=== PATIENT | male | born 1935 | race Caucasian/White ===

== ENCOUNTER → 2016-09-16 | Outpatient (REF) | payer MEDICARE, OTHER ==
[~2016-09-16] MED LIST: ALTA10CA OR; ASPI325T PO; ASPI81TA83 OR; AVOD0.5C OR; AVOD0.5C PO; ISOS30BRAN OR; ISOSORBIDE MON PO; LOPR50TA OR; LOPR50TA PO; Pradaxa PO; Ramipril PO; SIMV40TA2 PO; TRAM50TA2 OR; ZOCO40TA OR
[2016-09-19 13:04] LABS: TOTAL PROTEIN 6.1 GM/DL (6.4-8.2)
== END ==
LOC: M LAB REF 12:28
PROVIDERS: ATTEND Nurse Practitioner Family
DX: R06.02 Shortness of breath (principal)

== ENCOUNTER → 2017-09-05 | Outpatient (REF) | payer MEDICARE, OTHER | LOC: M LAB REF 15:25 | DX: L08.9 Local infection of the skin and subcutaneous tissue, unspecified (principal) | CPT/HCPCS: 87186 ==

== ENCOUNTER → 2018-01-29 | Outpatient (CLI) | payer MEDICARE, OTHER | LOC: M ADAMS 11:31 | DX: J84.9 Interstitial pulmonary disease, unspecified (principal) | CPT/HCPCS: 71046 ==

== ENCOUNTER → 2018-05-02 | Outpatient (REF) | payer MEDICARE, OTHER ==
[2018-05-02 13:52] LABS: PROSTATIC SPECIFIC AG MONITOR 0.29 NG/ML (< 4.0)
== END ==
LOC: M LABDRWAD 12:37
DX: N40.1 Benign prostatic hyperplasia with lower urinary tract symptoms (principal)
CPT/HCPCS: 84153

== ENCOUNTER → 2018-05-29 | Outpatient (CLI) | payer MEDICARE, OTHER | LOC: M PLARAD 11:49 | DX: R91.1 Solitary pulmonary nodule (principal) | CPT/HCPCS: 78815 ==

== ENCOUNTER 2018-07-23 16:46 | Emergency (ER) | payer MEDICARE, OTHER ==
[~2018-07-23] VITALS: Ht 177.8 cm; Wt 72.7 kg
[2018-07-23] MEDS ORDERED: FURO20TA2 PO (17:01)
[2018-07-23] MEDS ORDERED: DIGO0.12 PO (17:01)
[2018-07-23] MEDS ORDERED: SPIR-10 PO (17:01)
[2018-07-23] MEDS ORDERED: METO1TAB32 PO (17:01)
[2018-07-23 17:15] LABS: BASO # 0.1 10^3/uL (0.0-0.2); BASO % 0.7 % (0.0-1.0); EOS # 0.2 10^3/uL (0.0-0.50); EOS % 2.4 % (0.0-3.0); HEMOGLOBIN 14.4 g/dl (13.5-17.5); LYMPH # 1.1 10^3/uL (1.5-4.5); LYMPH % 15.8 % (24.0-44.0); MEAN CORPUSCULAR HEMOGLOBIN 31.2 pg (27.0-33.0); MEAN CORPUSCULAR HGB CONC 32.7 g/dl (32.0-36.5); MEAN CORPUSCULAR VOLUME 95.2 fl (80.0-96.0); MONO # 0.8 10^3/uL (0.0-0.8); MONO % 11.8 % (0.0-5.0); NEUTROPHILS # 4.7 10^3/uL (1.8-7.7); NEUTROPHILS % 68.7 % (36.0-66.0); PLATELET COUNT, AUTOMATED 161 10^3/uL (150-450); RED BLOOD COUNT 4.62 10^6/uL (4.30-6.10); WHITE BLOOD COUNT 6.8 10^3/uL (4.0-10.0)
[2018-07-23 17:22] LABS: INR 1.87; PROTHROMBIN TIME 21.9 SECONDS (12.1-14.4)
[2018-07-23 17:24] LABS: PARTIAL THROMBOPLASTIN TIME 58.9 SECONDS (25.4-37.6)
[2018-07-23] MEDS ORDERED: AMIODARONE HCL 150 MG in APPROPRIATE DILUENT 1 EA IV STA (17:34)
--- NOTE | 2018-07-23 17:56 | REP ---
Chest one-view HISTORY: Arrhythmia Comparison: 01/29/2018 A minimal increase in interstitial markings is present in the lower lobes consistent with chronic interstitial fibrosis. The heart is normal in size. The pulmonary vasculature is normal in appearance. A cardiac pacemaker is present. Impression: Bibasilar chronic interstitial fibrosis. Electronically Signed by Darwin Westfall MD 07/23/2018 05:47 P
[2018-07-23 18:07] LABS: CREATININE FOR GFR 1.4 MG/DL (0.70-1.30); GLOMERULAR FILTRATION RATE 51.3 (>35); MB/CK RELATIVE INDEX 4.23 (< OR =4); THYROID STIMULATING HORMONE 2.31 uIU/ML (0.358-3.740); TROPONIN I 0.14 NG/ML (< 0.10)
[2018-07-23 18:32] LABS: DIGOXIN LEVEL 0.7 NG/ML (0.5-2.0)
[2018-07-23] MEDS ORDERED: DABIGATRAN ETEXILATE 75 MG CAP (PRADAXA) PO ONE (19:15)
[2018-07-23 21:21] LABS: MB/CK RELATIVE INDEX 4.31 (< OR =4); TROPONIN I 0.18 NG/ML (< 0.10)
[2018-07-23 21:31] VITALS: BP 142/60
--- NOTE | 2018-07-24 19:49 | ECGEPIP ---
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
--- NOTE | 2018-07-24 19:51 | ECGEPIP ---
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
== END 2018-07-23 21:52 | disposition home or self-care (01) ==
LOC: M ED 16:46
DX: I48.91 Unspecified atrial fibrillation (principal); I49.9 Cardiac arrhythmia, unspecified; I10 Essential (primary) hypertension; E78.5 Hyperlipidemia, unspecified; Z95.0 Presence of cardiac pacemaker

== ENCOUNTER 2018-08-23 05:51 | Day surgery (SDC) | payer MEDICARE, OTHER ==
[~2018-08-23] VITALS: Ht 177.8 cm; Wt 71.7 kg
[~2018-08-23 05:51] MED LIST changes: +ASPI1TAB PO; +DIGO0.12 PO; +DUTA1CAP PO; +FURO20TA2 PO; +ISOS30TA4; +METO1TAB32 PO; +NITR0.4D6 TD; +PRAD150C PO; +SPIR-10 PO
[2018-08-23] MEDS ORDERED: LR 1,000 ML IV SCH (07:00)
[2018-08-23] MEDS ORDERED: BUPIVACAINE HCL 0.25% 30 ML VIAL As Ordered ONE (07:14)
[2018-08-23] MEDS ORDERED: LIDOCAINE 1% MDV 20ML VIAL As Ordered ONE (07:14)
[2018-08-23] MEDS ORDERED: PROPOFOL 200 MG/20 ML VIAL As Ordered ONE (07:48)
[2018-08-23] MEDS ORDERED: fentaNYL 100 MCG/2 ML INJECTION (J3010) As Ordered ONE (07:48)
[2018-08-23] MEDS ORDERED: ePHEDrine SULFATE 25 MG/5 ML(5MG/ML) SYRINGE As Ordered ONE (07:48)
[2018-08-23] MEDS ORDERED: diphenhydrAMINE INJ 50MG/ML VIAL (J1200) As Ordered ONE (07:48)
[2018-08-23] MEDS ORDERED: LIDOCAINE 2% INJ 100 MG/5 ML SDV (FOR ANES.) As Ordered ONE (07:48)
[2018-08-23] MEDS ORDERED: SEVOFLURANE INHAL SOLN 250 ML BTL As Ordered ONE (08:06)
[2018-08-23] MEDS ORDERED: PHENYLephrine HCL 500 MCG/5 ML (100MCG/ML) SYRINGE (J2370) As Ordered ONE (08:08)
[2018-08-23 10:14] VITALS: BP 105/63
--- NOTE | 2018-08-27 11:05 | RO ---
DATE OF PROCEDURE: 08/23/2018 PREOPERATIVE DIAGNOSIS: Right supraclavicular area lymphadenopathy with abnormal PET scan. POSTOPERATIVE DIAGNOSIS: Right supraclavicular area lymphadenopathy with abnormal PET scan. PROCEDURE PERFORMED: Open excisional biopsy of right supraclavicular lymph nodes. SURGEON: Dr. 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 The lung nodule did not light up on PET scan, but he was noted to have some significant uptake in an area of high right axillary nodes and soft tissue around the acromioclavicular joint area and into the supraclavicular area. A definite palpable node was felt along the superior aspect of the clavicle distally. He is now for biopsy of this node. OPERATIVE PROCEDURE: The patient was brought to the operating room and placed supine on the operating table. He received sedation from anesthesia. The patient's right neck, shoulder and upper chest were prepped and draped in a sterile fashion. Palpation revealed an approximately 2-2.5 cm flat enlarged lymph node adherent along the superior posterior border of the clavicle distally. Local anesthesia was achieved in the skin using 1% Xylocaine. An approximately 3-3.5 cm skin incision was made. This was deepened through a thin layer of subcutaneous tissues and then a muscle layer was opened and the tissues around the lymph node were opened. The subcutaneous tissues were peeled away from the node. A plane was then developed between the node and the superior aspect of the clavicle opening this avascular plane. Dissection proceeded primarily using the cautery to separate the node and this was removed. This was approximately 2.5 cm in length x 1.5 cm in width x approximately 6-7 mm maximally in thickness. This was placed in a small amount of saline and sent fresh to the pathology department for evaluation. The wound was inspected and hemostasis was ensured with the electrocautery. Once hemostasis was ensured, the muscle layer was approximated with interrupted simple sutures of #3-0 chromic. The skin edges were approximated with a running subcuticular #4-0 Vicryl and Steri-Strips. A light dressing was applied. The patient tolerated the procedure well without apparent complication. He was awakened and moved to advanced recovery in stable condition.
== END 2018-08-23 10:14 | disposition home or self-care (01) ==
LOC: M SDC 05:51
PROVIDERS: ATTEND Surgery
DX: C85.94 Non-Hodgkin lymphoma, unspecified, lymph nodes of axilla and upper limb (principal); R91.1 Solitary pulmonary nodule; I11.9 Hypertensive heart disease without heart failure; I25.2 Old myocardial infarction; I50.32 Chronic diastolic (congestive) heart failure; I48.0 Paroxysmal atrial fibrillation; Z95.0 Presence of cardiac pacemaker; Z79.01 Long term (current) use of anticoagulants; Z88.0 Allergy status to penicillin; Z79.82 Long term (current) use of aspirin; Z79.899 Other long term (current) drug therapy; N40.0 Benign prostatic hyperplasia without lower urinary tract symptoms; E78.00 Pure hypercholesterolemia, unspecified; F32.9 Major depressive disorder, single episode, unspecified
CPT/HCPCS: 38500; 88305; 88331; J1200; J2370; J3010

== ENCOUNTER 2018-10-12 07:21 | Emergency (ER) | payer MEDICARE, OTHER ==
[~2018-10-12] VITALS: Ht 177.8 cm; Wt 72.7 kg
[~2018-10-12 07:21] MED LIST changes: -ASPI1TAB PO; +ASPI81TA26 PO; -PRAD150C PO; +PRAD150C6 PO
[2018-10-12 08:45] LABS: BASO % 0.7 % (0.0-1.0); EOS # 0.3 10^3/uL (0.0-0.50); HEMATOCRIT 39.1 % (42.0-52.0); HEMOGLOBIN 12.8 g/dl (13.5-17.5); LYMPH # 0.8 10^3/uL (1.5-4.5); LYMPH % 14.2 % (24.0-44.0); MEAN CORPUSCULAR HEMOGLOBIN 30.8 pg (27.0-33.0); MEAN CORPUSCULAR HGB CONC 32.7 g/dl (32.0-36.5); MEAN CORPUSCULAR VOLUME 94.2 fl (80.0-96.0); MONO # 0.8 10^3/uL (0.0-0.8); MONO % 13.4 % (0.0-5.0); NEUTROPHILS # 3.7 10^3/uL (1.8-7.7); NEUTROPHILS % 66.3 % (36.0-66.0); PLATELET COUNT, AUTOMATED 163 10^3/uL (150-450); RED BLOOD COUNT 4.15 10^6/uL (4.30-6.10); WHITE BLOOD COUNT 5.6 10^3/uL (4.0-10.0)
[2018-10-12 09:00] LABS: BLOOD UREA NITROGEN 16 MG/DL (7-18); CALCIUM LEVEL 8.6 MG/DL (8.8-10.2); CARBON DIOXIDE LEVEL 25 MEQ/L (21-32); CHLORIDE LEVEL 110 MEQ/L (98-107); CREATININE FOR GFR 1.12 MG/DL (0.70-1.30); GLOMERULAR FILTRATION RATE > 60.0 (>35); GLUCOSE, FASTING 90 MG/DL (70-100); POTASSIUM SERUM 3.8 MEQ/L (3.5-5.1); SODIUM LEVEL 141 MEQ/L (136-145)
[2018-10-12 09:35] LABS: CPK CREATINE PHOSPHOKINASE 65 U/L (39-308); MB/CK RELATIVE INDEX 3.85 (< OR =4); NT-PRO BNP 2110 PG/ML (<450); TROPONIN I 0.07 NG/ML (< 0.10)
--- NOTE | 2018-10-12 09:51 | REP ---
At x-ray: Two views. History: Progressive cough. Dyspnea on exertion. Comparison chest x-ray: July 23, 2018. Findings: A bipolar pacemaker remains in the heart via the left side. EKG electrodes are seen. The lungs are symmetrically aerated. Interstitial markings are prominent in the bases bilaterally. There is very slight blunting of the right lateral and both pleural angles posteriorly. Size is borderline. Cardiothoracic ratio is 48.8 percent. No bony abnormality is seen. Impression: Borderline heart size with pacemaker. Increased bibasilar interstitial markings unchanged. Slight blunting of the pleural angles. Electronically Signed by Jerome Grullon MD 10/12/2018 09:43 A
[2018-10-12 11:36] VITALS: BP 148/81
--- NOTE | 2018-10-12 20:30 | ECGEPIP ---
Stationary ECG Study 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
== END 2018-10-12 12:17 | disposition home or self-care (01) ==
LOC: M ED 07:21
DX: I50.9 Heart failure, unspecified (principal); I48.91 Unspecified atrial fibrillation; I25.10 Atherosclerotic heart disease of native coronary artery without angina pectoris; I25.2 Old myocardial infarction; E78.5 Hyperlipidemia, unspecified; Z79.899 Other long term (current) drug therapy; Z86.73 Personal history of transient ischemic attack (TIA), and cerebral infarction without residual deficits; Z85.9 Personal history of malignant neoplasm, unspecified; Z98.890 Other specified postprocedural states; Z91.041 Radiographic dye allergy status; Z88.0 Allergy status to penicillin; Z91.02 Food additives allergy status

== ENCOUNTER → 2018-12-17 | Outpatient (CLI) | payer MEDICARE, OTHER ==
[~2018-12-17] MED LIST changes: +ATIV1TAB10 PO; +DILT60TA PO; +READI-CAT 2 As Ordered ONE; +ROSU10TA5 PO; +ZYRTTAB8 PO
--- NOTE | 2018-12-17 18:20 | REP ---
CT CHEST WITHOUT IV CONTRAST: CT chest was performed without IV contrast. Sagittal and coronal reconstruction images are performed. Comparison is major depressive episode with prior study of 02/24/2018. There is right axillary adenopathy which has increased since prior study. Beneath the pectoralis minor a dominant enlarged lymph node laterally measures 2.7 x 1.4 cm. Slightly more medially and superiorly there are two adjacent lymph nodes measuring 1.7 and 1.5 cm. These have increased in size since the prior study. Adjacent axillary vein appears dilated. There are a few left axillary lymph nodes which are subcentimeter in size. Several subcentimeter mediastinal lymph nodes are present. These appear fairly similar to prior CT exam. Heart is not significantly enlarged. There is no pleural or pericardial effusion. Multiple tiny calcified granulomas are scattered throughout the right upper lobe. Moderate fibrotic changes and bronchiectasis is seen in the right lower lobe. In addition there is a stable 6 mm nodule in the right lower lobe. Left lower lobe also demonstrates moderate fibrotic change and bronchiectasis. There are degenerative changes of the spine. IMPRESSION: New right axillary adenopathy. Multiple subcentimeter mediastinal and left axillary lymph nodes are stable. Stable chronic findings in the lungs. Electronically Signed by Minesh Biswas MD 12/18/2018 12:43 P
--- NOTE | 2018-12-17 18:31 | REP ---
CT ABDOMEN AND PELVIS WITHOUT IV CONTRAST: CT abdomen and pelvis was performed without IV contrast. Oral contrast was administered. Saggital and coronal reconstruction images are performed. The liver, spleen, adrenals, pancreas and kidneys are grossly unremarkable. There is no hydronephrosis. There is atherosclerotic calcification of the abdominal aorta without aneurysm. A large mass is seen in the left pelvis along the side wall measuring approximately 6.1 x 3.2 cm. Superior to this along the left external iliac and common iliac vessels there are multiple mildly enlarged lymph nodes. Some are subcentimeter is size and others measures between 1 and 2 cm in diameter. In the left inguinal region are several subcentimeter lymph nodes present. There is no free air or free fluid. No bowel wall thickening is seen. There is sigmoid diverticulosis. Urinary bladder is not well distended and not well evaluated IMPRESSION: Large soft-tissue mass along the left pelvic sidewall 6.1 x 3.2 cm. There is a adjacent left common iliac and external iliac adenopathy. Electronically Signed by Minesh Biswas MD 12/18/2018 12:43 P
== END ==
LOC: M RAD 14:13
PROVIDERS: ATTEND Internal Medicine Medical Oncology
DX: C82.90 Follicular lymphoma, unspecified, unspecified site (principal)

== ENCOUNTER → 2019-02-19 | Outpatient (CLI) | payer MEDICARE, OTHER ==
[~2019-02-19] MED LIST changes: +LEVO500T3 PO; -READI-CAT 2 As Ordered ONE; -ROSU10TA5 PO; +ROSU10TA6 PO
--- NOTE | 2019-02-20 08:46 | REP ---
PET/CT: History: Staging follicular lymphoma. 2-month interval surveillance to assess whether treatment should be started. Comparisons: Comparison PET/CT study May 29, 2018. TECHNIQUE: 71 minutes following the intravenous injection of a 9.26 mCi dose of F-18 FDG, three-dimensional PET scintigraphy is acquired from the skull base to the proximal thighs. Triplanar noncontrast CT scanning is acquired through the same anatomic range for attenuation correction, and image registration with scan parameters optimized to minimize radiation exposure to the patient. PET scintigraphy and CT datasets were fused and displayed on a workstation with multiplanar and projection display capability. PET/CT Findings: Right supraclavicular lymphadenopathy remains hypermetabolic and essentially unchanged. Maximum standard uptake value 30.99. Right axillary hypermetabolic adenopathy is seen and this appears a little more prominent. SUV 14.59. No alveolar infiltrate in the right lower lobe with mildly hypermetabolic uptake consistent with pneumonia. Maximum standard uptake value 3.73. There has been an interval increase in the size and extent of the distal periaortic lymphadenopathy and left pelvic sidewall lymphadenopathy. There is new hypermetabolic polo uptake in the right common iliac lymph node chain. The left pelvic sidewall iliac adenopathy has become more bulky and remains quite hypermetabolic. Maximum standard uptake value 21.1. Impression: 1. There is evidence of progressive hypermetabolic adenopathy in the right and left pelvis and in the distal periaortic lymph node chains. There is some increase in right axillary adenopathy. 2. A new infiltrate is seen in the right lower lobe consistent with pneumonia. Electronically Signed by Jerome Grullon MD 02/20/2019 09:15 A
== END ==
LOC: M PLARAD 08:00
PROVIDERS: ATTEND Internal Medicine Medical Oncology
DX: C82.91 Follicular lymphoma, unspecified, lymph nodes of head, face, and neck (principal)
CPT/HCPCS: 78815; A9552

== ENCOUNTER → 2019-02-27 | Outpatient (CLI) | payer MEDICARE, OTHER ==
--- NOTE | 2019-02-27 21:47 | ECHO ---
DATE OF PROCEDURE: 02/27/2019 REFERRING PHYSICIAN: Dr. Darlene Iqbal PATIENT LOCATION: REASON FOR ECHOCARDIOGRAM: Non-Hodgkin lymphoma, chemotherapy drug monitoring. 2D MEASUREMENTS: IVS: 1.3 cm LV: 4.5 cm LVPW: 1.4 cm LA: 4.5 cm Aorta: 4.0 cm RV: 2.6 cm IVC: 1.1 cm DOPPLER MEASUREMENTS: Peak velocity across the aortic valve: 1.4 m/s Peak velocity across the LVOT: 1.8 m/s Mitral E: 0.82 Maximum tricuspid valve velocity: 3.1 m/s 2D COMMENTS: 1. Normal left ventricular size with mildly increased left ventricular wall thickness. Left ventricular systolic function is normal, estimated at 60%. 2. Mildly enlarged left atrium. Mildly dilated right atrium. Normal right ventricle. 3. The atrial septum appeared to be normal without evidence of defect or shunt. 4. Mildly enlarged aortic root at 4.0 cm. 5. Trace pericardial effusion noted, no evidence of cardiac tamponade. 6. Mildly calcified aortic valve with normal leaflet excursion. Mildly calcified mitral annulus with normal anterior mitral valve leaflet motion. Normal tricuspid valve and pulmonic valve. The proximal pulmonary artery branches also appeared to be normal. 7. The inferior vena cava was normal in size, central venous pressure is most likely normal. DOPPLER: It detects mild aortic regurgitation, mild mitral regurgitation, moderate tricuspid regurgitation, and mild pulmonic regurgitation. The calculated pulmonary artery systolic pressure varies between 40 to 50 mmHg. Assessment of the left ventricular diastolic function was limited in view of the underlying atrial fibrillation. IMPRESSION: 1. Normal global left ventricular systolic function with mild concentric left ventricular hypertrophy. Assessment of the left ventricular systolic function was limited in view of the underlying atrial fibrillation. 2. Aortic valve sclerosis with mild aortic regurgitation but no aortic stenosis. 3. A mildly dilated aortic root was noted at 4.0 cm. 4. Mildly enlarged left atrium with mitral annulus calcification and mild mitral regurgitation. 5. Moderate tricuspid regurgitation with moderate pulmonary hypertension. 6. Mild pulmonic regurgitation. 7. Trace pericardial effusion was noted, no evidence of cardiac tamponade. 8. Pacemaker wire artifacts noted in the right heart chambers. 9. The global longitudinal strain was reported to be 11.4%, below normal.
== END ==
LOC: M CARPUL 09:09
PROVIDERS: ATTEND Internal Medicine Medical Oncology
DX: C82.90 Follicular lymphoma, unspecified, unspecified site (principal); I25.2 Old myocardial infarction; I10 Essential (primary) hypertension; E78.49 Other hyperlipidemia

== ENCOUNTER → 2019-03-12 | Outpatient (REF) | payer MEDICARE, OTHER ==
[~2019-03-12] MED LIST changes: +NITR0.4S14 SL; +ONDA8TAB7 PO; +PRED10TA2 PO; +PROC10TA4 PO
== END ==
LOC: M LAB REF 17:00
PROVIDERS: ATTEND Internal Medicine
DX: I48.0 Paroxysmal atrial fibrillation (principal)

== ENCOUNTER → 2019-04-29 | Outpatient (CLI) | payer MEDICARE, OTHER ==
[~2019-04-29] MED LIST changes: +DILT30TA PO; +READI-CAT 2 As Ordered ONE
--- NOTE | 2019-04-29 13:39 | REP ---
REASON FOR EXAM: History of lymphoma. All priors were reviewed, the latest of which is dated 12/17/2018. The lack of intravenous contrast administration decreases the sensitivity of the examination. The mediastinum and pulmonary shannan are stable. Multiple nonenlarged lymph nodes are noted, status quo. There is a small right pleural effusion which has developed since the latest prior exam of 12/17/2018. Bone window technique throughout the exam shows the imaged osseous structures to have a stable appearance. The imaged upper abdomen has not changed significantly compared to the prior exam. Right axillary adenopathy seen on the latest prior examination has improved. Only a few lymph nodes are now pathologically enlarged. Evaluation of the lung summers shows scattered ground-glass opacities representing a change from the prior exam without evidence of a new abnormal nodule or spiculated lesion. There is cylindrical bronchiectasis, status quo. There is basilar fibrotic change, status quo. Note is again made of a dual-chamber bipolar pacemaker, status quo. IMPRESSION: 1. Improved adenopathy, as described above. 2. Lung field findings as described above suggestive of subsegmental atelectatic change. This should be correlated clinically and if necessary obtain a followup exam. 3. There is cylindrical bronchiectasis, status quo. 4. There is a new but small right pleural effusion. This should be followed up as per clinical relevance. 5. Other findings as described above. Electronically Signed by Ravi Garcia DO 04/29/2019 04:42 P
--- NOTE | 2019-04-29 14:34 | REP ---
REASON FOR EXAM: History of lymphoma. COMPARISON: Multiple, the latest 12/17/2018. The lack of intravenous contrast decreases the sensitivity of the exam. For the description of the lung bases, see the CT of the chest report made the same day. Limited evaluation of the solid intra-abdominal organs and gallbladder show no gross abnormalities or significant changes from the prior exam. Limited evaluation of the pancreas, adrenal glands and kidneys show no gross abnormalities or significant changes from the prior exam. Limited evaluation of the abdominal aorta and para-aortic regions show no gross abnormalities or significant changes from the prior exam. Scattered para-aortic lymph nodes show are noted, status quo. Limited evaluation of the bowel loops and their mesenteries show no gross abnormalities or significant changes from the prior exam. There is no free fluid or free air in the abdomen. There is no evidence of an intra-abdominal mass or adenopathy. CT PELVIS: There is sigmoid colon diverticulosis. The marked left hemipelvic sidewall adenopathy seen on the prior exam has improved slightly. There is no free fluid or free air. Bone window technique throughout the exam shows chronic changes involving the spine and hips. IMPRESSION: The left hemipelvic sidewall adenopathy seen on the prior examination of 12/17/2018 appears to have improved somewhat. There is no acute intra-abdominal or intrapelvic disease. Findings as described above. Electronically Signed by Ravi Garcia DO 04/29/2019 04:43 P
== END ==
LOC: M RAD 09:29
PROVIDERS: ATTEND Internal Medicine Medical Oncology
DX: C85.90 Non-Hodgkin lymphoma, unspecified, unspecified site (principal); J90 Pleural effusion, not elsewhere classified; J47.9 Bronchiectasis, uncomplicated

== ENCOUNTER 2019-04-30 12:40 | Inpatient (IN) | payer MEDICARE, OTHER ==
[~2019-04-30] VITALS: Ht 172.7 cm; Wt 64.4 kg
[~2019-04-30 12:40] MED LIST changes: -DILT30TA PO; -READI-CAT 2 As Ordered ONE
[2019-04-30 13:40] LABS: BASO # 0.1 10^3/uL (0.0-0.2); BASO % 0.6 % (0.0-1.0); EOS # 0.2 10^3/uL (0.0-0.5); EOS % 1.9 % (0.0-3.0); HEMATOCRIT 27.9 % (42.0-52.0); HEMOGLOBIN 9.1 g/dl (13.5-17.5); LYMPH # 0.5 10^3/uL (1.5-5.0); LYMPH % 6.2 % (24.0-44.0); MEAN CORPUSCULAR HEMOGLOBIN 30.5 pg (27.0-33.0); MEAN CORPUSCULAR HGB CONC 32.6 g/dl (32.0-36.5); MEAN CORPUSCULAR VOLUME 93.6 fl (80.0-96.0); MONO # 1.3 10^3/uL (0.0-0.8); MONO % 16.2 % (0.0-5.0); NEUTROPHILS # 5.6 10^3/uL (1.5-8.5); NEUTROPHILS % 71.3 % (36.0-66.0); PLATELET COUNT, AUTOMATED 221 10^3/uL (150-450); RED BLOOD COUNT 2.98 10^6/uL (4.30-6.10); WHITE BLOOD COUNT 7.9 10^3/uL (4.0-10.0)
[2019-04-30] MEDS ORDERED: ALBUTEROL SULFATE 2.5 MG/0.5 ML INH NEB SOLN INH ONE (14:30)
[2019-04-30] MEDS ORDERED: IPRATROPIUM 0.5MG/ALBUTEROL 2.5MG INH SOL UD 3ML (DUONEB)(J7620) NEB ONE (14:30)
--- NOTE | 2019-04-30 14:41 | ECGEPIP ---
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
[2019-04-30 14:42] LABS: ALBUMIN 2.9 GM/DL (3.2-5.2); ALT/SGPT 28 U/L (12-78); BILIRUBIN,DIRECT 0.3 MG/DL (0.0-0.2); BILIRUBIN,TOTAL 0.9 MG/DL (0.2-1.0); BLOOD UREA NITROGEN 21 MG/DL (7-18); CALCIUM LEVEL 8.6 MG/DL (8.8-10.2); CARBON DIOXIDE LEVEL 23 MEQ/L (21-32); CHLORIDE LEVEL 108 MEQ/L (98-107); CK-MB VALUE MASS 1.9 NG/ML (<3.6); CPK CREATINE PHOSPHOKINASE 64 U/L (39-308); CREATININE FOR GFR 1.04 MG/DL (0.70-1.30); DIGOXIN LEVEL 1.6 NG/ML (0.5-2.0); GLOMERULAR FILTRATION RATE > 60.0 (>35); GLUCOSE, FASTING 122 MG/DL (70-100); MB/CK RELATIVE INDEX 2.97 (< OR =4); NT-PRO BNP 4590 PG/ML (<450); POTASSIUM SERUM 3.9 MEQ/L (3.5-5.1); SODIUM LEVEL 139 MEQ/L (136-145); TOTAL PROTEIN 5.5 GM/DL (6.4-8.2)
[2019-04-30 15:20] LABS: ABG BASE EXCESS -2.5 (-2.0-2.0); ABG HCO3 19.5 MEQ/L (22.0-26.0); ABG O2 SATURATION 97.8 % (95.0-99.0); ABG PARTIAL PRESSURE CO2 24.8 mmHg (35.0-45.0); ABG PARTIAL PRESSURE O2 105.5 mmHg (75.0-100.0); ABG STANDARD HCO3 22.4 MEQ/L (22.0-26.0); ABG TOTAL CO2 20.2 MEQ/L (23.0-31.0); ABG pH (ARTERIAL) 7.513 UNITS (7.350-7.450)
--- NOTE | 2019-04-30 15:42 | REP ---
CHEST, SINGLE VIEW: Single view of the chest is performed and compared to prior study of 10/12/2018. The heart is upper limits of normal in size. Increased interstitial markings in the lung bases are again noted, unchanged. No new consolidating infiltrate is seen. There is calcification and tortuosity of the thoracic aorta. Left dual lead pacemaker is again noted. IMPRESSION: Stable chronic changes. Electronically Signed by Minesh Biswas MD 05/01/2019 12:28 P
[2019-04-30] MEDS ORDERED: DILT30TA PO (16:23)
[2019-04-30] MEDS ORDERED: PRED10TA2 PO (16:23)
[2019-04-30] MEDS ORDERED: FURO20TA2 PO (16:24)
[2019-04-30] MEDS ORDERED: ACETAMINOPHEN TAB 650MG DOSE (2X325MG) PO PRN (16:30)
[2019-04-30] MEDS ORDERED: ONDANSETRON 4 MG TAB (S0181) PO PRN (17:00)
[2019-04-30] MEDS ORDERED: PROCHLORPERAZINE 5 MG TAB (S0183) PO PRN (17:00)
[2019-04-30] MEDS ORDERED: NITROGLYCERIN 0.4 MG SUBL TABLET SL PRN (17:00)
[2019-04-30] MEDS ORDERED: predniSONE 10 MG TAB PO SCH (17:00)
[2019-04-30] MEDS ORDERED: BENZONATATE 100 MG CAP PO PRN (17:45)
--- NOTE | 2019-04-30 17:59 | HPEPDOC ---
[facility] Medical History & Physical Date of Admission Apr 30, 2019 Date of Service: Apr 30, 2019 Attending Physician: CIRO PELLETIER MD History and Physical CHIEF COMPLAINT: Shortness of Breath HISTORY OF PRESENT ILLNESS: Misael Stubbs is an 83 YO M with history of DLBCL non-Hodgkin's lymphoma with follicular/DLBCL, CHF (with pacemaker, last EF60%), Atrial fibrillation (on Pradaxa) who presented to the emergency room with complaint of shortness of breath. The patient has had this shortness of breath for 6 weeks. He states that he spends most of his days sitting as he has low energy levels and it is difficult for him to complete daily tasks. He also complains of cough with production of scant hemoptysis that can sometimes cause him to feel extremely weak, and the feeling of always being cold. Otherwise, he denies any fevers, chills, sick contacts, recent illnesses. He is not complaining of any dark tarry stools or blood in his stool. In addition, he follows with Dr. Osorio for his atrial fibrillation and congestive heart failure (pacemaker placement in 2015), for which she intermittently gets subjectively fluid overloaded with lower extremity edema and weight gain. He increases his Lasix as needed. In the emergency room. He is found to be anemic with a hemoglobin of 9.1, positive rhinovirus, and have a BNP of 4590. PAST MEDICAL HISTORY: 1. 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 Right axillary, left inguinal, pelvic bulky progression in December 2018. Now on mini R-CHOP 2. Subcentimeter right lung nodules followed by Dr. Lawson of pulmonology 3. CAD status post NSTEMI in 2010; 2015 cardiac cath 80% occlusion at D1, otherwiseno coronary occlusion. 4. CVA 2011. 5. Left atrial thrombus 2011 on echo. 6. Hypertension. 7. Atrial fibrillation. 8. BPH. 9. CHF (diastolic). Last echo 02/2019. EF60% 10. Hypercholesterolemia. 11. Microhematuria. 12. Gout. PAST SURGICAL HISTORY: Cardiac catheterization 2010 and 2016 vasectomy tonsillectomy loop recorder 2016 permanent pacemaker 2016 cataract surgery skin cancer removal SOCIAL HISTORY: Lives at home with . Never smoker. Occasional alcohol use FAMILY HISTORY: Reviewed and is currently non-contributory to this current hospitalization ALLERGIES: Please see below. REVIEW OF SYSTEMS: CONSTITUTIONAL: Reports difficulty exerting himself due to his shortness of breath HEENT: denies vision changes, no sinus problems, denies any trouble swallowing CARDIOVASCULAR: no palpitations RESPIRATORY: Reports shortness of breath at rest and with activity GENITOURINARY: No dysuria MUSCULOSKELETAL: Denies any joint/muscle pain GASTROINTESTINAL: Denies abdominal pain, no nausea/vomiting/diarrhea SKIN: No new rashes or lesions NEUROLOGICAL: No loss of sensation PSYCHIATRIC: Reports normal mood, no delusions or hallucinations ENDOCRINE: No hot/cold intolerance HEMATOLOGIC/LYMPHATIC: No easy bruising, no lumps/bumps ALLERGIC/IMMUNOLOGIC: No sinus symptoms HOME MEDICATIONS: Please see below. PHYSICAL EXAMINATION: VITAL SIGNS: Please see below. GENERAL APPEARANCE: Laying in bed, appears stated age, no acute distress, calm, cooperative HEENT: Dry mucous membranes, EOMI, PERRLA, conjunctival pallor is noted, neck is supple with no thyromegaly or lymphadenopathy RESPIRATORY: Lungs are clear to auscultation bilaterally with no adventitious breath sounds appreciated CARDIOVASCULAR: JVD is normal at 10 cm from sternal angle, RRR,no murmurs/rubs/gallops ABDOMEN: Soft, nontender to palpation in all four quadrants, no masses/o rganomegaly EXTREMITIES: no clubbing, cyanosis or edema noted NEUROLOGICAL: No obvious focal deficits PSYCHIATRIC: normal mood/affect Skin: No rashes or ulcers, Capillary refill is normal LN: No significant cervical or inguinal lymphadenopathy LABORATORY DATA: See below. IMAGING: CXR: The heart is upper limits of normal in size. Increased interstitial markings in the lung bases are again noted, unchanged. No new consolidating infiltrate is seen. There is calcification and tortuosity of the thoracic aorta. Left dual lead pacemaker is again noted. MICROBIOLOGY: Please see below. ASSESSMENT: Misael Stubbs is a 83 YO M with history of DLBCL, CHF and AF who presents with 6 weeks of shortness of breath in the setting of ongoing chemotherapy (R-CHOP) found to be anemic with hemoglobin of 9.1. PLAN: 1. Shortness of breath: Patient reports his shortness of breath has been present for about 6 weeks in the setting of his ongoing chemotherapy treatment. He is unable to exert himself very much due to his shortness of breath. He recently began coughing with enough force to produce scant hemoptysis. He is not producing any sputum. Shortness of breath, most likely attributed to anemia seco ndary to chemotherapy, versus less likely CHF exacerbation, versus less likely pneumonia. -Chest x-ray negative for any acute process -Patient is Afebrile with normal WBC, less likely PNA -Hgb 9.1 down from baseline 13-14. Type and cross ordered if needed. -Tessalon Pearls for Cough -DuoNebs as needed 2. Anemia: patient denies black/tarry stools, BRBPR, melena. He does report scant hemoptysis. Most likely 2/2 his R-CHOP chemotherapy regimen but will do full workup to r/o GIB vs BM suppression -Will transfuse for Hgb < 7 -Hemolysis labs ordered: LDH, haptoglobin, reticulocyte count, peripheral smear -Iron levels ordered 3. Chronic diastolic CHF: Patient does not appear acutely fluid overloaded on exam but does have elevated BNP at 4590. He does report some weight fluctuation at this point compared to pre-treatment weight, mostly that he has gained weight. He self-titrates his Lasix at home. -Will start patient on 40mg PO Lasix BID for now -Strict I/O and Daily weights. 4. Atrial Fibrillation: Patient's HR in 80s. EKG without changes from prior. -Continue Pradaxa for anticoagulation -Continue Diltiazem 30mg TID for rate control -Continue Digoxin 0.125 mg PO daily. Digoxin level WNL 5. DLBC non-Hodgkin's lymphoma: -Follows with Dr. Darlene Iqbal. Next cycle of chemo scheduled for 05/02. He was recently seen by her on 04/[address] chest and CT abd/pelvis for restaging. -Known lung nodule followed by Dr. Lawson -currently undergoing R-CHOP therapy (Cyclophosphamide, Doxorubicin, Vincristine, Prednisone) + Rituximab. Anemia is a known side effect of R-CHOP and current recommendations state transfusion for Hgb <7 appropriate with goal to keep hgb between 8 and 9. -Continue Compazine for nausea 6. History of CAD: -Continue Rosuvastatin -Nitroglycerin PRN for anginal pain 7. BPH: -Continue Dutasteride DISPO: Pending anemia workup Vital Signs Vital Signs Date Time Temp Pulse Resp B/P (MAP) Pulse Ox O2 Delivery O2 Flow Rate FiO2 04/30/19 14:48 20 04/30/19 14:15 99.7 84 104/51 (68) 97 Nasal Cannula 3.0 Laboratory Data Labs 24H Laboratory Tests 2 04/30/19 13:16: Immature Granulocyte % (Auto) 3.8H, Neutrophils (%) (Auto) 71.3H, Lymphocytes (%) (Auto) 6.2L, Monocytes (%) (Auto) 16.2H, Eosinophils (%) (Auto) 1.9, Basophils (%) (Auto) 0.6, Neutrophils # (Auto) 5.6, Lymphocytes # (Auto) 0.5L, Monocytes # (Auto) 1.3H, Eosinophils # (Auto) 0.2, Basophils # (Auto) 0.1, Nucleated Red Blood Cells % (auto) 0.6H, Anion Gap 8, Glomerular Filtration Rate > 60.0, Lactic Acid Level 2.0, Calcium Level 8.6L, Total Bilirubin 0.9, Direct Bilirubin 0.3H, Aspartate Amino Transf (AST/SGOT) 20, Alanine Aminotransferase (ALT/SGPT) 28, Alkaline Phosphatase 66, Total Creatine Kinase 64, Creatine Kinase MB 1.9, Creatine Kinase MB Relative Index 2.97, Troponin I 0.10, FA-Ttx-T-Type Natriuretic Peptide 4590H, Total Protein 5.5L, Albumin 2.9L, Albumin/Globulin Ratio 1.12, Thyroid Stimulating Hormone (TSH) 1.170, Thyroxine (T4) 7.0, Digoxin Level 1.6 04/30/19 15:10: Blood Gas Bicarbonate Standard 22.4, Arterial Blood pH 7.513H, Arterial Blood Partial Pressure CO2 24.8L, Arterial Blood Partial Pressure O2 105.5H, Arterial Blood Total CO2 20.2L, Arterial Blood HCO3 19.5L, Arterial Blood Base Excess - 2.5L, Arterial Blood Oxygen Saturation 97.8 CBC/BMP Laboratory Tests 04/30/19 13:16 Microbiology Microbiology 04/30/19 Respiratory Virus Panel (PCR) ([facility]) - Final, Complete Human Rhinovirus/Enterovirus 04/30/19 Blood Culture, Received Pending 04/30/19 Blood Culture, Received Pending Home Medications Scheduled Dabigatran Etexilate Mesylate (Pradaxa) 150 Mg Cap, 150 MG PO BID Digoxin (Digoxin) 125 Mcg Tab, 125 MCG PO DAILY Diltiazem HCl (Diltiazem HCl) 30 Mg Tablet, 30 MG PO TID Dutasteride (Dutasteride) 0.5 Mg Cap, 0.5 MG PO DAILY Furosemide (Furosemide) 20 Mg Tab, 20 MG PO DAILY Prednisone (Prednisone) 10 Mg Tablet, 70 MG PO ASDIRECTED TAKES ON DAY 1-5 OF 21 DAY CHEMO CYCLE. LAST DOSE WAS DAY 5 ON 04/15/19 Rosuvastatin Calcium (Rosuvastatin Calcium) 10 Mg Tablet, 10 MG PO QHS Scheduled PRN Furosemide (Furosemide) 20 Mg Tablet, 20 MG PO ASDIRECTED PRN for EDEMA TAKES IN ADDITION TO 20MG DAILY DOSE IF PT HAS EXTRA FLUID Nitroglycerin (Nitroglycerin) 0.4 Mg Tab.subl, 0.4 MG SL Q5MP PRN for CHEST PAIN 1st sign of attack; may repeat every 5 mins; if pain persists after 3 in 15 min, medical attention is recommended Ondansetron HCl (Ondansetron HCl) 8 Mg Tablet, 8 MG PO Q6H PRN for NAUSEA OR VOMITING Prochlorperazine Maleate (Prochlorperazine Maleate) 10 Mg Tablet, 10 MG PO Q8HP PRN for NAUSEA OR VOMITING Allergies Coded Allergies: Contrast Media (Verified Allergy, Severe, 10/12/18) had reaction even after he had premedication Penicillins (Verified Allergy, Intermediate, RASH, 10/12/18) A-FIB/CHADSVASC A-FIB History Current/History of A-Fib/PAF?: Yes Current PO Anticoag Therapy: Yes Age/Risk Factor Scoring CHADSVASC: CHADSVASC Response (Comments) Value Age Risk Factor Age >/= 75 years old 2 Gender Risk Factor Male 0 Hx of CHF Yes 1 Hx of HTN Yes 1 Hx of Stroke/TIA/or VTE Yes 2 Hx of Diabetes No 0 Hx of Vascular Disease Yes 1 Total 7 Treatment Treatment ordered: Dabigatran GME ATTESTATION GME ATTESTATION My faculty preceptor for this patient encounter was physically present during the encounter and was fully available. All aspects of the patient interview, examination, medical decision making process, and medical care plan development were reviewed and approved by the faculty preceptor. The faculty preceptor is aware and concurs with the plan as stated in the body of this note and will attest to such by his/her cosignature. ATTENDING NOTE I, Ciro Pelletier, have independently examined this patient and performed my own physical exam, as well as reviewed the documentation and edited where necessary. I have discussed in detail with the resident / student the findings and plan of treatment as documented by the resident / student and edited their note. I agree with their findings and treatment plan and have edited their documentation. I will continue to follow the patient during this hospital stay. AUSTYN PAINTER MD Apr 30, 2019 17:59 CIRO PELLETIER MD May 01, 2019 14:25
[2019-04-30 18:00] LABS: PERCENT SATURATION 9.8 % (19.7-50.0)
[2019-04-30 20:00] VITALS: BP 126/62
[2019-04-30 20:36] LABS: PHOSPHORUS LEVEL 2.9 MG/DL (2.5-4.9)
[2019-04-30] MEDS ORDERED: SLF 3 ML SYR IV PRN (20:45)
[2019-04-30] MEDS: ROSUVASTATIN 10 MG TAB (CRESTOR) PO SCH (20:50)
[2019-04-30] MEDS: DABIGATRAN ETEXILATE 75 MG CAP (PRADAXA) PO SCH (20:50)
[2019-04-30] MEDS: DOCUSATE SODIUM 100 MG CAP PO SCH (20:50)
[2019-04-30] MEDS: SLF 3 ML SYR IV SCH (22:00)
[2019-05-01] VITALS (13 sets, daily range): BP systolic 103–135; BP diastolic 51–95
[2019-05-01] MEDS: SLF 3 ML SYR IV SCH ×3 (05:33→21:12)
[2019-05-01 05:48] LABS: HEMOGLOBIN 8.5 g/dl (13.5-17.5); MEAN CORPUSCULAR HEMOGLOBIN 30.6 pg (27.0-33.0); MEAN CORPUSCULAR HGB CONC 32.7 g/dl (32.0-36.5); MEAN CORPUSCULAR VOLUME 93.5 fl (80.0-96.0); PLATELET COUNT, AUTOMATED 183 10^3/uL (150-450); RED BLOOD COUNT 2.78 10^6/uL (4.30-6.10); WHITE BLOOD COUNT 7.2 10^3/uL (4.0-10.0)
[2019-05-01 06:15] LABS: BLOOD UREA NITROGEN 16 MG/DL (7-18); CALCIUM LEVEL 8.4 MG/DL (8.8-10.2); CARBON DIOXIDE LEVEL 23 MEQ/L (21-32); CHLORIDE LEVEL 109 MEQ/L (98-107); CREATININE FOR GFR 0.98 MG/DL (0.70-1.30); GLOMERULAR FILTRATION RATE > 60.0 (>35); GLUCOSE, FASTING 92 MG/DL (70-100); MAGNESIUM LEVEL 2.2 MG/DL (1.8-2.4); POTASSIUM SERUM 4.1 MEQ/L (3.5-5.1); SODIUM LEVEL 139 MEQ/L (136-145)
[2019-05-01] MEDS: FUROSEMIDE 40 MG/4 ML VIAL (J1940) IV SCH ×2 (08:56→17:00)
[2019-05-01] MEDS: DUTASTERIDE 0.5 MG CAP (AVODART) PO SCH (08:56)
[2019-05-01] MEDS: DOCUSATE SODIUM 100 MG CAP PO SCH ×2 (08:56→21:00)
[2019-05-01] MEDS: DIGOXIN 0.125 MG TAB PO SCH (08:56)
[2019-05-01] MEDS: DABIGATRAN ETEXILATE 75 MG CAP (PRADAXA) PO SCH ×2 (08:56→21:11)
[2019-05-01] MEDS ORDERED: FUROSEMIDE 40 MG TAB PO SCH (09:00)
[2019-05-01] MEDS ORDERED: SENNA 8.6 MG TAB (SENOKOT) PO PRN (11:00)
[2019-05-01] MEDS ORDERED: GOLYTELY SOLN 4000 ML BTL PO ONE (15:00)
--- NOTE | 2019-05-01 16:33 | IPNPDOC ---
Date Seen The patient was seen on 05/01/19. Progress Note SUBJECTIVE: Misael Stubbs is an 83-year-old white male with a history of DLBCL, CHF, and AF who presented with shortness of breath in the setting of ongoing chemotherapy and was found to be anemic; he is seen and examined at the bedside. Patient reports improvement in his shortness of breath compared to yesterday. He explains that he's been able to walk up and down the hallway multiple times with no difficulty breathing. However, he does report being a bit more tired than he was yesterday. He is now on 3 L of oxygen via nasal cannula. Patient reports no chest pain, weakness, changes in vision, dizziness, numbness or tingling. He does report that over the past few months he has had occasional dark hard stools but no christine blood or melena. OBJECTIVE PHYSICAL EXAMINATION: VITAL SIGNS: Please see below. GENERAL APPEARANCE: Seated comfortably in chair, appears stated age, no acute distress, calm, cooperative HEENT: MMM, EOMI, PERRLA, he has bilateral arcus senilis, conjunctival pallor is noted, neck is supple with no thyromegaly or lymphadenopathy RESPIRATORY: Lungs are clear to auscultation bilaterally with no adventitious breath sounds appreciated CARDIOVASCULAR: JVD is normal at 10 cm from sternal angle, RRR,no murmurs/rubs/gallops ABDOMEN: Soft, nontender to palpation in all four quadrants, no masses/organomegaly EXTREMITIES: no clubbing, cyanosis or edema noted NEUROLOGICAL: No obvious focal deficits PSYCHIATRIC: normal mood/affect Skin: No rashes or ulcers, Capillary refill is normal LN: No significant cervical or inguinal lymphadenopathy LABORATORY DATA, MICROBIOLOGY: Please see below. 04/30/2019 CXR: The heart is upper limits of normal in size. Increased int erstitial markings in the lung bases are again noted, unchanged. No new consolidating infiltrate is seen. There is calcification and tortuosity of the thoracic aorta. Left dual lead pacemaker is again noted. DVT prophylaxis ordered?: Patient currently being treated with Dabigatran 150 mg by mouth twice a day ASSESSMENT AND PLAN: This is an 83-year-old white male with a history of DL, PCL, CHF, and aVF who presented with shortness of breath in the setting of ongoing chemotherapy and was found to be progressively anemic with a Hgb of 8.5. PROBLEMS: 1. Acute hypoxic respiratory failure / Shortness of breath: Patient reports improvement in shortness of breath after being placed on 3 L of oxygen via nasal cannula. Patient's cough is still present. However, it is nonproductive. -Patient's hemoglobin has continued to drop from 9.1-8.5 today. Blood consent form was explained and signed. Plan to transfuse 2U pRBCs -Tessalon Pearls for Cough -DuoNebs as needed 2. Symptomatic anemia: patient denies black/tarry stools, BRBPR, melena. He does report scant hemoptysis. Most likely 2/2 his R-CHOP chemotherapy regimen but will do full workup to r/o GIB vs BM suppression -Patient will be given 2 units of PRBCs -Peripheral smear revealed elliptocytosis and schistocytes. BONIFACIO will be ordered in order to evaluate for immune hemolytic anemia -Plan for Colonoscopy/EGD tomorrow morning with Dr. Perea. Bowel prep and NPO tonight. -Iron studies returned showing decreased iron at 29 and decreased transferrin percent saturation of 9.8. Consider starting patient on iron supplements 3. Chronic diastolic CHF: -Continue patient's 40 mg by mouth Lasix twice a day -Strict I/O and Daily weights. -Continue fluid restriction and 2g sodium diet. 4. Atrial Fibrillation: Patient's HR in 80s. EKG without changes from prior. -Continue Pradaxa for anticoagulation -Continue Diltiazem 30mg TID for rate control -Continue Digoxin 0.125 mg PO daily. Digoxin level WNL 5. DLBC non-Hodgkin's lymphoma: -Follows with Dr. Darlene Iqbal. Next cycle of chemo scheduled for 05/02, but will be canceled. He was recently seen by her on 04/[address] chest and CT abd/pelvis for restaging. -Known lung nodule followed by Dr. Lawson -currently undergoing R-CHOP therapy (Cyclophosphamide, Doxorubicin, Vincristin e, Prednisone) + Rituximab. Anemia is a known side effect of R-CHOP and current recommendations state transfusion for Hgb <7 appropriate with goal to keep hgb between 8 and 9. -Continue Compazine for nausea 6. History of CAD: -Continue Rosuvastatin -Nitroglycerin PRN for anginal pain 7. BPH: -Continue Dutasteride DISPOSITION: Colonoscopy/EGD tomorrow. pending further workup. VS, I&O, 24H, Fishbone Vital Signs/I&O Vital Signs Date Time Temp Pulse Resp B/P (MAP) Pulse Ox O2 Delivery O2 Flow Rate FiO2 05/01/19 15:40 97.9 81 20 114/69 94 Nasal Cannula 3.0 I&O- Last 24 Hours up to 6 AM 05/01/19 06:00 Intake Total 300 ml Output Total 625 ml Balance -325 ml Laboratory Data 24H LABS Laboratory Tests 2 04/30/19 17:16: Reticulocyte # (auto) 104.6H, Differential Slide Review Report, Peripheral Blood Smear Path Consult PERIPHERAL SMEAR, Percent Reticulocyte Count 3.6H, Reticulocyte Hemoglobin Equivalent 29.9, Iron Level 29L, Total Iron Binding Capacity 295, Transferrin % Saturation 9.8L, Ferritin 247, Lactate Dehydrogenase 312H 05/01/19 05:29: Nucleated Red Blood Cells % (auto) 0.4H, Anion Gap 7L, Glomerular Filtration Rate > 60.0, Calcium Level 8.4L, Magnesium Level 2.2 CBC/BMP Laboratory Tests 05/01/19 05:29 Microbiology Microbiology 05/01/19 Stool Occult Blood ([facility]) - Final, Complete 04/30/19 Respiratory Virus Panel (PCR) ([facility]) - Final, Complete Human Rhinovirus/Enterovirus 04/30/19 Blood Culture - Preliminary, Resulted No growth after 24 hours . All specim... 04/30/19 Blood Culture - Preliminary, Resulted No growth after 24 hours . All specim... GME ATTESTATION GME ATTESTATION My faculty preceptor for this patient encounter was physically present during the encounter and was fully available. All aspects of the patient interview, examination, medical decision making process, and medical care plan development were reviewed and approved by the faculty preceptor. The faculty preceptor is aware and concurs with the plan as stated in the body of this note and will a ttest to such by his/her cosignature. ATTENDING NOTE I, Ciro Pelletier, have independently examined this patient and performed my own physical exam, as well as reviewed the documentation and edited where necessary. I have discussed in detail with the resident / student the findings and plan of treatment as documented by the resident / student and edited their note. I agree with their findings and treatment plan and have edited their documentation. I will continue to follow the patient during this hospital stay. DEVORA SHEPARD-Tabitha May 01, 2019 16:33 AUSTYN PAINTER MD May 01, 2019 17:30 CIRO PELLETIER MD May 01, 2019 17:53
--- NOTE | 2019-05-01 17:43 | CR ---
DATE OF CONSULTATION: 05/01/2019 CONSULTATION REPORT FOR: Ciro Pelletier MD DIAGNOSES: Acute shortness of breath, anemia in an 83-year-old man with diffuse large B- cell lymphoma/follicular lymphoma on mini R-CHOP status post second cycle, also with a history of diastolic dysfunction/congestive heart failure (CHF), admitted with hemoglobin 8.5, symptomatic, day 19 cycle two treatment. HISTORY OF PRESENT ILLNESS: Mr. Stubbs is an 83-year-old man with clinical stage III mixed follicular/diffuse large B-cell non-Hodgkin's lymphoma, grade I-II diagnosed in August 2018. He was observed until March 2019 when he had symptomatic disease progression including B symptoms from lung, supraclavicular and axillary adenopathy. He presented for cycle two treatment on 04/11/2019 in no distress, feeling well. Hemoglobin and hematocrit at the start of this cycle 13.6 and 41 respectively, normal platelets and white count. However, on 04/30/2019, he called complaining of severe shortness of breath and overwhelming fatigue. He also has small volume hemoptysis, but in retrospect this is a chronic symptom and he is anticoagulated. On presentation to the emergency room, hemoglobin was 9.1 and on recheck 8.5. Notably, though lactate dehydrogenase (LDH) was normal at the start of cycle two (and not previously elevated), it jumped to 312 yesterday and schistocytes were seen on peripheral smear. Platelet count intact. Renal function intact. Mental status intact. The patient and the family have noticed no change in mental status. He has had no headaches and at baseline has some mild memory deficits but is quite sharp. The direct antiglobulin test (BONIFACIO), haptoglobin are pending. Mr. Stubbs received two units red blood cell (RBC) transfusion today. He reports feeling much better and having better energy and would like to go home. I cautioned against this, citing the possibility of ongoing hemolysis and the possibility of further hematocrit drops. Blood loss is another possible cause of his acute anemia, though the presence of schistocytes and the elevated LDH argue somewhat for hemolysis. Vincristine, one of the drugs he receives as part of R-CHOP, is rarely associated with hemolytic uremic syndrome; microangiopathic hemolytic anemia can be associated as a paraneoplastic phenomenon with lymphoma but notably the patient's platelets are intact. He received rituximab Hycela, a subcutaneous formulation of rituximab on the second cycle of treatment. This is not per se associated with hemolysis. IMPRESSION: Acute hematocrit drop in 83-year-old man in cycle two of mini R- CHOP as treatment for stage III progressive mixed follicular and diffuse large B-cell lymphoma. Evidence of disease response on CAT scans here. Evidence of hemolysis on peripheral smear with schistocytes present. No thrombocytopenia. Intact renal function. Intact mental sensorium. The differential diagnosis includes a paraneoplastic hemolytic anemia, drug-induced hemolytic anemia, autoimmune hemolytic anemia and less likely acute blood loss from occult bleeding in the setting of chronic anticoagulation and likely transitory thrombocytopenia during the 10-day mary ann period immediately following chemotherapy administration. PLAN: 1. Complete hemolysis workup including direct antiglobulin test (BONIFACIO), haptoglobin. 2. Follow platelets closely as well as renal function. 3. If BONIFACIO positive would consider high-dose steroids. The patient receives 1 mg/kg prednisone dose days one through five each cycle. A rapid Medrol taper could be considered if evidence of autoimmune hemolysis. 4. Consider endoscopy for additional acute blood loss. We will follow. MTDD
[2019-05-01] MEDS: ROSUVASTATIN 10 MG TAB (CRESTOR) PO SCH (21:11)
[2019-05-02 04:00] VITALS: BP 123/60
[2019-05-02] MEDS: SLF 3 ML SYR IV SCH ×3 (05:06→21:53)
[2019-05-02 05:40] LABS: HEMATOCRIT 31.4 % (42.0-52.0); MEAN CORPUSCULAR HEMOGLOBIN 30.8 pg (27.0-33.0); MEAN CORPUSCULAR HGB CONC 33.8 g/dl (32.0-36.5); MEAN CORPUSCULAR VOLUME 91.3 fl (80.0-96.0); PLATELET COUNT, AUTOMATED 188 10^3/uL (150-450); RED BLOOD COUNT 3.44 10^6/uL (4.30-6.10); WHITE BLOOD COUNT 8.1 10^3/uL (4.0-10.0)
[2019-05-02 05:42] LABS: HEMOGLOBIN 10.6 g/dl (13.5-17.5)
[2019-05-02 06:02] LABS: BLOOD UREA NITROGEN 14 MG/DL (7-18); CARBON DIOXIDE LEVEL 24 MEQ/L (21-32); CHLORIDE LEVEL 105 MEQ/L (98-107); CREATININE FOR GFR 0.93 MG/DL (0.70-1.30); GLOMERULAR FILTRATION RATE > 60.0 (>35); GLUCOSE, FASTING 97 MG/DL (70-100); POTASSIUM SERUM 3.7 MEQ/L (3.5-5.1); SODIUM LEVEL 138 MEQ/L (136-145)
[2019-05-02 08:00] VITALS: BP 132/72
[2019-05-02 08:11] LABS: HAPTOGLOBIN 235 mg/dL (34-200); TRANSFERRIN 173 mg/dL (200-370)
[2019-05-02] MEDS: DIGOXIN 0.125 MG TAB PO SCH (08:30)
[2019-05-02] MEDS: DUTASTERIDE 0.5 MG CAP (AVODART) PO SCH (08:30)
[2019-05-02] MEDS: FUROSEMIDE 40 MG/4 ML VIAL (J1940) IV SCH ×2 (08:45→19:04)
[2019-05-02] MEDS: DABIGATRAN ETEXILATE 75 MG CAP (PRADAXA) PO SCH ×2 (08:45→21:52)
[2019-05-02] MEDS: DOCUSATE SODIUM 100 MG CAP PO SCH ×2 (08:54→21:53)
[2019-05-02 12:00] VITALS: BP 131/60
--- NOTE | 2019-05-02 13:56 | IPNPDOC ---
Date Seen The patient was seen on 05/02/19. Progress Note SUBJECTIVE: Pt still reports symptoms of SOB on 3L of O2 via Nasal cannula, he is out of breath walking from his chair to the bathroom. Denies any chest pain, weakness, changes in vision, dizziness, numbness or tingling. OBJECTIVE PHYSICAL EXAMINATION: VITAL SIGNS: Please see below. GENERAL APPEARANCE: Seated comfortably in chair, appears stated age, no acute distress, calm, cooperative HEENT: EOMI, PERRLA, he has bilateral arcus senilis, conjunctival pallor is noted, neck is supple with no thyromegaly or lymphadenopathy RESPIRATORY: Lungs are clear to auscultation bilaterally CARDIOVASCULAR: RRR,no murmurs/rubs/gallops ABDOMEN: Soft, nontender to palpation in all four quadrants, no m asses/organomegaly EXTREMITIES: no clubbing, cyanosis or edema noted NEUROLOGICAL: No obvious focal deficits PSYCHIATRIC: normal mood/affect Skin: No rashes or ulcers, Capillary refill is normal LN: No significant cervical or inguinal lymphadenopathy LABORATORY DATA, MICROBIOLOGY: Please see below. Imagin04/30/2019 CXR: The heart is upper limits of normal in size. Increased interstitial markings in the lung bases are again noted, unchanged. No new consolidating infiltrate is seen. There is calcification and tortuosity of the thoracic aorta. Left dual lead pacemaker is again noted. DVT prophylaxis ordered?: Dabigatran 150mg po bid ASSESSMENT AND PLAN: This is an 83-year-old white male with a history of DL, PCL, CHF, and aVF who presented with shortness of breath in the setting of o ngoing chemotherapy and was found to be anemic. PROBLEMS: 1. Acute hypoxic respiratory failure / Shortness of breath - possibly 2/2 fluid overload?, less likely 2/2 anemia - Patient has been desaturating down to 84% while on room air with small amounts of exertion; upon ambulation patient reports shortness of breath, increased HR of 130s, tachypnea at >26 and recovers with application of supplemental oxygen - Patient has failed at removing supplemental oxygen -Minor improvement after transfusion of 2U PRBCs -PT working to wean pt off of 3L of O2 via nasal cannula -Tessalon Pearls for Cough -DuoNebs as needed - Will repeat CXR 2. Symptomatic anemia: -Hgb at 10.6 from 8.5 after transfusion -EGD and Colonoscopy scheduled this afternoon to evaluate GI loss -BONIFACIO negative, consult Heme/Onc for further evaluation of possible hemolytic anemia 3. Chronic diastolic CHF: -Continue Furosemide 40mg IV BID -Strict I/O and Daily weights. -Continue fluid restriction and 2g sodium diet. 4. Atrial Fibrillation: Patient's HR in 80s. EKG without changes from prior. -Continue Pradaxa for anticoagulation -Continue Diltiazem 30mg TID for rate control -Continue Digoxin 0.125 mg PO daily. Digoxin level WNL 5. DLBC non-Hodgkin's lymphoma: -Follows with Dr. Darlene Iqbal. Next cycle of chemo scheduled for 05/02, but will be canceled. He was recently seen by her on 04/[address] chest and CT abd/pelvis for restaging. -Known lung nodule followed by Dr. Lawson -currently undergoing R-CHOP therapy (Cyclophosphamide, Doxorubicin, Vincristine, Prednisone) + Rituximab. Anemia is a known side effect of R-CHOP and current recommendations state transfusion for Hgb <7 appropriate with goal to keep hgb between 8 and 9. -Continue Compazine for nausea 6. History of CAD: -Continue Rosuvastatin -Nitroglycerin PRN for anginal pain 7. BPH: -Continue Dutasteride DISPOSITION: Awaiting results from EGD and Colonoscopy scheduled for this afternoon. [facility]/I&O Vital Signs Date Time Temp Pulse Resp B/P (MAP) Pulse Ox O2 Delivery O2 Flow Rate FiO2 05/02/19 12:01 2.0 05/02/19 12:00 97.9 79 17 131/60 (83) 94 Nasal Cannula I&O- Last 24 Hours up to 6 AM 05/02/19 06:00 Intake Total 2290 ml Output Total 1700 ml Balance 590 ml Laboratory Data 24H LABS Laboratory Tests 2 05/02/19 05:10: Nucleated Red Blood Cells % (auto) 0.4H, Anion Gap 9, Glomerular Filtration Rate > 60.0, Calcium Level 8.0L CBC/BMP Laboratory Tests 05/02/19 05:10 Microbiology Microbiology 05/01/19 Stool Occult Blood ([facility]) - Final, Complete 04/30/19 Respiratory Virus Panel (PCR) ([facility]) - Final, Complete Human Rhinovirus/Enterovirus 04/30/19 Blood Culture - Preliminary, Resulted No Growth after 48 hours. All Specime... 04/30/19 Blood Culture - Preliminary, Resulted No Growth after 48 hours. All Specime... GME ATTESTATION GME ATTESTATION My faculty preceptor for this patient encounter was physically present during the encounter and was fully available. All aspects of the patient interview, examination, medical decision making process, and medical care plan development were reviewed and approved by the faculty preceptor. The faculty preceptor is aware and concurs with the plan as stated in the body of this note and will attest to such by his/her cosignature. ATTENDING NOTE I, Ciro Pelletier, have independently examined this patient and performed my own physical exam, as well as reviewed the documentation and edited where necessary. I have discussed in detail with the resident / student the findings and plan of treatment as documented by the resident / student and edited their note. I agree with their findings and treatment plan and have edited their documentation. I will continue to follow the patient during this hospital stay. DEVORA SHEPARD OMS-3 May 02, 2019 13:56 CIRO PELLETIER MD May 02, 2019 15:17 AUSTYN PAINTER MD May 02, 2019 15:37
--- NOTE | 2019-05-02 16:47 | IPNPDOC ---
Text Note Date of Service The patient was seen on 05/02/19. NOTE No acute events overnight. Tolerated the bowel prep without any problems. Plan for EGD and colonoscopy today. Consent is signed, and all questions are answered. Raul Perea DO VS,Destiny, I+O VS, Destiny, I+O Laboratory Tests 05/02/19 05:10 Vital Signs Date Time Temp Pulse Resp B/P (MAP) Pulse Ox O2 Delivery O2 Flow Rate FiO2 05/02/19 12:01 2.0 05/02/19 12:00 97.9 79 17 131/60 (83) 94 Nasal Cannula I&O- Last 24 Hours up to 6 AM 05/02/19 06:00 Intake Total 2290 ml Output Total 1700 ml Balance 590 ml ELODIA PEREA DO May 02, 2019 16:47
[2019-05-02] MEDS ORDERED: PROPOFOL 500 MG/50 ML VIAL As Ordered ONE (16:54)
[2019-05-02] MEDS ORDERED: LIDOCAINE 2% INJ 100 MG/5 ML SDV (FOR ANES.) As Ordered ONE (16:55)
--- NOTE | 2019-05-02 16:55 | REP ---
HISTORY: Dyspnea. COMPARISON: The latest prior 04/30/2019, a portable exam. AP and lateral views were obtained. The technique utilized in obtaining the radiograph has magnified the cardiac silhouette and accentuated the interstitial markings. There is no change from the prior exam other than technique. There is cardiomegaly accentuated by technique. There is interstitial fibrosis accentuated by technique. The dual chamber bipolar pacemaker device is unchanged. The osseous structures are unchanged. IMPRESSION: No significant change. Stable chronic changes without plain radiographic evidence of acute cardiopulmonary disease. Electronically Signed by Ravi Garcia DO 05/02/2019 04:59 P
[2019-05-02] MEDS ORDERED: fentaNYL 100 MCG/2 ML INJECTION (J3010) As Ordered ONE (17:19)
[2019-05-02] MEDS ORDERED: PHENYLephrine HCL 500 MCG/5 ML (100MCG/ML) SYRINGE (J2370) As Ordered ONE (17:27)
[2019-05-02] MEDS ORDERED: fentaNYL 100 MCG/2 ML INJECTION (J3010) IV PRN (18:30)
[2019-05-02] MEDS ORDERED: LR 1,000 ML IV SCH (18:30)
[2019-05-02] MEDS ORDERED: ONDANSETRON 4MG/2ML VIAL (J2405) IV PRN (18:30)
[2019-05-02 20:00] VITALS: BP 104/52
[2019-05-02] MEDS: ROSUVASTATIN 10 MG TAB (CRESTOR) PO SCH (21:52)
--- NOTE | 2019-05-02 21:59 | RO ---
DATE OF PROCEDURE: 05/02/2019 PREOPERATIVE DIAGNOSIS: Anemia. POSTOPERATIVE DIAGNOSIS: Mild gastritis, diverticulosis, internal hemorrhoids and rectal polyps. PROCEDURE: Esophagogastroduodenoscopy (EGD) and colonoscopy. SURGEON: Dr. Minesh Perea GUN REPAIR CLERK: None. ANESTHESIA: IV sedation. COMPLICATIONS: None. INDICATIONS FOR PROCEDURE: The patient is an 83-year-old male who presents with some anemia. He is being treated for chemo and is on anticoagulation. Because of the anemia, I have been asked to take him for scopes to rule out any gastrointestinal (GI) sources for his bleeding. DESCRIPTION OF PROCEDURE: The patient was brought back to operating room 4. After sufficient sedation, he was placed in the left lateral decubitus position. Next, a time-out was done to confirm proper patient, proper procedure. Following that, an upper endoscope was passed down into the stomach and into the second portion of duodenum. The scope was then slowly withdrawn. There was some minimal gastritis noted. No signs of any ulcerations or bleeding. No lesions in the stomach or the esophagus. Scope was then removed. Next, the colonoscope was inserted all way to the level the cecum. The scope was then slowly withdrawn noticing mild diverticulosis through the sigmoid colon. Once entering back into the rectum, there were two small polyps, probably 3-4 mm in size, round, appeared to be hypoplastic. However, since he was still on his anticoagulation, I did not feel that it was necessary to excise those at this time. He also had large internal hemorrhoids, nothing that appeared to be bleeding anywhere. The scope was then removed the rest of the way. The patient was awakened from anesthesia and sent to recovery room in stable condition.
[2019-05-03] VITALS: BP 110/64
[2019-05-03 04:00] VITALS: BP 104/52
[2019-05-03] MEDS: SLF 3 ML SYR IV SCH ×3 (05:54→21:49)
[2019-05-03 05:55] LABS: HEMATOCRIT 33.8 % (42.0-52.0); HEMOGLOBIN 11.2 g/dl (13.5-17.5); MEAN CORPUSCULAR HEMOGLOBIN 30.8 pg (27.0-33.0); MEAN CORPUSCULAR HGB CONC 33.1 g/dl (32.0-36.5); MEAN CORPUSCULAR VOLUME 92.9 fl (80.0-96.0); PLATELET COUNT, AUTOMATED 199 10^3/uL (150-450); RED BLOOD COUNT 3.64 10^6/uL (4.30-6.10); WHITE BLOOD COUNT 7.9 10^3/uL (4.0-10.0)
[2019-05-03 06:19] LABS: BLOOD UREA NITROGEN 20 MG/DL (7-18); CALCIUM LEVEL 8.5 MG/DL (8.8-10.2); CARBON DIOXIDE LEVEL 27 MEQ/L (21-32); CHLORIDE LEVEL 106 MEQ/L (98-107); CREATININE FOR GFR 1.02 MG/DL (0.70-1.30); GLOMERULAR FILTRATION RATE > 60.0 (>35); GLUCOSE, FASTING 91 MG/DL (70-100); MAGNESIUM LEVEL 2.1 MG/DL (1.8-2.4); POTASSIUM SERUM 3.5 MEQ/L (3.5-5.1); SODIUM LEVEL 140 MEQ/L (136-145)
[2019-05-03 08:00] VITALS: BP 118/76
[2019-05-03] MEDS: DOCUSATE SODIUM 100 MG CAP PO SCH ×2 (08:14→21:47)
[2019-05-03] MEDS: DABIGATRAN ETEXILATE 75 MG CAP (PRADAXA) PO SCH ×2 (08:14→21:48)
[2019-05-03] MEDS: DIGOXIN 0.125 MG TAB PO SCH (08:14)
[2019-05-03] MEDS: FUROSEMIDE 40 MG TAB PO SCH ×2 (08:14→17:30)
[2019-05-03] MEDS: DUTASTERIDE 0.5 MG CAP (AVODART) PO SCH (08:15)
--- NOTE | 2019-05-03 09:43 | IPNPDOC ---
Text Note Date of Service The patient was seen on 05/03/19. NOTE No acute events overnight. Tolerating diet. Denies problems with nausea, emesis, or pain. I explained to him that he had mild gastritis, diverticulosis, hemorrhoids, and two small rectal polyps on his scopes last evening. He is now telling me that he coughs up blood clots almost daily, and is wondering where that it coming from. I explained to him that it is likely from his lungs. VSSAF NAD abd - soft, nt, distended labs - below A) 83y/o male s/p colonoscopy and EGD for anemia results above P) reg diet ambulate I discussed the coughing up blood with his PCP and recommended pulmonary consult if they feel it is necessary. will follow as needed Raul Perea DO Destiny JAY, I+O VSDestiny, I+O Laboratory Tests 05/03/19 05:31 Vital Signs Date Time Temp Pulse Resp B/P (MAP) Pulse Ox O2 Delivery O2 Flow Rate FiO2 05/03/19 08:14 89 05/03/19 08:00 98.0 18 118/76 (90) 93 Nasal Cannula 2.0 I&O- Last 24 Hours up to 6 AM 05/03/19 06:00 Intake Total 1150 ml Output Total 2675 ml Balance -1525 ml ELODIA PEREA DO May 03, 2019 09:43
--- NOTE | 2019-05-03 10:22 | CR ---
DATE OF CONSULTATION: 05/01/2019 CHIEF COMPLAINT: Anemia. HISTORY OF PRESENT ILLNESS: The patient is an 83-year-old male with history of lymphoma who recently started to undergo treatment. He came in to the hospital a couple of days ago with shortness of breath for the past few weeks. On admission, his hemoglobin was 9.1 and dropped down to 8.5. The medicine service was concerned that his anemia may be a cause of his hypoxia so they have given him a couple units of blood and asked that I evaluate him for endoscopy. He denies any blood in his stool or black stools. No problems with heartburn or acid reflux. No complaints of bleeding anywhere that he is aware of. Last colonoscopy was about 14 years ago. Never had an upper endoscopy. At this time, he is willing to undergo whatever procedures we feel are necessary. PAST MEDICAL HISTORY: Lymphoma, coronary artery disease with history of N-STEMI, CVA in 2011, hypertension atrial fibrillation, benign prostatic hypertrophy (BPH), congestive heart failure (CHF), hypercholesterolemia, microhematuria, gout. PAST SURGICAL HISTORY: Cardiac cath in 2010 and 2015, vasectomy, tonsillectomy, loop recorder placement, pacemaker, cataracts, and skin cancer removal. SOCIAL HISTORY: Denies drug, alcohol or tobacco abuse. FAMILY HISTORY: Noncontributory. ALLERGIES: - CONTRAST MEDIA - PENICILLIN REVIEW OF SYSTEMS; Pertinent positive and negatives as stated in history of present illness (HPI). PHYSICAL EXAMINATION: General: Alert and oriented times three, in no acute distress. Vitals: Temperature is 98.4 pulse 88, respirations 18, blood pressure 105/76, pulse ox 98% on 3 liters nasal cannula. HEENT: Pupils equally round and react to light and accommodation. Heart: S1, S2. Irregularly irregular rate and rhythm. Lungs: Clear to auscultation bilaterally. Abdomen: Soft, nontender, nondistended. He has no clubbing, cyanosis or edema. LABORATORY DATA: White count 7.2, hemoglobin 8.5, platelets 183. IMAGING STUDIES: Chest x-ray was negative for any signs of masses or lesions. It just showed stable chronic changes. ASSESSMENT/PLAN: The patient is an 83-year-old male with history of anemia and hypoxia that may be secondary to a gastrointestinal (GI) source. He has no obvious signs of bleeding and the last colonoscopy was over 10 years ago. Recommendation is to proceed with upper and lower endoscopy. I explained both procedures to him. At this point, he is considering just doing the upper endoscopy and then if that is normal he will consider the lower. I advised him that he may want to consider doing both at the same time, that way he does not have to through anesthesia twice. He is going to wait and talk about it with this afternoon prior to making a final decision. As of now, I will have him scheduled for both procedures tomorrow afternoon and if I have to I will cancel the colonoscopy portion of that.
--- NOTE | 2019-05-03 10:56 | IPNPDOC ---
Date Seen The patient was seen on 05/03/19. Progress Note SUBJECTIVE: Patient is sitting comfortably in his chair at bedside, currently on 3 L of O2. He still reports shortness of breath on exertion as well as occasional cough bringing up small clots. He denies any chest pain, nausea, vomiting, dizziness or weakness. He denies any problems following his EGD and colonoscopy. OBJECTIVE PHYSICAL EXAMINATION: VITAL SIGNS: Please see below. GENERAL APPEARANCE: Seated comfortably in chair, appears stated age, no acute distress, calm, cooperative HEENT: EOMI, PERRLA, he has bilateral arcus senilis, conjunctival pallor is noted, neck is supple with no thyromegaly or lymphadenopathy RESPIRATORY: Lungs are clear to auscultation bilaterally CARDIOVASCULAR: RRR,no murmurs/rubs/gallops ABDOMEN: Soft, nontender to palpation in all four quadrants, no mass es/organomegaly EXTREMITIES: no clubbing, cyanosis or edema noted NEUROLOGICAL: No obvious focal deficits PSYCHIATRIC: normal mood/affect Skin: No rashes or ulcers, Capillary refill is normal LN: No significant cervical or inguinal lymphadenopathy LABORATORY DATA, MICROBIOLOGY: Please see below. Imagin04/30/2019 CXR: The heart is upper limits of normal in size. Increased interstitial markings in the lung bases are again noted, unchanged. No new consolidating infiltrate is seen. There is calcification and tortuosity of the thoracic aorta. Left dual lead pacemaker is again noted. Procedures: 05/02/2019. EGD and colonoscopy: Mild diverticulosis noted throughout sigmoid colon. 2 small rectal polyps, large internal hemorrhoids. No active bleeding DVT prophylaxis ordered?: Dabigatran 150mg po bid ASSESSMENT AND PLAN: This is an 83-year-old white male with a history of DL, PCL, CHF, and aVF who presented with shortness of breath in the setting of ongoing chemotherapy and was found to be anemic. PROBLEMS: 1. Acute hypoxic respiratory failure / Shortness of breath - possibly 2/2 fluid overload?, less likely 2/2 anemia - Patient has been desaturating down to 84% while on room air with small amounts of exertion; upon ambulation patient reports shortness of breath, increased HR o f 130s, tachypnea at >26 and recovers with application of supplemental oxygen - Patient has failed at removing supplemental oxygen -PT working to wean pt off of 3L of O2 via nasal cannula - CXR Negative for acute process. -V/Q scan ordered to rule out PE -Echo ordered to evaluate cardiac output post chemotherapy with doxorubicin -Tessalon Pearls for Cough -DuoNebs as needed 2. Symptomatic anemia: -Hgb at has risen to 11.2 from 10.6 -EGD and Colonoscopy negative for acute blood loss -Repeat Peripheral smear ordered to confirm initial schistocytosis. 3. Chronic diastolic CHF: -IV Furosemide switched to 40mg po bid -Strict I/O and Daily weights. -Continue fluid restriction and 2g sodium diet. 4. Atrial Fibrillation: Patient's HR in 80s. EKG without changes from prior. -Continue Pradaxa for anticoagulation -Continue Diltiazem 30mg TID for rate control -Continue Digoxin 0.125 mg PO daily. Digoxin level WNL 5. DLBC non-Hodgkin's lymphoma: -Follows with Dr. Darlene Iqbal. Next cycle of chemo scheduled for 05/02, but will be canceled. He was recently seen by her on 04/[address] chest and CT abd/pelvis for restaging. -Known lung nodule followed by Dr. Lawson -currently undergoing R-CHOP therapy (Cyclophosphamide, Doxorubicin, Vincristine, Prednisone) + Rituximab. Anemia is a known side effect of R-CHOP and current recommendations state transfusion for Hgb <7 appropriate with goal to keep hgb between 8 and 9. -Continue Compazine for nausea 6. History of CAD: -Continue Rosuvastatin -Nitroglycerin PRN for anginal pain 7. BPH: -Continue Dutasteride DISPOSITION: - Awaiting results of V/Q, Peripheral Smear, and Echo - If oxygenation maintain with ambulation and VQ scan is negative; anticipate discharge tomorrow AM VS, I&O, 24H, Fishbone Vital Signs/I&O Vital Signs Date Time Temp Pulse Resp B/P (MAP) Pulse Ox O2 Delivery O2 Flow Rate FiO2 05/03/19 08:14 89 05/03/19 08:00 98.0 18 118/76 (90) 93 Nasal Cannula 2.0 I&O- Last 24 Hours up to 6 AM 05/03/19 06:00 Intake Total 1150 ml Output Total 2675 ml Balance -1525 ml Laboratory Data 24H LABS Laboratory Tests 2 05/03/19 05:31: Nucleated Red Blood Cells % (auto) 0.0, Anion Gap 7L, Glomerular Filtration Rate > 60.0, Calcium Level 8.5L, Magnesium Level 2.1 CBC/BMP Laboratory Tests 05/03/19 05:31 Microbiology Microbiology 05/01/19 Stool Occult Blood ([facility]) - Final, Complete 04/30/19 Respiratory Virus Panel (PCR) ([facility]) - Final, Complete Human Rhinovirus/Enterovirus 04/30/19 Blood Culture - Preliminary, Resulted No Growth after 48 hours. All Specime... 04/30/19 Blood Culture - Preliminary, Resulted No Growth after 48 hours. All Specime... GME ATTESTATION GME ATTESTATION My faculty preceptor for this patient encounter was physically present during the encounter and was fully available. All aspects of the patient interview, examination, medical decision making process, and medical care plan development were reviewed and approved by the faculty preceptor. The faculty preceptor is aware and concurs with the plan as stated in the body of this note and will attest to such by his/her cosignature. ATTENDING NOTE I, Ciro Pelletier, have independently examined this patient and performed my own physical exam, as well as reviewed the documentation and edited where necessary. I have discussed in detail with the resident / student the findings and plan of treatment as documented by the resident / student and edited their note. I agree with their findings and treatment plan and have edited their documentation. I will continue to follow the patient during this hospital stay. DEVORA SHEPARD-3 May 03, 2019 10:56 AUSTYN PAINTER MD May 03, 2019 18:17 CIRO PELLETIER MD May 03, 2019 18:53
[2019-05-03 12:00] VITALS: BP 118/72
--- NOTE | 2019-05-03 15:51 | REP ---
HISTORY: Dyspnea and cough. Possible pulmonary embolus. COMPARISON: None. After the intravenous administration of 5.5 mCi of technetium 99m MAA, a perfusion lung study was performed. After the inhalation of 1 mCi of technetium 99m DTPA aerosol, a ventilation lung study was performed. There are on priors for comparison. There is a single small area of matching decreased counts seen on both perfusion and ventilation portions of the exam in the left upper lobe. IMPRESSION: Low probability for pulmonary embolus. Electronically Signed by Ravi Garcia DO 05/03/2019 04:23 P
[2019-05-03 16:00] VITALS: BP 115/86
[2019-05-03 20:00] VITALS: BP 107/60
--- NOTE | 2019-05-03 20:48 | ECHO ---
DATE OF PROCEDURE: 05/03/2019 Date of : 1935 Age: 83 REASON FOR THE STUDY: Heart failure, unspecified 2D MEASUREMENTS: IVS: 1.6 cm LV: 4.2 cm LVPW: 1.6 cm LA: 3.6 cm Aorta: 4.0 cm IVC: 1.8 cm DOPPLER MEASUREMENTS: Peak velocity across the aortic valve: 1.5 meters per second Peak velocity across the LVOT: 0.90 meters per second Peak gradient across the aortic valve: 9.0 mmHg Mitral E: 0.82 Maximum tricuspid valve velocity: 2.5 meters per second 2D COMMENTS: 1. Moderately increased left ventricular wall thickness with normal left ventricular size and a normal global left ventricular systolic function. The estimated left ventricular systolic ejection fraction is 55-60%. 2. Subjectively, both the left atrium and the right atrium appeared to be mildly enlarged. The right ventricle also appeared to be mildly enlarged in limited views. 3. The atrial septum appeared to be normal without evidence of defect or shunt. 4. Mildly dilated aortic root at 4.0 cm. 5. Trace pericardial effusion noted, no evidence of cardiac tamponade. 6. Mildly calcified aortic valve with normal leaflet excursion. Mildly calcified mitral annulus with normal anterior mitral leaflet motion. Normal tricuspid valve and pulmonic valve. The proximal pulmonary artery branches were not well visualized. 7. The inferior vena cava was normal in size, central venous pressure may be normal. DOPPLER: It detects mild aortic regurgitation, mild mitral regurgitation, mild tricuspid regurgitation, and trace pulmonic regurgitation. The calculated pulmonary artery systolic pressure varies between 30-40 mmHg. Assessment of the left ventricular diastolic function was limited in view of the underlying arrhythmias. IMPRESSION: 1. Normal global left ventricular systolic function with probably moderate concentric left ventricular hypertrophy. Assessment of the left ventricular diastolic function was limited in view of the underlying arrhythmias. 2. Aortic valve sclerosis with mild aortic regurgitation but no significant aortic stenosis. 3. Mild mitral regurgitation. The left atrium subjectively is mildly enlarged. 4. Mild tricuspid regurgitation with mild pulmonary hypertension and a dilated right atrium. 5. Trace pericardial effusion noted. 6. This was compared with a prior echocardiogram on 02/27/2019, left ventricular systolic function at that time appeared to be lower and there was more tricuspid regurgitation and higher pulmonary artery systolic pressure. [facility]
[2019-05-03] MEDS: ROSUVASTATIN 10 MG TAB (CRESTOR) PO SCH (21:47)
[2019-05-03 23:16] LABS: HEMATOCRIT 34.2 % (42.0-52.0); HEMOGLOBIN 11.6 g/dl (13.5-17.5)
[2019-05-03 23:35] LABS: BLOOD UREA NITROGEN 22 MG/DL (7-18); CALCIUM LEVEL 8.3 MG/DL (8.8-10.2); CARBON DIOXIDE LEVEL 23 MEQ/L (21-32); CHLORIDE LEVEL 106 MEQ/L (98-107); GLOMERULAR FILTRATION RATE > 60.0 (>35); GLUCOSE, FASTING 108 MG/DL (70-100); MAGNESIUM LEVEL 1.9 MG/DL (1.8-2.4); POTASSIUM SERUM 3.2 MEQ/L (3.5-5.1); SODIUM LEVEL 139 MEQ/L (136-145)
[2019-05-04] VITALS: BP 109/59
[2019-05-04] MEDS ORDERED: POTASSIUM CHL PWD 20 MEQ PACKET PO ONE (03:15)
[2019-05-04 04:00] VITALS: BP 110/66
[2019-05-04 05:43] VITALS: BP 110/60
[2019-05-04] MEDS: SLF 3 ML SYR IV SCH (05:44)
[2019-05-04 06:10] LABS: HEMATOCRIT 34.8 % (42.0-52.0); HEMOGLOBIN 11.5 g/dl (13.5-17.5); MEAN CORPUSCULAR HEMOGLOBIN 30.7 pg (27.0-33.0); MEAN CORPUSCULAR VOLUME 92.8 fl (80.0-96.0); PLATELET COUNT, AUTOMATED 210 10^3/uL (150-450); RED BLOOD COUNT 3.75 10^6/uL (4.30-6.10); WHITE BLOOD COUNT 8.2 10^3/uL (4.0-10.0)
[2019-05-04 06:42] LABS: BLOOD UREA NITROGEN 20 MG/DL (7-18); CALCIUM LEVEL 8.7 MG/DL (8.8-10.2); CARBON DIOXIDE LEVEL 28 MEQ/L (21-32); CHLORIDE LEVEL 109 MEQ/L (98-107); CREATININE FOR GFR 1.06 MG/DL (0.70-1.30); GLOMERULAR FILTRATION RATE > 60.0 (>35); GLUCOSE, FASTING 99 MG/DL (70-100); POTASSIUM SERUM 4.2 MEQ/L (3.5-5.1); SODIUM LEVEL 140 MEQ/L (136-145)
[2019-05-04 08:00] VITALS: BP 102/60
[2019-05-04] MEDS: DUTASTERIDE 0.5 MG CAP (AVODART) PO SCH (08:39)
[2019-05-04] MEDS: DIGOXIN 0.125 MG TAB PO SCH (08:39)
[2019-05-04] MEDS: FUROSEMIDE 40 MG TAB PO SCH (08:39)
[2019-05-04] MEDS: DABIGATRAN ETEXILATE 75 MG CAP (PRADAXA) PO SCH (08:39)
[2019-05-04] MEDS: DOCUSATE SODIUM 100 MG CAP PO SCH (08:39)
--- NOTE | 2019-05-04 13:51 | DS.PDOC ---
Discharge Summary General Date of Admission Apr 30, 2019 at 15:50 Date of Discharge May 04, 2019 Attending Physician: CIRO PELLETIER MD Specialist/Consultants Involve: ELODIA GARZA DO Specialist/Consultants Involve DALE ALVARADO (HEMATOLOGY/ONCOLOGY) Discharge Summary PROCEDURES PERFORMED DURING STAY: [None]. ADMITTING DIAGNOSES: 1. shortness of breath 2. symptomatic anemia 3. Atrial fibrillation 4. DLBCL and follicular lymphoma DISCHARGE DIAGNOSES: 1. Anemia 2. Atrial fibrillation 3. DLBCL and follicular lymphoma COMPLICATIONS/CHIEF COMPLAINT: Anemia. HISTORY OF PRESENT ILLNESS: Misael Stubbs is an 83 YO M with history of DLBCL non-Hodgkin's lymphoma with follicular/DLBCL, CHF (with pacemaker, last EF60%), Atrial fibrillation (on Pradaxa) who presented to the emergency room with complaint of shortness of breath. The patient has had this shortness of breath for 6 weeks. He states that he spends most of his days sitting as he has low energy levels and it is difficult for him to complete daily tasks. He also complains of cough with production of scant hemoptysis that can sometimes cause him to feel extremely weak, and the feeling of always being cold. Otherwise, he denies any fevers, chills, sick contacts, recent illnesses. He is not complaining of any dark tarry stools or blood in his stool. In addition, he follows with Dr. Osorio for his atrial fibrillation and congestive heart failure (pacemaker placement in 2016), for which she intermittently gets subjectively fluid overloaded with lower extremity edema and weight gain. He increases his Lasix as needed. In the emergency room. He is found to be anemic with a hemoglobin of 9.1, positive rhinovirus, and have a BNP of 4590. HOSPITAL COURSE: Patient was admitted with symptomatic anemia (Hgb 9.1 with b/l 13-14) in setting of ongoing R-CHOP chemotherapy. He denied any fevers/chills. He was transfused 2U pRBCs, which brought his Hgb up to 11.0 with only minimal improvement in his SOB. On HD#3 he underwent EGD/Colonoscopy for suspected blood loss anemia. Both were negative for ongoing bleed. Patient's anemia was worked up for hemolysis according to hematology recommendations: LDH, haptoglobin, BONIFACIO, peripheral smear. Non-convincing for hemolysis. Patient was worked up for PE given history of cancer with V/Q scan which was negative. An echocardiogram was done to r/o worsening CHF and found his CHF was better than previous. On HD#4 patient was cleared by physical therapy and no longer had supplemental oxygen requirement. He was discharged home and is to follow up with Hematology/Oncology. DISCHARGE MEDICATIONS: Please see below. ALLERGIES: Please see below. PHYSICAL EXAMINATION ON DISCHARGE: VITAL SIGNS: Please see below. GENERAL APPEARANCE: Seated comfortably in chair, appears stated age, no acute distress, calm, cooperative HEENT: EOMI, PERRLA, he has bilateral arcus senilis, conjunctival pallor is noted, neck is supple with no thyromegaly or lymphadenopathy RESPIRATORY: Lungs are clear to auscultation bilaterally CARDIOVASCULAR: RRR,no murmurs/rubs/gallops ABDOMEN: Soft, nontender to palpation in all four quadrants, no masses/ organomegaly EXTREMITIES: no clubbing, cyanosis or edema noted NEUROLOGICAL: No obvious focal deficits PSYCHIATRIC: normal mood/affect Skin: No rashes or ulcers, Capillary refill is normal LN: No significant cervical or inguinal lymphadenopathy LABORATORY DATA: Please see below. IMAGING: CXR: The heart is upper limits of normal in size. Increased interstitial markings in the lung bases are again noted, unchanged. No new consolidating infiltrate is seen. There is calcification and tortuosity of the thoracic aorta. Left dual lead pacemaker is again noted. V/Q SCAN: There is a single small area of matching decreased counts seen on both perfusion and ventilation portions of the exam in the left upper lobe. IMPRESSION: Low probability for pulmonary embolus. PROGNOSIS: fair ACTIVITY: [As tolerated]. DIET: 2g sodium limited diet DISCHARGE PLAN: Home DISPOSITION: 01 Home, Self-Care. DISCHARGE INSTRUCTIONS: 1. Please follow up with Hematology/Oncology within 7 Days 2. Remain compliant with treatment plan and medications 3. Return to the ER if you experience any problems ITEMS TO FOLLOWUP ON ON OUTPATIENT: 1. none DISCHARGE CONDITION: [Stable]. TIME SPENT ON DISCHARGE: 32 minutes. Vital Signs/I&Os Vital Signs Date Time Temp Pulse Resp B/P (MAP) Pulse Ox O2 Delivery O2 Flow Rate FiO2 05/04/19 08:39 82 05/04/19 08:00 98.0 17 102/60 (74) 95 Room Air 05/03/19 08:02 2.0 I&O- Last 24 Hours up to 6 AM 05/04/19 06:00 Intake Total 2070 ml Output Total 1500 ml Balance 570 ml Laboratory Data Labs 24H Laboratory Tests 2 05/03/19 23:04: Anion Gap 10, Glomerular Filtration Rate > 60.0, Calcium Level 8.3L, Magnesium Level 1.9 05/04/19 05:47: Anion Gap 3L, Glomerular Filtration Rate > 60.0, Calcium Level 8.7L, Nucleated Red Blood Cells % (auto) 0.0 CBC/BMP Laboratory Tests 05/03/19 23:04 05/04/19 05:47 Microbiology Microbiology 05/01/19 Stool Occult Blood ([facility]) - Final, Complete 04/30/19 Respiratory Virus Panel (PCR) ([facility]) - Final, Complete Human Rhinovirus/Enterovirus 04/30/19 Blood Culture - Preliminary, Resulted No Growth after 72 hours. All specime... 04/30/19 Blood Culture - Preliminary, Resulted No Growth after 72 hours. All specime... Discharge Medications Scheduled Dabigatran Etexilate Mesylate (Pradaxa) 150 Mg Cap, 150 MG PO BID, (Reported) Digoxin (Digoxin) 125 Mcg Tab, 125 MCG PO DAILY, (Reported) Diltiazem HCl (Diltiazem HCl) 30 Mg Tablet, 30 MG PO TID, (Reported) Dutasteride (Dutasteride) 0.5 Mg Cap, 0.5 MG PO DAILY, (Reported) Furosemide (Furosemide) 20 Mg Tab, 20 MG PO DAILY, (Reported) Prednisone (Prednisone) 10 Mg Tablet, 70 MG PO ASDIRECTED, (Reported) TAKES ON DAY 1-5 OF 21 DAY CHEMO CYCLE. LAST DOSE WAS DAY 5 ON 04/15/19 Rosuvastatin Calcium (Rosuvastatin Calcium) 10 Mg Tablet, 10 MG PO QHS, (R eported) Scheduled PRN Furosemide (Furosemide) 20 Mg Tablet, 20 MG PO ASDIRECTED PRN for EDEMA, (Reported) TAKES IN ADDITION TO 20MG DAILY DOSE IF PT HAS EXTRA FLUID Nitroglycerin (Nitroglycerin) 0.4 Mg Tab.subl, 0.4 MG SL Q5MP PRN for CHEST PAIN, (Reported) 1st sign of attack; may repeat every 5 mins; if pain persists after 3 in 15 min, medical attention is recommended Ondansetron HCl (Ondansetron HCl) 8 Mg Tablet, 8 MG PO Q6H PRN for NAUSEA OR VOMITING Prochlorperazine Maleate (Prochlorperazine Maleate) 10 Mg Tablet, 10 MG PO Q8HP PRN for NAUSEA OR VOMITING Allergies Coded Allergies: Contrast Media (Verified Allergy, Severe, 10/12/18) had reaction even after he had premedication Penicillins (Verified Allergy, Intermediate, RASH, 10/12/18) GME ATTESTATION GME ATTESTATION My faculty preceptor for this patient encounter was physically present during the encounter and was fully available. All aspects of the patient interview, examination, medical decision making process, and medical care plan development were reviewed and approved by the faculty preceptor. The faculty preceptor is aware and concurs with the plan as stated in the body of this note and will attest to such by his/her cosignature. ATTENDING NOTE I, Ciro Pelletier, have independently examined this patient and performed my own physical exam, as well as reviewed the documentation and edited where necessary. I have discussed in detail with the resident / student the findings and plan of treatment as documented by the resident / student and edited their note. I agree with their findings and treatment plan and have edited their documentation. I will continue to follow the patient during this hospital stay. Time spent on discharge 35 minutes AUSTYN PAINTER MD May 04, 2019 13:51 CIRO PELLETIER MD May 04, 2019 16:08
--- NOTE | 2019-05-06 14:54 | ECGEPIP ---
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
== END 2019-05-04 11:05 | disposition home or self-care (01) | DRG 812 ==
LOC: M ED 12:40 → M ED INP 15:50 → M PCU 19:52
PROVIDERS: ADMIT Internal Medicine; ATTEND Internal Medicine
PROC: 30233N1 Transfusion of Nonautologous Red Blood Cells into Peripheral Vein, Percutaneous Approach (ICD-10-PCS; 2019-04-30)
PROC: 0DJ08ZZ Inspection of Upper Intestinal Tract, Via Natural or Artificial Opening Endoscopic (ICD-10-PCS; 2019-05-02)
PROC: 0DJD8ZZ Inspection of Lower Intestinal Tract, Via Natural or Artificial Opening Endoscopic (ICD-10-PCS; principal; 2019-05-02 15:15)
DX: D64.81 Anemia due to antineoplastic chemotherapy (principal); C83.30 Diffuse large B-cell lymphoma, unspecified site; C82.3 Follicular lymphoma grade IIIa; I50.32 Chronic diastolic (congestive) heart failure; Z95.0 Presence of cardiac pacemaker; I25.10 Atherosclerotic heart disease of native coronary artery without angina pectoris; I25.2 Old myocardial infarction; R91.1 Solitary pulmonary nodule; I11.0 Hypertensive heart disease with heart failure; I48.91 Unspecified atrial fibrillation; K57.30 Diverticulosis of large intestine without perforation or abscess without bleeding; K62.1 Rectal polyp; N40.0 Benign prostatic hyperplasia without lower urinary tract symptoms; E78.00 Pure hypercholesterolemia, unspecified; K29.70 Gastritis, unspecified, without bleeding; M10.9 Gout, unspecified; Z85.828 Personal history of other malignant neoplasm of skin; Z98.49 Cataract extraction status, unspecified eye; Z79.899 Other long term (current) drug therapy; Z79.01 Long term (current) use of anticoagulants; Z79.52 Long term (current) use of systemic steroids; Z88.0 Allergy status to penicillin; Z91.041 Radiographic dye allergy status

== ENCOUNTER → 2019-05-06 | Outpatient (REF) | payer MEDICARE, OTHER ==
[~2019-05-06] MED LIST changes: +DILT30TA PO; +IMMUCAP2 PO; +IRON1TAB2 PO
[2019-05-06 14:21] LABS: HEMATOCRIT 37.1 % (42.0-52.0); HEMOGLOBIN 12.1 g/dl (13.5-17.5); MEAN CORPUSCULAR HEMOGLOBIN 30.9 pg (27.0-33.0); MEAN CORPUSCULAR HGB CONC 32.6 g/dl (32.0-36.5); MEAN CORPUSCULAR VOLUME 94.6 fl (80.0-96.0); PLATELET COUNT, AUTOMATED 251 10^3/uL (150-450); RED BLOOD COUNT 3.92 10^6/uL (4.30-6.10); WHITE BLOOD COUNT 7.8 10^3/uL (4.0-10.0)
== END ==
LOC: M LAB REF 14:01
PROVIDERS: ATTEND Internal Medicine Medical Oncology
DX: D64.89 Other specified anemias (principal)

== ENCOUNTER → 2019-08-13 | Outpatient (CLI) | payer MEDICARE, OTHER ==
[~2019-08-13] MED LIST changes: +ARNU1INH3 PO; -DIGO0.12 PO; +DIGO0.123 PO; +ONDA8TAB10 PO; -ONDA8TAB7 PO; +SIMV40TA20 PO; +VERAP80TA PO
--- NOTE | 2019-08-14 07:56 | REP ---
Whole body PET CT scan for follicular lymphoma follow-up: Comparison is 02/19/2019. Whole-body scanning is performed from skull base to the upper thighs. Neck and supraclavicular areas: There are no hypermetabolic foci. The previous bulky right supraclavicular foci are no longer present. Chest: The previous multiple bulky right axillary foci have significantly decreased. Only a single focus remains in the right axilla with a standard uptake value of 13.6. The focus identified in the right lower lobe previously is no longer present. There is dependent atelectasis in the lung bases bilaterally. The standard uptake value of is non hypermetabolic measuring 2.0. There are no other foci in the chest. Abdomen, pelvis and upper thighs: The previous distal aorta and right iliac bulky adenopathy is no longer present. The previous bulky left pelvic sidewall adenopathy has significantly decreased in size. The standard uptake value today is 17.8. Impression: The previous right supraclavicular bulky foci are no longer present. The right axilla bulky adenopathy has significantly decreased with only a single remaining hypermetabolic focus. There are no hypermetabolic foci in the lung summers. There is dependent atelectasis in the lower lobes bilaterally without hypermetabolic uptake. The The previous a bulky adenopathy at the distal aorta extending into the right iliac area are no longer present. The previous bulky adenopathy along the left pelvic sidewall has significantly decreased in size. The study is performed with 8.16 mCi of F 18 FDG. Electronically Signed by Minesh Calderon MD 08/14/2019 07:47 A
== END ==
LOC: M PLARAD 11:26
PROVIDERS: ATTEND Internal Medicine Medical Oncology
DX: C82.91 Follicular lymphoma, unspecified, lymph nodes of head, face, and neck (principal)
CPT/HCPCS: 78815; A9552

== ENCOUNTER → 2019-09-20 | Outpatient (REF) | payer MEDICARE, OTHER ==
[~2019-09-20] MED LIST changes: -DUTA1CAP PO; +DUTA1CAP2 PO
== END ==
LOC: M LAB REF 17:23
PROVIDERS: ATTEND Dermatology
DX: L82.1 Other seborrheic keratosis (principal)
CPT/HCPCS: 11102; 88305; G0463

== ENCOUNTER → 2019-11-07 | Outpatient (CLI) | payer MEDICARE, OTHER ==
[~2019-11-07] MED LIST changes: +READI-CAT 2 As Ordered ONE
--- NOTE | 2019-11-07 10:35 | REP ---
REASON: History of non-Hodgkin lymphoma. All priors were reviewed, the latest is 04/29/2019. The lack of intravenous contrast significantly decreases the sensitivity of the exam. For a description of the lung bases, see the chest CT report made today as well. Limited evaluation of the solid intra-abdominal organs and gallbladder show no gross abnormalities or significant changes from the prior exam. Limited evaluation of the pancreas, adrenal glands and kidneys show them to be stable from the prior exam. Limited evaluation of the abdominal aorta and paraaortic regions show no significant change from the prior exam. Calcific atherosclerotic change is noted status quo. Limited evaluation of the bowel loops and their mesenteries show no significant changes from the prior exam. There is sigmoid colon diverticulosis. There is no free fluid or free air in the abdomen or pelvis. There is left hemipelvic sidewall adenopathy which has increased from the prior exam. Today, this measures approximately 6.4 x 2.8 x 6.3 cm previously 6.2 x 2.1 x 5.2 cm. The right hemipelvic sidewall is unchanged. There is no free fluid or free air in the abdomen or pelvis. Bone window technique throughout the exam shows no significant change from the prior exam. Chronic degenerative changes are again seen involving the hips, spine, sacroiliac joints. IMPRESSION: There is increase left hemipelvic sidewall adenopathy as described above. Electronically Signed by Ravi Garcia DO 11/07/2019 11:00 A
--- NOTE | 2019-11-07 10:44 | REP ---
CT CHEST WITHOUT IV CONTRAST: CT chest performed without IV contrast. Sagittal and coronal reconstruction images are performed. Comparison made with multiple CT exams, most recently 04/29/2019. The lungs show diffuse moderate interstitial fibrosis. There is diffuse bronchiectasis. There is emphysematous change. There is a stable 5 mm nodule in the right lower lobe posterolaterally. This has remained stable since prior study dating back to 2017 and is benign. No new parenchymal nodule is seen. There is a lymph node in the right anterior chest wall deep to the pectoralis minor muscle measuring 2.0 x 1.2 cm. This is stable. On the prior study, there are other smaller lymph nodes just superior to this. This have decreased in size and are barely perceptible. There is no left axillary adenopathy. Subcentimeter mediastinal lymph nodes are present. The heart is not significantly enlarged. There is no pleural or pericardial effusion. There are mild atherosclerotic calcifications of the thoracic aorta without aneurysm. There are degenerative changes of the spine. A few tiny calcified granulomas are seen in the right lung. IMPRESSION: Stable chronic lung findings. Stable mildly enlarged right subpectoral lymph node. No other significantly enlarged lymph nodes are seen in the axillary regions or mediastinum. Electronically Signed by Minesh Biswas MD 11/07/2019 10:44 A
== END ==
LOC: M RAD 07:27
PROVIDERS: ATTEND Internal Medicine Medical Oncology
DX: C82.90 Follicular lymphoma, unspecified, unspecified site (principal)

== ENCOUNTER → 2020-01-20 | Outpatient (CLI) | payer MEDICARE, OTHER ==
[~2020-01-20] MED LIST changes: +AUGM0.0534 TOP; +GABA-843 PO; +PRED50TA PO; +VERAPAMIL; +avadart
--- NOTE | 2020-01-20 16:15 | REP ---
REASON: Follicular lymphoma. COMPARISON: Multiple, the latest 11/07/2019. The lack of intravenous contrast decreases the sensitivity of the exam. The liver, gallbladder, spleen, pancreas, adrenal glands, and kidneys are unchanged. Para-aortic adenopathy has developed since the last exam. The left hemipelvic sidewall adenopathy has increased today measuring approximately 6.6 x 6.6 x 3.7 cm, previously 6.4 x 2.8 x 6.3 cm. The abdominal aorta is unchanged. The bowel loops and their mesenteries are unchanged. There is no free fluid or free air. Bone window technique throughout the examination shows no significant changes in the appearance of the visualized osseous structures. IMPRESSION: New periaortic adenopathy and worsened left hemipelvic fibro adenopathy as described above. Electronically Signed by Ravi Garcia DO 01/20/2020 05:14 P
--- NOTE | 2020-01-20 16:23 | REP ---
REASON: History of follicular lymphoma. COMPARISON: Multiple, the latest 11/07/2019. Once again, the lack of intravenous contrast decreases the sensitivity of the exam. The mediastinum and pulmonary shannan appear stable. No gross mass or adenopathy has developed. The right-sided subpectoral lymph node appears to have increased slightly in size today having a maximal dimension of 2.5 cm and a short axis dimension of 1.2 cm. Previously, the maximal dimension was 1.9 cm and the short axis dimension was 9 mm. There are no pleural or pericardial effusions. There is no significant change in the appearance of the imaged osseous structures. Evaluation of the lung summers shows stable appearing chronic changes with bronchiectasis and basilar fibrotic change status quo. There is a stable nodule in the posterolateral right lower lobe status quo. No new abnormal nodules, masses, or opacities have developed. IMPRESSION: 1. Stable appearing chronic lung field changes as described above. 2. There appears to be an increase in size in the right subpectoral lymph node as described above. Followup is suggested with clinical correlation. 3. Other findings and limitations as described above. Electronically Signed by Ravi Garcia DO 01/20/2020 05:15 P
== END ==
LOC: M RAD 09:27
PROVIDERS: ATTEND Internal Medicine Medical Oncology
DX: C82.90 Follicular lymphoma, unspecified, unspecified site (principal)

== ENCOUNTER 2020-02-21 10:40 | Outpatient (CLI) | payer MEDICARE, OTHER ==
[~2020-02-21 10:40] MED LIST changes: +ACETAMINOPHEN TAB 650MG DOSE (2X325MG) As Ordered ONE; +ACETAMINOPHEN TAB 650MG DOSE (2X325MG) ONE; -READI-CAT 2 As Ordered ONE; +RITUXIMAB ONE; -VERAPAMIL; -avadart; +dexameTHASONE 20MG/5ML VIAL (J1100 PER 1MG) As Ordered ONE; +dexameTHASONE 20MG/5ML VIAL (J1100 PER 1MG) ONE; +diphenhydrAMINE 50MG/ML VIAL (J1200) As Ordered ONE; +diphenhydrAMINE 50MG/ML VIAL (J1200) ONE; +riTUXimab 500MG 50ML VIAL (RITUXAN) (J9312 PER 10MG) ONE
[2020-04-20] MEDS ORDERED: VERAP80TA PO (08:35)
== END 2020-02-21 15:00 | disposition home or self-care (01) ==
LOC: M INFU 10:40
PROVIDERS: ATTEND Internal Medicine Medical Oncology
DX: C82.90 Follicular lymphoma, unspecified, unspecified site (principal)
CPT/HCPCS: 96375; 96413; 96415; J1100; J1200; J9312

== ENCOUNTER 2020-02-28 08:27 | Outpatient (CLI) | payer MEDICARE, OTHER ==
[~2020-02-28] VITALS: Ht 175.3 cm; Wt 69.8 kg
[2020-02-28] VITALS (8 sets, daily range): BP systolic 100–118; BP diastolic 56–71
[~2020-02-28 08:27] MED LIST changes: -ACETAMINOPHEN TAB 650MG DOSE (2X325MG) As Ordered ONE; -ACETAMINOPHEN TAB 650MG DOSE (2X325MG) ONE; -RITUXIMAB ONE; -dexameTHASONE 20MG/5ML VIAL (J1100 PER 1MG) As Ordered ONE; -dexameTHASONE 20MG/5ML VIAL (J1100 PER 1MG) ONE; -diphenhydrAMINE 50MG/ML VIAL (J1200) As Ordered ONE; -diphenhydrAMINE 50MG/ML VIAL (J1200) ONE; -riTUXimab 500MG 50ML VIAL (RITUXAN) (J9312 PER 10MG) ONE
[2020-02-28] MEDS ORDERED: riTUXimab (SUBSEQUENT INFUSIONS) IV ONE ×3 (09:00)
[2020-02-28] MEDS ORDERED: ACETAMINOPHEN TAB 650MG DOSE (2X325MG) As Ordered ONE (09:10)
[2020-02-28] MEDS ORDERED: diphenhydrAMINE 50MG/ML VIAL (J1200) As Ordered ONE (09:10)
[2020-02-28] MEDS ORDERED: ACETAMINOPHEN TAB 650MG DOSE (2X325MG) PO ONE (09:15)
[2020-02-28] MEDS ORDERED: diphenhydrAMINE 50MG/ML VIAL (J1200) IV ONE (09:15)
[2020-02-28] MEDS ORDERED: dexameTHASONE 20MG/5ML VIAL (J1100 PER 1MG) IV ONE (09:15)
[2020-02-28] MEDS ORDERED: dexameTHASONE 20MG/5ML VIAL (J1100 PER 1MG) As Ordered ONE (09:24)
[2020-04-20] MEDS ORDERED: VERAP80TA PO (08:35)
== END 2020-02-28 13:15 | disposition home or self-care (01) ==
LOC: M INFU 08:27
PROVIDERS: ATTEND Internal Medicine Medical Oncology
DX: C82.90 Follicular lymphoma, unspecified, unspecified site (principal)
CPT/HCPCS: 96375; 96413; 96415; J1100; J1200; J9312

== ENCOUNTER 2020-03-06 08:09 | Outpatient (CLI) | payer MEDICARE, OTHER ==
[~2020-03-06] VITALS: Ht 175.3 cm; Wt 70.0 kg
[2020-03-06] VITALS (7 sets, daily range): BP systolic 95–129; BP diastolic 54–66
[2020-03-06] MEDS ORDERED: NS IV ONE (08:30)
[2020-03-06] MEDS ORDERED: diphenhydrAMINE 50MG/ML VIAL (J1200) IV ONE (08:30)
[2020-03-06] MEDS ORDERED: dexameTHASONE 20MG/5ML VIAL (J1100 PER 1MG) IV ONE (08:30)
[2020-03-06] MEDS ORDERED: RITUXIMAB IV ONE (08:30)
[2020-03-06] MEDS ORDERED: ACETAMINOPHEN TAB 650MG DOSE (2X325MG) PO ONE (08:30)
[2020-03-06] MEDS ORDERED: dexameTHASONE 20MG/5ML VIAL (J1100 PER 1MG) As Ordered ONE (09:31)
[2020-03-06] MEDS ORDERED: ACETAMINOPHEN TAB 650MG DOSE (2X325MG) As Ordered ONE (09:31)
[2020-03-06] MEDS ORDERED: diphenhydrAMINE 50MG/ML VIAL (J1200) As Ordered ONE (09:31)
[2020-04-20] MEDS ORDERED: VERAP80TA PO (08:35)
== END 2020-03-06 13:30 | disposition home or self-care (01) ==
LOC: M INFU 08:09
PROVIDERS: ATTEND Internal Medicine Medical Oncology
DX: C82.90 Follicular lymphoma, unspecified, unspecified site (principal)
CPT/HCPCS: 96375; 96413; 96415; J1100; J1200; J9312

== ENCOUNTER 2020-03-13 08:53 | Outpatient (CLI) | payer MEDICARE, OTHER ==
[~2020-03-13] VITALS: Ht 175.3 cm; Wt 70.0 kg
[2020-03-13] VITALS (7 sets, daily range): BP systolic 96–108; BP diastolic 51–62
[~2020-03-13 08:53] MED LIST changes: +dexameTHASONE 20MG/5ML VIAL (J1100 PER 1MG) IV ONE
[2020-03-13] MEDS ORDERED: diphenhydrAMINE 50MG/ML VIAL (J1200) IV ONE (09:00)
[2020-03-13] MEDS ORDERED: ACETAMINOPHEN TAB 650MG DOSE (2X325MG) PO ONE (09:00)
[2020-03-13] MEDS ORDERED: riTUXimab (SUBSEQUENT INFUSIONS) IV ONE ×3 (09:00)
[2020-03-13] MEDS ORDERED: ACETAMINOPHEN TAB 650MG DOSE (2X325MG) As Ordered ONE (09:22)
[2020-03-13] MEDS ORDERED: dexameTHASONE 20MG/5ML VIAL (J1100 PER 1MG) As Ordered ONE (09:23)
[2020-03-13] MEDS ORDERED: diphenhydrAMINE 50MG/ML VIAL (J1200) As Ordered ONE (09:24)
[2020-04-20] MEDS ORDERED: VERAP80TA PO (08:35)
== END 2020-03-13 14:20 | disposition home or self-care (01) ==
LOC: M INFU 08:53
PROVIDERS: ATTEND Internal Medicine Medical Oncology
DX: C82.90 Follicular lymphoma, unspecified, unspecified site (principal)
CPT/HCPCS: 96375; 96413; 96415; J1100; J1200; J9312

== ENCOUNTER → 2020-03-31 | Outpatient (CLI) | payer MEDICARE, OTHER ==
[~2020-03-31] MED LIST changes: +GASTROGRAFIN SOLUTION 30ML (Q9963) As Ordered ONE; +ISOVUE-370 76% 100ML VIAL As Ordered ONE; +READI-CAT 2 As Ordered ONE; +VERAPAMIL; +avadart; -dexameTHASONE 20MG/5ML VIAL (J1100 PER 1MG) IV ONE
--- NOTE | 2020-04-07 17:10 | REP ---
CT CHEST WITHOUT IV CONTRAST HISTORY: Lymphoma follow up. Comparison CT 01/20/2020 as well as other prior exams. FINDINGS: CT chest performed without IV contrast. Sagittal and coronal reconstruction images were performed. Once again, there are stable interstitial fibrotic changes in both lungs. There is bilateral lower lobe bronchiectasis again noted. There is a stable subcentimeter nodule in the right lower lobe inferolaterally on image 79, stable. Tiny calcified granuloma is seen in each upper lobe. No new lung opacities are seen. The right subpectoral lymph node measures approximately 2.0 x 1.3 cm, on the most recent prior study measurements were approximately 2.5 x 1.3 cm. Length has, therefore, mildly diminished. Scattered subcentimeter mediastinal lymph nodes are stable. No definite new adenopathy is seen in the chest. Mild atherosclerotic calcification is seen at the thoracic aorta without aneurysm. Heart is not enlarged. There is no pleural or pericardial effusion. There are degenerative changes of the spine. IMPRESSION: Stable appearance of the lungs. Right subpectoral lymph node is mildly enlarged by CT criteria, but since the most recent prior study of 01/20/2020, the length has decreased by about 5 mm while the short axis dimension is unchanged at 13 mm. No new adenopathy is visualized. MTDD
--- NOTE | 2020-04-07 17:11 | REP ---
CT OF THE ABDOMEN AND PELVIS WITH ORAL CONTRAST COMPARISON: 01/20/20 TECHNIQUE: Axial CT abdomen and pelvis performed with oral contrast only. No IV contrast was administered. Sagittal and coronary reconstruction images are performed. FINDINGS: The liver, spleen, adrenals, pancreas and kidneys are unremarkable and unchanged in appearance. Atherosclerotic calcifications are seen of the abdominal aorta without aneurysm. Previously noted mildly enlarged periaortic lymph nodes have decreased in size and are subcentimeter in short axis dimension. Previously noted bulky left pelvic adenopathy has also decreased since the prior study. Left iliac and pelvic side wall adenopathy has diminished with the largest area of confluent adenopathy along the left pelvic side wall having a short axis dimension currently of 2.5 cm, previously 4.0 cm. Otherwise, no significant adenopathy is seen in the abdomen and pelvis. No free air or free fluid is seen. There is no bowel wall thickening. The urinary bladder is mildly distended and grossly unremarkable. There are degenerative changes of the spine. IMPRESSION: No significant periaortic adenopathy currently. There is persistent left iliac and pelvic side wall adenopathy, but this has decreased in size when compared to the prior study of 01/20/20. MTDD
== END ==
LOC: M RAD 08:00
PROVIDERS: ATTEND Internal Medicine Medical Oncology
DX: C82.90 Follicular lymphoma, unspecified, unspecified site (principal)
CPT/HCPCS: 71250; 74176; Q9963

== ENCOUNTER 2020-04-07 13:10 | Emergency (ER) | payer MEDICARE, OTHER ==
[~2020-04-07] VITALS: Ht 172.7 cm; Wt 71.3 kg
[~2020-04-07 13:10] MED LIST changes: -GASTROGRAFIN SOLUTION 30ML (Q9963) As Ordered ONE; -ISOVUE-370 76% 100ML VIAL As Ordered ONE; -READI-CAT 2 As Ordered ONE; -VERAPAMIL; -avadart
[2020-04-07] MEDS ORDERED: avadart (13:20)
[2020-04-07] MEDS ORDERED: PRAD150C6 PO (13:21)
[2020-04-07] MEDS ORDERED: VERAPAMIL (13:23)
--- NOTE | 2020-04-07 13:39 | REPVR ---
PROCEDURE INFORMATION: Exam: XR Chest, 1 View Exam date and time: 04/07/2020 1:19 PM Age: 84 years old Clinical indication: Chest pain TECHNIQUE: Imaging protocol: XR of the chest Views: 1 view. COMPARISON: CT Chest without contrast 03/31/2020 9:58 AM FINDINGS: Tubes, catheters and devices: A pacemaker device is present, and its leads are in appropriate position. Lungs: Mild atelectasis is seen in the left lung base.No acute infiltrate or consolidation is seen. Pleural space: No pleural effusion. No pneumothorax. Heart/Mediastinum: The heart demonstrates mild diffuse enlargement. Vasculature: There is dilatation and calcification of the aortic knob. Bones/joints: No acute fracture seen. IMPRESSION: Mild atelectasis is seen in the left lung base.No acute infiltrate or consolidation is seen. Electronically signed by: Delbert Buckley On 04/07/2020 13:38:51 PM
[2020-04-07 13:54] LABS: BASO # 0.1 10^3/uL (0.0-0.2); BASO % 1.1 % (0.0-1.0); EOS # 0.6 10^3/uL (0.0-0.5); EOS % 9.6 % (0.0-3.0); HEMATOCRIT 39.1 % (42.0-52.0); HEMOGLOBIN 12.8 g/dl (13.5-17.5); LYMPH # 0.7 10^3/uL (1.5-5.0); LYMPH % 10.2 % (24.0-44.0); MEAN CORPUSCULAR HEMOGLOBIN 32.4 pg (27.0-33.0); MEAN CORPUSCULAR HGB CONC 32.7 g/dl (32.0-36.5); MONO # 0.9 10^3/uL (0.0-0.8); MONO % 13.4 % (0.0-5.0); NEUTROPHILS # 4.2 10^3/uL (1.5-8.5); NEUTROPHILS % 65.4 % (36.0-66.0); PLATELET COUNT, AUTOMATED 216 10^3/uL (150-450); RED BLOOD COUNT 3.95 10^6/uL (4.30-6.10); WHITE BLOOD COUNT 6.5 10^3/uL (4.0-10.0)
[2020-04-07 14:58] LABS: BLOOD UREA NITROGEN 25 MG/DL (7-18); CALCIUM LEVEL 9.1 MG/DL (8.8-10.2); CARBON DIOXIDE LEVEL 27 MEQ/L (21-32); CHLORIDE LEVEL 107 MEQ/L (98-107); CK-MB VALUE MASS 2.9 NG/ML (<3.6); CPK CREATINE PHOSPHOKINASE 72 U/L (39-308); CREATININE FOR GFR 1.11 MG/DL (0.70-1.30); FREE T4 0.93 NG/DL (0.76-1.46); GLOMERULAR FILTRATION RATE > 60.0 (>35); GLUCOSE, FASTING 116 MG/DL (70-100); MB/CK RELATIVE INDEX 4.03 (< OR =4); POTASSIUM SERUM 3.7 MEQ/L (3.5-5.1); SODIUM LEVEL 139 MEQ/L (136-145); TROPONIN I 0.07 NG/ML (< 0.10)
--- NOTE | 2020-04-07 15:28 | ECGEPIP ---
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
--- NOTE | 2020-04-07 15:31 | ECGEPIP ---
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
[2020-04-07 16:47] VITALS: BP 100/56
[2020-04-20] MEDS ORDERED: VERAP80TA PO (08:35)
== END 2020-04-07 17:40 | disposition home or self-care (01) ==
LOC: M ED 13:10
DX: I48.91 Unspecified atrial fibrillation (principal); I48.92 Unspecified atrial flutter; I44.7 Left bundle-branch block, unspecified; Z79.01 Long term (current) use of anticoagulants; Z79.899 Other long term (current) drug therapy; Z91.041 Radiographic dye allergy status; Z88.0 Allergy status to penicillin; Z95.0 Presence of cardiac pacemaker

== ENCOUNTER 2020-05-28 10:08 | Observation (INO) | payer MEDICARE, OTHER ==
[~2020-05-28] VITALS: Ht 172.7 cm; Wt 72.5 kg
[~2020-05-28 10:08] MED LIST changes: +VERAPAMIL; +avadart
[2020-05-28] MEDS ORDERED: DUTA1CAP2 PO (10:28)
[2020-05-28] MEDS ORDERED: ROSU10TA6 PO (10:28)
[2020-05-28] MEDS ORDERED: CETI10CA2 PO (10:28)
[2020-05-28 11:36] LABS: BASO # 0.1 10^3/uL (0.0-0.2); BASO % 0.6 % (0.0-1.0); EOS # 0.3 10^3/uL (0.0-0.5); EOS % 4.1 % (0.0-3.0); HEMATOCRIT 37.2 % (42.0-52.0); HEMOGLOBIN 12.1 g/dl (13.5-17.5); LYMPH # 0.4 10^3/uL (1.5-5.0); LYMPH % 5.4 % (24.0-44.0); MEAN CORPUSCULAR HEMOGLOBIN 32.4 pg (27.0-33.0); MEAN CORPUSCULAR HGB CONC 32.5 g/dl (32.0-36.5); MEAN CORPUSCULAR VOLUME 99.5 fl (80.0-96.0); MONO # 0.9 10^3/uL (0.0-0.8); MONO % 11.1 % (0.0-5.0); NEUTROPHILS # 6.1 10^3/uL (1.5-8.5); NEUTROPHILS % 78.3 % (36.0-66.0); PLATELET COUNT, AUTOMATED 178 10^3/uL (150-450); RED BLOOD COUNT 3.74 10^6/uL (4.30-6.10); WHITE BLOOD COUNT 7.8 10^3/uL (4.0-10.0)
[2020-05-28 11:45] LABS: INR 4.68; PROTHROMBIN TIME 45.2 SECONDS (12.5-14.3)
[2020-05-28 12:01] LABS: CALCIUM LEVEL 8.8 MG/DL (8.8-10.2); CREATININE FOR GFR 1.22 MG/DL (0.70-1.30); POTASSIUM SERUM 4.4 MEQ/L (3.5-5.1)
[2020-05-28] MEDS ORDERED: CETI-24 PO (12:59)
[2020-05-28] MEDS ORDERED: FERR1TAB8 PO (12:59)
[2020-05-28] MEDS ORDERED: ASCO500T PO (12:59)
[2020-05-28] MEDS ORDERED: FLUO1SOL TOP (12:59)
[2020-05-28] MEDS ORDERED: VERAP80TA PO (12:59)
[2020-05-28] MEDS ORDERED: TRIA1OI TOP (12:59)
[2020-05-28] MEDS ORDERED: FURO20TA2 PO ×2 (12:59)
--- NOTE | 2020-05-28 14:56 | HPEPDOC ---
[facility] Medical History & Physical Date of Admission May 28, 2020 Date of Service: May 28, 2020 Primary Care Physician: Jr More Collins Attending Physician: CIRO PELLETIER MD History and Physical CHIEF COMPLAINT: Nonpainful bloody stools. HISTORY OF PRESENT ILLNESS: Patient is an 84yo male with a hx of diffuse large B-cell lymphoma, A-fib (non-valvular, on Pradaxa), history of internal hemorrhoids on colonoscopy who presented to the ED today with a 1 day hx of nonpainful bloody stools. He went to pass stools this morning before breakfast, and felt continuous passing of stool for over a half hour. When he wiped he noticed blood on the toilet paper, and looked in the bowl to find it filled with bloody water and feces. He described the stool as normal in consistency. He folded toilet paper and plugged his rectum with it, but felt it quickly soaked with blood. He used three such plugs, and brought the most recent with him to the ED. He felt no pain with wiping or plugging his rectum with the toilet paper, and denies nausea, vomiting, diarrhea or constipation. His only recent changes in daily routine was pork steak and sauerkraut dinner the previous night. Otherwise the patient has been watching his salt intake and diet. He reports adherence to getting colonoscopies through his 50s and 60s, before ceasing them when he reached 68yo. Colonoscopies were positive for polyps. PAST MEDICAL HISTORY: 1. A-fib on Pradaxa 2. Lymphoma s/p incomplete chemotherapy regimen. 3. Internal hemorrhoids 4. [place] in 2010 5. Stroke in 2011, no lasting deficits 6. Colonic polyps on last colonoscopy 04/2019 PAST SURGICAL HISTORY: 1. Pacemaker 5ya. 2. Cancer removal of ear. 3. Vasectomy in his 20s. SOCIAL HISTORY: Marital status: . Children: 2 Tobacco use: Denies ETOH: Denies frequent drinking. Has a glass of wine "once in a while" Illicit drug use: Denies IV drug use: Denies FAMILY HISTORY: Father: of unspecified cancer at 59 Mother: of stomach problems and pneumonia in 70s Children: In good health Hereditary Diseases: No hx of colon cancer or GI diseases in the family ALLERGIES: Please see below. REVIEW OF SYSTEMS: CONSTITUTIONAL: Denies recent weight changes, fatigue, or appetite changes. HEENT: Positive for chronic hearing loss, sinus congestion. CARDIOVASCULAR: Denies chest pain, palpitations, racing heart, swelling in the extremities. RESPIRATORY: Positive for a chronic dry cough which has recently been productive of white phlegm with occasional spots of yellow. GASTROINTESTINAL: Positive for blood stools as per HPI. Denies nausea, vomiting, diarrhea, constipation. GENITOURINARY: Denies pyuria or weak stream. SKIN: Positive for pruritic rash on abdomen post chemotherapy. Positive for easy bruising NEUROLOGICAL: positive for chronic worsening of vision and hearing b/l. Denies dizziness, lightheadedness, or tremble. PSYCHIATRIC: Positive for depression after chemotherapy which has resolved. HEMATOLOGIC/LYMPHATIC: Positive for bruising, easy bleeding. HOME MEDICATIONS: Please see below. PHYSICAL EXAMINATION: VITAL SIGNS: pulse 62, respiratory rate 18, blood pressure 117/57, pulse oximetry 97% on room air. GENERAL APPEARANCE: Patient is cheerful sitting comfortably in bed in no acute distress. He is well groomed and appears younger than stated age. He is of normal body habitus. HEENT: Mucus membranes are moist and pink. Normocephalic, atraumatic CARDIOVASCULAR: RRR, S1 and S2 sounds are heard. No murmurs, gallops or rubs are noted. Radial pulses are equal. Popliteal, pretibial and dorsalis pedis pulses are equal but diminished. LUNGS: Clear to auscultation in all lung summers b/l. No wheezing, rales or rhonc hi are noted. Chest rises symmetrically with inhalation. ABDOMEN: Bowel sounds are heard in all four quadrants. Abdomen is soft, nondistended and nontender. No organomegaly is noted on palpation. EXTREMITIES: There are diffuse bruising, petechiae and scabbing over the upper and lower extremities. The index finger on the L hand and middle finger of the R hand are crooked and have nodules on the DIC. Moves all extremities well. NEUROLOGICAL: No obvious focal deficits. PSYCHIATRIC: AAOx3. normal mood/affect LABORATORY DATA: See below. MICROBIOLOGY: Please see below. ASSESSMENT: Mr. Stubbs is a 84yo male with a hx of lymphoma, a fib on pradaxa, and internal hemorrhoids, presents with bright red blood per rectum found to have hgb within normal limits (12.1) concerning for ruptured internal hemorrhoids vs diverticulosis vs bleeding polyp. PLAN: 1. Nonpainful BRBPR: ddx internal hemorrhoids, vs malignancy vs diverticulosis. -No indications of infectious source. WBC is 7.8. Patient is afebrile -Hgb is 12.1, around his baseline. Will transfuse if Hgb drops below 8 as patient has history of CAD -Trend H/H Q6H -GI (Mic) recommends conservative therapy for now. 2. Lymphoma s/p Incomplete Chemotherapy -Follow up with Oncology outpatient 3. A-fib, non-valvular: rate-controlled -Hold Pradaxa due to GIB -Continue Verapamil 80mg x4 4. HTN -Continue home Furosemide 20mg 5. HLD -Continue home Rosuvastatin 10mg 6. Enlarged Prostate -Continue home Dutasteride 0.5mg 7. DVT Prophylaxis: -TEDs/SCDs DISPO: Observation, H/H Q6H Vital Signs Vital Signs Date Time Temp Pulse Resp B/P (MAP) Pulse Ox O2 Delivery O2 Flow Rate FiO2 05/28/20 11:45 117/57 (77) 05/28/20 11:38 62 18 97 Room Air 05/28/20 10:35 96.8 Laboratory Data Labs 24H Laboratory Tests 2 05/28/20 11:16: Immature Granulocyte % (Auto) 0.5, Neutrophils (%) (Auto) 78.3H, Lymphocytes (%) (Auto) 5.4L, Monocytes (%) (Auto) 11.1H, Eosinophils (%) (Auto) 4.1H, Basophils (%) (Auto) 0.6, Neutrophils # (Auto) 6.1, Lymphocytes # (Auto) 0.4L, Monocytes # (Auto) 0.9H, Eosinophils # (Auto) 0.3, Basophils # (Auto) 0.1, Nucleated Red Blood Cells % (auto) 0.0, Prothrombin Time 45.2H, Prothromb Time International Ratio 4.68, Activated Partial Thromboplast Time 83.0H, Anion Gap 5L, Glomerular Filtration Rate 60.0, Calcium Level 8.8 05/28/20 13:22: CBC/BMP Laboratory Tests 05/28/20 11:16 Home Medications Scheduled Ascorbic Acid (Ascorbic Acid) 500 Mg Tablet, 500 MG PO DAILY Cetirizine HCl (Cetirizine HCl) 10 Mg Tablet, 10 MG PO DAILY Dabigatran Etexilate Mesylate (Pradaxa) 150 Mg Capsule, 150 MG PO BID Dutasteride (Dutasteride) 0.5 Mg Capsule, 0.5 MG PO DAILY Ferrous Sulfate (Ferrous Sulfate) 325 Mg Tablet, 325 MG PO DAILY Fluocinonide (Fluocinonide) 0.05% 60ML Solution, 1 APLCT TOP DAILY APPLY TO SCALP Furosemide (Furosemide) 20 Mg Tablet, 20 MG PO DAILY Rosuvastatin Calcium (Rosuvastatin Calcium) 10 Mg Tablet, 10 MG PO DAILY Triamcinolone Acet (Triamcinolone Acetonide 0.1% Oint) 15 Gm Oint...g., 1 APLCT TOP BID APPLY TO RASH AREAS ON BODY Verapamil HCl (Verapamil HCl) 80 Mg Tablet, 160 MG PO QAM Verapamil HCl (Verapamil HCl) 80 Mg Tablet, 80 MG PO BID NOON/BEDTIME Scheduled PRN Furosemide (Furosemide) 20 Mg Tablet, 20 MG PO ASDIRECTED PRN for FLUID RETENTION TAKES IN ADDITION OF DAILY 20MG IF 2-3 LB WEIGHT GAIN Allergies Coded Allergies: Contrast Media (Verified Allergy, Severe, SOB, 05/28/20) had reaction even after he had premedication Penicillins (Verified Allergy, Intermediate, RASH, 10/12/18) A-FIB/CHADSVASC A-FIB History Current/History of A-Fib/PAF?: Yes Current PO Anticoag Therapy: Yes GME ATTESTATION GME ATTESTATION My faculty preceptor for this patient encounter was physically present during the encounter and was fully available. All aspects of the patient interview, examination, medical decision making process, and medical care plan development were reviewed and approved by the faculty preceptor. The faculty preceptor is aware and concurs with the plan as stated in the body of this note and will attest to such by his/her cosignature. ATTENDING NOTE I, Ciro Pelletier, have independently examined this patient and performed my own physical exam, as well as reviewed the documentation and edited where necessary. I have discussed in detail with the resident / student the findings and plan of treatment as documented by the resident / student and edited their note. I agree with their findings and treatment plan and have edited their documentation. I will continue to follow the patient during this hospital stay. CHERELLE ESPINAL May 28, 2020 14:56 AUSTYN PAINTER MD May 28, 2020 16:49 CIRO PELLETIER MD May 28, 2020 17:38
[2020-05-28] MEDS: VERAPAMIL 80 MG TAB PO SCH ×2 (15:00→18:35)
[2020-05-28 16:43] VITALS: BP 144/79
[2020-05-28 18:10] LABS: HEMATOCRIT 37.9 % (42.0-52.0); HEMOGLOBIN 12.3 g/dl (13.5-17.5)
--- NOTE | 2020-05-28 18:26 | CR.PDOC ---
General Date of Consultation: May 28, 2020 Referring Provider: GERRY GONZALES MD Attending Physician: MARÍA GORE MD Consultation Primary physician/ hospitalist: -Dr. Gonzales Reason for consult: -Rectal bleeding HPI: 84yo male with a hx of diffuse large B-cell lymphoma, A-fib (non-valvular, on Pradaxa), history of internal hemorrhoids on colonoscopy who presented to the ED today with a 1 day hx of nonpainful bloody stools. He went to pass stools this morning before breakfast, and felt continuous passing of stool for over a half hour. When he wiped he noticed blood on the toilet paper, and looked in the bowl to find it filled with bloody water and feces. He described the stool as normal in consistency. He folded toilet paper and plugged his rectum with it, but felt it quickly soaked with blood. He used three such plugs, and brought the most recent with him to the ED. He felt no pain with wiping or plugging his rectum with the toilet paper, and denies nausea, vomiting, diarrhea or constipation. His only recent changes in daily routine was pork steak and sauerkraut dinner the previous night. Otherwise the patient has been watching his salt intake and diet. He reports adherence to getting colonoscopies through his 50s and 60s, before ceasing them when he reached 68yo. Colonoscopies were positive for polyps. Pertinent negative GI symptoms: Patient denies fever, sick contacts, recent travel, nausea, vomiting, diarrhea, abdominal pain, loss of appetite, early satiety or unintentional weight loss. No history of hematemesis, melena or hematochezia. Patient reports regular bowel movements. Review of Systems: GI: as stated above CVS: No chest pain, No palpitations, No leg swelling. RS: No Shortness of breath, No Wheezing, no cough BUSINESS CENTER REPRESENTATIVE: No dizziness, No motor weakness, No sensory problems Hematology: No bruising, No gum bleeding, Musculoskeletal: No joint pain, ambulating well. Skin: No rash : No hematuria, No burning sensation of the urine ENT: No ear discharge/ pain, No dysphagia. Eyes: No photophobia. Jaundice Home medications: reviewed. Antithrombotic agents: - [ ] Medical h/o: As above. Surgical h/o: None on abdomen. Social h/o: Alcohol: - [ ] , smoking: [ ] , IVDA/ drugs: [ ] . Family h/o of GI cancers - None Prior Endoscopies: Last EGD and Colonoscopy in [facility] in April [address] Perea for anemia - noted to have diveritculosis, benign rectal polyps and gastritis. Prior GI evaluations: - [ ] Exam: Vitals: reviewed General: Alert and oriented x 3, not in distress HEENT: NO pallor, no icterus. Normal oropharynx, NO cervical lymph nodes. Chest: symmetric with bilateral clear air entry, CVS: S1, S2 heard, normal, no murmurs . Abdomen: non-distended, no surgical scars, soft, non-tender, no palpable masses, normal bowel sounds heard. Rectal exam: Patient refused / Deferred at this time in view of scheduled col onoscopy. Extremities: no pedal edema, pulses palpable. BUSINESS CENTER REPRESENTATIVE: no focal motor or sensory deficits. Moves all extremities Skin: no rash. Labs: reviewed. Impression: - Rectal bleeding - self limiing bleeding, with prior Colonoscopy in [address] [facility] by surgery team - noted to have diverticulosis and benign rectla polyps and hemorrhoids. -- Likely hemorrhoidal bleeding. Recommendations: - Patient educated about the test results, possible differential diagnoses and All questions answered. - Monitor H/H for now. - Clear liquid diet for now. - If no further bleeding can resume pradaxa and can follow up with PCP/ Oncolog y. - If recurrent rectal bleeding then to consider inpatient Colonoscopy. Plan of care discussed with patient and primary team. Patient verbalized understanding and agreed with the plan. Vital Signs/I&O Vital Signs Date Time Temp Pulse Resp B/P (MAP) Pulse Ox O2 Delivery O2 Flow Rate FiO2 05/28/20 16:43 96.7 82 16 144/79 (100) 96 Room Air Laboratory Data Labs 24H Laboratory Tests 2 05/28/20 11:16: Immature Granulocyte % (Auto) 0.5, Neutrophils (%) (Auto) 78.3H, Lymphocytes (%) (Auto) 5.4L, Monocytes (%) (Auto) 11.1H, Eosinophils (%) (Auto) 4.1H, Basophils (%) (Auto) 0.6, Neutrophils # (Auto) 6.1, Lymphocytes # (Auto) 0.4L, Monocytes # (Auto) 0.9H, Eosinophils # (Auto) 0.3, Basophils # (Auto) 0.1, Nucleated Red Blood Cells % (auto) 0.0, Prothrombin Time 45.2H, Prothromb Time International Ratio 4.68, Activated Partial Thromboplast Time 83.0H, Anion Gap 5L, Glomerular Filtration Rate 60.0, Calcium Level 8.8 05/28/20 13:22: Coronavirus (COVID-19)(PCR) NEGATIVE CBC/BMP Laboratory Tests 05/28/20 11:16 05/28/20 17:53 Allergies Coded Allergies: Contrast Media (Verified Allergy, Severe, SOB, 05/28/20) had reaction even after he had premedication Penicillins (Verified Allergy, Intermediate, RASH, 10/12/18) Home Medications Scheduled Ascorbic Acid (Ascorbic Acid) 500 Mg Tablet, 500 MG PO DAILY, (Reported) Cetirizine HCl (Cetirizine HCl) 10 Mg Tablet, 10 MG PO DAILY, (Reported) Dabigatran Etexilate Mesylate (Pradaxa) 150 Mg Capsule, 150 MG PO BID, (Reported) Dutasteride (Dutasteride) 0.5 Mg Capsule, 0.5 MG PO DAILY, (Reported) Ferrous Sulfate (Ferrous Sulfate) 325 Mg Tablet, 325 MG PO DAILY, (Reported) Fluocinonide (Fluocinonide) 0.05% 60ML Solution, 1 APLCT TOP DAILY, (Reported) APPLY TO SCALP Furosemide (Furosemide) 20 Mg Tablet, 20 MG PO DAILY, (Reported) Rosuvastatin Calcium (Rosuvastatin Calcium) 10 Mg Tablet, 10 MG PO DAILY, (Reported) Triamcinolone Acet (Triamcinolone Acetonide 0.1% Oint) 15 Gm Oint...g., 1 APLCT TOP BID, (Reported) APPLY TO RASH AREAS ON BODY Verapamil HCl (Verapamil HCl) 80 Mg Tablet, 160 MG PO QAM, (Reported) Verapamil HCl (Verapamil HCl) 80 Mg Tablet, 80 MG PO BID, (Reported) NOON/BEDTIME Scheduled PRN Furosemide (Furosemide) 20 Mg Tablet, 20 MG PO ASDIRECTED PRN for FLUID RETENTION, (Reported) TAKES IN ADDITION OF DAILY 20MG IF 2-3 LB WEIGHT GAIN MARÍA GORE MD May 28, 2020 18:26
[2020-05-28 22:00] VITALS: BP 108/65
[2020-05-28] MEDS: TRIAMCINOLONE ACET 0.1% OINTMENT 15 GM TOP SCH (23:00)
[2020-05-29 00:21] LABS: HEMATOCRIT 35.8 % (42.0-52.0); HEMOGLOBIN 11.8 g/dl (13.5-17.5)
[2020-05-29 06:00] VITALS: BP 123/76
[2020-05-29 06:34] LABS: BASO # 0.1 10^3/uL (0.0-0.2); BASO % 0.9 % (0.0-1.0); EOS # 0.5 10^3/uL (0.0-0.5); EOS % 8.8 % (0.0-3.0); HEMATOCRIT 37.8 % (42.0-52.0); HEMOGLOBIN 12.3 g/dl (13.5-17.5); LYMPH # 0.6 10^3/uL (1.5-5.0); LYMPH % 9.6 % (24.0-44.0); MEAN CORPUSCULAR HEMOGLOBIN 32.2 pg (27.0-33.0); MEAN CORPUSCULAR HGB CONC 32.5 g/dl (32.0-36.5); MONO # 0.8 10^3/uL (0.0-0.8); MONO % 13.3 % (0.0-5.0); NEUTROPHILS # 3.9 10^3/uL (1.5-8.5); NEUTROPHILS % 66.7 % (36.0-66.0); PLATELET COUNT, AUTOMATED 181 10^3/uL (150-450); RED BLOOD COUNT 3.82 10^6/uL (4.30-6.10); WHITE BLOOD COUNT 5.8 10^3/uL (4.0-10.0)
[2020-05-29 06:54] LABS: BLOOD UREA NITROGEN 17 MG/DL (7-18); CALCIUM LEVEL 8.9 MG/DL (8.8-10.2); CARBON DIOXIDE LEVEL 26 MEQ/L (21-32); CHLORIDE LEVEL 113 MEQ/L (98-107); CREATININE FOR GFR 0.95 MG/DL (0.70-1.30); GLOMERULAR FILTRATION RATE > 60.0 (>35); GLUCOSE, FASTING 78 MG/DL (70-100); MAGNESIUM LEVEL 2.3 MG/DL (1.8-2.4); POTASSIUM SERUM 4.6 MEQ/L (3.5-5.1); SODIUM LEVEL 144 MEQ/L (136-145)
[2020-05-29] MEDS ORDERED: VERAPAMIL 80 MG TAB PO SCH (08:00)
[2020-05-29 08:04] VITALS: BP 125/76
[2020-05-29] MEDS: TRIAMCINOLONE ACET 0.1% OINTMENT 15 GM TOP SCH (08:04)
[2020-05-29] MEDS ORDERED: CETIRIZINE (ZyrTEC) 10 MG TAB PO SCH (09:00)
[2020-05-29] MEDS ORDERED: ASCORBIC ACID 500 MG TAB PO SCH (09:00)
[2020-05-29] MEDS ORDERED: DUTASTERIDE 0.5 MG CAP (AVODART) PO SCH (09:00)
[2020-05-29] MEDS ORDERED: FERROUS SULFATE 325MG TAB PO SCH (09:00)
[2020-05-29] MEDS ORDERED: ROSUVASTATIN 10 MG TAB (CRESTOR) PO SCH (09:00)
--- NOTE | 2020-05-29 09:07 | DS.PDOC ---
Discharge Summary General Date of Admission May 28, 2020 at 10:09 Date of Discharge May 29, 2020 Primary Care Physician: Jr More Collins Attending Physician: CIRO PELLETIER MD Specialist/Consultants Involve: MARÍA GORE MD Discharge Summary PROCEDURES PERFORMED DURING STAY: None. ADMITTING DIAGNOSES: 1. BRBPR ddx internal hemorrhoids vs diverticulosis vs malignancy. 2. Lymphoma s/p chemotherapy, currently undergoing immunotherapy 3. A-fib, nonvalvular, rate controlled 4. HTN 5. HLD 6. BPH DISCHARGE DIAGNOSES: 1. BRBPR likely due to internal hemorrhoids, self-limited 2. Lymphoma s/p chemotherapy, currently undergoing immunotherapy 3. A-fib, nonvalvular, rate controlled 4. HTN 5. HLD 6. BPH COMPLICATIONS/CHIEF COMPLAINT: Rectal Bleeding. HISTORY OF PRESENT ILLNESS: Patient is an 84yo male with a hx of diffuse large B-cell lymphoma, A-fib (non-valvular, on Pradaxa), and history of internal hemorrhoids on colonoscopy who presented to the ED yesterday with a 1 day hx of nonpainful bloody stools. He went to pass stools before breakfast, and felt continuous passing of stool for over a half hour. When he wiped he noticed blood on the toilet paper, and looked in the bowl to find it filled with bloody water and feces. He described the stool as normal in consistency. He folded toilet paper and plugged his rectum with it, but felt it quickly soaked with blood. He used three such plugs, and brought the most recent with him to the ED. He felt no pain with wiping or plugging his rectum with the toilet paper, and denies nausea, vomiting, diarrhea or constipation. His only recent changes in daily routine was pork steak and sauerkraut dinner the previous night. He presented to the ED. The hospitalist team was called, and the patient was admitted. HOSPITAL COURSE: The patient's blood was drawn, and showed no signs of infection. His Hgb was stable and consistent with previous measurements, and his BP was stable. His Pradaxa was held due to GI bleed, but the rest of his home medications were continued. The patient was admitted for observation. Overnight his Hgb remained stable and the bleeding stopped. He seen by GI, Dr. Gore, who recommended follow up with PCP and restarting Pradaxa as long as there was no recurrent bleeding. DISCHARGE MEDICATIONS: Please see below. ALLERGIES: Please see below. PHYSICAL EXAMINATION ON DISCHARGE: VITAL SIGNS: Please see below. GENERAL: Patient is seen at bedside, and has not yet eaten breakfast. He is awake and cheerful, and looks younger than his stated age. HEENT: Mucus membranes are moist and pink. Normocephalic and atraumatic. No pallor, no icterus CARDIOVASCULAR EXAMINATION: RRR, S1 and S2 sounds are heard. No murmurs, rubs or gallops are noted. Radial pulses are equal. Popliteal, pretibial and dorsalis pedis pulses are equal but diminished. RESPIRATORY EXAMINATION: Lungs are clear to auscultation in all lung summers b/l. There are no wheezing, rales or rhonchi noted. Chest rises symmetrically in inhalation. ABDOMINAL EXAMINATION: Bowel sounds are heard in all four quadrant. Abdomen is soft, nontender and nondistended. There is no discoloration. No organomegaly is noted. EXTREMITIES: There is no edema in the legs. There are diffuse bruising, petechiae and scabbing over the upper and lower extremities. The index finger on the L hand and middle finger of the R hand are crooked and have nodules on the DIP. Moves all extremities well. SKIN: There are diffuse bruises, petechiae and spider hemangiomas on the extremities. NEUROLOGICAL EXAMINATION: No obvious focal deficits noted. PSYCHIATRIC EXAMINATION: AAOx3. Normal mood/affect. LABORATORY DATA: Please see below. IMAGING: None PROGNOSIS: Fair ACTIVITY: As tolerated. DIET: 2gm salt restriction DISCHARGE PLAN: Discharge to home DISCHARGE INSTRUCTIONS: 1. Pradaxa held while inpatient due to GI bleed. Restarting Pradaxa at discharge. 2. Followup with PCP in 7-10d for discharge followup. Pradaxa held while inpatient due to GI bleed. 3. Return to the ER if you experience any problems ITEMS TO FOLLOWUP ON ON OUTPATIENT: 1. None. DISCHARGE CONDITION: Stable. TIME SPENT ON DISCHARGE: 25 minutes. Vital Signs/I&Os Vital Signs Date Time Temp Pulse Resp B/P (MAP) Pulse Ox O2 Delivery O2 Flow Rate FiO2 05/29/20 08:04 82 125/76 05/29/20 06:00 97.1 17 97 Room Air I&O- Last 24 Hours up to 6 AM 05/29/20 06:00 Intake Total 850 ml Output Total 750 ml Balance 100 ml Laboratory Data Labs 24H Laboratory Tests 2 05/28/20 11:16: Immature Granulocyte % (Auto) 0.5, Neutrophils (%) (Auto) 78.3H, Lymphocytes (%) (Auto) 5.4L, Monocytes (%) (Auto) 11.1H, Eosinophils (%) (Auto) 4.1H, Basophils (%) (Auto) 0.6, Neutrophils # (Auto) 6.1, Lymphocytes # (Auto) 0.4L, Monocytes # (Auto) 0.9H, Eosinophils # (Auto) 0.3, Basophils # (Auto) 0.1, Nucleated Red Blood Cells % (auto) 0.0, Prothrombin Time 45.2H, Prothromb Time International Ratio 4.68, Activated Partial Thromboplast Time 83.0H, Anion Gap 5L, Glomerular Filtration Rate 60.0, Calcium Level 8.8 05/28/20 13:22: Coronavirus (COVID-19)(PCR) NEGATIVE 05/29/20 05:44: Immature Granulocyte % (Auto) 0.7, Neutrophils (%) (Auto) 66.7H, Lymphocytes (%) (Auto) 9.6L, Monocytes (%) (Auto) 13.3H, Eosinophils (%) (Auto) 8.8H, Basophils (%) (Auto) 0.9, Neutrophils # (Auto) 3.9, Lymphocytes # (Auto) 0.6L, Monocytes # (Auto) 0.8, Eosinophils # (Auto) 0.5, Basophils # (Auto) 0.1, Nucleated Red Blood Cells % (auto) 0.0, Anion Gap 5L, Glomerular Filtration Rate > 60.0, Calcium Level 8.9, Magnesium Level 2.3 CBC/BMP Laboratory Tests 05/28/20 11:16 05/28/20 17:53 05/29/20 00:08 05/29/20 05:44 Discharge Medications Scheduled Ascorbic Acid (Ascorbic Acid) 500 Mg Tablet, 500 MG PO DAILY, (Reported) Cetirizine HCl (Cetirizine HCl) 10 Mg Tablet, 10 MG PO DAILY, (Reported) Dabigatran Etexilate Mesylate (Pradaxa) 150 Mg Capsule, 150 MG PO BID, (Reported) Dutasteride (Dutasteride) 0.5 Mg Capsule, 0.5 MG PO DAILY, (Reported) Ferrous Sulfate (Ferrous Sulfate) 325 Mg Tablet, 325 MG PO DAILY, (Reported) Fluocinonide (Fluocinonide) 0.05% 60ML Solution, 1 APLCT TOP DAILY, (Reported) APPLY TO SCALP Furosemide (Furosemide) 20 Mg Tablet, 20 MG PO DAILY, (Reported) Rosuvastatin Calcium (Rosuvastatin Calcium) 10 Mg Tablet, 10 MG PO DAILY, (Reported) Triamcinolone Acet (Triamcinolone Acetonide 0.1% Oint) 15 Gm Oint...g., 1 APLCT TOP BID, (Reported) APPLY TO RASH AREAS ON BODY Verapamil HCl (Verapamil HCl) 80 Mg Tablet, 160 MG PO QAM, (Reported) Verapamil HCl (Verapamil HCl) 80 Mg Tablet, 80 MG PO BID, (Reported) NOON/BEDTIME Scheduled PRN Furosemide (Furosemide) 20 Mg Tablet, 20 MG PO ASDIRECTED PRN for FLUID RETENTION, (Reported) TAKES IN ADDITION OF DAILY 20MG IF 2-3 LB WEIGHT GAIN Allergies Coded Allergies: Contrast Media (Verified Allergy, Severe, SOB, 05/28/20) had reaction even after he had premedication Penicillins (Verified Allergy, Intermediate, RASH, 10/12/18) GME ATTESTATION GME ATTESTATION My faculty preceptor for this patient encounter was physically present during t he encounter and was fully available. All aspects of the patient interview, examination, medical decision making process, and medical care plan development were reviewed and approved by the faculty preceptor. The faculty preceptor is aware and concurs with the plan as stated in the body of this note and will attest to such by his/her cosignature. ATTENDING NOTE I, Ciro Pelletier, have independently examined this patient and performed my own physical exam, as well as reviewed the documentation and edited where necessary. I have discussed in detail with the resident / student the findings and plan of treatment as documented by the resident / student and edited their note. I agree with their findings and treatment plan and have edited their documentation. I will continue to follow the patient during this hospital stay. Time spent on discharge 25 minutes CHERELLE ESPINAL May 29, 2020 09:07 MARCUS KRAUS D.O. May 29, 2020 11:42 CIRO PELLETIER MD May 29, 2020 18:56
== END 2020-05-29 11:10 | disposition home or self-care (01) ==
LOC: EDBD 10:08 → M ED 10:08 → M ED INP 10:09 → ENRESERV 15:17 → M MSPAV 16:37
PROVIDERS: ADMIT Internal Medicine; ATTEND Internal Medicine
DX: K62.5 Hemorrhage of anus and rectum (principal); C83.30 Diffuse large B-cell lymphoma, unspecified site; K64.9 Unspecified hemorrhoids; Z79.899 Other long term (current) drug therapy; I48.91 Unspecified atrial fibrillation; I10 Essential (primary) hypertension; E78.49 Other hyperlipidemia; N40.0 Benign prostatic hyperplasia without lower urinary tract symptoms; Z79.01 Long term (current) use of anticoagulants; Z91.041 Radiographic dye allergy status; Z88.2 Allergy status to sulfonamides; I25.2 Old myocardial infarction; Z86.73 Personal history of transient ischemic attack (TIA), and cerebral infarction without residual deficits; Z95.0 Presence of cardiac pacemaker
CPT/HCPCS: 36415; 80048; 83735; 85014; 85018; 85025; 85610; 85730; 86850; 86900; 86901; 99285; G0378; U0002

== ENCOUNTER 2020-07-13 13:47 | Inpatient (IN) | payer MEDICARE, OTHER ==
[~2020-07-13] VITALS: Ht 170.2 cm; Wt 69.1 kg
[~2020-07-13 13:47] MED LIST changes: +ASCO500T PO; +CETI-24 PO; +CETI10CA2 PO; +FERR1TAB8 PO; +FLUO1SOL TOP; +REVL20CA PO; +TRIA1OI TOP
--- NOTE | 2020-07-13 14:27 | REP ---
INDICATION: DYSPNEA/COUGH. COMPARISON: Comparison chest x-ray April 07, 2020. TECHNIQUE: Portable upright AP chest radiograph. Two views. FINDINGS: Monitoring electrodes are seen. A dual lead pacemaker remains in the right heart view of the left side. Borderline heart size is again seen. Pulmonary vasculature is not increased. Pleural angles are sharp. No infiltrate is seen.. IMPRESSION: Borderline heart size. Otherwise no active disease.. <Electronically signed by Edward Grullon > 07/13/20 [id number]
[2020-07-13 14:30] LABS: BASO # 0.1 10^3/uL (0.0-0.2); BASO % 0.8 % (0.0-1.0); EOS # 0.5 10^3/uL (0.0-0.5); EOS % 6.3 % (0.0-3.0); HEMATOCRIT 37.3 % (42.0-52.0); HEMOGLOBIN 11.5 g/dl (13.5-17.5); LYMPH # 0.5 10^3/uL (1.5-5.0); LYMPH % 5.8 % (24.0-44.0); MEAN CORPUSCULAR HEMOGLOBIN 29.8 pg (27.0-33.0); MEAN CORPUSCULAR HGB CONC 30.8 g/dl (32.0-36.5); MEAN CORPUSCULAR VOLUME 96.6 fl (80.0-96.0); MONO # 1.4 10^3/uL (0.0-0.8); NEUTROPHILS # 5.3 10^3/uL (1.5-8.5); NEUTROPHILS % 67.9 % (36.0-66.0); PLATELET COUNT, AUTOMATED 241 10^3/uL (150-450); RED BLOOD COUNT 3.86 10^6/uL (4.30-6.10); WHITE BLOOD COUNT 7.8 10^3/uL (4.0-10.0)
[2020-07-13 15:50] LABS: ALBUMIN 3.1 GM/DL (3.2-5.2); ALT/SGPT 19 U/L (12-78); BILIRUBIN,DIRECT 0.2 MG/DL (0.0-0.2); BILIRUBIN,TOTAL 0.7 MG/DL (0.2-1.0); BLOOD UREA NITROGEN 26 MG/DL (7-18); CALCIUM LEVEL 8.9 MG/DL (8.8-10.2); CARBON DIOXIDE LEVEL 23 MEQ/L (21-32); CHLORIDE LEVEL 107 MEQ/L (98-107); CK-MB VALUE MASS 2.4 NG/ML (<3.6); CPK CREATINE PHOSPHOKINASE 63 U/L (39-308); CREATININE FOR GFR 1.03 MG/DL (0.70-1.30); GLOMERULAR FILTRATION RATE > 60.0 (>35); GLUCOSE, FASTING 95 MG/DL (70-100); MB/CK RELATIVE INDEX 3.81 (< OR =4); NT-PRO BNP 6136 PG/ML (<450); POTASSIUM SERUM 4.3 MEQ/L (3.5-5.1); SODIUM LEVEL 138 MEQ/L (136-145); TOTAL PROTEIN 5.8 GM/DL (6.4-8.2); TROPONIN I 0.03 NG/ML (< 0.10)
[2020-07-13] MEDS ORDERED: FUROSEMIDE 40MG/4ML VIAL (J1940) IV ONE (16:00)
--- NOTE | 2020-07-13 17:53 | HPEPDOC ---
[facility] Medical History & Physical Date of Admission Jul 13, 2020 Date of Service: Jul 13, 2020 History and Physical Chief complaint: Who presented to the ER with some physicians of breath for 2-3 years History of present illness: Patient is a 68-year-old male who presented to the ER with complaints of shortness of breath. She has reported a productive cough that occurs i ntermittently.. He notes that the cough is worse in the morning with some blood and clots. Upon arrival, patient was saturating well on room air, however upon coughing, he had desaturated and required oxygen while in the ER. Patient denies any chest pain, palpitations, nausea, vomiting, abdominal pain, constipation, diarrhea, or urinary discomfort. He has not experienced any recent fevers or chills. Past Medical History: 1. 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 Right axillary, left inguinal, pelvic bulky progression in December 2018. Now on mini R-CHOP 2. Subcentimeter right lung nodules followed by Dr. Lawson of pulmonology 3. CAD status post NSTEMI in 2010; 2016 cardiac cath 80% occlusion at D1, otherwise no coronary occlusion. 4. CVA 2011. 5. Left atrial thrombus 2011 on echo. 6. Hypertension. 7. Atrial fibrillation on Pradaxa 8. BPH. 9. CHF (diastolic). Last echo 02/2019. EF60% 10. DLP 11. Microhematuria. 12. Gout. 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 Review of Systems: 10 point review of systems complete, all negative otherwise stated in HPI Physical exam: - Vitals: BP [123/58], HR [68], RR [20], Sat [94%RA], Temp [97.4F] - General: Lying in bed, Speaking in full sentences, AAOx3 - HEENT: NC, AT, PERRLA - CVS: +S1S2 - Lungs: Fair air entry bilaterally, No appreciable wheezing / rales / rhonchi - Abdomen: Soft, Non-distended, Non-tender - Extremities: No lower extremity edema, No calf tenderness - Neuro: No focal motor or sensory deficit - Skin: No visible rashes Labs: See below Imaging: See below EKG: See below Assessment and Plan: Shortness of breath / Reported hemoptysis - Patient presented to the emergency room with complaints of shortness of breath - He is indicated that he has had a productive cough that occurs intermittently, worse in the morning; has noted some blood clots - Physical does not reveal any signs of fluid overload - Hg appears to be relatively at baseline - CXR 07/13: Borderline heart size. Otherwise no active disease. - Will check ECHO / CT chest (w/o contrast given his allergy) / Trend H&H / Telemetry monitoring - Will keep patient on telemetry for observation DLBCL non-Hodgkin's lymphoma - Clinical stage IIIA mixed follicular - Grade 1-2 with 40/60% follicular/DLBCL component diagnosed August 2018. - Right axillary, left inguinal, pelvic bulky progression in December 2018. Now on mini R-CHOP Subcentimeter R lung nodules - Followed by Dr. Lawson of pulmonology CAD status post NSTEMI in 2010 - 2015 cardiac cath 80% occlusion at D1, otherwise no coronary occlusion - CVA 2011 - c/w Left atrial thrombus (2011) - c/w Pradaxa HTN - BP well controlled - c/w Furosemide / Diltiazem Atrial fibrillation - c/w Diltiazem - c/w Pradaxa BPH - c/w Dutasteride Chronic Diastolic CHF - No evidence of fluid overload - Last echo 02/2019. EF60% DLP - c/w Rosuvastatin Microhematuria Gout DVT prophylaxis - Will c/w full anticoagulation with Pradaxa Vital Signs Vital Signs Date Time Temp Pulse Resp B/P (MAP) Pulse Ox O2 Delivery O2 Flow Rate FiO2 07/13/20 14:04 97.4 68 20 123/58 (79) 94 Room Air Laboratory Data Labs 24H Laboratory Tests 2 07/13/20 14:24: Immature Granulocyte % (Auto) 1.2, Neutrophils (%) (Auto) 67.9H, Lymphocytes (%) (Auto) 5.8L, Monocytes (%) (Auto) 18.0H, Eosinophils (%) (Auto) 6.3H, Basophils (%) (Auto) 0.8, Neutrophils # (Auto) 5.3, Lymphocytes # (Auto) 0.5L, Monocytes # (Auto) 1.4H, Eosinophils # (Auto) 0.5, Basophils # (Auto) 0.1, Nucleated Red Blood Cells % (auto) 0.0, Anion Gap 8, Glomerular Filtration Rate > 60.0, Ca lcium Level 8.9, Total Bilirubin 0.7, Direct Bilirubin 0.2, Aspartate Amino Transf (AST/SGOT) 23, Alanine Aminotransferase (ALT/SGPT) 19, Alkaline Phosphatase 75, Total Creatine Kinase 63, Creatine Kinase MB 2.4, Creatine Kinase MB Relative Index 3.81, Troponin I 0.03, XQ-Reo-H-Type Natriuretic Pept bri 6136H, Total Protein 5.8L, Albumin 3.1L, Albumin/Globulin Ratio 1.1 07/13/20 16:01: 07/13/20 16:23: Coronavirus (COVID-19)(PCR) NEGATIVE 07/13/20 16:52: POC pH (Misc Panel) 7.434, POC Base Excess (Misc Panel) -6.0L, POC Saturated Percent O2 (Misc) 90L, POC pO2 (Misc Panel) 55.0L, POC pCO2 (Misc Panel) 27.5L, POC HCO3 (Misc Panel) 18.5L, POC Total CO2 (Misc Panel) 19.0L CBC/BMP Laboratory Tests 07/13/20 14:24 Home Medications Scheduled Ascorbic Acid (Ascorbic Acid) 500 Mg Tablet, 500 MG PO DAILY Cetirizine HCl (Cetirizine HCl) 10 Mg Tablet, 10 MG PO DAILY Dabigatran Etexilate Mesylate (Pradaxa) 150 Mg Capsule, 150 MG PO BID Dutasteride (Dutasteride) 0.5 Mg Capsule, 0.5 MG PO DAILY Ferrous Sulfate (Ferrous Sulfate) 325 Mg Tablet, 325 MG PO DAILY Fluocinonide (Fluocinonide) 0.05% 60ML Solution, 1 APLCT TOP DAILY APPLY TO SCALP Furosemide (Furosemide) 20 Mg Tablet, 20 MG PO DAILY Lenalidomide (Revlimid) 20 Mg Capsule, 1 CAP PO DAILY Take 1 capsule daily for 21 days, then take 7 days off Rosuvastatin Calcium (Rosuvastatin Calcium) 10 Mg Tablet, 10 MG PO DAILY Triamcinolone Acet (Triamcinolone Acetonide 0.1% Oint) 15 Gm Oint...g., 1 APLCT TOP BID APPLY TO RASH AREAS ON BODY Verapamil HCl (Verapamil HCl) 80 Mg Tablet, 160 MG PO QAM Verapamil HCl (Verapamil HCl) 80 Mg Tablet, 80 MG PO BID NOON/BEDTIME Scheduled PRN Furosemide (Furosemide) 20 Mg Tablet, 20 MG PO ASDIRECTED PRN for FLUID RETENTION TAKES IN ADDITION OF DAILY 20MG IF 2-3 LB WEIGHT GAIN Allergies Coded Allergies: Contrast Media (Verified Allergy, Severe, SOB, 05/28/20) had reaction even after he had premedication Penicillins (Verified Allergy, Intermediate, RASH, 10/12/18) GERRY GONZALES MD Jul 13, 2020 17:53
[2020-07-13] MEDS ORDERED: ACETAMINOPHEN TAB 650MG DOSE (2X325MG) PO PRN (18:00)
--- NOTE | 2020-07-13 19:03 | REPVR ---
PROCEDURE INFORMATION: Exam: CT Chest Without Contrast; Diagnostic Exam date and time: 07/13/2020 4:08 PM Age: 85 years old Clinical indication: Shortness of breath; Additional info: SOB TECHNIQUE: Imaging protocol: Diagnostic computed tomography of the chest without contrast. 3D rendering (Not supervised by radiologist): MIP and/or 3D reconstructed images were created by the technologist. Radiation optimization: All CT scans at this facility use at least one of these dose optimization techniques: automated exposure control; mA and/or kV adjustment per patient size (includes targeted exams where dose is matched to clinical indication); or iterative reconstruction. COMPARISON: CT Chest without contrast 03/31/2020 9:58 AM FINDINGS: Tubes, catheters and devices: Dual chamber cardiac pacer demonstrated. Pacer wires are intact. Lungs: There are vague bilateral ground-glass, semi-solid and reticular pulmonary parenchymal opacities which were not demonstrated on the prior examination of 03/31/2020. Findings consistent with multifocal bilateral pneumonitis, likely viral. Pleural space: Unremarkable. No pneumothorax. No pleural effusion. Heart: There is mild atherosclerotic calcification of the coronary arteries. Aorta: There is mild atherosclerosis in the thoracic aorta. There is fusiform dilatation of the ascending thoracic aorta which measures 3.7 cm. maximally. There is no saccular component. Lymph nodes: Unremarkable. No enlarged lymph nodes. Bones/joints: The spine demonstrates mild degenerative changes. Shallow levoscoliosis. Soft tissues: Unremarkable. IMPRESSION: 1. There are vague bilateral ground-glass, semi-solid and reticular pulmonary parenchymal opacities which were not demonstrated on the prior examination of 03/31/2020. Findings consistent with multifocal bilateral pneumonitis, likely viral. 2. There is fusiform dilatation of the ascending thoracic aorta which measures 3.7 cm. maximally. There is no saccular component. Electronically signed by: Jose Luis Salinas On 07/13/2020 19:03:56 PM
[2020-07-13] MEDS ORDERED: ARNU1INH PO ×2 (19:29→19:34)
[2020-07-13 19:33] VITALS: O2SAT 88
[2020-07-13] MEDS ORDERED: PROAAER10 INH (19:34)
[2020-07-13 20:12] LABS: HEMATOCRIT 36.1 % (42.0-52.0); HEMOGLOBIN 11.1 g/dl (13.5-17.5)
[2020-07-13] MEDS ORDERED: ALBUTEROL 90 MCG/ACT 8GM HFA INHALER INH PRN (20:45)
[2020-07-13] MEDS ORDERED: VERAPAMIL 80 MG TAB PO SCH (21:00)
[2020-07-13] MEDS ORDERED: ROSUVASTATIN 10 MG TAB (CRESTOR) PO SCH (21:00)
[2020-07-13] MEDS: DABIGATRAN ETEXILATE 75 MG CAP (PRADAXA) PO SCH (21:00)
[2020-07-13] MEDS: TRIAMCINOLONE ACET 0.1% OINTMENT 15 GM TOP SCH (21:00)
[2020-07-13 21:46] LABS: VENOUS BASE EXCESS -1.6 (-2.0-2.0); VENOUS HCO3 21.5 MEQ/L (23.0-27.0); VENOUS O2 SATURATION 90.2 % (60.0-80.0); VENOUS PARTIAL PRESSURE CO2 31.7 mmHg (38.0-50.0); VENOUS PARTIAL PRESSURE O2 59.1 mmHg (30.0-50.0); VENOUS STANDARD HCO3 22.9 MEQ/L; VENOUS TOTAL CO2 22.5 MEQ/L (24.0-28.0)
[2020-07-13 22:50] LABS: C REACTIVE PROTEIN QUANTITATIV 3.34 MG/DL (0.00-0.30); CK-MB VALUE MASS 1.9 NG/ML (<3.6); MB/CK RELATIVE INDEX 3.73 (< OR =4); TROPONIN I 0.04 NG/ML (< 0.10)
[2020-07-14 02:02] LABS: HEMATOCRIT 35.9 % (42.0-52.0); HEMOGLOBIN 11.3 g/dl (13.5-17.5)
[2020-07-14 02:51] LABS: MB/CK RELATIVE INDEX 4.88 (< OR =4); TROPONIN I 0.04 NG/ML (< 0.10)
--- NOTE | 2020-07-14 06:20 | ECGEPIP ---
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
[2020-07-14 08:06] LABS: BASO % 0.5 % (0.0-1.0); EOS # 0.6 10^3/uL (0.0-0.5); EOS % 10.7 % (0.0-3.0); HEMOGLOBIN 11.2 g/dl (13.5-17.5); LYMPH # 0.5 10^3/uL (1.5-5.0); LYMPH % 8.2 % (24.0-44.0); MEAN CORPUSCULAR HEMOGLOBIN 29.9 pg (27.0-33.0); MEAN CORPUSCULAR HGB CONC 31.1 g/dl (32.0-36.5); MEAN CORPUSCULAR VOLUME 96.3 fl (80.0-96.0); MONO % 17.5 % (0.0-5.0); NEUTROPHILS # 3.4 10^3/uL (1.5-8.5); PLATELET COUNT, AUTOMATED 206 10^3/uL (150-450); RED BLOOD COUNT 3.74 10^6/uL (4.30-6.10); WHITE BLOOD COUNT 5.5 10^3/uL (4.0-10.0)
[2020-07-14 08:43] LABS: BLOOD UREA NITROGEN 24 MG/DL (7-18); CALCIUM LEVEL 9.1 MG/DL (8.8-10.2); CARBON DIOXIDE LEVEL 27 MEQ/L (21-32); CHLORIDE LEVEL 107 MEQ/L (98-107); CREATININE FOR GFR 1.01 MG/DL (0.70-1.30); GLOMERULAR FILTRATION RATE > 60.0 (>35); GLUCOSE, FASTING 85 MG/DL (70-100); MAGNESIUM LEVEL 2.5 MG/DL (1.8-2.4); SODIUM LEVEL 139 MEQ/L (136-145)
[2020-07-14 09:00] VITALS: BP 101/68
[2020-07-14] MEDS ORDERED: ASCORBIC ACID 500 MG TAB PO SCH (09:00)
[2020-07-14] MEDS ORDERED: FERROUS SULFATE 325MG TAB PO SCH (09:00)
[2020-07-14] MEDS ORDERED: FUROSEMIDE 20 MG TAB PO SCH (09:00)
[2020-07-14] MEDS ORDERED: BENZONATATE 100 MG CAP PO SCH (09:00)
[2020-07-14] MEDS ORDERED: CETIRIZINE (ZyrTEC) 10 MG TAB PO SCH (09:00)
[2020-07-14] MEDS ORDERED: VERAPAMIL 80 MG TAB PO SCH (09:00)
[2020-07-14] MEDS ORDERED: DUTASTERIDE 0.5 MG CAP (AVODART) PO SCH (09:00)
[2020-07-14 09:31] VITALS: BP 101/68
[2020-07-14] MEDS: DABIGATRAN ETEXILATE 75 MG CAP (PRADAXA) PO SCH (09:56)
[2020-07-14] MEDS: TRIAMCINOLONE ACET 0.1% OINTMENT 15 GM TOP SCH (09:56)
[2020-07-14] MEDS ORDERED: BENZ-18 PO (13:07)
--- NOTE | 2020-07-14 13:10 | IPNPDOC ---
Text Note Date of Service The patient was seen on 07/14/20. NOTE Subjective: -Was on nasal canula overnight, appears to have been for comfort, no noted hypoxemia -Otherwise no acute events overnight Objective: VITAL SIGNS: Please see below. General: Lying in bed, Speaking in full sentences, AAOx3 HEENT: NC, AT, EOMI, MMM CVS: RRR at this time, +S1S2, no noted murmurs Lungs: Fair air entry bilaterally, No appreciable wheezing / rales / rhonchi Abdomen: Soft, Non-distended, Non-tender Extremities: No lower extremity edema, No calf tenderness Neuro: No focal motor or sensory deficit Skin: No visible rashes LABORATORY DATA: Reviewed. Please see below. WBC 5.5 Hgb 11.2 (stable) Hct 36 (stable) Cr IMAGING: CT chest without contrast: Tubes, catheters and devices: Dual chamber cardiac pacer demonstrated. Pacer wires are intact. Lungs: There are vague bilateral ground-glass, semi-solid and reticular pulmonary parenchymal opacities which were not demonstrated on the prior examination of 03/31/2020. Findings consistent with multifocal bilateral pneumonitis, likely viral. Pleural space: Unremarkable. No pneumothorax. No pleural effusion. Heart: There is mild atherosclerotic calcification of the coronary arteries. Aorta: There is mild atherosclerosis in the thoracic aorta. There is fusiform dilatation of the ascending thoracic aorta which measures 3.7 cm. maximally. There is no saccular component. Lymph nodes: Unremarkable. No enlarged lymph nodes. Bones/joints: The spine demonstrates mild degenerative changes. Shallow levoscoliosis. Soft tissues: Unremarkable. IMPRESSION: 1. There are vague bilateral ground-glass, semi-solid and reticular pulmonary parenchymal opacities which were not demonstrated on the prior examination of 03/31/2020. Findings consistent with multifocal bilateral pneumonitis, likely viral. 2. There is fusiform dilatation of the ascending thoracic aorta which measures 3.7 cm. maximally. There is no saccular component. CXR: Monitoring electrodes are seen. A dual lead pacemaker remains in the right heart view of the left side. Borderline heart size is again seen. Pulmonary vasculature is not increased. Pleural angles are sharp. No infiltrate is seen.. IMPRESSION: Borderline heart size. Otherwise no active disease. 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 Plan: Shortness of breath with reported mild hemoptysis - Clinically euvolemic, afebrile, on room air, without leukocytotis and stable H/H - Resp panel showed +Rhinovirus - CXR 07/13: Borderline heart size. Otherwise no active disease. - dry CT chest (w/o contrast given his allergy) showed likely viral pneumonitis - Trend H&H daily - Telemetry monitoring -Mild hemoptysis likely 2/2 persistent coughing will start tessalon perls -continue home mdis DLBCL non-Hodgkin's lymphoma - Clinical stage IIIA mixed follicular - Grade 1-2 with 40/60% follicular/DLBCL component diagnosed August 2018. - Right axillary, left inguinal, pelvic bulky progression in December 2018. Now on mini R-CHOP Subcentimeter R lung nodules - Followed by Dr. Lawson of pulmonology CAD status post NSTEMI in 2010 - 2015 cardiac cath 80% occlusion at D1, otherwise no coronary occlusion - CVA 2011 - c/w pradaxa and Left atrial thrombus (2011) - c/w Pradaxa HTN - BP well controlled - c/w Furosemide / Diltiazem Atrial fibrillation - c/w Diltiazem - c/w Pradaxa BPH - c/w Dutasteride Chronic Diastolic CHF - Clinically euvolemic despite elevated proBNP - Last echo 02/2019. EF60% DLP - c/w Rosuvastatin DVT prophylaxis - Will c/w full anticoagulation with Pradaxa VS,Fishbone, I+O VS, Fishbone, I+O Laboratory Tests 07/13/20 14:24 07/13/20 19:54 07/14/20 01:55 07/14/20 07:55 Vital Signs Date Time Temp Pulse Resp B/P (MAP) Pulse Ox O2 Delivery O2 Flow Rate FiO2 07/14/20 06:24 82 96 07/14/20 06:03 16 107/64 (78) 07/14/20 02:30 99.0 Nasal Cannula 2.0 MAGALI YEPEZ MD Jul 14, 2020 08:26
--- NOTE | 2020-07-14 13:11 | DS.PDOC ---
Discharge Summary General Date of Admission Jul 13, 2020 at 17:47 Date of Discharge 07/14/2020 Attending Physician: MAGALI YEPEZ MD Discharge Summary PROCEDURES PERFORMED DURING STAY: None ADMITTING DIAGNOSES: 1. Hemoptysis 2. Shortness of breath DISCHARGE DIAGNOSES: 1. Rhinovirus upper respiratory infection 2. Mild hemoptysis in the setting of URI cough while on dabigatran without clinically significant bleeding or anemia 3. History of atrial thrombus on dabigatran 4. 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 Right axillary, left inguinal, pelvic bulky progression in December 2018. Recently on mini R-CHOP 5. Subcentimeter right lung nodules followed by Dr. Lawson of pulmonology 6. CAD status post NSTEMI in 2010; 2016 cardiac cath 80% occlusion at D1. 7. History of CVA in 2011. 8. Hypertension. 9. Chronic atrial fibrillation on dabigatran 10. BPH. 11. Chronic diastolic CHF, Last echo 02/2019. EF60% 12. HLD 13. Gout 14. Viral pneumonitis COMPLICATIONS/CHIEF COMPLAINT: Hemoptysis/Shortness Of Breath. HISTORY OF PRESENT ILLNESS: 68-year-old M who presented to the ER with complaints of shortness of breath, in the setting of an associated productive cough that occurs intermittently that was recently worse on the morning of presentation with some blood and small clots. HOSPITAL COURSE: Upon arrival, he was saturating well on room air, however upon coughing, he had desaturated and required oxygen while in the ER. He otherwise denied any chest pain, palpitations, nausea, vomiting, abdominal pain, constipation, diarrhea, or urinary discomfort, recent fevers or chills. He had a CXR and subsequently dry CT chest that showed vague bilateral ground-glass, semi-solid and reticular pulmonary parenchymal opacities which were not demonstrated on the prior examination of 03/31/2020, consistent with multifocal bilateral pneumonitis, likely viral as well as a fusiform dilatation of the ascending thoracic aorta which measures 3.7 cm. maximally without a saccular component. Of note, he remained stable on room air without exertional hypoxemia and is now being discharged home with conservative management with mdis and benzonatate. DISCHARGE MEDICATIONS: Please see below. ALLERGIES: Please see below. PHYSICAL EXAMINATION ON DISCHARGE: VITAL SIGNS: Please see below. General: Lying in bed, Speaking in full sentences, AAOx3 HEENT: NC, AT, EOMI, MMM CVS: RRR at this time, +S1S2, no noted murmurs Lungs: Fair air entry bilaterally, No appreciable wheezing / rales / rhonchi Abdomen: Soft, Non-distended, Non-tender Extremities: No lower extremity edema, No calf tenderness Neuro: No focal motor or sensory deficit Skin: No visible rashes LABORATORY DATA: Please see below. IMAGING: CT chest without contrast: Tubes, catheters and devices: Dual chamber cardiac pacer demonstrated. Pacer wires are intact. Lungs: There are vague bilateral ground-glass, semi-solid and reticular pulmonary parenchymal opacities which were not demonstrated on the prior examination of 03/31/2020. Findings consistent with multifocal bilateral pneumonitis, likely viral. Pleural space: Unremarkable. No pneumothorax. No pleural effusion. Heart: There is mild atherosclerotic calcification of the coronary arteries. Aorta: There is mild atherosclerosis in the thoracic aorta. There is fusiform dilatation of the ascending thoracic aorta which measures 3.7 cm. maximally. There is no saccular component. Lymph nodes: Unremarkable. No enlarged lymph nodes. Bones/joints: The spine demonstrates mild degenerative changes. Shallow levoscoliosis. Soft tissues: Unremarkable. IMPRESSION: 1. There are vague bilateral ground-glass, semi-solid and reticular pulmonary parenchymal opacities which were not demonstrated on the prior examination of 03/31/2020. Findings consistent with multifocal bilateral pneumonitis, likely viral. 2. There is fusiform dilatation of the ascending thoracic aorta which measures 3.7 cm. maximally. There is no saccular component. CXR: Monitoring electrodes are seen. A dual lead pacemaker remains in the right heart view of the left side. Borderline heart size is again seen. Pulmonary vasculature is not increased. Pleural angles are sharp. No infiltrate is seen.. IMPRESSION: Borderline heart size. Otherwise no active disease. PROGNOSIS: Good ACTIVITY: As tolerated DIET: 2g sodium/24h DISCHARGE PLAN: Home with close PCP and pulm follow up, as well as oncology and cardiology follow up per outpatient scheduling DISPOSITION: Home DISCHARGE INSTRUCTIONS: 1. Home with close PCP and pulm follow up, as well as oncology and cardiology follow up per outpatient scheduling ITEMS TO FOLLOWUP ON ON OUTPATIENT: 1. Dyspnea and resolution of URI and viral penumonitis 2. Resolution of mild hemoptysis DISCHARGE CONDITION: Stable. TIME SPENT ON DISCHARGE: 46 minutes. Vital Signs/I&Os Vital Signs Date Time Temp Pulse Resp B/P (MAP) Pulse Ox O2 Delivery O2 Flow Rate FiO2 07/14/20 06:24 82 96 07/14/20 06:03 16 107/64 (78) 07/14/20 02:30 99.0 Nasal Cannula 2.0 Laboratory Data Labs 24H Laboratory Tests 2 07/13/20 14:24: Immature Granulocyte % (Auto) 1.2, Neutrophils (%) (Auto) 67.9H, Lymphocytes (%) (Auto) 5.8L, Monocytes (%) (Auto) 18.0H, Eosinophils (%) (Auto) 6.3H, Basophils (%) (Auto) 0.8, Neutrophils # (Auto) 5.3, Lymphocytes # (Auto) 0.5L, Monocytes # (Auto) 1.4H, Eosinophils # (Auto) 0.5, Basophils # (Auto) 0.1, Nucleated Red Blood Cells % (auto) 0.0, Anion Gap 8, Glomerular Filtration Rate > 60.0, Calcium Level 8.9, Total Bilirubin 0.7, Direct Bilirubin 0.2, Aspartate Amino Transf (AST/SGOT) 23, Alanine Aminotransferase (ALT/SGPT) 19, Alkaline Phosphatase 75, Total Creatine Kinase 63, Creatine Kinase MB 2.4, Creatine Kinase MB Relative Index 3.81, Troponin I 0.03, CQ-Rkp-Y-Type Natriuretic Peptide 6136H, Total Protein 5.8L, Albumin 3.1L, Albumin/Globulin Ratio 1.1 07/13/20 16:01: 07/13/20 16:23: Coronavirus (COVID-19)(PCR) NEGATIVE 07/13/20 16:52: POC pH (Misc Panel) 7.434, POC Base Excess (Misc Panel) -6.0L, POC Saturated Percent O2 (Misc) 90L, POC pO2 (Misc Panel) 55.0L, POC pCO2 (Misc Panel) 27.5L, POC HCO3 (Misc Panel) 18.5L, POC Total CO2 (Misc Panel) 19.0L 07/13/20 21:36: Fibrinogen 632H, Blood Gas Bicarbonate Standard 22.9, Venous Blood pH 7.450H, Venous Blood Partial Pressure CO2 31.7L, Venous Blood Partial Pressure O2 59.1H, Venous Blood Total Carbon Dioxide 22.5L, Venous Blood HCO3 21.5L, Venous Blood Oxygen Saturation 90.2H, Venous Blood Base Excess -1.6, Ferritin 143, Total Creatine Kinase 51, Creatine Kinase MB 1.9, Creatine Kinase MB Relative Index 3.73, Troponin I 0.04#, C-Reactive Protein, Quantitative 3.34H 07/14/20 01:55: Total Creatine Kinase 41, Creatine Kinase MB 2.0, Creatine Kinase MB Relative Index 4.88H, Troponin I 0.04 CBC/BMP Laboratory Tests 07/13/20 14:24 07/13/20 19:54 07/14/20 01:55 Microbiology Microbiology 07/13/20 Respiratory Virus Panel (PCR) ([facility]) - Final, Complete Human Rhinovirus/Enterovirus Discharge Medications Scheduled Ascorbic Acid (Ascorbic Acid) 500 Mg Tablet, 500 MG PO DAILY, (Reported) Benzonatate (Benzonatate) 100 Mg Capsule, 100 MG PO TID Cetirizine HCl (Cetirizine HCl) 10 Mg Tablet, 10 MG PO DAILY, (Reported) Dabigatran Etexilate Mesylate (Pradaxa) 150 Mg Capsule, 150 MG PO BID, (Reported) Dutasteride (Dutasteride) 0.5 Mg Capsule, 0.5 MG PO DAILY, (Reported) Ferrous Sulfate (Ferrous Sulfate) 325 Mg Tablet, 325 MG PO DAILY, (Reported) Fluocinonide (Fluocinonide) 0.05% 60ML Solution, 1 APLCT TOP DAILY, (Reported) APPLY TO SCALP Fluticasone Furoate (Arnuity Ellipta) 100 Mcg Blst.w.dev, 1 PUFF PO DAILY, (Reported) STATES STARTED TAKING OVER LAST FEW DAYS Fluticasone Furoate (Arnuity Ellipta) 100 Mcg Blst.w.dev, 1 PUFF PO DAILY, (Reported) Furosemide (Furosemide) 20 Mg Tablet, 20 MG PO DAILY, (Reported) Lenalidomide (Revlimid) 20 Mg Capsule, 1 CAP PO DAILY Take 1 capsule daily for 21 days, then take 7 days off Rosuvastatin Calcium (Rosuvastatin Calcium) 10 Mg Tablet, 10 MG PO QHS, (Reported) Triamcinolone Acet (Triamcinolone Acetonide 0.1% Oint) 15 Gm Oint...g., 1 APLCT TOP BID, (Reported) APPLY TO RASH AREAS ON BODY Verapamil HCl (Verapamil HCl) 80 Mg Tablet, 160 MG PO QAM, (Reported) Verapamil HCl (Verapamil HCl) 80 Mg Tablet, 80 MG PO BID, (Reported) NOON/BEDTIME Scheduled PRN Albuterol Sulfate (Proair Hfa) 8.5 Gm Hfa.aer.ad, 2 PUFF INH Q6H PRN for SHORTNESS OF BREATH, (Reported) Furosemide (Furosemide) 20 Mg Tablet, 20 MG PO ASDIRECTED PRN for FLUID RETENTION, (Reported) TAKES IN ADDITION OF DAILY 20MG IF 2-3 LB WEIGHT GAIN Allergies Coded Allergies: Contrast Media (Verified Allergy, Severe, SOB, 05/28/20) had reaction even after he had premedication Penicillins (Verified Allergy, Intermediate, RASH, 10/12/18) MAGALI YEPEZ MD Jul 14, 2020 08:24
== END 2020-07-14 14:54 | disposition home or self-care (01) | DRG 153 ==
LOC: M ED 13:47 → M ED INP 17:47 → ENRESERVDT 07-14 10:47 → ENRESERVTM 07-14 10:47
PROVIDERS: ADMIT Internal Medicine; ATTEND Internal Medicine
DX: J06.9 Acute upper respiratory infection, unspecified (principal); R04.2 Hemoptysis; C85.90 Non-Hodgkin lymphoma, unspecified, unspecified site; I48.20 Chronic atrial fibrillation, unspecified; I50.32 Chronic diastolic (congestive) heart failure; M10.9 Gout, unspecified; N40.0 Benign prostatic hyperplasia without lower urinary tract symptoms; I25.2 Old myocardial infarction; R91.8 Other nonspecific abnormal finding of lung field; Z86.73 Personal history of transient ischemic attack (TIA), and cerebral infarction without residual deficits; Z79.899 Other long term (current) drug therapy; Z91.041 Radiographic dye allergy status; Z95.0 Presence of cardiac pacemaker; Z88.0 Allergy status to penicillin

== ENCOUNTER 2020-08-04 08:43 | Inpatient (IN) | payer MEDICARE, OTHER ==
[~2020-08-04] VITALS: Ht 170.2 cm; Wt 65.8 kg
[~2020-08-04 08:43] MED LIST changes: +ARNU1INH PO; +BENZ-18 PO; +GABA-282 PO; -GABA-843 PO; +IRON18TA PO; +LEXA1TAB PO; +PROAAER10 INH
[2020-08-04 09:29] LABS: BASO % 0.3 % (0.0-1.0); EOS # 0.1 10^3/uL (0.0-0.5); EOS % 1.5 % (0.0-3.0); HEMATOCRIT 34.8 % (42.0-52.0); HEMOGLOBIN 11.1 g/dl (13.5-17.5); LYMPH # 0.3 10^3/uL (1.5-5.0); LYMPH % 3.9 % (24.0-44.0); MEAN CORPUSCULAR HEMOGLOBIN 29.7 pg (27.0-33.0); MEAN CORPUSCULAR HGB CONC 31.9 g/dl (32.0-36.5); MONO # 0.9 10^3/uL (0.0-0.8); MONO % 11.8 % (0.0-5.0); NEUTROPHILS # 6.2 10^3/uL (1.5-8.5); NEUTROPHILS % 81.6 % (36.0-66.0); PLATELET COUNT, AUTOMATED 168 10^3/uL (150-450); RED BLOOD COUNT 3.74 10^6/uL (4.30-6.10); WHITE BLOOD COUNT 7.5 10^3/uL (4.0-10.0)
--- NOTE | 2020-08-04 09:43 | REP ---
INDICATION: DYSPNEA/COUGH COMPARISON: 07/13/2020, 03/31/2020 TECHNIQUE: Axial noncontrast images from the thoracic inlet to the upper abdomen with coronal and sagittal reformations. This CT examination was performed using the following dose reduction techniques: Automated exposure control, adjustment of mA and/or kv according to the patient's size, and use of iterative reconstruction technique. FINDINGS: The bilateral lung summers demonstrate progressive areas of ground-glass opacity along with subtle increased interstitial markings and mild bronchiectasis. These findings suggest progressive chronic interstitial fibrotic changes although a subclinical acute pneumonitis cannot be excluded as well. No discrete focal consolidation, effusion, or pneumothorax. Tracheobronchial tree is patent. Mediastinum demonstrates atherosclerotic changes to the thoracic aorta and coronary arteries with mild cardiomegaly. Pacemaker in satisfactory position. No pericardial effusion. Mediastinal lymph nodes are nonspecific and possibly reactive measuring up to approximately 12 mm short axis diameter. Surrounding musculoskeletal structures are intact. IMPRESSION: Vague progressive ground-glass opacities along with increased interstitial markings and bronchiectasis as described above. Differential diagnosis includes but is not limited to progressive chronic interstitial fibrotic disease as well as sub clinical pneumonitis. Correlation and pulmonology follow-up may be warranted. <Electronically signed by Mehdi Lucio > 08/04/20 0901
[2020-08-04 09:59] LABS: BLOOD UREA NITROGEN 27 MG/DL (7-18); CREATININE FOR GFR 1.16 MG/DL (0.70-1.30); GLOMERULAR FILTRATION RATE > 60.0 (>35); GLUCOSE, FASTING 108 MG/DL (70-100); SODIUM LEVEL 137 MEQ/L (136-145)
[2020-08-04 10:00] LABS: ALBUMIN 2.7 GM/DL (3.2-5.2); ALT/SGPT 20 U/L (12-78); BILIRUBIN,TOTAL 0.8 MG/DL (0.2-1.0); CALCIUM LEVEL 9.1 MG/DL (8.8-10.2); CARBON DIOXIDE LEVEL 23 MEQ/L (21-32); CHLORIDE LEVEL 104 MEQ/L (98-107); CPK CREATINE PHOSPHOKINASE 42 U/L (39-308); MB/CK RELATIVE INDEX 4.76 (< OR =4); POTASSIUM SERUM 4.2 MEQ/L (3.5-5.1); TOTAL PROTEIN 5.9 GM/DL (6.4-8.2); TROPONIN I 0.05 NG/ML (< 0.10)
[2020-08-04] MEDS ORDERED: ALBUTEROL 90 MCG/ACT 8GM HFA INHALER INH ONE (10:00)
[2020-08-04] MEDS ORDERED: IRON65TA2 PO (10:30)
[2020-08-04] MEDS ORDERED: ALBUTEROL 90 MCG/ACT 8GM HFA INHALER INH PRN (11:15)
[2020-08-04] MEDS ORDERED: TRIAMCINOLONE ACET 0.1% OINTMENT 15 GM TOP PRN (11:15)
[2020-08-04] MEDS ORDERED: ACETAMINOPHEN TAB 650MG DOSE (2X325MG) PO PRN (11:15)
[2020-08-04] MEDS ORDERED: FUROSEMIDE 40MG/4ML VIAL (J1940) IV ONE (11:30)
[2020-08-04 12:02] LABS: NT-PRO BNP 4868 PG/ML (<450)
[2020-08-04] MEDS: VERAPAMIL 80 MG TAB PO SCH ×5 (12:52→22:24)
[2020-08-04] MEDS: FERROUS SULFATE 325MG TAB PO SCH (12:52)
[2020-08-04] MEDS: ASCORBIC ACID 500 MG TAB PO SCH (12:52)
--- NOTE | 2020-08-04 13:24 | HPEPDOC ---
[facility] Medical History & Physical Date of Admission Aug 04, 2020 Date of Service: Aug 04, 2020 History and Physical Chief complaint: Who presented to the emergency room with progressive shortness of breath History of present illness: Patient is a 68-year-old male who presented to the emergency room with progressive shortness of breath over the last several weeks. Of note, patient was admitted to the hospital 07/13 for hemoptysis and shortness of breath. Patient was found to have human rhinovirus and was ultimately sent home within 24 hours. Patient reports that he is experiencing a productive cough with red tinged sputum, thick patient denies any chest pain or palpitations. Patient denies any fevers or chills while at home. Patient reports that he has not been experiencing any leg swelling and does not experience any shortness of breath when he lays on his back. Patient denies any nausea, vomiting, abdominal pain or diarrhea. Patient reports constipation. Denies any urinary discomfort. Past Medical History: 1. 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 Right axillary, left inguinal, pelvic bulky progression in December 2018. Now on mini R-CHOP 2. Subcentimeter right lung nodules followed by Dr. Lawson of pulmonology 3. CAD status post NSTEMI in 2010; 2016 cardiac cath 80% occlusion at D1, otherwise no coronary occlusion. 4. CVA 2011. 5. Left atrial thrombus 2011 on echo. 6. Hypertension. 7. Atrial fibrillation on Pradaxa 8. BPH. 9. CHF (diastolic). Last echo 02/2019. EF60% 10. DLP 11. Microhematuria. 12. 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 Review of Systems: 10 point review of systems complete, all negative otherwise stated in HPI Physical exam: - Vitals: BP [117/60], HR [59], RR [16], Sat [93%NC4L], Temp [98.8F] - General: Lying in bed, Speaking in full sentences, AAOx3 - HEENT: NC, AT, PERRLA - CVS: RRR, +S1S2 - Lungs: Fair air entry bilaterally, No appreciable wheezing / rales / rhonchi - Abdomen: Soft, Non-distended, Non-tender - Extremities: No lower extremity edema, No calf tenderness - Neuro: No focal motor or sensory deficit - Skin: No visible rashes Labs: See below Imaging: CT chest 08/04: Vague progressive ground-glass opacities along with increased interstitial markings and bronchiectasis as described above. Differential diagnosis includes but is not limited to progressive chronic interstitial fibrotic disease as well as sub clinical pneumonitis. Correlation and pulmonology follow-up may be warranted. EKG: See below Assessment and Plan: Acute hypoxic respiratory failure - possibly 2/2 fluid overload, possibly 2/2 viral illness, possibly 2/2 pneumonitis - Presented tot ER with complaints of shortness of breath - Patient has reported a productive cough - Physical does not reveal any signs of fluid overload - Hg appears to be relatively at baseline - BNP elevated - Imaging noted above - Will get ECHO / PCT / Sputum cultures - Discussed with pulmonology; will evaluate tomorrow - Strict ins & outs / daily weights / fluid restriction - Will provide diuresis with Furosemide IV for now and supplemental oxygen as required DLBCL non-Hodgkin's lymphoma - Clinical stage IIIA mixed follicular - Grade 1-2 with 40/60% follicular/DLBCL component diagnosed August 2018. - Right axillary, left inguinal, pelvic bulky progression in December 2018 - Patient follows with Dr. Horn has recently started R-CHOP therapy Subcentimeter R lung nodules - Followed by Dr. Lawson of pulmonology CAD status post NSTEMI in 2010 - 2015 cardiac cath 80% occlusion at D1, otherwise no coronary occlusion CVA 2011 - c/w Left atrial thrombus (2011) - c/w Pradaxa HTN - BP well controlled - Hold Furosemide PO - c/w Verapamil Atrial fibrillation - c/w Verapamil - c/w Pradaxa BPH - c/w Dutasteride Chronic Diastolic CHF - No evidence of fluid overload - Last echo 02/2019. EF60% DLP - c/w Rosuvastatin Microhematuria Gout DVT prophylaxis - Will c/w full anticoagulation with Pradaxa Vital Signs Vital Signs Date Time Temp Pulse Resp B/P (MAP) Pulse Ox O2 Delivery O2 Flow Rate FiO2 08/04/20 12:54 59 117/60 08/04/20 12:50 98.8 93 Nasal Cannula 4.0 08/04/20 10:55 21 Laboratory Data Labs 24H Laboratory Tests 2 08/04/20 09:18: Immature Granulocyte % (Auto) 0.9, Neutrophils (%) (Auto) 81.6H, Lymphocytes (%) (Auto) 3.9L, Monocytes (%) (Auto) 11.8H, Eosinophils (%) (Auto) 1.5, Basophils (%) (Auto) 0.3, Neutrophils # (Auto) 6.2, Lymphocytes # (Auto) 0.3L, Monocytes # (Auto) 0.9H, Eosinophils # (Auto) 0.1, Basophils # (Auto) 0.0, Nucleated Red Blood Cells % (auto) 0.0, Anion Gap 10, Glomerular Filtration Rate > 60.0, Calcium Level 9.1, Total Bilirubin 0.8, Aspartate Amino Transf (AST/SGOT) 20, Alanine Aminotransferase (ALT/SGPT) 20, Alkaline Phosphatase 71, Total Creatine Kinase 42, Creatine Kinase MB 2.0, Creatine Kinase MB Relative Index 4.76H, Troponin I 0.05, BR-Hgy-D-Type Natriuretic Peptide 4868H, Total Protein 5.9L, Albumin 2.7L, Albumin/Globulin Ratio 0.8 CBC/BMP Laboratory Tests 08/04/20 09:18 Microbiology Microbiology 08/04/20 Respiratory Virus Panel (PCR) ([facility]) - Final, Complete Human Rhinovirus/Enterovirus Home Medications Scheduled Ascorbic Acid (Ascorbic Acid) 500 Mg Tablet, 500 MG PO DAILY Cetirizine HCl (Cetirizine HCl) 10 Mg Tablet, 10 MG PO QHS Dabigatran Etexilate Mesylate (Pradaxa) 150 Mg Capsule, 150 MG PO BID Dutasteride (Dutasteride) 0.5 Mg Capsule, 0.5 MG PO DAILY Escitalopram Oxalate (Lexapro) 10 Mg Tablet, 10 MG PO QHS Ferrous Sulfate (Iron) 325 Mg Tablet, 325 MG PO DAILY Fluticasone Furoate (Arnuity Ellipta) 100 Mcg Blst.w.dev, 1 PUFF PO DAILY Furosemide (Furosemide) 20 Mg Tablet, 20 MG PO DAILY Lenalidomide (Revlimid) 20 Mg Capsule, 1 CAP PO DAILY Take 1 capsule daily for 21 days, then take 7 days off Rosuvastatin Calcium (Rosuvastatin Calcium) 10 Mg Tablet, 10 MG PO QPM Verapamil HCl (Verapamil HCl) 80 Mg Tablet, 80 MG PO QID Scheduled PRN Albuterol Sulfate (Proair Hfa) 8.5 Gm Hfa.aer.ad, 2 PUFF INH Q6H PRN for SHORTN ESS OF BREATH Fluocinonide (Fluocinonide) 0.05% 60ML Solution, 1 APLCT TOP DAILY PRN for RASH/ITCHING APPLY TO SCALP Furosemide (Furosemide) 20 Mg Tablet, 20 MG PO ASDIRECTED PRN for FLUID RETENTION TAKES IN ADDITION OF DAILY 20MG IF 2-3 LB WEIGHT GAIN Triamcinolone Acet (Triamcinolone Acetonide 0.1% Oint) 15 Gm Oint...g., 1 APLCT TOP BID PRN for RASH/ITCHING APPLY TO RASH AREAS ON BODY Allergies Coded Allergies: Contrast Media (Verified Allergy, Severe, SOB, 05/28/20) had reaction even after he had premedication Penicillins (Verified Allergy, Intermediate, RASH, 10/12/18) GERRY GONZALES MD Aug 04, 2020 13:24
[2020-08-04 14:28] VITALS: BP 118/59
[2020-08-04 15:55] LABS: CK-MB VALUE MASS 2.1 NG/ML (<3.6); MB/CK RELATIVE INDEX 4.77 (< OR =4); TROPONIN I 0.06 NG/ML (< 0.10)
[2020-08-04 16:00] VITALS: BP 108/51
[2020-08-04 20:00] VITALS: BP 104/63
[2020-08-04] MEDS: ADVAIR HFA 230/21MCG INHALER INH SCH (20:05)
[2020-08-04 20:13] VITALS: O2SAT 94
[2020-08-04] MEDS: DABIGATRAN ETEXILATE 75 MG CAP (PRADAXA) PO SCH (20:30)
[2020-08-04] MEDS: ROSUVASTATIN 10 MG TAB (CRESTOR) PO SCH (20:30)
[2020-08-04] MEDS: ESCITALOPRAM OXALATE 10 MG TAB (LEXAPRO) PO SCH (20:30)
[2020-08-04] MEDS: CETIRIZINE (ZyrTEC) 10 MG TAB PO SCH (20:30)
[2020-08-04 21:29] LABS: MB/CK RELATIVE INDEX 3.85 (< OR =4); TROPONIN I 0.07 NG/ML (< 0.10)
[2020-08-04 22:00] VITALS: BP 140/66
[2020-08-05] VITALS (7 sets, daily range): BP systolic 96–106; BP diastolic 50–61
[2020-08-05 06:36] LABS: BASO % 0.5 % (0.0-1.0); EOS # 0.3 10^3/uL (0.0-0.5); EOS % 4.7 % (0.0-3.0); HEMATOCRIT 30.2 % (42.0-52.0); HEMOGLOBIN 9.8 g/dl (13.5-17.5); LYMPH # 0.4 10^3/uL (1.5-5.0); MEAN CORPUSCULAR HEMOGLOBIN 29.9 pg (27.0-33.0); MEAN CORPUSCULAR HGB CONC 32.5 g/dl (32.0-36.5); MEAN CORPUSCULAR VOLUME 92.1 fl (80.0-96.0); MONO # 0.7 10^3/uL (0.0-0.8); NEUTROPHILS # 4.1 10^3/uL (1.5-8.5); NEUTROPHILS % 74.1 % (36.0-66.0); PLATELET COUNT, AUTOMATED 144 10^3/uL (150-450); RED BLOOD COUNT 3.28 10^6/uL (4.30-6.10); WHITE BLOOD COUNT 5.5 10^3/uL (4.0-10.0)
[2020-08-05 06:54] LABS: BLOOD UREA NITROGEN 24 MG/DL (7-18); CALCIUM LEVEL 8.5 MG/DL (8.8-10.2); CARBON DIOXIDE LEVEL 23 MEQ/L (21-32); CHLORIDE LEVEL 105 MEQ/L (98-107); CREATININE FOR GFR 0.94 MG/DL (0.70-1.30); GLOMERULAR FILTRATION RATE > 60.0 (>35); GLUCOSE, FASTING 97 MG/DL (70-100); MAGNESIUM LEVEL 2.1 MG/DL (1.8-2.4); POTASSIUM SERUM 3.6 MEQ/L (3.5-5.1); SODIUM LEVEL 137 MEQ/L (136-145)
[2020-08-05] MEDS ORDERED: FUROSEMIDE 40MG/4ML VIAL (J1940) IV ONE (07:00)
[2020-08-05] MEDS: ADVAIR HFA 230/21MCG INHALER INH SCH ×2 (07:43→20:07)
--- NOTE | 2020-08-05 08:44 | ECHO ---
DATE OF PROCEDURE: 08/04/2020 Age: 85 Gender: Male Height: 170 cm Weight: 69 kg REFERRING PHYSICIAN: Ciro Pelletier M.D. INDICATION: Congestive heart failure. MEASUREMENTS: IVS 1.8 cm LV 3.7 cm LVPW 1.8 cm LA 3.4 cm Aorta 4.0 cm IVC 3.5 cm FINDINGS: This study is of good technical quality. Underlying likely atrial fibrillation with ventricular pacing and ventricular rate about 60 beats per minute. Left ventricle is of normal size. Moderately severe left ventricular hypertrophy is present that is diffuse. Overall EF estimated around 70%. I do not appreciate any distinct segmental wall motion abnormalities. Right ventricle was poorly visualized, but does not appear grossly dilated. Both atria are enlarged. There is an echo artifact in right-sided heart chambers consistent with pacemaker or ICD lead. Inferior vena cava is markedly dilated and there is no appreciable collapse with inspiration indicative of elevated central venous pressure. Aortic root is normal. Aortic arch and abdominal aorta were not seen. No pericardial effusion is present. Aortic valve is sclerotic, but mobility is preserved. Mitral, tricuspid, and pulmonic valves appear grossly normal. Doppler interrogation reveals approximately [id number] aortic insufficiency and no significant aortic stenosis. There is a competent mitral valve. Mild tricuspid insufficiency is present. Calculated pulmonary artery pressure is at least in the 40s corresponding to moderate pulmonary hypertension. Pulmonic valve is functionally competent. Evaluation of diastolic function is inconclusive. Mitral inflow pattern was not properly documented and there is underlying atrial fibrillation. CONCLUSIONS: 1. Study is of acceptable technical quality, underlying likely atrial fibrillation with ventricular pacing. 2. Normal LV size with moderately severe left ventricular hypertrophy and overall hyperdynamic LV systolic function, estimated EF around 70%. Septal wall motion abnormality likely related to underlying right ventricular pacing. Unable to estimate diastolic function. 3. Aortic sclerosis with no stenosis and bdql-ii-[id number] insufficiency. 4. No significant mitral valvular disease. 5. Very high central venous pressure and at least moderate pulmonary hypertension. 6. Echo artifact apparent in right-sided heart chambers consistent with pacemaker or ICD lead. MTDD
[2020-08-05] MEDS: methylPREDNISolone 125MG 2ML VIAL IV SCH ×2 (09:28→16:47)
[2020-08-05] MEDS: ASCORBIC ACID 500 MG TAB PO SCH (09:28)
[2020-08-05] MEDS: DABIGATRAN ETEXILATE 75 MG CAP (PRADAXA) PO SCH ×2 (09:28→20:07)
[2020-08-05] MEDS: VERAPAMIL 80 MG TAB PO SCH ×4 (09:29→21:00)
[2020-08-05] MEDS: DUTASTERIDE 0.5 MG CAP (AVODART) PO SCH (09:29)
[2020-08-05] MEDS: FERROUS SULFATE 325MG TAB PO SCH (09:29)
--- NOTE | 2020-08-05 12:11 | IPNPDOC ---
Text Note Date of Service The patient was seen on 08/05/20. NOTE Subjective: Patient is a 68-year-old male who presented to the emergency room with progressive shortness of breath over the last several weeks. Of note, patient was admitted to the hospital 07/13 for hemoptysis and shortness of breath. Patient was found to have human rhinovirus and was ultimately sent home within 24 hours. Patient reports that he is experiencing a productive cough with red tinged sputum, thick patient denies any chest pain or palpitations. Patient denies any fevers or chills while at home. Patient reports that he has not been experi encing any leg swelling and does not experience any shortness of breath when he lays on his back. Patient was admitted to the hospitalist service for further evaluation and treatment. Patient was seen and examined at the bedside. Patient reports that he was able to sleep at night. He denies any shortness of breath with a Ventimask is in place. Reports a productive cough with some blood-tinged denies any nausea, vomiting, abdominal pain, diarrhea, or urinary discomfort. Objective: Vitals (See below) General: Lying in bed, appears to be comfortable, AAOx3 HEENT: NC, AT CVS: +S1S2 Lungs: Fair air entry b/l, no appreciable wheezing, rhonchi or rales Abdomen: Soft, nondistended and nontender Extremities: - Edema, - Calf tenderness Imaging: CT chest 08/04: Vague progressive ground-glass opacities along with increased interstitial markings and bronchiectasis as described above. Differential diagnosis includes but is not limited to progressive chronic interstitial fibrotic disease as well as sub clinical pneumonitis. Correlation and pulmonology follow-up may be warranted. ECHO 08/04: 1. Study is of acceptable technical quality, underlying likely atrial fibrillation with ventricular pacing. 2. Normal LV size with moderately severe left ventricular hypertrophy and overall hyperdynamic LV systolic function, estimated EF around 70%. Septal wall motion abnormality likely related to underlying ventricular pacing. Unable to estimate diastolic function. 3. Aortic sclerosis with no stenosis and hcrh-ux-iibmliqq insufficiency. 4. No significant mitral valvular disease. 5. Very high central venous pressure and at least moderate pulmonary hypertension. 6. Echo artifact apparent in right-sided heart chambers consistent with pacemaker or ICD lead. Assessment and plan: Acute hypoxic respiratory failure - possibly 2/2 fluid overload, possibly 2/2 viral illness, possibly 2/2 pneumonitis - Presented to ER with complaints of SOB - Currently on Ventimask at 50% FIO2 - Still reports a productive cough with some hemoptysis this morning - Physical again without fluid overload - Hg appears to be relatively at baseline - BNP elevated - PCT relatively negative - Imaging noted above; ECHO with elevated CVP - will continue diuresis - c/w Furosemide (will increase frequency) - Solumedrol started this morning (Day #1) - Pulmonology on consultation; appreciate their input DLBCL non-Hodgkin's lymphoma - Clinical stage IIIA mixed follicular - Grade 1-2 with 40/60% follicular/DLBCL component diagnosed August 2018. - Right axillary, left inguinal, pelvic bulky progression in December 2018 - Patient follows with Dr. Horn has recently started R-CHOP therapy Subcentimeter R lung nodules - Followed by Dr. Lawson of pulmonology CAD status post NSTEMI in 2010 - 2015 cardiac cath 80% occlusion at D1, otherwise no coronary occlusion CVA 2011 - c/w Pradaxa and Rosuvastatin Left atrial thrombus (2011) - c/w Pradaxa HTN - BP well controlled - Hold Furosemide PO - c/w Verapamil Atrial fibrillation - c/w Verapamil - c/w Pradaxa BPH - c/w Dutasteride Chronic Diastolic CHF - No evidence of fluid overload - Last echo 02/2019. EF60% DLP - c/w Rosuvastatin Microhematuria Gout DVT prophylaxis - Will c/w full anticoagulation with Pradaxa Disposition: - Awaiting clinical improvement VSDestiny, I+O VS, Destiny I+O Laboratory Tests 08/05/20 06:05 Vital Signs Date Time Temp Pulse Resp B/P (MAP) Pulse Ox O2 Delivery O2 Flow Rate FiO2 08/05/20 09:29 107 122/58 08/05/20 07:55 98.7 22 95 High Flow Mask 15.0 50 I&O- Last 24 Hours up to 6 AM 08/05/20 06:00 Intake Total 0 ml Output Total 1600 ml Balance -1600 ml GERRY GONZALES MD Aug 05, 2020 12:11
--- NOTE | 2020-08-05 14:36 | ECGEPIP ---
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
[2020-08-05 15:25] LABS: LDH LACTATE DEHYDROGENASE 493 U/L (87-241)
[2020-08-05] MEDS ORDERED: FUROSEMIDE 40MG/4ML VIAL (J1940) IV SCH (17:00)
--- NOTE | 2020-08-05 17:14 | CR ---
PULMONARY CONSULTATION DATE: 08/05/2020 HISTORY OF PRESENT ILLNESS: Mr. Stubbs is an 85-year-old male with a past medical history of hypertension, hyperlipidemia, CAD, status post [place], history of sick sinus syndrome, status post pacemaker, CHF, history of mixed follicular/diffuse large B-cell non-Hodgkin's lymphoma initially diagnosed in August of 2018 and being treated with R-CHOP, who presented to the hospital with complaints of worsening shortness of breath and dyspnea on exertion. The patient had been hospitalized previously in the beginning of July for his dyspnea as well as some episodes of hemoptysis. He is on anticoagulation with Pradaxa. He was found to have human rhinovirus during that stay and he was discharged the next day. The patient did not require oxygen supplementation on that discharge. He continued, however, to note worsening dyspnea with exertion in particular as well as complaints of fatigue. He did report that the hemoptysis that he was having previously a few weeks ago had improved although he states it is starting to reoccur slightly now although not as much as it was previously. The patient was treated with a course of prednisone after his hospitalization when he had seen his primary care provider for followup. He received four or five days of prednisone 40 mg daily and with the prednisone, he did notice improvement in his dyspnea as well as in his cough. He had reported as well as the ongoing dyspnea, worsening cough and as stated, occasional production with thick mucus and there were occasional episodes of hemoptysis. After completing the steroids, however, he states his cough reoccurred and he continued to be very fatigued and dyspnea particularly with exertion. The patient was also reporting decreased appetite and weight loss of approximately 10-12 lb at least in the past week or so. He was seen by his oncologist where he had reported the symptoms of dyspnea. He was sent to the ED for further evaluation at that time. The patient was supposed to be started on maintenance rituximab with lenalidomide in terms of his chemotherapy treatment for his lymphoma now. On admission, the patient was hypoxic. He was started initially on nasal cannula supplementation and is now on Ventimask. He denies any chest pain currently. He has not had any fevers or chills also he does state he is frequently cold. He has not had any night sweats and he denies noticing any increased lower extremity edema. MEDICAL AND SURGICAL HISTORY: 1. Mixed follicular/diffuse large B-cell non-Hodgkin's lymphoma diagnosed in August, and was treated with mini-R-CHOP. 2. CAD, status post NSTEMI in 2010. 3. CVA in 2011. 4. Left atrial thrombus in 2011. 5. Hypertension. 6. Atrial fibrillation, on Pradaxa. 7. BPH. 8. Diastolic CHF. 9. Hyperlipidemia. 10. Gout. 11. Vasectomy. 12. Tonsillectomy. 13. Sick sinus syndrome, status post pacemaker placement in 2015. 14. Cataract surgery. 15. Skin cancer removed. SOCIAL HISTORY: No smoking, tobacco use, no alcohol use. FAMILY HISTORY: Mother from aneurysm. Father from [place]. No family history of malignancy. HOME MEDICATIONS: 1. Vitamin C. 2. Cetirizine. 3. Pradaxa. 4. Dutasteride. 5. Lexapro. 6. Iron. 7. Arnuity. 8. Furosemide. 9. Revlimid. 10. Rosuvastatin. 11. Verapamil. 12. Furosemide p.r.n. 13. Triamcinolone. 14. Albuterol. ALLERGIES: CONTRAST AND PENICILLIN. PHYSICAL EXAMINATION: Vitals: Temperature 96.6, pulse 81, respirations 18, blood pressure 105/58, O2 95% on 35% FiO2 Ventimask. Ins not reported, outs 1.4 liters. General: The patient is an elderly male. He is sitting in bed and able to speak in complete sentences. He is not using accessory muscles of respiration currently. HEENT: Normocephalic, atraumatic. There is multiple wasting noted. Neck: Supple. Trachea is midline. There is no palpable cervical adenopathy. Cardiac: Regular rate and rhythm. Normal S-1, S-2. Unable to appreciate any murmurs. There is a pacemaker in place. Pulmonary: There are bilateral final crackles noted more at the bases. There is no wheezing or rhonchi noted. Abdomen: Soft, nontender, nondistended, no palpable masses. Extremities: There is no lower edema noted bilaterally. LABORATORY DATA: WBC 5.5, hemoglobin 9.8, platelets of 144. Chemistries: Sodium is 137. Potassium is 3.6. Chloride is 105. Bicarb is 23, BUN 24. Creatinine 0.94. Glucose is 97. Calcium is 8.5. Magnesium is 2.1. Troponins are negative x3. BNP is 4868. Procalcitonin 0.10. Micro-respiratory panel was positive for human rhinovirus/enterovirus. IMAGING: CT of chest shows evidence of worsening ground glass opacities with interlobular septal thickening more in the right upper lobe as well as some patchy ground-glass opacities in the left upper lobe. There is increased ground-glass opacity with areas of subpleural fibrosis in the lower lobes bilaterally. There is mild bronchiectasis which is chronic. There is no pleural effusion noted. There are atherosclerotic changes and mild cardiomegaly with a pacemaker in place. There is borderline mediastinal adenopathy noted. Echo: Normal LV with moderately severe left ventricular hypertrophy with a hyperdynamic EF of 70%. There is some septal wall motion abnormality related to ventricular pacing. There is aortic sclerosis with mild to moderate insufficiency. There is no significant mitral valvular disease. There is very high central venous pressure as the IVC is dilated with no collapse noted with inspiration. There is at least moderate pulmonary hypertension. ASSESSMENT AND PLAN: Mr. Stubbs is a 85-year-old male with a past medical history of hypertension, hyperlipidemia, atrial fibrillation, CAD, CHF, non-Hodgkin's lymphoma, was on mini-R-CHOP chemotherapy and who presented with complaints of worsening shortness of breath and dyspnea on exertion. The patient's symptoms had been ongoing for the past few weeks and he has also noted increased cough as well as some episodes of hemoptysis. He has not had any fevers or chills and no chest pain and he denied noticing any increased lower extremity edema. He does report increased fatigue, however, as well as decreased appetite and some weight loss. The patient has had previous issues when he was receiving his chemotherapy particularly when he first started receiving it in the end of 2019 where he had increased pulmonary edema and fluid overload and had required hospitalization at that time. The patient was hospitalized at the beginning of this month for complaints of dyspnea and occasional hemoptysis. He was found to be positive for human rhinovirus and enterovirus and was discharged home without needing oxygen supplementation. He did get a course of prednisone by his PCP and did notice symptomatic improvement in his cough as well as his dyspnea. After completion, however, he continued to have progressive shortness of breath as well as significant fatigue. He also has started noticing recurrence slightly of the scant amount of hemoptysis. The patient did have a repeat imaging done with a CT of chest which did show worsening ground-glass opacities as well as some interlobular septal thickening more particularly in the right side. There is also evidence of some ground-glass and subpleural fibrosis in the bilateral lower lobes although he does have fibrosis that was noted previously in the lower lobes and it is unclear if it has actually progressed. His echocardiogram did show evidence of increased central venous pressure and he did receive Lasix initially as his BMP was also elevated. He did have good urine output noted with his initial dose of Lasix. The patient continues, however, to require significant amounts of oxygen supplementation. He is on a Ventimask currently as he requires more oxygen than can be given with just 5-6 liters nasal cannula. Acute hypoxemic respiratory failure possibly in the setting of pulmonary edema as well as possible pneumonitis or interstitial lung disease. Given the patient has also been on chemotherapy and has had some immunosuppression, there is also a possibility of infection. He is afebrile and has no leukocytosis and his procalcitonin is not significantly elevated. However, more atypical infectious etiologies such as PCP pneumonia is a possibility and would not suspect to see elevated procalcitonin in that case. There can also be significant hypoxemia associated with it and his CT findings may also be seen with a PCP pneumonia although there appears to be more right side predominance. We will continue patient on Lasix for diuresis as per the primary team with monitoring of his ins and outs and renal function. There is a possibility of pneumonitis which can be associated with his chemotherapy agents, particularly the Rituxan and the Revlimid. This is more a diagnosis of exclusion, however but as he did have improvement with prednisone, there is a possibility that some of the findings in imaging are related to a potential hypersensitivity pneumonitis or drug-induced pneumonitis. We will therefore start patient on Solu-Medrol at 60 mg q.8 hours. There is also a possibility for PCP pneumonia given his immune suppression with chemotherapy and lymphoma. We will check a sputum cytology with a GMS stain to evaluate for PCP and will hold off on Bactrim for now. If he does not have improvement clinically, could consider Bactrim. We will check an LDH as well as a [id number]. We will continue with oxygen supplementation. He is currently on a Ventimask. We will attempt to wean him down to high flow nasal cannula oxygen if possible. Can continue with Advair and with albuterol p.r.n. bronchodilator as needed. DVT prophylaxis: On Pradaxa anticoagulation. Code Status: FULL CODE. MTDD
[2020-08-05] MEDS: ROSUVASTATIN 10 MG TAB (CRESTOR) PO SCH (20:02)
[2020-08-05] MEDS: CETIRIZINE (ZyrTEC) 10 MG TAB PO SCH (20:03)
[2020-08-05] MEDS: ESCITALOPRAM OXALATE 10 MG TAB (LEXAPRO) PO SCH (20:03)
[2020-08-05] MEDS ORDERED: DIGOXIN INJ 0.5 MG/2 ML AMP (J1160) IV SCH (20:30)
[2020-08-06] VITALS (8 sets, daily range): BP systolic 96–112; BP diastolic 53–67
[2020-08-06] MEDS: methylPREDNISolone 125MG 2ML VIAL IV SCH ×3 (00:37→17:20)
[2020-08-06 05:37] LABS: HEMATOCRIT 30.9 % (42.0-52.0); HEMOGLOBIN 9.9 g/dl (13.5-17.5); LYMPH # 0.3 10^3/uL (1.5-5.0); LYMPH % 5.2 % (24.0-44.0); MEAN CORPUSCULAR HEMOGLOBIN 29.7 pg (27.0-33.0); MEAN CORPUSCULAR VOLUME 92.8 fl (80.0-96.0); MONO # 0.3 10^3/uL (0.0-0.8); NEUTROPHILS # 4.4 10^3/uL (1.5-8.5); NEUTROPHILS % 88.2 % (36.0-66.0); PLATELET COUNT, AUTOMATED 162 10^3/uL (150-450); RED BLOOD COUNT 3.33 10^6/uL (4.30-6.10)
[2020-08-06 06:00] LABS: BLOOD UREA NITROGEN 28 MG/DL (7-18); CALCIUM LEVEL 9.2 MG/DL (8.8-10.2); CARBON DIOXIDE LEVEL 22 MEQ/L (21-32); CHLORIDE LEVEL 104 MEQ/L (98-107); CREATININE FOR GFR 0.99 MG/DL (0.70-1.30); GLOMERULAR FILTRATION RATE > 60.0 (>35); GLUCOSE, FASTING 155 MG/DL (70-100); MAGNESIUM LEVEL 2.3 MG/DL (1.8-2.4); POTASSIUM SERUM 3.7 MEQ/L (3.5-5.1); SODIUM LEVEL 138 MEQ/L (136-145)
[2020-08-06] MEDS: ADVAIR HFA 230/21MCG INHALER INH SCH ×2 (07:25→20:01)
[2020-08-06] MEDS: DABIGATRAN ETEXILATE 75 MG CAP (PRADAXA) PO SCH ×2 (08:58→20:55)
[2020-08-06] MEDS: ASCORBIC ACID 500 MG TAB PO SCH (08:58)
[2020-08-06] MEDS: DUTASTERIDE 0.5 MG CAP (AVODART) PO SCH (08:58)
[2020-08-06] MEDS: FERROUS SULFATE 325MG TAB PO SCH (08:58)
[2020-08-06] MEDS: FUROSEMIDE 20MG/2ML VIAL (J1940) IV SCH ×3 (09:01→17:46)
[2020-08-06] MEDS: VERAPAMIL 80 MG TAB PO SCH ×4 (09:01→20:56)
[2020-08-06] MEDS ORDERED: DOCUSATE SODIUM 100MG CAPSULE PO PRN (10:00)
--- NOTE | 2020-08-06 10:45 | IPNPDOC ---
Text Note Date of Service The patient was seen on 08/06/20. NOTE Subjective: Patient is a 68-year-old male who presented to the emergency room with progressive shortness of breath over the last several weeks. Of note, patient was admitted to the hospital 07/13 for hemoptysis and shortness of breath. Patient was found to have human rhinovirus and was ultimately sent home within 24 hours. Patient reports that he is experiencing a productive cough with red tinged sputum, thick patient denies any chest pain or palpitations. Patient denies any fevers or chills while at home. Patient reports that he has not been experi encing any leg swelling and does not experience any shortness of breath when he lays on his back. Patient was admitted to the hospitalist service for further evaluation and treatment. Patient was seen and examined at the bedside. Currently patient reports that his breathing is doing better while on the Ventimask today. He'll be transitioned over to Vapotherm reports a productive cough with some blood-tinged denies any chest pain or palpitations. Has not experience nausea, vomiting, abdominal pain, diarrhea, or urinary discomfort. Objective: Vitals (See below) General: Patient is lying in bed, does not appear to be in any distress, is awake, alert and oriented 3 HEENT: NC, AT CVS: +S1S2 Lungs: Air entry appears to be fair bilaterally without any auscultated rhonchi, rales or wheezing Abdomen: Soft, nondistended and nontender Extremities: - Edema, - Calf tenderness Imaging: CT chest 08/04: Vague progressive ground-glass opacities along with increased interstitial markings and bronchiectasis as described above. Differential diagnosis includes but is not limited to progressive chronic interstitial fibrotic disease as well as sub clinical pneumonitis. Correlation and pulmonology follow-up may be warranted. ECHO 08/04: 1. Study is of acceptable technical quality, underlying likely atrial fibrillation with ventricular pacing. 2. Normal LV size with moderately severe left ventricular hypertrophy and overall hyperdynamic LV systolic function, estimated EF around 70%. Septal wall motion abnormality likely related to underlying ventricular pacing. Unable to estimate diastolic function. 3. Aortic sclerosis with no stenosis and frqh-[id number]-dkigoyoe insufficiency. 4. No significant mitral valvular disease. 5. Very high central venous pressure and at least moderate pulmonary hypertension. 6. Echo artifact apparent in right-sided heart chambers consistent with pacemak er or ICD lead. Assessment and plan: Acute hypoxic respiratory failure - possibly 2/2 fluid overload, possibly 2/2 viral illness, possibly 2/2 pneumonitis - Presented to ER with complaints of SOB; currently reports improvement of the symptoms while on oxygen - Tinged experience a productive cough with some blood-tinged - Will transition to VapoTherm - Physical again without fluid overload - Hg again is unchanged - BNP elevated - PCT relatively negative - will repeat - Imaging noted above; ECHO with elevated CVP - will continue diuresis - c/w Furosemide; will reduce dose - will trend BNP - c/w Solumedrol (Day #2); will transition to Prednisone as he clinically i mproves - Pulmonology on consultation; appreciate their input DLBCL non-Hodgkin's lymphoma - Clinical stage IIIA mixed follicular - Grade 1-2 with 40/60% follicular/DLBCL component diagnosed August 2018. - Right axillary, left inguinal, pelvic bulky progression in December 2018 - Patient follows with Dr. Horn has recently re-started R-CHOP therapy Subcentimeter R lung nodules - Followed by Dr. Lawson of pulmonology CAD status post NSTEMI in 2010 - 2015 cardiac cath 80% occlusion at D1, otherwise no coronary occlusion CVA 2011 - c/w Pradaxa and Rosuvastatin Left atrial thrombus (2011) - c/w Pradaxa HTN - BP well controlled - Hold Furosemide PO - c/w Verapamil ; will adjust hold parameters Atrial fibrillation - s/p Digoxin overnight; was in A. fib with RVR - c/w Verapamil ; will adjust hold parameters - c/w Pradaxa BPH - c/w Dutasteride Chronic Diastolic CHF - No evidence of fluid overload - Last echo 02/2019. EF60% DLP - c/w Rosuvastatin Microhematuria Gout DVT prophylaxis - Will c/w full anticoagulation with Pradaxa Disposition: - Awaiting clinical improvement VSDestiny, I+O VSDestiny, I+O Laboratory Tests 08/06/20 05:04 Vital Signs Date Time Temp Pulse Resp B/P (MAP) Pulse Ox O2 Delivery O2 Flow Rate FiO2 08/06/20 09:50 93 HVNI-Vapotherm 15.0 50 08/06/20 09:01 100 112/60 08/06/20 07:20 97.4 24 I&O- Last 24 Hours up to 6 AM 08/06/20 06:00 Intake Total 840 ml Output Total 450 ml Balance 390 ml GERRY GONZALES MD Aug 06, 2020 10:45
[2020-08-06] MEDS: guaiFENesin ER 600 MG TAB PO SCH ×2 (11:14→20:55)
[2020-08-06 13:25] LABS: NT-PRO BNP 11172 PG/ML (<450)
--- NOTE | 2020-08-06 18:16 | IPN ---
PROGRESS NOTE DATE: 08/06/2020 Patient was seen and examined this morning during bedside rounds. Patient was given Lasix for diuresis yesterday. He had issues in the evening with hypotension, so one of his doses of Lasix was held. His verapamil was also held yesterday and overnight he did have an episode of atrial fibrillation with rapid ventricular response. This morning, patient reports that his breathing is relatively unchanged. He denies any dyspnea at rest significantly current, but he does have more fatigue and shortness of breath with activity and exertion. His cough, he feels, is slightly improved, although he does continue to have scant hemoptysis. He has not had any fevers or chills. He denies any increase in lower extremity edema. Patient denies any nausea or vomiting. He is still on Ventimask, as we do not have the higher flow nasal cannula oxygen system currently. He was able to be weaned down to 30% yesterday but overnight and this morning was back up to 50% Ventimask. PHYSICAL EXAMINATION: Temperature 97.4, pulse 116, respirations 24, blood pressure 96/60, oxygen saturation 91% on Ventimask on 50% FiO2. INPUT AND OUTPUT: Ins not reported. Out approximately 800 mL. LABORATORY DATA: WBC 5.0, hemoglobin 9.9, platelets 162. Chemistry: Sodium 138, potassium 3.7, chloride 104, bicarbonate 22, BUN 28, creatinine 0.99, glucose 165. LDH 493. Troponin negative. Repeat BNP 11,000. Repeat procalcitonin 0.08. Serum cytology showed scattered skin cells and pulmonary macrophages with neutrophils, lymphocytes and blood elements. No malignancy identified. ASSESSMENT AND PLAN: Mr. Stubbs is an 85-year-old male with a past medical history of hypertension, hyperlipidemia, atrial fibrillation, coronary artery disease (CAD), congestive heart failure (CHF), non-Hodgkin's lymphoma, who presented with complaints of worsening shortness of breath and dyspnea on exertion. Patient had been having symptoms for the past few weeks as well as increased cough and occasional episodes of hemoptysis. He has not had any fevers or chills and no chest pain. Patient does have previous hospitalization in the setting of dyspnea and pulmonary edema which started after he started receiving chemotherapy. He previously had improvement with diuresis and he did have adjustment with the dosage of his chemotherapy and he appeared to have been tolerating it better. More recently, patient was hospitalized in the beginning of July for dyspnea and he was found to be positive for human rhinovirus/enterovirus. He was also treated with a course of prednisone and did have symptomatic improvement that he has noticed. He presents now, however, with worsening hypoxia and worsening findings on imaging. He has ground glass opacities and interlobular septal thickening, which is more on the right side. There is also some evidence of ground glass and subpleural fibrosis in the lower lobes, although this is somewhat chronic. His echocardiogram did show evidence of increase in central venous pressure and he was given Lasix and initially had good diuresis. He had issues overnight, however, with hypotension and his Lasix was held. Patient also had atrial fibrillation with rapid ventricular response which he does get at times with previous hospitalizations. 1. Acute hypoxic respiratory failure in the setting of pulmonary edema with a possible pneumonitis or interstitial lung disease. There is also the possibility of infectious etiology, although patient is afebrile and he has no leukocytosis. His procalcitonin is also not elevated. With his echocardiogram findings and his imaging, suspect he does have pulmonary edema, although diuresis is complicated, given his episodes of hypotension. - Will continue with Lasix. Consider changing him from the 20 mg intravenous (IV) twice a day to 20 mg every 8 hours for improved diuresis and potentially better tolerability with his blood pressure. Would continue to monitor his intake and output, as well as his renal function. - Patient does require improved rate control, as when he is tachycardic in rapid ventricular response, he likely will have decreased cardiac output and worsened pulmonary edema. - There is a possibility of pneumonitis, which can be associated with his chemotherapy agents. However, this is more a diagnosis of exclusion. He appears to have questionable symptomatic improvement with prednisone, so would continue him with Solu-Medrol 50 mg every 8 hours and would wean down to 40 mg every 8 hours in the next day, and continue with a slow taper with prednisone. - There was a question of possible pneumocystis pneumonia (PCP) given his immunosuppression with chemotherapy and lymphoma. His sputum cytology did not appear to show any reported fungal organism. Will still follow up his [id number] and continue holding Bactrim and other broad spectrum antibiotics for now. Would closely monitor his fever curve and his leukocytosis. - Will continue with oxygen supplementation. As we do not have high flow nasal cannula oxygen, we will place him on Vapotherm and continue to wean down his FiO2 as tolerated. - Continue with Advair and albuterol bronchodilators as needed. Deep venous thrombosis prophylaxis (DVT) on Pradaxa for anticoagulation CODE STATUS: FULL CODE. Please do not hesitate to call if any further questions or concerns. MTDD
[2020-08-06] MEDS: ROSUVASTATIN 10 MG TAB (CRESTOR) PO SCH (20:55)
[2020-08-06] MEDS: CETIRIZINE (ZyrTEC) 10 MG TAB PO SCH (20:55)
[2020-08-06] MEDS: ESCITALOPRAM OXALATE 10 MG TAB (LEXAPRO) PO SCH (20:56)
[2020-08-07] VITALS: BP_SYST 102; BP_SYST 113; BP_DIAS 56
[2020-08-07] MEDS: methylPREDNISolone 125MG 2ML VIAL IV SCH ×3 (00:14→16:43)
[2020-08-07] MEDS: FUROSEMIDE 20MG/2ML VIAL (J1940) IV SCH ×3 (00:14→16:44)
[2020-08-07 04:00] VITALS: BP 92/52
[2020-08-07 04:57] LABS: BASO % 0.1 % (0.0-1.0); HEMATOCRIT 29.6 % (42.0-52.0); HEMOGLOBIN 9.3 g/dl (13.5-17.5); LYMPH # 0.4 10^3/uL (1.5-5.0); LYMPH % 3.6 % (24.0-44.0); MEAN CORPUSCULAR HEMOGLOBIN 29.3 pg (27.0-33.0); MEAN CORPUSCULAR HGB CONC 31.4 g/dl (32.0-36.5); MEAN CORPUSCULAR VOLUME 93.4 fl (80.0-96.0); MONO # 0.4 10^3/uL (0.0-0.8); MONO % 3.8 % (0.0-5.0); NEUTROPHILS # 10.3 10^3/uL (1.5-8.5); NEUTROPHILS % 91.5 % (36.0-66.0); PLATELET COUNT, AUTOMATED 183 10^3/uL (150-450); RED BLOOD COUNT 3.17 10^6/uL (4.30-6.10); WHITE BLOOD COUNT 11.2 10^3/uL (4.0-10.0)
[2020-08-07 05:51] LABS: BLOOD UREA NITROGEN 44 MG/DL (7-18); CALCIUM LEVEL 8.9 MG/DL (8.8-10.2); CARBON DIOXIDE LEVEL 23 MEQ/L (21-32); CHLORIDE LEVEL 105 MEQ/L (98-107); CREATININE FOR GFR 1.14 MG/DL (0.70-1.30); GLOMERULAR FILTRATION RATE > 60.0 (>35); GLUCOSE, FASTING 159 MG/DL (70-100); MAGNESIUM LEVEL 2.2 MG/DL (1.8-2.4); POTASSIUM SERUM 3.7 MEQ/L (3.5-5.1); SODIUM LEVEL 139 MEQ/L (136-145)
[2020-08-07] MEDS: ADVAIR HFA 230/21MCG INHALER INH SCH ×2 (07:37→19:50)
[2020-08-07 07:50] VITALS: BP 92/53
[2020-08-07] MEDS ORDERED: SLF 3 ML SYR IV PRN (08:15)
[2020-08-07 08:30] LABS: NT-PRO BNP 16784 PG/ML (<450)
[2020-08-07] MEDS: VERAPAMIL 80 MG TAB PO SCH ×4 (08:41→21:26)
[2020-08-07] MEDS: DUTASTERIDE 0.5 MG CAP (AVODART) PO SCH (08:47)
[2020-08-07] MEDS: guaiFENesin ER 600 MG TAB PO SCH ×2 (08:47→21:26)
[2020-08-07] MEDS: DABIGATRAN ETEXILATE 75 MG CAP (PRADAXA) PO SCH ×2 (08:47→21:26)
[2020-08-07] MEDS: ASCORBIC ACID 500 MG TAB PO SCH (08:47)
[2020-08-07] MEDS: FERROUS SULFATE 325MG TAB PO SCH (08:47)
[2020-08-07 11:55] VITALS: BP 99/64
[2020-08-07] MEDS: SLF 3 ML SYR IV SCH ×2 (13:01→21:27)
--- NOTE | 2020-08-07 15:30 | IPNPDOC ---
Text Note Date of Service The patient was seen on 08/07/20. NOTE Subjective: Patient was seen and examined this morning at bedside. Patient tells me shortness of breath has improved compared to yesterday. He denies any severe hemoptysis. Patient has a Ventimask in place he denies any chest pain or palpitations and says he still has a productive cough but no blood. He denies any fevers or chills no belly pain or urinary problems. There is no acute overnight events reported to me. Objective: Constitutional: Awake and alert, in no apparent distress ENT: Sclera are clear. Respiratory: Lungs CTA bilaterally without obvious rales or wheezing or rhonchi. No respiratory distress. No use of accessory muscles. Ventimask in place Cardiovascular: RRR S1 and S2 are normal Gastrointestinal: Abdomen is soft, non distended, non tender, BS present. Musculoskeletal: No lower extremity edema Neurologic: No focal neurological deficit. Mental Status: A&O x3, normal affect Skin: Warm, dry Assessment/plan: Patient is a 68-year-old male who presented to the emergency room with progressive shortness of breath over the last several weeks. Of note, patient was admitted to the hospital 07/13 for hemoptysis and shortness of breath. Patient was found to have human rhinovirus and was ultimately sent home within 24 hours. Patient reports that he is experiencing a productive cough with red tinged sputum, thick patient denies any chest pain or palpitations. Patient denies any fevers or chills while at home. Patient reports that he has not been experiencing any leg swelling and does not experience any shortness of breath when he lays on his back. Patient was admitted to the hospitalist service for further evaluation and treatment. # Acute hypoxic respiratory failure - possibly 2/2 pulmonary edema, possibly 2/2 pneumonitis - Presented to ER with complaints of SOB; currently reports improvement of the symptoms while on oxygen - Tinged experience a productive cough with some blood-tinged - On VapoTherm - Physical again without fluid overload - Hg again is unchanged - BNP elevated - ECHO with elevated CVP - will continue diuresis - c/w Furosemide now 20 TID. Difficult balance as patient becomes hypotensive. - c/w Solumedrol; will transition to Prednisone as he clinically improves - Pulmonology on consultation; appreciate their input # DLBCL non-Hodgkin's lymphoma: Clinical stage IIIA mixed follicular. Grade 1-2 with 40/60% follicular/DLBCL component diagnosed August 2018. Right axillary, left inguinal, pelvic bulky progression in December 2018. Patient follows with Dr. Horn has recently re-started R-CHOP therapy # Subcentimeter R lung nodules: Followed by Dr. Lawson of pulmonology # CAD status post NSTEMI in 2010: 2016 cardiac cath 80% occlusion at D1, otherwise no coronary occlusion. Continue statin # CVA 2012: c/w Pradaxa and Rosuvastatin # Left atrial thrombus (2011): c/w Pradaxa # HTN. BP well controlled. c/w Verapamil ; will adjust hold parameters # Atrial fibrillation: s/p Digoxin; was in A. fib with RVR. c/w Verapamil ; c/w Pradaxa # BPH: c/w Dutasteride # Chronic Diastolic CHF: No evidence of fluid overload. Last echo 02/2019. EF60% # DLP: c/w Rosuvastatin # Microhematuria # Gout # DVT prophylaxis: on Pradaxa A Maria Ines Hospitalist Destiny JAY, I+O VSDestiny I+O Laboratory Tests 08/07/20 03:45 Vital Signs Date Time Temp Pulse Resp B/P (MAP) Pulse Ox O2 Delivery O2 Flow Rate FiO2 08/07/20 12:20 101 99/64 08/07/20 12:00 20.0 60 08/07/20 11:55 97.2 22 96 HVNI-Vapotherm I&O- Last 24 Hours up to 6 AM 08/07/20 06:00 Intake Total 650 ml Output Total 925 ml Balance -275 ml MAGALIE SUN MD Aug 07, 2020 15:30
[2020-08-07 16:00] VITALS: BP 111/71
[2020-08-07 20:00] VITALS: BP 118/56
[2020-08-07] MEDS: ESCITALOPRAM OXALATE 10 MG TAB (LEXAPRO) PO SCH (21:25)
[2020-08-07] MEDS: CETIRIZINE (ZyrTEC) 10 MG TAB PO SCH (21:25)
[2020-08-07] MEDS: ROSUVASTATIN 10 MG TAB (CRESTOR) PO SCH (21:26)
[2020-08-08] VITALS (7 sets, daily range): BP systolic 103–112; BP diastolic 52–71
[2020-08-08] MEDS: methylPREDNISolone 125MG 2ML VIAL IV SCH ×2 (00:25→08:50)
[2020-08-08] MEDS: FUROSEMIDE 20MG/2ML VIAL (J1940) IV SCH ×3 (00:25→16:30)
[2020-08-08] MEDS: SLF 3 ML SYR IV SCH ×3 (05:15→20:32)
[2020-08-08 05:47] LABS: BASO % 0.1 % (0.0-1.0); HEMATOCRIT 27.6 % (42.0-52.0); LYMPH # 0.3 10^3/uL (1.5-5.0); LYMPH % 3.4 % (24.0-44.0); MEAN CORPUSCULAR HEMOGLOBIN 30.2 pg (27.0-33.0); MEAN CORPUSCULAR HGB CONC 32.6 g/dl (32.0-36.5); MEAN CORPUSCULAR VOLUME 92.6 fl (80.0-96.0); MONO # 0.5 10^3/uL (0.0-0.8); NEUTROPHILS # 8.3 10^3/uL (1.5-8.5); PLATELET COUNT, AUTOMATED 158 10^3/uL (150-450); RED BLOOD COUNT 2.98 10^6/uL (4.30-6.10); WHITE BLOOD COUNT 9.1 10^3/uL (4.0-10.0)
[2020-08-08 06:14] LABS: BLOOD UREA NITROGEN 42 MG/DL (7-18); CALCIUM LEVEL 9.2 MG/DL (8.8-10.2); CARBON DIOXIDE LEVEL 24 MEQ/L (21-32); CHLORIDE LEVEL 107 MEQ/L (98-107); CREATININE FOR GFR 1.09 MG/DL (0.70-1.30); GLOMERULAR FILTRATION RATE > 60.0 (>35); GLUCOSE, FASTING 165 MG/DL (70-100); MAGNESIUM LEVEL 2.5 MG/DL (1.8-2.4); POTASSIUM SERUM 3.7 MEQ/L (3.5-5.1); SODIUM LEVEL 141 MEQ/L (136-145)
[2020-08-08] MEDS: ADVAIR HFA 230/21MCG INHALER INH SCH ×2 (08:33→20:16)
[2020-08-08] MEDS: DUTASTERIDE 0.5 MG CAP (AVODART) PO SCH (08:50)
[2020-08-08] MEDS: guaiFENesin ER 600 MG TAB PO SCH ×2 (08:51→20:30)
[2020-08-08] MEDS: DABIGATRAN ETEXILATE 75 MG CAP (PRADAXA) PO SCH ×2 (08:51→20:30)
[2020-08-08] MEDS: ASCORBIC ACID 500 MG TAB PO SCH (08:52)
[2020-08-08] MEDS: FERROUS SULFATE 325MG TAB PO SCH (08:52)
[2020-08-08] MEDS: VERAPAMIL 80 MG TAB PO SCH ×4 (08:52→20:30)
--- NOTE | 2020-08-08 09:38 | IPNPDOC ---
Text Note Date of Service The patient was seen on 08/08/20. NOTE Subjective: Patient was seen and examined this morning at bedside. Patient tells me shortness of breath has improved compared to yesterday. Patient has a Ventimask in place he denies any chest pain or palpitations and says he still has a productive cough but no blood. He denies any fevers or chills no belly pain or urinary problems. There is no acute overnight events reported to me. Is feeling better overall goal today will be to titrate down his oxygen requirement as tole rated Objective: Constitutional: Awake and alert, in no apparent distress ENT: Sclera are clear. Respiratory: Lungs CTA bilaterally without obvious rales or wheezing or rhonchi. No respiratory distress. No use of accessory muscles. Ventimask in place Cardiovascular: RRR S1 and S2 are normal Gastrointestinal: Abdomen is soft, non distended, non tender, BS present. Musculoskeletal: No lower extremity edema Neurologic: No focal neurological deficit. Mental Status: A&O x3, normal affect Skin: Warm, dry Assessment/plan: Patient is a 68-year-old male who presented to the emergency room with progressive shortness of breath over the last several weeks. Of note, patient was admitted to the hospital 07/13 for hemoptysis and shortness of breath. Patient was found to have human rhinovirus and was ultimately sent home within 24 hours. Patient reports that he is experiencing a productive cough with red tinged sputum, thick patient denies any chest pain or palpitations. Patient denies any fevers or chills while at home. Patient reports that he has not been experiencing any leg swelling and does not experience any shortness of breath when he lays on his back. Patient was admitted to the hospitalist service for further evaluation and treatment. # Acute hypoxic respiratory failure - possibly 2/2 pulmonary edema, possibly 2/2 pneumonitis - Presented to ER with complaints of SOB; currently reports improvement of the symptoms while on oxygen - On VapoTherm. Goal today will be to wean him off of the Vapotherm as tolerated - Physical exam again without fluid overload - BNP elevated, trend - ECHO with elevated CVP - will continue diuresis - c/w Furosemide now 20 TID. Had a -8 50 mL fluid balance yesterday. 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 Grade 1-2 with 40/60% follicular/DLBCL component diagnosed August 2018. Right axillary, left inguinal, pelvic bulky progression in December 2018. Patient follows with Dr. Horn has recently re-started R-CHOP therapy # Subcentimeter R lung nodules: Followed by Dr. Lawson of pulmonology # CAD status post NSTEMI in 2010: 2016 cardiac cath 80% occlusion at D1, otherwise no coronary occlusion. Continue statin # CVA 2012: c/w Pradaxa and Rosuvastatin # Left atrial thrombus (2011): c/w Pradaxa # HTN. BP well controlled. c/w Verapamil ; will adjust hold parameters # Atrial fibrillation: s/p Digoxin; was in A. fib with RVR. c/w Verapamil ; c/w Pradaxa # BPH: c/w Dutasteride # Chronic Diastolic CHF: No evidence of fluid overload. Last echo 02/2019. EF60% # DLP: c/w Rosuvastatin # Microhematuria # Gout # DVT prophylaxis: on Pradaxa A Maria Ines Hospitalist VSDestiny, I+O VSDestiny, I+O Laboratory Tests 08/08/20 05:37 Vital Signs Date Time Temp Pulse Resp B/P (MAP) Pulse Ox O2 Delivery O2 Flow Rate FiO2 08/08/20 08:52 96 112/71 08/08/20 08:33 94 HVNI-Vapotherm 15.0 40 08/08/20 07:52 96.7 19 I&O- Last 24 Hours up to 6 AM 08/08/20 05:59 Intake Total 780 ml Output Total 1775 ml Balance -995 ml MAGALIE SUN MD Aug 08, 2020 09:38
[2020-08-08 09:59] LABS: NT-PRO BNP 18045 PG/ML (<450)
[2020-08-08] MEDS: CETIRIZINE (ZyrTEC) 10 MG TAB PO SCH (20:30)
[2020-08-08] MEDS: ROSUVASTATIN 10 MG TAB (CRESTOR) PO SCH (20:30)
[2020-08-08] MEDS: ESCITALOPRAM OXALATE 10 MG TAB (LEXAPRO) PO SCH (20:31)
[2020-08-08] MEDS: methylPREDNISolone 40MG 1ML VIAL IV SCH (20:31)
[2020-08-09] VITALS (8 sets, daily range): BP systolic 99–112; BP diastolic 52–62
[2020-08-09] MEDS: FUROSEMIDE 20MG/2ML VIAL (J1940) IV SCH ×3 (01:33→17:27)
[2020-08-09] MEDS: SLF 3 ML SYR IV SCH ×3 (05:06→20:00)
[2020-08-09 06:28] LABS: BASO % 0.1 % (0.0-1.0); HEMATOCRIT 29.1 % (42.0-52.0); HEMOGLOBIN 9.4 g/dl (13.5-17.5); LYMPH # 0.5 10^3/uL (1.5-5.0); LYMPH % 4.9 % (24.0-44.0); MEAN CORPUSCULAR HEMOGLOBIN 30.5 pg (27.0-33.0); MEAN CORPUSCULAR HGB CONC 32.3 g/dl (32.0-36.5); MEAN CORPUSCULAR VOLUME 94.5 fl (80.0-96.0); MONO # 0.6 10^3/uL (0.0-0.8); MONO % 6.7 % (0.0-5.0); NEUTROPHILS # 8.3 10^3/uL (1.5-8.5); NEUTROPHILS % 87.1 % (36.0-66.0); PLATELET COUNT, AUTOMATED 175 10^3/uL (150-450); RED BLOOD COUNT 3.08 10^6/uL (4.30-6.10); WHITE BLOOD COUNT 9.6 10^3/uL (4.0-10.0)
[2020-08-09 06:53] LABS: BLOOD UREA NITROGEN 47 MG/DL (7-18); CALCIUM LEVEL 9.2 MG/DL (8.8-10.2); CARBON DIOXIDE LEVEL 26 MEQ/L (21-32); CHLORIDE LEVEL 107 MEQ/L (98-107); CREATININE FOR GFR 1.15 MG/DL (0.70-1.30); GLOMERULAR FILTRATION RATE > 60.0 (>35); GLUCOSE, FASTING 153 MG/DL (70-100); MAGNESIUM LEVEL 2.5 MG/DL (1.8-2.4); POTASSIUM SERUM 3.7 MEQ/L (3.5-5.1); SODIUM LEVEL 140 MEQ/L (136-145)
[2020-08-09] MEDS: ADVAIR HFA 230/21MCG INHALER INH SCH ×2 (07:54→19:38)
[2020-08-09 08:37] LABS: NT-PRO BNP 16915 PG/ML (<450)
[2020-08-09] MEDS: methylPREDNISolone 40MG 1ML VIAL IV SCH (08:41)
[2020-08-09] MEDS: DUTASTERIDE 0.5 MG CAP (AVODART) PO SCH (08:41)
[2020-08-09] MEDS: DABIGATRAN ETEXILATE 75 MG CAP (PRADAXA) PO SCH ×2 (08:41→20:20)
[2020-08-09] MEDS: ASCORBIC ACID 500 MG TAB PO SCH (08:43)
[2020-08-09] MEDS: guaiFENesin ER 600 MG TAB PO SCH ×2 (08:43→20:20)
[2020-08-09] MEDS: FERROUS SULFATE 325MG TAB PO SCH (08:44)
[2020-08-09] MEDS: VERAPAMIL 80 MG TAB PO SCH ×4 (08:46→20:21)
--- NOTE | 2020-08-09 09:28 | IPNPDOC ---
Text Note Date of Service The patient was seen on 08/09/20. NOTE Subjective: Patient was seen and examined this morning at bedside. No longer feels short of breath. Is now on 3 L of oxygen by nasal cannula. Tells me feel better his cough has improved. He denies any chest pain. Denies any fevers or chills or abdominal or urinary problems. There is no acute events reported to me. Objective: Constitutional: Awake and alert, in no apparent distress ENT: Sclera are clear. Respiratory: Lungs CTA bilaterally without obvious rales or wheezing or rhonchi. No respiratory distress. No use of accessory muscles. Receiving 3 L of oxygen by nasal cannula. Cardiovascular: RRR S1 and S2 are normal Gastrointestinal: Abdomen is soft, non distended, non tender, BS present. Musculoskeletal: No lower extremity edema Neurologic: No focal neurological deficit. Mental Status: A&O x3, normal affect Skin: Warm, dry Assessment/plan: Patient is a 68-year-old male who presented to the emergency room with progressive shortness of breath over the last several weeks. Of note, patient was admitted to the hospital 07/13 for hemoptysis and shortness of breath. Patient was found to have human rhinovirus and was ultimately sent home within 24 hours. Patient reports that he is experiencing a productive cough with red tinged sputum, thick patient denies any chest pain or palpitations. Patient denies any fevers or chills while at home. Patient reports that he has not been experiencing any leg swelling and does not experience any shortness of breath when he lays on his back. Patient was admitted to the hospitalist service for further evaluation and treatment. # Acute hypoxic respiratory failure - possibly 2/2 pulmonary edema, possibly 2/2 pneumonitis - Presented to ER with complaints of SOB; currently reports improvement of the symptoms while on oxygen -Patient was taken off of Vapotherm 08/08 and transitioned to oxygen by nasal ca nnula - Physical exam again without fluid overload - BNP elevated possibly from pulmonary hypertension as patient is euvolemic on exam - ECHO with elevated CVP - will continue diuresis - c/w Furosemide now 20 TID transitioned to twice a day 08/09. Continues to have a negative fluid balance. - Patient has improved and I have decreased his Solu-Medrol 40 every 12 08/08 then switched him to PO prednisone starting Aug 10. 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 Grade 1-2 with 40/60% follicular/DLBCL component diagnosed August 2018. Right axillary, left inguinal, pelvic bulky progression in December 2018. Patient follows with Dr. Horn has recently re-started R-CHOP therapy # Subcentimeter R lung nodules: Followed by Dr. Lawson of pulmonology # CAD status post NSTEMI in 2010: 2015 cardiac cath 80% occlusion at D1, otherwise no coronary occlusion. Continue statin # CVA 2012: c/w Pradaxa and Rosuvastatin # Left atrial thrombus (2011): c/w Pradaxa # HTN. BP well controlled. c/w Verapamil ; will adjust hold parameters # Atrial fibrillation: s/p Digoxin; was in A. fib with RVR. c/w Verapamil ; c/w Pradaxa # BPH: c/w Dutasteride # Chronic Diastolic CHF: No evidence of fluid overload. Last echo 02/2019. EF60% # DLP: c/w Rosuvastatin # Microhematuria # Gout # DVT prophylaxis: on Pradaxa A [facility] In[facility] Hospitalist VSDestiny, I+O VSDestiny, I+O Laboratory Tests 08/09/20 05:56 Vital Signs Date Time Temp Pulse Resp B/P (MAP) Pulse Ox O2 Delivery O2 Flow Rate FiO2 08/09/20 07:47 97.6 87 18 109/62 (78) 96 HVNI-Vapotherm 10.0 40 I&O- Last 24 Hours up to 6 AM 08/09/20 06:00 Intake Total 660 ml Output Total 1200 ml Balance -540 ml MAGALIE SUN MD Aug 09, 2020 07:51
[2020-08-09] MEDS ORDERED: POTASSIUM CHLORIDE 10 MEQ SR TABLET PO ONE (18:30)
[2020-08-09] MEDS: CETIRIZINE (ZyrTEC) 10 MG TAB PO SCH (20:20)
[2020-08-09] MEDS: ESCITALOPRAM OXALATE 10 MG TAB (LEXAPRO) PO SCH (20:20)
[2020-08-09] MEDS: ROSUVASTATIN 10 MG TAB (CRESTOR) PO SCH (20:21)
[2020-08-10] VITALS: BP 100/60
[2020-08-10 04:00] VITALS: BP 110/63
[2020-08-10] MEDS: SLF 3 ML SYR IV SCH ×3 (05:28→20:52)
[2020-08-10 05:44] LABS: EOS % 0.1 % (0.0-3.0); HEMATOCRIT 29.1 % (42.0-52.0); HEMOGLOBIN 9.2 g/dl (13.5-17.5); LYMPH # 0.6 10^3/uL (1.5-5.0); LYMPH % 6.9 % (24.0-44.0); MEAN CORPUSCULAR HEMOGLOBIN 30.4 pg (27.0-33.0); MEAN CORPUSCULAR HGB CONC 31.6 g/dl (32.0-36.5); MONO # 0.7 10^3/uL (0.0-0.8); MONO % 8.8 % (0.0-5.0); NEUTROPHILS # 6.7 10^3/uL (1.5-8.5); NEUTROPHILS % 83.6 % (36.0-66.0); PLATELET COUNT, AUTOMATED 175 10^3/uL (150-450); RED BLOOD COUNT 3.03 10^6/uL (4.30-6.10)
[2020-08-10 06:14] LABS: BLOOD UREA NITROGEN 45 MG/DL (7-18); CALCIUM LEVEL 8.5 MG/DL (8.8-10.2); CARBON DIOXIDE LEVEL 26 MEQ/L (21-32); CHLORIDE LEVEL 108 MEQ/L (98-107); GLOMERULAR FILTRATION RATE > 60.0 (>35); GLUCOSE, FASTING 125 MG/DL (70-100); MAGNESIUM LEVEL 2.3 MG/DL (1.8-2.4); POTASSIUM SERUM 4.2 MEQ/L (3.5-5.1); SODIUM LEVEL 140 MEQ/L (136-145)
[2020-08-10] MEDS: ADVAIR HFA 230/21MCG INHALER INH SCH ×2 (07:19→20:10)
[2020-08-10 08:00] VITALS: BP 111/60
--- NOTE | 2020-08-10 09:12 | IPNPDOC ---
Text Note Date of Service The patient was seen on 08/10/20. NOTE Subjective: Patient was seen and examined this morning at bedside. No longer feels short of breath. Still now on 3 L of oxygen by nasal cannula. Tells me feel better his cough has improved. He denies any chest pain. Denies any fevers or chills or abdominal or urinary problems. There is no acute events reported to me. Objective: Constitutional: Awake and alert, in no apparent distress ENT: Sclera are clear. Respiratory: Lungs CTA bilaterally without obvious rales or wheezing or rhonchi. No respiratory distress. No use of accessory muscles. Receiving 3 L of oxygen by nasal cannula. Cardiovascular: RRR S1 and S2 are normal Gastrointestinal: Abdomen is soft, non distended, non tender, BS present. Musculoskeletal: No lower extremity edema Neurologic: No focal neurological deficit. Mental Status: A&O x3, normal affect Skin: Warm, dry Assessment/plan: Patient is a 68-year-old male who presented to the emergency room with progressive shortness of breath over the last several weeks. Of note, patient was admitted to the hospital 07/13 for hemoptysis and shortness of breath. Patient was found to have human rhinovirus and was ultimately sent home within 24 hours. Patient reports that he is experiencing a productive cough with red tinged sputum, thick patient denies any chest pain or palpitations. Patient denies any fevers or chills while at home. Patient reports that he has not been experiencing any leg swelling and does not experience any shortness of breath when he lays on his back. Patient was admitted to the hospitalist service for further evaluation and treatment. # Acute hypoxic respiratory failure - possibly 2/2 pulmonary edema, possibly 2/2 pneumonitis - Presented to ER with complaints of SOB; currently reports improvement of the symptoms while on oxygen - Patient was taken off of Vapotherm 08/08 and transitioned to oxygen by nasal cannula. Goal to attempt to wean pt off of o2. - Physical exam again without fluid overload - BNP elevated possibly from pulmonary hypertension as patient is euvolemic on exam - ECHO with elevated CVP - will continue diuresis - c/w Furosemide now 20 TID transitioned to twice a day 08/09. Continues to have a negative fluid balance. Can be switched to PO lasix tomorrow. - Patient has improved and I have decreased his Solu-Medrol 40 every 12 08/08 then switched him to PO prednisone starting Aug 10. 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 Grade 1-2 with 40/60% follicular/DLBCL component diagnosed August 2018. Right axillary, left inguinal, pelvic bulky progression in December 2018. Patient follows with Dr. Horn has recently re-started R-CHOP therapy # Subcentimeter R lung nodules: Followed by Dr. Lawson of pulmonology # CAD status post NSTEMI in 2010: 2016 cardiac cath 80% occlusion at D1, otherwise no coronary occlusion. Continue statin # CVA 2012: c/w Pradaxa and Rosuvastatin # Left atrial thrombus (2011): c/w Pradaxa # HTN. BP well controlled. c/w Verapamil ; will adjust hold parameters # Atrial fibrillation: s/p Digoxin; was in A. fib with RVR. c/w Verapamil ; c/w Pradaxa # BPH: c/w Dutasteride # Chronic Diastolic CHF: No evidence of fluid overload. Last echo 02/2019. EF60% # DLP: c/w Rosuvastatin # Microhematuria # Gout # DVT prophylaxis: on Pradaxa A [facility] In[facility] Hospitalist Destiny JAY, I+O Destiny JAY I+O Laboratory Tests 08/10/20 05:17 Vital Signs Date Time Temp Pulse Resp B/P (MAP) Pulse Ox O2 Delivery O2 Flow Rate FiO2 08/10/20 08:00 97.4 91 18 111/60 (77) 96 Nasal Cannula 3.0 08/09/20 16:00 I&O- Last 24 Hours up to 6 AM 08/10/20 06:00 Intake Total 1160 ml Output Total 1850 ml Balance -690 ml MAGALIE SUN MD Aug 10, 2020 09:12
[2020-08-10] MEDS: ASCORBIC ACID 500 MG TAB PO SCH (09:34)
[2020-08-10] MEDS: guaiFENesin ER 600 MG TAB PO SCH ×2 (09:34→20:52)
[2020-08-10] MEDS: FERROUS SULFATE 325MG TAB PO SCH (09:34)
[2020-08-10] MEDS: FUROSEMIDE 20MG/2ML VIAL (J1940) IV SCH ×2 (09:35→16:27)
[2020-08-10] MEDS: predniSONE 50 MG TAB PO SCH (09:44)
[2020-08-10] MEDS: DUTASTERIDE 0.5 MG CAP (AVODART) PO SCH (09:44)
[2020-08-10] MEDS: DABIGATRAN ETEXILATE 75 MG CAP (PRADAXA) PO SCH ×2 (09:44→20:47)
[2020-08-10] MEDS: VERAPAMIL 80 MG TAB PO SCH ×4 (09:44→20:51)
[2020-08-10 12:00] VITALS: BP 101/55
[2020-08-10 16:00] VITALS: BP 97/54
[2020-08-10 20:00] VITALS: BP 113/61
[2020-08-10] MEDS: ESCITALOPRAM OXALATE 10 MG TAB (LEXAPRO) PO SCH (20:47)
[2020-08-10] MEDS: CETIRIZINE (ZyrTEC) 10 MG TAB PO SCH (20:48)
[2020-08-10] MEDS: ROSUVASTATIN 10 MG TAB (CRESTOR) PO SCH (20:50)
[2020-08-11] VITALS: BP 108/60
[2020-08-11 04:00] VITALS: BP 119/65
[2020-08-11 05:31] LABS: BASO % 0.1 % (0.0-1.0); EOS # 0.1 10^3/uL (0.0-0.5); EOS % 1.2 % (0.0-3.0); HEMATOCRIT 30.9 % (42.0-52.0); HEMOGLOBIN 9.7 g/dl (13.5-17.5); LYMPH # 0.5 10^3/uL (1.5-5.0); LYMPH % 6.4 % (24.0-44.0); MEAN CORPUSCULAR HGB CONC 31.4 g/dl (32.0-36.5); MEAN CORPUSCULAR VOLUME 95.7 fl (80.0-96.0); MONO # 0.7 10^3/uL (0.0-0.8); MONO % 8.5 % (0.0-5.0); NEUTROPHILS % 82.6 % (36.0-66.0); PLATELET COUNT, AUTOMATED 175 10^3/uL (150-450); RED BLOOD COUNT 3.23 10^6/uL (4.30-6.10); WHITE BLOOD COUNT 8.5 10^3/uL (4.0-10.0)
[2020-08-11] MEDS: SLF 3 ML SYR IV SCH ×2 (05:32→13:25)
[2020-08-11 06:33] LABS: BLOOD UREA NITROGEN 44 MG/DL (7-18); CALCIUM LEVEL 8.8 MG/DL (8.8-10.2); CARBON DIOXIDE LEVEL 27 MEQ/L (21-32); CHLORIDE LEVEL 108 MEQ/L (98-107); CREATININE FOR GFR 1.05 MG/DL (0.70-1.30); GLOMERULAR FILTRATION RATE > 60.0 (>35); GLUCOSE, FASTING 112 MG/DL (70-100); MAGNESIUM LEVEL 2.5 MG/DL (1.8-2.4); POTASSIUM SERUM 4.1 MEQ/L (3.5-5.1); SODIUM LEVEL 140 MEQ/L (136-145)
[2020-08-11] MEDS: ADVAIR HFA 230/21MCG INHALER INH SCH (07:38)
[2020-08-11 08:00] VITALS: BP 105/58
[2020-08-11] MEDS: FUROSEMIDE 20MG/2ML VIAL (J1940) IV SCH ×2 (09:25→15:35)
[2020-08-11] MEDS: ASCORBIC ACID 500 MG TAB PO SCH (09:26)
[2020-08-11] MEDS: FERROUS SULFATE 325MG TAB PO SCH (09:26)
[2020-08-11] MEDS: guaiFENesin ER 600 MG TAB PO SCH (09:26)
[2020-08-11] MEDS: DUTASTERIDE 0.5 MG CAP (AVODART) PO SCH (09:41)
[2020-08-11] MEDS: VERAPAMIL 80 MG TAB PO SCH ×3 (09:41→15:34)
[2020-08-11] MEDS: predniSONE 50 MG TAB PO SCH (09:41)
[2020-08-11] MEDS: DABIGATRAN ETEXILATE 75 MG CAP (PRADAXA) PO SCH (09:42)
[2020-08-11 12:03] VITALS: BP 104/57
[2020-08-11] MEDS ORDERED: LASI20TA3 PO (13:55)
[2020-08-11] MEDS ORDERED: PRED20TA PO (13:58)
[2020-08-11] MEDS ORDERED: NYST50SS PO (14:03)
[2020-08-11 15:34] VITALS: BP 99/50
[2020-08-11 16:00] VITALS: BP 99/50
--- NOTE | 2020-08-11 20:34 | DS.PDOC ---
Discharge Summary General Date of Admission Aug 04, 2020 at 11:14 Date of Discharge 08/11/20 Discharge Summary PROCEDURES PERFORMED DURING STAY: [None]. ADMITTING DIAGNOSES: Acute hypoxic respiratory failure DLBCL non-Hodgkin's lymphoma Subcentimeter R lung nodules CAD status post NSTEMI CVA Left atrial thrombus HTN Atrial fibrillation BPH Chronic Diastolic CHF DLP Micro hematuria Gout Hemoptysis DISCHARGE DIAGNOSES: Acute hypoxic respiratory failure DLBCL non-Hodgkin's lymphoma Subcentimeter R lung nodules CAD status post NSTEMI CVA Left atrial thrombus HTN Atrial fibrillation BPH Chronic Diastolic CHF DLP Micro hematuria Gout Hemoptysis Acute diastolic CHF COMPLICATIONS/CHIEF COMPLAINT: Hypoxia. HISTORY OF PRESENT ILLNESS: Patient is a 68-year-old male who presented to the emergency room with progressive shortness of breath over the last several weeks. Of note, patient was admitted to the hospital 07/13 for hemoptysis and shortness of breath. Patient was found to have human rhinovirus and was ultimately sent home within 24 hours. Patient reports that he is experiencing a productive cough with red tinged sputum, thick patient denies any chest pain or palpitations. Patient denies any fevers or chills while at home. Patient reports that he has not been experiencing any leg swelling and does not experience any shortness of breath when he lays on his back. Patient was admitt ed to the hospitalist service for further evaluation and treatment. 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 Grade 1-2 with 40/60% follicular/DLBCL component diagnosed August 2018. Right axillary, left inguinal, pelvic bulky progression in December 2018. Patient follows with Dr. Horn has recently re-started R-CHOP therapy # Subcentimeter R lung nodules: Followed by Dr. Lawson of pulmonology # CAD status post NSTEMI in 2010: 2016 cardiac cath 80% occlusion at D1, otherwise no coronary occlusion. Continue statin # CVA 2011: Pradaxa was stopped due to hemoptysis and Rosuvastatin Hemoptysis Pradaxa on hold. Follow-up with sheet metal duct installer to discuss continuation of anticoagulation therapy DISCHARGE MEDICATIONS: Please see below. ALLERGIES: Please see below. PHYSICAL EXAMINATION ON DISCHARGE: VITAL SIGNS: Please see below. Constitutional: Awake and alert, in no apparent distress ENT: Sclera are clear. Respiratory: Lungs CTA bilaterally without obvious rales or wheezing or rhonchi. No respiratory distress. No use of accessory muscles. Cardiovascular: RRR S1 and S2 are normal Gastrointestinal: Abdomen is soft, non distended, non tender, BS present. Musculoskeletal: No lower extremity edema Neurologic: No focal neurological deficit. Mental Status: A&O x3, normal affect Skin: Warm, dry LABORATORY DATA: Please see below. IMAGING: [facility] NAME: LATANYA POWELL DATE OF : 1935 AGE: 85 SEX: M REPORT #: [id number] ROOM: ED TECHNOLOGIST: [email or web address] DOCTOR: CODY PELAEZ PA-C Ordered for Date&Time: 08/04/20902 cc: [~ rep ct ivnm] Service Date&Time: 08/04/20922 This report is in Signed status. If this report is in a DRAFT status it has not yet been reviewed by the radiologist for accuracy. Thank you for having your radiology procedures performed at [facility] RADIOLOGY REPORT Date&Time printed: [~ rep prt dt last] [~ rep prt tm last] Page 2 of 2 [place] [id number] RADIOLOGY REPORT This report is in Signed status. If this report is in a DRAFT status it has not yet been reviewed by the radiologist for accuracy. Thank you for having your radiology procedures performed at [facility] RADIOLOGY REPORT Date&Time printed: [~ rep prt dt last] [~ rep prt tm last] Page 1 of 1 COMPARISON: 07/13/2020, 03/31/2020 TECHNIQUE: Axial noncontrast images from the thoracic inlet to the upper abdomen with coronal and sagittal reformations. This CT examination was performed using the following dose reduction techniques: Automated exposure control, adjustment of mA and/or kv according to the patient's size, and use of iterative reconstruction technique. FINDINGS: The bilateral lung summers demonstrate progressive areas of ground-glass opacity along with subtle increased interstitial markings and mild bronchiectasis. These findings suggest progressive chronic interstitial fibrotic changes although a subclinical acute pneumonitis cannot be excluded as well. No discrete focal consolidation, effusion, or pneumothorax. Tracheobronchial tree is patent. Mediastinum demonstrates atherosclerotic changes to the thoracic aorta and coronary arteries with mild cardiomegaly. Pacemaker in satisfactory position. No pericardial effusion. Mediastinal lymph nodes are nonspecific and possibly reactive measuring up to approximately 12 mm short axis diameter. Surrounding musculoskeletal structures are intact. IMPRESSION: Vague progressive ground-glass opacities along with increased interstitial markings and bronchiectasis as described above. Differential diagnosis includes but is not limited to progressive chronic interstitial fibrotic disease as well as sub clinical pneumonitis. Correlation and pulmonology follow-up may be warranted. <Electronically signed by Mehdi Lucio > 08/04/20938 DD: Mehdi Lucio MD 08/04/20934 DT: BENNIE 08/04/20938 DS: NICK 08/04/2093408/04/20934 [~ rep ct labl] PROGNOSIS: Guarded ACTIVITY: [As tolerated]. DIET: Cardiac DISPOSITION: Home Health Service. ITEMS TO FOLLOWUP ON ON OUTPATIENT: Follow-up with sheet metal duct installer, oncologist and PCP DISCHARGE CONDITION: [Stable]. TIME SPENT ON DISCHARGE: Greater than 40 minutes. Vital Signs/I&Os Vital Signs Date Time Temp Pulse Resp B/P (MAP) Pulse Ox O2 Delivery O2 Flow Rate FiO2 08/11/20 16:00 97.8 70 18 99/50 (66) 92 Room Air 08/11/20 04:00 2.0 08/09/20 16:00 I&O- Last 24 Hours up to 6 AM 08/11/20 06:00 Intake Total 690 ml Output Total 850 ml Balance -160 ml Laboratory Data Labs 24H Laboratory Tests 2 08/11/20 05:11: Immature Granulocyte % (Auto) 1.2, Neutrophils (%) (Auto) 82.6H, Lymphocytes (%) (Auto) 6.4L, Monocytes (%) (Auto) 8.5H, Eosinophils (%) (Auto) 1.2, Basophils (%) (Auto) 0.1, Neutrophils # (Auto) 7.0, Lymphocytes # (Auto) 0.5L, Monocytes # (Auto) 0.7, Eosinophils # (Auto) 0.1, Basophils # (Auto) 0.0, Nucleated Red Blood Cells % (auto) 0.0, Anion Gap 5L, Glomerular Filtration Rate > 60.0, Calcium Level 8.8, Magnesium Level 2.5H CBC/BMP Laboratory Tests 08/11/20 05:11 Microbiology Microbiology 08/05/20 Gram Stain - Final, Complete 08/05/20 Sputum Culture - Final, Complete Pseudomonas Fluorescens Corynebacterium Species 08/04/20 Respiratory Virus Panel (PCR) (HONORIO) - Final, Complete Human Rhinovirus/Enterovirus Discharge Medications Scheduled Ascorbic Acid (Ascorbic Acid) 500 Mg Tablet, 500 MG PO DAILY, (Reported) Cetirizine HCl (Cetirizine HCl) 10 Mg Tablet, 10 MG PO QHS, (Reported) Dutasteride (Dutasteride) 0.5 Mg Capsule, 0.5 MG PO DAILY, (Reported) Escitalopram Oxalate (Lexapro) 10 Mg Tablet, 10 MG PO QHS, (Reported) Ferrous Sulfate (Iron) 325 Mg Tablet, 325 MG PO DAILY, (Reported) Fluticasone Furoate (Arnuity Ellipta) 100 Mcg Blst.w.dev, 1 PUFF PO DAILY, (Reported) Furosemide (Lasix) 20 Mg Tablet, 20 MG PO BID Nystatin (Nystatin Oral Susp) 100,000 Unit/1 Ml Oral.susp, 5 ML PO QID Prednisone (Prednisone) 20 Mg Tablet, 20 MG PO DAILY Rosuvastatin Calcium (Rosuvastatin Calcium) 10 Mg Tablet, 10 MG PO QPM, (Reported) Verapamil HCl (Verapamil HCl) 80 Mg Tablet, 80 MG PO QID, (Reported) Scheduled PRN Albuterol Sulfate (Proair Hfa) 8.5 Gm Hfa.aer.ad, 2 PUFF INH Q6H PRN for SHORT NESS OF BREATH, (Reported) Fluocinonide (Fluocinonide) 0.05% 60ML Solution, 1 APLCT TOP DAILY PRN for RASH/ITCHING, (Reported) APPLY TO SCALP Triamcinolone Acet (Triamcinolone Acetonide 0.1% Oint) 15 Gm Oint...g., 1 APLCT TOP BID PRN for RASH/ITCHING, (Reported) APPLY TO RASH AREAS ON BODY Allergies Coded Allergies: Contrast Media (Verified Allergy, Severe, SOB, 05/28/20) had reaction even after he had premedication Penicillins (Verified Allergy, Intermediate, RASH, 10/12/18) MALIHA DELEON DO Aug 11, 2020 20:34
== END 2020-08-11 17:45 | disposition home health service (06) | DRG 189 ==
LOC: M ED 08:43 → M ED INP 11:14 → M PCU 14:28
PROVIDERS: ADMIT Internal Medicine; ATTEND Internal Medicine
DX: J81.1 Chronic pulmonary edema (principal); J96.01 Acute respiratory failure with hypoxia; I50.33 Acute on chronic diastolic (congestive) heart failure; C82.38 Follicular lymphoma grade IIIa, lymph nodes of multiple sites; I11.0 Hypertensive heart disease with heart failure; R91.8 Other nonspecific abnormal finding of lung field; I25.10 Atherosclerotic heart disease of native coronary artery without angina pectoris; I25.2 Old myocardial infarction; I48.91 Unspecified atrial fibrillation; N40.0 Benign prostatic hyperplasia without lower urinary tract symptoms; J70.2 Acute drug-induced interstitial lung disorders; I49.5 Sick sinus syndrome; E78.5 Hyperlipidemia, unspecified; M10.9 Gout, unspecified; Z86.718 Personal history of other venous thrombosis and embolism; Z86.73 Personal history of transient ischemic attack (TIA), and cerebral infarction without residual deficits; Z95.0 Presence of cardiac pacemaker; Z98.49 Cataract extraction status, unspecified eye; Z85.828 Personal history of other malignant neoplasm of skin; Z79.899 Other long term (current) drug therapy; Z88.0 Allergy status to penicillin; Z91.041 Radiographic dye allergy status

== ENCOUNTER → 2020-09-09 | Outpatient (REF) | payer MEDICARE, OTHER ==
[~2020-09-09] MED LIST changes: +IRON65TA2 PO; +ISOS1TAB35; -ISOS30TA4; +LASI20TA3 PO; +NYST50SS PO; +PRED20TA PO; +VERA80TA3 PO; -VERAP80TA PO
[2020-09-09 15:45] LABS: HEMATOCRIT 36.4 % (42.0-52.0); HEMOGLOBIN 10.8 g/dl (13.5-17.5); MEAN CORPUSCULAR HEMOGLOBIN 29.4 pg (27.0-33.0); MEAN CORPUSCULAR HGB CONC 29.7 g/dl (32.0-36.5); MEAN CORPUSCULAR VOLUME 99.2 fl (80.0-96.0); PLATELET COUNT, AUTOMATED 219 10^3/uL (150-450); RED BLOOD COUNT 3.67 10^6/uL (4.30-6.10); WHITE BLOOD COUNT 5.7 10^3/uL (4.0-10.0)
[2020-09-09 16:19] LABS: ALBUMIN 2.8 GM/DL (3.2-5.2); ALT/SGPT 19 U/L (12-78); BILIRUBIN,TOTAL 0.4 MG/DL (0.2-1.0); BLOOD UREA NITROGEN 14 MG/DL (7-18); CALCIUM LEVEL 8.7 MG/DL (8.8-10.2); CARBON DIOXIDE LEVEL 26 MEQ/L (21-32); CHLORIDE LEVEL 106 MEQ/L (98-107); CREATININE FOR GFR 0.98 MG/DL (0.70-1.30); DIGOXIN LEVEL 1.2 NG/ML (0.5-2.0); GLOMERULAR FILTRATION RATE > 60.0 (>35); GLUCOSE, FASTING 92 MG/DL (70-100); POTASSIUM SERUM 4.3 MEQ/L (3.5-5.1); SODIUM LEVEL 140 MEQ/L (136-145)
== END ==
LOC: M SHH 14:25
PROVIDERS: ATTEND Internal Medicine
DX: I25.10 Atherosclerotic heart disease of native coronary artery without angina pectoris (principal); I48.0 Paroxysmal atrial fibrillation; I11.0 Hypertensive heart disease with heart failure

== ENCOUNTER → 2020-10-19 | Outpatient (CLI) | payer MEDICARE, OTHER ==
--- NOTE | 2020-10-19 11:43 | REP ---
INDICATION: NON HODGKINS LYMPHOMA, ABD FINDING OF LUNG. COMPARISON: Multiple the latest 08/04/2020 also without contrast. TECHNIQUE: Noncontrast enhanced helical technique. FINDINGS: The mediastinum and pulmonary shannan are unchanged. No new mass or adenopathy has developed. A tiny right pleural effusion has developed since the last exam. There is no change in the imaged osseous structures. Evaluation of the lung summers shows rather marked improvement in the previously present scattered ground-glass opacities and asymmetric densities. No new abnormal nodules, masses, or opacities have developed since the last exam. There is stable bronchiectasis predominantly of the cylindrical type, however, early verrucoid changes are present. IMPRESSION: 1. A tiny right pleural effusion has developed since the last exam. 2. Significant lung field improvement as described above. <Electronically signed by Ravi Garcia > 10/19/20 [id number]
--- NOTE | 2020-10-19 12:37 | REP ---
INDICATION: NON HODGKINS LYMPHOMA, ABD FINDING OF LUNG. COMPARISON: 03/31/2020 the latest prior also without intravenous contrast TECHNIQUE: Noncontrast enhanced helical CT of the abdomen only. FINDINGS: The liver, gallbladder, spleen, pancreas, adrenal glands, and kidneys are unchanged. The abdominal aorta and para-aortic regions are unchanged. The bowel loops and the mesenteries are essentially unchanged. There is no free fluid or free air in the abdomen. There is no significant change in appearance of the osseous structures. IMPRESSION: There is no evidence of acute disease. Findings as described above. <Electronically signed by Ravi Garcia > 10/19/20 [id number]
== END ==
LOC: M RAD 11:06
PROVIDERS: ATTEND Internal Medicine Pulmonary Disease
DX: C85.94 Non-Hodgkin lymphoma, unspecified, lymph nodes of axilla and upper limb (principal); R91.8 Other nonspecific abnormal finding of lung field; J90 Pleural effusion, not elsewhere classified

== ENCOUNTER 2020-11-19 09:46 | Emergency (ER) | payer MEDICARE, OTHER ==
[~2020-11-19] VITALS: Ht 170.2 cm; Wt 64.5 kg
[~2020-11-19 09:46] MED LIST changes: +HYDR-3363 PO; +MIDO2.5T PO
--- NOTE | 2020-11-19 10:13 | REPVR ---
PROCEDURE INFORMATION: Exam: CT Head Without Contrast Exam date and time: 11/19/2020 9:55 AM Age: 85 years old Clinical indication: Injury or trauma; Fall; Blunt trauma (contusions or hematomas); Additional info: Fall on pradaxa TECHNIQUE: Imaging protocol: Computed tomography of the head without contrast. Radiation optimization: All CT scans at this facility use at least one of these dose optimization techniques: automated exposure control; mA and/or kV adjustment per patient size (includes targeted exams where dose is matched to clinical indication); or iterative reconstruction. COMPARISON: No relevant prior studies available. FINDINGS: Brain: Chronic hypodense infarction/encephalomalacia is noted in the left occipital lobe with adjacent volume loss changes. There is moderate ill-defined patchy hypodensity within the bilateral cerebral periventricular white matter, consistent with chronic microvascular ischemic changes. There is moderate diffuse cerebral atrophy present, consistent with this patient's age. Cerebral ventricles: The ventricular system demonstrates moderate diffuse compensatory enlargement. Bones/joints: Unremarkable. No acute fracture. Paranasal sinuses: Moderate mucosal thickening is seen in bilateral maxillary and ethmoid sinuses. Mastoid air cells: Visualized mastoid air cells are well aerated. Soft tissues: Unremarkable. IMPRESSION: 1. No acute infarction, masses or hemorrhage is seen. No acute intracranial abnormality is identified. 2. Diffuse age-related cerebral atrophy and moderate chronic microvascular white matter ischemic changes, without evidence of an acute intracranial abnormality. 3. Chronic hypodense infarction/encephalomalacia is noted in the left occipital lobe with adjacent volume loss changes. Electronically signed by: Delbert Buckley On 11/19/2020 10:13:45 AM
[2020-11-19] MEDS ORDERED: LIDOCAINE W/EPINEPHRINE 1% 20ML VIAL SC ONE (10:35)
[2020-11-19] MEDS ORDERED: BOOSTRIX/ADACEL VACCINE (DIPHTH/PERTUSS/ACELL/TETANUS) 0.5ML SYR IM ONE (10:35)
--- NOTE | 2020-11-19 10:54 | REPVR ---
PROCEDURE INFORMATION: Exam: CT Cervical Spine Without Contrast Exam date and time: 11/19/2020 10:22 AM Age: 85 years old Clinical indication: Injury or trauma; Fall; Blunt trauma TECHNIQUE: Imaging protocol: Computed tomography images of the cervical spine without contrast. Radiation optimization: All CT scans at this facility use at least one of these dose optimization techniques: automated exposure control; mA and/or kV adjustment per patient size (includes targeted exams where dose is matched to clinical indication); or iterative reconstruction. COMPARISON: PT PET/CT Skull/mid thigh 08/13/2019 1:28 PM FINDINGS: Bones/joints: There is moderate diffuse osteopenia. There is degenerative retrolisthesis of C5 over C6. Otherwise,The cervical vertebral bodies are normal height and alignment.No acute fracture or dislocation is seen. Discs/Spinal canal/Neural foramina: There are multilevel degenerative changes including degenerative disc disease, spondylosis and facet degenerative changes. There is marked disc space narrowing with severe degenerative endplate changes at C5-C6 level. Epidural space: There is no evidence of epidural masses or hemorrhage. Prevertebral Space: The prevertebral soft tissues appear normal. Lungs: Lung apices are normal. Pleural spaces: There is a small right-sided pleural effusion. Soft tissues: There is straightening of the cervical spine which could be secondary to positioning or muscle spasm. There are no soft tissue masses or fluid collections. IMPRESSION: No acute fracture or dislocation is seen. Electronically signed by: Delbert Buckley On 11/19/2020 10:53:45 AM
--- NOTE | 2020-11-19 11:17 | REP ---
INDICATION: trauma. COMPARISON: None. TECHNIQUE: Two views using bony technique FINDINGS: No acute fracture or destructive osseous lesion. IMPRESSION: There is a soft tissue defect which needs to be evaluated clinically. <Electronically signed by Ravi Garcia > 11/19/20 1119
[2020-11-19 13:17] VITALS: BP 154/65
[2020-11-23] MEDS ORDERED: AVOD0.5C PO (08:30)
== END 2020-11-19 13:20 | disposition home or self-care (01) ==
LOC: M ED 09:46
DX: S51.812A Laceration without foreign body of left forearm, initial encounter (principal); W18.11XA Fall from or off toilet without subsequent striking against object, initial encounter; Y92.012 Bathroom of single-family (private) house as the place of occurrence of the external cause; I11.0 Hypertensive heart disease with heart failure; I50.9 Heart failure, unspecified; I48.91 Unspecified atrial fibrillation; C85.90 Non-Hodgkin lymphoma, unspecified, unspecified site; M10.9 Gout, unspecified; Z79.899 Other long term (current) drug therapy; Z88.0 Allergy status to penicillin; Z91.041 Radiographic dye allergy status

== ENCOUNTER 2020-12-03 22:30 | Inpatient (IN) | payer MEDICARE, OTHER ==
[~2020-12-03] VITALS: Ht 170.2 cm; Wt 68.8 kg
[2020-12-03 22:59] LABS: HEMATOCRIT 34.8 % (42.0-52.0); HEMOGLOBIN 11.1 g/dl (13.5-17.5); MEAN CORPUSCULAR HEMOGLOBIN 29.7 pg (27.0-33.0); MEAN CORPUSCULAR HGB CONC 31.9 g/dl (32.0-36.5); PLATELET COUNT, AUTOMATED 248 10^3/uL (150-450); RED BLOOD COUNT 3.74 10^6/uL (4.30-6.10); WHITE BLOOD COUNT 17.6 10^3/uL (4.0-10.0)
[2020-12-03] MEDS ORDERED: FUROSEMIDE 20MG/2ML VIAL (J1940) IV ONE (23:15)
[2020-12-03] MEDS ORDERED: methylPREDNISolone 125MG 2ML VIAL IV ONE (23:15)
[2020-12-03 23:41] LABS: LYMPHOCYTES 3 % (16-44); MONOCYTES 5 % (0-5); NEUTROPHILS 92 % (28-66); PLATELET ESTIMATE NORMAL (NORMAL)
[2020-12-03 23:42] LABS: POIKILOCYTOSIS 1+; TEAR DROP CELLS 1+
[2020-12-03 23:53] LABS: ALBUMIN 2.9 GM/DL (3.2-5.2); ALT/SGPT 17 U/L (12-78); BILIRUBIN,DIRECT 0.3 MG/DL (0.0-0.2); BILIRUBIN,TOTAL 0.8 MG/DL (0.2-1.0); BLOOD UREA NITROGEN 16 MG/DL (7-18); CALCIUM LEVEL 8.4 MG/DL (8.8-10.2); CARBON DIOXIDE LEVEL 21 MEQ/L (21-32); CHLORIDE LEVEL 104 MEQ/L (98-107); CK-MB VALUE MASS < 1.0 NG/ML (<3.6); CPK CREATINE PHOSPHOKINASE 33 U/L (39-308); CREATININE FOR GFR 0.93 MG/DL (0.70-1.30); DIGOXIN LEVEL 0.9 NG/ML (0.5-2.0); GLOMERULAR FILTRATION RATE > 60.0 (>35); GLUCOSE, FASTING 111 MG/DL (70-100); MB/CK RELATIVE INDEX 3.03 (< OR =4); NT-PRO BNP 11884 PG/ML (<450); POTASSIUM SERUM 3.7 MEQ/L (3.5-5.1); SODIUM LEVEL 138 MEQ/L (136-145); THYROXINE (T4) 5.3 UG/DL (4.5-12.0); TOTAL PROTEIN 5.4 GM/DL (6.4-8.2); TROPONIN I 0.08 NG/ML (< 0.10)
[2020-12-04] VITALS (71 sets, daily range): BP systolic 73–122; BP diastolic 45–76
--- NOTE | 2020-12-04 00:04 | REPVR ---
PROCEDURE INFORMATION: Exam: XR Chest Exam date and time: 12/03/2020 11:09 PM Age: 85 years old Clinical indication: Other: Dyspnea/cough TECHNIQUE: Imaging protocol: XR of the chest. Views: 1 view. COMPARISON: 1. CT Chest without contrast 2020-10-19 11:[address] Chest without contrast 2020-08-04 09:[address] Chest without contrast 2020-07-13 18:18 4. PT PET/CT Skull/mid thigh 2019-08-13 13:28 FINDINGS: Tubes, catheters and devices: AICD/Pacemaker device is present, and its leads are in appropriate position. Lungs: Diffuse right lung infiltrates greatest in the right upper lobe, infection. Pleural spaces: Small right-sided pleural effusion. Heart/Mediastinum: Unremarkable. No cardiomegaly. Bones/joints: Mild dextroconvex thoracic curvature. IMPRESSION: 1. Diffuse right lung infiltrates greatest in the right upper lobe, infection. 2. Small right-sided pleural effusion. Electronically signed by: Bear Alonzo On 12/04/2020 00:04:10 AM
[2020-12-04] MEDS ORDERED: LevoFLOXacin IV 750 MG in IV 1 EA IV ONE (00:10)
[2020-12-04 00:25] LABS: RSV AMPLIFICATION NEGATIVE (NEGATIVE)
[2020-12-04] MEDS ORDERED: ISOVUE-370 76% 100ML VIAL As Ordered ONE (00:32)
[2020-12-04] MEDS ORDERED: MOM 30ML SUSPENSION UDC PO PRN (00:45)
[2020-12-04] MEDS ORDERED: MAALOX 30 ML SUSP *UDC PO PRN (00:45)
[2020-12-04] MEDS ORDERED: VANCOMYCIN HCL 750 MG, VIAL MATE ADAPTER 1 EACH in NS 250 ML IV ONE (01:00)
--- NOTE | 2020-12-04 01:04 | HPEPDOC ---
[facility] Medical History & Physical Date of Admission December 04, 2020 Date of Service: December 04, 2020 Attending Physician: CALLY HARDEN MD History and Physical CHIEF COMPLAINT: [85 y/o male c/o sob x3 days] HISTORY OF PRESENT ILLNESS: [This is an 85 y/o male with a pmh of cva, cad, chf, a-fib s/p pacemaker placement, htn, hld and lymphoma currently undergoing treatment who presents to the ED with his daughter with a cc of worsening sob x3 days. Patient states that he began new chemotherapy infusion for his lymphoma 4 days ago and then new maintenance drug the day after. Patient states that the day he began the maintenance drug (revlimid) he began to experience sob. Patient states that his symptoms have gotten increasingly worse which is what made him present to the hospital today. Patient states that he feels fine other than his sob. Patient states that he has felt some fevers the past few days. Patient also states that he has been coughing a lot but can't bring up his sputum. Patient denies chest pain, abd pain, n/v/d/c. Patient states that his oral intake has been good the past few days. Patient's daughter states that he has had some episodes of confusion starting two days ago. Daughter states that during these episodes, patient will ramble nonsense and have visual hallucinations such as seeing numbers floating in the air. The episodes seem transient and resolve on their own. Patient found to have right sided pneumonia with pleural effusion in the ED. Patient meets sepsis criteria with tachycardia, tachypnea, leukocytosis and present source of infection.] PAST MEDICAL HISTORY: 1. [See HPI PAST SURGICAL HISTORY: 1. [B/l cataract removal]. 2. [Tonsillectomy]. 3. [Pacemaker placement 4. Cardiac cath with stent placement 5. Inguinal hernia repair]. SOCIAL HISTORY: Tobacco use:[Denies] ETOH: [Denies] Illicit drug use: [Denies] FAMILY HISTORY: Reviewed - none pertinent ALLERGIES: Please see below. REVIEW OF SYSTEMS: CONSTITUTIONAL: [See HPI]. HEENT: [Denies uri sx]. CARDIOVASCULAR: [Denies chest pain, palpitations]. RESPIRATORY: [SEe HPI]. GASTROINTESTINAL: [See HPI]. GENITOURINARY: [Denies dysuria]. SKIN: [Denies rash]. MUSCULOSKELETAL: [Denies acute joint/back pain]. NEUROLOGICAL: [Denies paresthesia]. ENDOCRINE: [Denies hx of dm]. HEMATOLOGIC/LYMPHATIC: [Denies easy bruising]. HOME MEDICATIONS: Please see below. PHYSICAL EXAMINATION: VITAL SIGNS: Please see below. GENERAL APPEARANCE: [This is an 85 year old male who appears his stated age. He is resting in bed receiving oxygen through high flow nasal cannula and does not appear to be in distress.]. HEENT: [No mass or lesion. No scleral icterus, conjunctival erythema. Nares patent. Oral mucosa moist without erythema.]. CARDIOVASCULAR: [Borderline tachy rate, irregularly irregular rhythm. No murmurs, rubs, gallops]. LUNGS: [Decreased breath sounds and wheezing throughout right lung. Left lung good airflow, no wheezing, rales, rhonchi.]. ABDOMEN: [Soft, nontender]. MUSCULOSKELETAL: [No joint deformity]. EXTREMITIES: [No peripheral edema noted. No overlying skin changes. Pulses intact.]. NEUROLOGICAL: [Speech clear. A+Ox3. No focal deficit.]. PSYCHIATRIC: [Mood and affect appear appropriate.]. LABORATORY DATA: See below. IMAGING: [CXR: Lungs: Diffuse right lung infiltrates greatest in the right upper lobe, infection. Pleural spaces: Small right-sided pleural effusion. Heart/Mediastinum: Unremarkable. No cardiomegaly. Bones/joints: Mild dextroconvex thoracic curvature. IMPRESSION: 1. Diffuse right lung infiltrates greatest in the right upper lobe, infection. 2. Small right-sided pleural effusion. ] MICROBIOLOGY: Please see below. ASSESSMENT: [This is an 85 y/o male with a pmh of cva, cad, chf, a-fib s/p pacemaker placement, htn, hld and lymphoma currently undergoing treatment who presents to the ED with his daughter with a cc of worsening sob x3 days. Patient recently started new cancer therapy regimen and began experiencing sx shortly after. Patient found to have pneumonia with less likely underlying chf exacerbation. Patient euvolemic on exam however bnp is acutely elevated. ]. . PLAN: 1. [Sepsis d/t pneumonia - Patient at risk for opportunistic pathogens such as pseudomonas d/t chemotherapy - Begin vancomycin and cefepime - 500mL bolus only due to euvolemia in the presence of heart failure. received 20mg of lasix in the ed - Patient initially on bipap in the ed for hypoxia, weaned down to high flow nasal cannula - Will continue supplemental o2 via nigh flow nasal cannula with a goal of 02 sat >90%, can resume bipap if he desats - CT chest ordered - Sputum culture ordered - mucinex for cough/sputum clearance - incentive spirometry - Admit to pcu w tele for tx 2. CHF - [place] [address] as well as small right sided pleural effusion, however does not appear fluid overloaded on exam - Patient received 20mg of lasix in the ed, is on chronic lasix at home - Will repeat ECHO as i do not see recent report in the chart - monitor sx - continue midodrine 3. Lymphoma - Patient follows with Dr. Horn at our facility. Day team can consider consult - Patient's family will need to bring in maintenance revlimid to continue therapy 4. A-Fib - patient not in rvr at the moment, rate is <110 - continue digoxin, dabigatran 5. BPH - continue dutasteride 6. Depression - continue lexapro DVT prophylaxis - on dabigatran Patient wishes to be FULL CODE]. Vital Signs Vital Signs Date Time Temp Pulse Resp B/P (MAP) Pulse Ox O2 Delivery O2 Flow Rate FiO2 12/03/20 23:03 100 12/03/20 22:32 111 30 105/52 77 High Flow Mask 15.0 Laboratory Data Labs 24H Laboratory Tests 2 12/03/20 22:39: Neutrophils (%) (Auto) , Nucleated Red Blood Cells % (auto) 0.0, Neutrophils 92H, Lymphocytes (Manual) 3L, Monocytes (Manual) 5, Poikilocytosis 1+, Tear Drop Cells 1+, Platelet Estimate NORMAL, Anion Gap 13, Glomerular Filtration Rate > 60.0, Lactic Acid Level 2.5*H, Calcium Level 8.4L, Total Bilirubin 0.8#, Direct Bilirubin 0.3H, Aspartate Amino Transf (AST/SGOT) 16, Alanine Aminotransferase (ALT/SGPT) 17, Alkaline Phosphatase 64, Total Creatine Kinase 33L, Creatine Kinase MB < 1.0, Creatine Kinase MB Relative Index 3.03, Troponin I 0.08, NI-Hry-R-Type Natriuretic Peptide 14607H, Total Protein 5.4L, Albumin 2.9L, Albumin/Globulin Ratio 1.2, Thyroid Stimulating Hormone (TSH) 1.260, Thyroxine (T4) 5.3, Digoxin Level 0.9 12/03/20 22:59: POC pH (Misc Panel) 7.490H, POC Base Excess (Misc Panel) -4.0L, POC Saturated Percent O2 (Misc) 98, POC pO2 (Misc Panel) 89.0, POC pCO2 (Misc Panel) 25.6L, POC HCO3 (Misc Panel) 19.5L, POC Total CO2 (Misc Panel) 20.0L 12/03/20 23:37: Coronavirus (COVID-19)(PCR) NEGATIVE, Influenza Type A (RT-PCR) NEGATIVE, Influenza Type B (RT-PCR) NEGATIVE, Respiratory Syncytial Virus (PCR) NEGATIVE CBC/BMP Laboratory Tests 12/03/20 22:39 Microbiology Microbiology 12/03/20 Blood Culture, Received Pending 12/03/20 Blood Culture, Received Pending Home Medications Scheduled Ascorbic Acid (Vitamin C) 500 Mg Tablet, 500 MG PO DAILY Dabigatran Etexilate Mesylate (Pradaxa) 150 Mg Capsule, 150 MG PO BID Digoxin (Digoxin) 125 Mcg Tablet, 125 MCG PO DAILY Dutasteride (Avodart) 0.5 Mg Capsule, 0.5 MG PO DAILY Escitalopram Oxalate (Lexapro) 10 Mg Tablet, 10 MG PO QHS Ferrous Sulfate (Iron) 325 Mg Tablet, 325 MG PO DAILY Furosemide (Furosemide) 20 Mg Tablet, 20 MG PO Q2D Lenalidomide (Revlimid) 20 Mg Capsule, 1 CAP PO DAILY TAKE ONE 20 MG CAPSULE BY MOUTH 1-21 DAYS, THEN 7 DAYS OFF Lenalidomide (Revlimid) 20 Mg Capsule, 20 MG PO ASDIRECTED TAKES AT 1600 FOR 21 DAYS AND THEN STOPS FOR 7 DAYS Midodrine HCl (Midodrine HCl) 2.5 Mg Tablet, 2.5 MG PO TID 0800, 1300, 1700 Allergies Coded Allergies: Contrast Media (Verified Allergy, Severe, SOB, 05/28/20) had reaction even after he had premedication Penicillins (Verified Allergy, Intermediate, RASH, 10/12/18) A-FIB/CHADSVASC A-FIB History Current/History of A-Fib/PAF?: Yes Current PO Anticoag Therapy: Yes FAHAD NÚÑEZ December 04, 2020 01:04
--- NOTE | 2020-12-04 01:40 | REPVR ---
PROCEDURE INFORMATION: Exam: CT Chest Without Contrast; Diagnostic Exam date and time: 12/04/2020 12:21 AM Age: 85 years old Clinical indication: Shortness of breath; Patient HX: HX lung CA; Additional info: Pneumonia vs. Chf vs. Pe TECHNIQUE: Imaging protocol: Diagnostic computed tomography of the chest without contrast. Radiation optimization: All CT scans at this facility use at least one of these dose optimization techniques: automated exposure control; mA and/or kV adjustment per patient size (includes targeted exams where dose is matched to clinical indication); or iterative reconstruction. COMPARISON: 1. CT Chest without contrast 2020-10-19 11:[address] Chest without contrast 2020-08-04 09:23 FINDINGS: Limitations: Artifact related to patient's arm position limits evaluation. Tubes, catheters and devices: AICD/Pacemaker device is present, and its leads are in appropriate position. Lungs: Extensive right upper and lower lobe infiltrates and consolidation. Mild left lower lobe posterior basilar consolidation and atelectasis. Pleural spaces: Unremarkable. No pneumothorax. No pleural effusion. Heart: Mild cardiac enlargement. Aorta: Unremarkable. No aortic aneurysm. Lymph nodes: Mild mediastinal adenopathy. Bones/joints: Moderate right shoulder degenerative joint disease. Soft tissues: Unremarkable. IMPRESSION: 1. Extensive right upper and lower lobe infiltrates and consolidation. Mild left lower lobe posterior basilar consolidation and atelectasis. 2. Mild mediastinal adenopathy. Electronically signed by: Bear Alonzo On 12/04/2020 01:40:17 AM
[2020-12-04] MEDS ORDERED: AVOD0.5C PO (01:41)
[2020-12-04] MEDS ORDERED: MIDO2.5T PO (01:41)
[2020-12-04] MEDS ORDERED: PRAD150C6 PO (01:41)
[2020-12-04] MEDS ORDERED: REVL20CA PO (01:41)
[2020-12-04] MEDS ORDERED: FURO20TA2 PO (01:41)
[2020-12-04] MEDS ORDERED: C 50TAB PO (01:41)
[2020-12-04] MEDS ORDERED: DIGO0.123 PO (01:41)
[2020-12-04] MEDS ORDERED: VANCOMYCIN HCL 500 MG in D5W MINI-BAG PLUS 100 ML IV ONE (02:00)
[2020-12-04] MEDS ORDERED: NS 500 ML IV ONE ×4 (02:10→10:30)
[2020-12-04] MEDS ORDERED: CEFEPIME HCL 2 GM in D5W 50 ML IV SCH (05:00)
[2020-12-04] MEDS ORDERED: NS 1,000 ML IV ONE (05:55)
[2020-12-04] MEDS: ALBUTEROL SULFATE 2.5 MG/0.5 ML INH NEB SOLN NEB SCH ×5 (07:52→23:18)
[2020-12-04] MEDS: FERROUS SULFATE 325MG TAB PO SCH (08:20)
[2020-12-04] MEDS: PANTOPRAZOLE 40MG VIAL (C9113 PER 1) IV SCH (08:20)
[2020-12-04] MEDS: DIGOXIN 0.125 MG TAB PO SCH (08:21)
[2020-12-04] MEDS: DUTASTERIDE 0.5 MG CAP (AVODART) PO SCH (08:21)
[2020-12-04] MEDS: DOCUSATE SODIUM 100MG CAPSULE PO SCH ×2 (08:21→20:18)
[2020-12-04] MEDS: MIDODRINE 2.5 MG TAB PO SCH ×3 (08:21→17:17)
--- NOTE | 2020-12-04 08:40 | CCN ---
CRITICAL CARE NOTE DATE: 12/04/2020 CRITICAL CARE TIME: One hour and 5 minutes. This excludes all procedures. SUBJECTIVE: I was called at around 6 [address] this morning to place a central line for hypotension. The patient had been admitted the evening before with pneumonia and sepsis. He was given Lasix in the emergency room and then was only given a liter and a half. He did not have accurate urine output measurements overnight as no Ortega was placed. He had been on broad spectrum antibiotics although currently was on cefepime and vancomycin with no atypical coverage. I instructed to give an extra 500 mL bolus. It was informed to me the reason sepsis protocol was not was followed was because of the concern for CHF. The patient was placed on bilevel noninvasive therapy. I am not sure of the indication. However, as the patient had no hypercarbia, I presume it was for work of breathing. On my arrival, I placed the patient on oxygen. On high-flow oxygen, he remains well above 90. He is able to speak but is clearly dyspneic. He states he had a little bit of a cough at home and then became very short of breath and presented to the emergency room. He denies any sick contacts. He has no chest pain. He denies any lower extremity edema or calf pain. He is on Pradaxa for a history of A fib. He is a lifetime nonsmoker, has no history of chronic obstructive pulmonary disease. He was treated for diffuse B-cell lymphoma. He states his biggest complaint is that he cannot get his mucus up and he is having trouble breathing. OBJECTIVE: Vital signs: Temperature is 97.7, pulse is 84 and irregularly irregular. Respiratory rate is 22. Blood pressure is now 115/64 with a MAP of 80. Oxygen saturation is 95% on 35 liters, 60% of 0.60 FiO2. General: Awake, alert, oriented x2, did not know he was at [facility] but knew he was in the hospital. HEENT: Sclerae are clear and anicteric. Pupils approximately 7 mm and reactive. Mucous membranes are dry. Tongue is midline. Neck: Supple. No tracheal deviation or mass. No significantly elevated JVP. Pulmonary: Decreased breath sounds throughout both lung summers, dullness to percussion at the right base with increased tactile fremitus. Abdomen: Soft, nontender, nondistended. No discernible hepatosplenomegaly, masses or hernias. Extremities: No cyanosis, clubbing or edema. Normal age-related osteoarthritis. Neuro: No unilateral weakness, tremor. Musculoskeletal: Normal muscle tone for stated age. No evidence of recent fracture or joint effusion. LABORATORY EVALUATION: Shows an elevated white blood cell count of 17.6 with a baseline that appears to be 8.3, hemoglobin 11.1 with a platelet count of 248. Sodium is 138, potassium 3.7, chloride 104, bicarb of 21. BUN 16, creatinine 0.93 with a lactate of 2.1, albumin of 2.9. Chest x-ray shows large bilateral pneumonia, more prominent on the right with a small pleural effusion on the right. Comparison to chest CT from 10/19/2020, there was a small right pleural effusion at that point in time. Therefore, this makes me think that this is a chronic pleural effusion. Blood cultures are pending x2. Sputum culture is pending. Legionella is pending. The, I assume, arterial blood gas shows a pH of 7.49, pCO2 of 25, pAO2 of 90. IMPRESSION: 1. Sepsis with pneumonia. The patient did receive one dose of levofloxacin last evening. I would continue levofloxacin, discontinue cefepime and continue vancomycin. I have written a prescription for Levaquin on a daily as atypical organisms should be covered. At this point in time, prednisone could be considered due to the severity of the pneumonia. We will continue to monitor for need for further steroid treatment. The patient has no evidence of bronchospasm and this may cause more immunosuppression. In regards to his sepsis, he did not meet the usual guidelines for the initial three hour fluid resuscitation. This was reportedly due to his history of heart failure and concern for putting him in volume overload with his tenuous respiratory status. At this point in time, we will monitor for need for central line but his blood pressure after the 500 mL bolus is more than adequate. His MAP is 80. I placed a Ortega to monitor urine output on an hourly basis. If urine output drops or there are signs of hypoperfusion, this vasopressor therapy could be initiated. At this point in time, urine output appears to be good. Mucociliary clearance and pulmonary toilet will be encouraged. I have ordered chest PT as he is having difficulty mobilizing his secretions and I also ordered nebulized therapy. 2. Severe hypoxia. Remains on Vapotherm. Does not appear to have increased work of breathing at this point in time. If he does, though, would be reasonable to switch him to BiPAP. At this point in time, we will continue Vapotherm for hypoxia until he is able to taper down. 3. History of hypotension. The patient is on midodrine and I do not know the exact indication. Therefore, I am not surprised he has had some hypotension throughout the evening. However, it appears that he is perfusing well at this point in time. Low threshold for starting vasopressor therapy. 4. Atrial fibrillation on Pradaxa. High risk for going into A fib with RVR given current clinical status. We continue to monitor on telemetry. 5. Very small right pleural effusion, no indication for drainage at this point in time. If the size of the pleural effusion increases, would consider thoracentesis. It appears to be a chronic right pleural effusion. 6. Metabolic encephalopathy, minimal confusion but we were able to be oriented to person, place and time. Likely secondary to infection. We will continue to monitor for delirium. 7. GI prophylaxis. I have added Protonix to his regimen given the severity of his illness. 8. DVT prophylaxis. The patient is already on Pradaxa. 9. Advance directives. I discussed advance directives with the patient at bedside. He states at this point in time, he would want everything done. Overall, the patient's prognosis remains guarded. He has sepsis with a considerably large pneumonia, appears to be bacterial pneumonia. Would cover with broad spectrum antibiotics and to cover atypical infection also. He has chronic immunosuppression and therefore should be monitored closely. GALLOD
[2020-12-04] MEDS ORDERED: DABIGATRAN ETEXILATE 75 MG CAP (PRADAXA) PO SCH (09:00)
--- NOTE | 2020-12-04 13:20 | IPNPDOC ---
Subjective Date Seen The patient was seen on 12/04/20. Subjective Chief Complaint/HPI Mr. Stubbs is an 85 year old male with heart failure with preserved EF, atrial fibrillation s/p pacemaker, and lymphoma undergoing treatment who presents with worsening dyspnea which is secondary to sepsis 2/2 pneumonia. Overnight, his blood pressure was dropping, and he was receiving 500mL fluid boluses. His blood pressure wasn't improving and pulmonary/critical care was consulted. This morning, he received another 500mL bolus and blood pressure was 115/58 (77). Central line was not placed. When I saw the patient he was on Vapotherm. Denies any chest pain, but still has dyspnea. Later in the morning, blood pressure started to drop again. If patient cannot maintain his MAP, he may need a central line later in the day. Objective Physical Examination General Exam: Positive: Alert, Cooperative Eye Exam: Negative: Sclera icteric Chest Exam: Positive: Diminished Heart Exam: Positive: Rate Normal, Irregular Rhythm Abdomen Exam: Positive: Normal bowel sounds, Soft; Negative: Tenderness Extremity Exam: Positive: Edema (bilateral pitting edema) Psych Exam: Positive: Mood NL Assessment /Plan Assessment Mr. Stubbs is an 85 year old male with heart failure with preserved EF, atrial fibrillation s/p pacemaker, and lymphoma undergoing treatment who is here for sepsis secondary to pneumonia and CHF. Critical care following, recommendations appreciated. Patient will be on Levofloxacin (also has atypical coverage) for pneumonia. Otherwise, patient has a history of hypotension without clear etiology. He is on midodrine chronically. If he continues to have hypotension, he may need a central line. Cautious with fluids due to his history of heart failure with preserved EF. He does have an elevated pro-bnp Plan/VTE VTE Prophylaxis Ordered?: Yes Plan 1. Acute hypoxic respiratory failure on admission in the setting of pneumonia -Patient saturated at 77% while on High flow Mask of 15. Patient has tachypnea. Patient had labored breathing and was put on Bipap -Pulmonary/Critical care consulted, recommendations appreciated -Patient now on Vapotherm. Weaning as tolerated -Chest PT and acapella 2. Sepsis 2/2 pneumonia -3/4 SIRS criteria (Tachycardia, tachypnea, and leukocytosis. No fever) -Cautious with fluids due to patient's heart failure and respiratory status -Levofloxacin day 1 -MRSA screen negative 3. Hypotension -Patient chronically on midodrine -Patient has received multiple doses of fluid boluses -If patient cannot maintain blood pressure, most likely will need central line and pressors 4. Acute decompensated heart failure with preserved [place] [address] -Echocardiogram ordered -Patient is septic and hypotensive. Holding off on diuresis at this time. 5. Lymphoma -Patient follows with Dr. Horn outpatient -He is receiving rituximab injections and lenalidomide outpatient -Will hold lenalidomide due to active infection 6. Atrial fibrillation s/p pacemaker -Heart rate controlled -Continue digoxin -On AC with dabigatran 7. BPH -Continue dutasteride 8. Depression -Continue escitalopram 9. GI ppx -Patient started on IV pantoprazole 10. DVT ppx -On dabigatran Disposition: Pending clinical improvement. VS, I&O, 24H, Fishbone Vital Signs/I&O Vital Signs Date Time Temp Pulse Resp B/P (MAP) Pulse Ox O2 Delivery O2 Flow Rate FiO2 12/04/20 08:21 87 12/04/20 08:00 25.0 50 12/04/20 07:52 99 HVNI-Vapotherm 12/04/20 07:45 114/57 (76) 12/04/20 04:00 97.7 22 I&O- Last 24 Hours up to 6 AM 12/04/20 06:00 Intake Total 935 ml Output Total 120 ml Balance 815 ml Laboratory Data 24H LABS Laboratory Tests 2 12/03/20 22:39: Neutrophils (%) (Auto) , Nucleated Red Blood Cells % (auto) 0.0, Neutrophils 92H, Lymphocytes (Manual) 3L, Monocytes (Manual) 5, Poikilocytosis 1+, Tear Drop Cells 1+, Platelet Estimate NORMAL, Anion Gap 13, Glomerular Filtration Rate > 60.0, Lactic Acid Level 2.5*H, Calcium Level 8.4L, Total Bilirubin 0.8#, Direct Bilirubin 0.3H, Aspartate Amino Transf (AST/SGOT) 16, Alanine Aminotransferase (ALT/SGPT) 17, Alkaline Phosphatase 64, Total Creatine Kinase 33L, Creatine Kinase MB < 1.0, Creatine Kinase MB Relative Index 3.03, Troponin I 0.08, AZ-Gcg-R-Type Natriuretic Peptide 43139I, Total Protein 5.4L, Albumin 2.9L, Albumin/Globulin Ratio 1.2, Thyroid Stimulating Hormone (TSH) 1.260, Thyroxine (T4) 5.3, Digoxin Level 0.9 12/03/20 22:59: POC pH (Misc Panel) 7.490H, POC Base Excess (Misc Panel) -4.0L, POC Saturated Percent O2 (Misc) 98, POC pO2 (Misc Panel) 89.0, POC pCO2 (Misc Panel) 25.6L, POC HCO3 (Misc Panel) 19.5L, POC Total CO2 (Misc Panel) 20.0L 12/03/20 23:37: Coronavirus (COVID-19)(PCR) NEGATIVE, Influenza Type A (RT-PCR) NEGATIVE, I nfluenza Type B (RT-PCR) NEGATIVE, Respiratory Syncytial Virus (PCR) NEGATIVE 12/04/20 04:56: Lactic Acid Followup at 4 Hours 2.1*H 12/04/20 06:43: Methicillin-Resist S.aureus DNA PCR NOT DETECTED 12/04/20 07:42: 12/04/20 10:40: Troponin I 0.11#H CBC/BMP Laboratory Tests 12/03/20 22:39 Microbiology Microbiology 12/04/20 Gram Stain - Final, Resulted 12/04/20 Sputum Culture, Resulted Pending 12/03/20 Blood Culture, Received Pending 12/03/20 Blood Culture - Preliminary, Resulted SENAIT YOUSIF DO December 04, 2020 13:20
[2020-12-04] MEDS ORDERED: VANCOMYCIN HCL 1,000 MG, VIAL MATE ADAPTER 1 EACH in NS 250 ML IV SCH (16:00)
[2020-12-04] MEDS: ESCITALOPRAM OXALATE 10 MG TAB (LEXAPRO) PO SCH (20:18)
[2020-12-04] MEDS: LevoFLOXacin IV 500 MG in IV 1 EA IV SCH (23:06)
[2020-12-05] VITALS (23 sets, daily range): BP systolic 71–117; BP diastolic 40–66
[2020-12-05] MEDS: ALBUTEROL SULFATE 2.5 MG/0.5 ML INH NEB SOLN NEB SCH ×5 (04:00→19:18)
[2020-12-05 04:40] LABS: HEMATOCRIT 25.7 % (42.0-52.0); MEAN CORPUSCULAR HEMOGLOBIN 29.7 pg (27.0-33.0); MEAN CORPUSCULAR HGB CONC 32.3 g/dl (32.0-36.5); MEAN CORPUSCULAR VOLUME 92.1 fl (80.0-96.0); PLATELET COUNT, AUTOMATED 121 10^3/uL (150-450); RED BLOOD COUNT 2.79 10^6/uL (4.30-6.10); WHITE BLOOD COUNT 8.7 10^3/uL (4.0-10.0)
[2020-12-05 04:43] LABS: HEMOGLOBIN 8.3 g/dl (13.5-17.5)
[2020-12-05 05:00] LABS: BLOOD UREA NITROGEN 24 MG/DL (7-18); CALCIUM LEVEL 8.4 MG/DL (8.8-10.2); CARBON DIOXIDE LEVEL 23 MEQ/L (21-32); CHLORIDE LEVEL 106 MEQ/L (98-107); CREATININE FOR GFR 0.88 MG/DL (0.70-1.30); GLOMERULAR FILTRATION RATE > 60.0 (>35); GLUCOSE, FASTING 119 MG/DL (70-100); POTASSIUM SERUM 3.6 MEQ/L (3.5-5.1); SODIUM LEVEL 138 MEQ/L (136-145)
[2020-12-05 05:29] LABS: ABG BASE EXCESS -1.7 (-2.0-2.0); ABG O2 SATURATION 98.7 % (95.0-99.0); ABG PARTIAL PRESSURE CO2 28.1 mmHg (35.0-45.0); ABG PARTIAL PRESSURE O2 144.1 mmHg (75.0-100.0); ABG STANDARD HCO3 23.1 MEQ/L (22.0-26.0); ABG TOTAL CO2 21.8 MEQ/L (23.0-31.0); ABG pH (ARTERIAL) 7.491 UNITS (7.350-7.450)
[2020-12-05 07:30] LABS: TROPONIN I 0.14 NG/ML (< 0.10)
[2020-12-05] MEDS: DOCUSATE SODIUM 100MG CAPSULE PO SCH ×2 (08:28→20:00)
[2020-12-05] MEDS: PANTOPRAZOLE 40MG VIAL (C9113 PER 1) IV SCH (08:28)
[2020-12-05] MEDS: FERROUS SULFATE 325MG TAB PO SCH (08:29)
[2020-12-05] MEDS: MIDODRINE 2.5 MG TAB PO SCH ×3 (08:29→16:32)
[2020-12-05] MEDS: DUTASTERIDE 0.5 MG CAP (AVODART) PO SCH (08:29)
[2020-12-05] MEDS: DIGOXIN 0.125 MG TAB PO SCH (08:29)
--- NOTE | 2020-12-05 08:43 | ECGEPIP ---
[facility] - ED Test Date: 2020-12-03 Pat Name: LATANYA POWELL Department: Room: [place] [address] Gender: Male Sample Room Supervisor: derik willard : 1935 Requested By: BARBIE REYES Order Number: [id number] Reading MD: Camille Zambrano Measurements Intervals [place] Rate: 94 P: OR: QRS: -76 QRSD: 140 T: 96 QT: 386 QTc: 482 Interpretive Statements Atrial fibrillation Left axis deviation Right bundle branch block Inferior infarct , age undetermined Anterolateral infarct , age undetermined, clinical correlation for acuity Electronically Signed on 12-05-2020 8:43:47 EDT by Camille Zambrano
--- NOTE | 2020-12-05 10:51 | IPN ---
PULMONARY PROGRESS NOTE DATE: 12/05/2020 SUBJECTIVE: Mr. Stubbs continues to state that he has no pain. He has had some hemoptysis overnight. It appears to be less over the past 12 hours, overall less than 30 mL. He is coughing into a cup and measuring. I discontinued his Pradaxa yesterday because of the hemoptysis. He has had no new respiratory symptoms. He states he is participating with chest PT and feels that that has been helping him. He is using his Acapella device actually more than prescribed. He remains on levofloxacin now day #2. OBJECTIVE: VITAL SIGNS: Pulse 86, respiratory rate 20, blood pressure 100/59 with a mean arterial pressure (MAP) of 73. Oxygen saturation 90% on 0.40 FiO2 at 25 liters. GENERAL: Awake, alert, and oriented. Affect and mood are appropriate. Nutrition and hygiene are good. HEENT: Oral and nasal mucosa pink and moist without lesion. Tongue is midline. NECK: Supple. No tracheal deviation or mass. LYMPHATICS: No cervical, supraclavicular, or axillary adenopathy. CARDIAC: Irregularly irregular. S1, S2. Without audible murmur, rub, or gallop. PMI is displaced laterally. No significant peripheral edema. PULMONARY: Decreased breath sounds bilaterally. Minimal rhonchi without expiratory wheeze. There is no accessory muscle use. ABDOMEN: Soft, nontender, and nondistended with no hepatosplenomegaly. No masses or hernia. EXTREMITIES: No cyanosis, clubbing, or edema. SKIN: Pale without rash or jaundice. There is minimal bruising of varying stages. NEUROLOGIC: Some muscle weakness, but no unilateral weakness. No tremor or asterixis. LABORATORY DATA: Shows a white blood cell count of 8.7, hemoglobin 8.3, platelet count 121,000. Sodium 138, potassium 3.6, chloride 106, bicarb 23, BUN 24, creatinine 0.88 with a glucose of 119. One blood culture shows gram-negative rods and the sputum cultures shows gram-positive rods. Awaiting for speciation. IMPRESSION AND PLAN: 1. Severe pneumonia initially with signs of sepsis. No evidence of shock currently. Still has persistent pneumonia with hemoptysis. Will continue levofloxacin. I suspect this will be adequate coverage. Continue to promote mucociliary clearance and continue with chest physical therapy. 2. Hemoptysis. Likely secondary to pneumonia and being on Pradaxa. The Pradaxa is being held currently because of the hemoptysis. I suspect this will dissipate in the next two to three days. I am ordering a chest x-ray tomorrow not only to monitor the progression of the pneumonia, but also to monitor the right pleural effusion. The patient will remain in the intensive care unit (ICU), but as he is able to decrease the amount of Vapotherm we will consider transfer to the progressive care unit. SOUTH
--- NOTE | 2020-12-05 11:45 | IPNPDOC ---
Subjective Date Seen The patient was seen on 12/05/20. Subjective Chief Complaint/HPI Mr. Stubbs is an 85 year old male with heart failure with preserved EF, atrial fibrillation s/p pacemaker, and lymphoma undergoing treatment who presents with worsening dyspnea which is secondary to sepsis 2/2 pneumonia. This morning, he was seen at bedside with cup of bloody sputum. Pulmonary/Critical care is aware and had discontinued the Pradaxa. Otherwise, he is still on Vapotherm, but improving. Overnight, he was able to maintain blood pressures, no central line placed. Objective Physical Examination General Exam: Positive: Alert, Cooperative Eye Exam: Negative: Sclera icteric Chest Exam: Positive: Diminished Heart Exam: Positive: Rate Normal, Irregular Rhythm Abdomen Exam: Positive: Normal bowel sounds, Soft; Negative: Tenderness Extremity Exam: Positive: Edema (bilateral pitting edema) Psych Exam: Positive: Mood NL Assessment /Plan Assessment Mr. Stubbs is an 85 year old male with heart failure with preserved EF, atrial fibrillation s/p pacemaker, and lymphoma undergoing treatment who is here for sepsis secondary to pneumonia and CHF. Pulmonary/critical care following, recommendations appreciated. Patient will be on Levofloxacin (also has atypical coverage) for pneumonia. Otherwise, patient has a history of hypotension without clear etiology. He is on midodrine chronically. If he continues to have hypotension, he may need a central line. So far, he has been able to maintain his blood pressure. Cautious with fluids due to his history of heart failure with preserved EF. He does have an elevated pro-bnp. Plan/VTE VTE Prophylaxis Ordered?: Yes Plan 1. Acute hypoxic respiratory failure on admission in the setting of pneumonia -Patient saturated at 77% while on High flow Mask of 15. Patient has tachypnea. Patient had labored breathing and was put on Bipap -Pulmonary/Critical care consulted, recommendations appreciated -Patient now on Vapotherm. Weaning as tolerated -Chest PT and acapella 2. Sepsis 2/2 pneumonia -3/4 SIRS criteria (Tachycardia, tachypnea, and leukocytosis. No fever) -Cautious with fluids due to patient's heart failure and respiratory status -Levofloxacin day 2 -MRSA screen negative 3. Hypotension -Patient chronically on midodrine -Patient has received multiple doses of fluid boluses -If patient cannot maintain blood pressure, most likely will need central line and pressors 4. Acute decompensated heart failure with preserved [place] [address] -Echocardiogram ordered -Patient is septic and hypotensive. Holding off on diuresis at this time. 5. Lymphoma -Patient follows with Dr. Horn outpatient -He is receiving rituximab injections and lenalidomide outpatient -Will hold lenalidomide due to active infection 6. Atrial fibrillation s/p pacemaker -Heart rate controlled -Continue digoxin -Dabigatran discontinued due to hemoptysis 7. BPH -Continue dutasteride 8. Depression -Continue escitalopram 9. GI ppx -Patient started on IV pantoprazole 10. DVT ppx -Hemoptysis with drop of H&H. No chemical ppx -On TEDs 11. Hemoptysis -Secondary to Pradaxa. Holding Pradaxa -Ordered for repeat CBC due to drop in H&H Disposition: Pending clinical improvement. VS, I&O, [facility] V[facility]/I&O Vital Signs Date Time Temp Pulse Resp B/P (MAP) Pulse Ox O2 Delivery O2 Flow Rate FiO2 12/05/20 10:42 95 HVNI-Vapotherm 20.0 40 12/05/20 08:31 92 108/57 (74) 12/05/20 08:00 98.4 22 I&O- Last 24 Hours up to 6 AM 12/05/20 06:00 Intake Total 3480 ml Output Total 875 ml Balance 2605 ml Laboratory Data 24H LABS Laboratory Tests 2 12/04/20 16:42: Troponin I 0.12H 12/05/20 04:12: Troponin I 0.14H, Nucleated Red Blood Cells % (auto) 0.0, Anion Gap 9, Glomerular Filtration Rate > 60.0, Calcium Level 8.4L 12/05/20 05:20: Blood Gas Bicarbonate Standard 23.1, Arterial Blood pH 7.491H, Arterial Blood Partial Pressure CO2 28.1L, Arterial Blood Partial Pressure O2 144.1H, Arterial Blood Total CO2 21.8L, Arterial Blood HCO3 21.0L, Arterial Blood Base Excess - 1.7, Arterial Blood Oxygen Saturation 98.7 CBC/BMP Laboratory Tests 12/05/20 04:12 Microbiology Microbiology 12/04/20 Gram Stain - Final, Resulted 12/04/20 Sputum Culture, Resulted Pending 12/03/20 Blood Culture - Preliminary, Resulted No growth after 24 hours . All specim... 5/27/21 Blood Culture - Preliminary, Resulted SENAIT YOUSIF DO December 05, 2020 11:45
[2020-12-05 12:12] LABS: HEMATOCRIT 27.2 % (42.0-52.0); HEMOGLOBIN 8.7 g/dl (13.5-17.5); MEAN CORPUSCULAR HEMOGLOBIN 29.8 pg (27.0-33.0); MEAN CORPUSCULAR VOLUME 93.2 fl (80.0-96.0); PLATELET COUNT, AUTOMATED 126 10^3/uL (150-450); RED BLOOD COUNT 2.92 10^6/uL (4.30-6.10); WHITE BLOOD COUNT 9.7 10^3/uL (4.0-10.0)
[2020-12-05] MEDS: ACETAMINOPHEN TAB 650MG DOSE (2X325MG) PO PRN (20:00)
[2020-12-05] MEDS: ESCITALOPRAM OXALATE 10 MG TAB (LEXAPRO) PO SCH (20:00)
[2020-12-05] MEDS: LevoFLOXacin IV 500 MG in IV 1 EA IV SCH (23:46)
[2020-12-06] VITALS (14 sets, daily range): BP systolic 90–142; BP diastolic 26–75
[2020-12-06] MEDS: ALBUTEROL SULFATE 2.5 MG/0.5 ML INH NEB SOLN NEB SCH ×6 (00:21→19:31)
[2020-12-06 04:44] LABS: HEMATOCRIT 25.1 % (42.0-52.0); MEAN CORPUSCULAR HEMOGLOBIN 29.7 pg (27.0-33.0); MEAN CORPUSCULAR HGB CONC 31.9 g/dl (32.0-36.5); MEAN CORPUSCULAR VOLUME 93.3 fl (80.0-96.0); PLATELET COUNT, AUTOMATED 138 10^3/uL (150-450); RED BLOOD COUNT 2.69 10^6/uL (4.30-6.10); WHITE BLOOD COUNT 8.9 10^3/uL (4.0-10.0)
[2020-12-06 05:16] LABS: BLOOD UREA NITROGEN 22 MG/DL (7-18); CALCIUM LEVEL 8.9 MG/DL (8.8-10.2); CARBON DIOXIDE LEVEL 22 MEQ/L (21-32); CHLORIDE LEVEL 107 MEQ/L (98-107); CREATININE FOR GFR 0.83 MG/DL (0.70-1.30); GLOMERULAR FILTRATION RATE > 60.0 (>35); GLUCOSE, FASTING 103 MG/DL (70-100); POTASSIUM SERUM 3.7 MEQ/L (3.5-5.1); SODIUM LEVEL 139 MEQ/L (136-145)
[2020-12-06 07:17] LABS: TROPONIN I 0.18 NG/ML (< 0.10)
--- NOTE | 2020-12-06 08:21 | REP ---
INDICATION: pneumonia COMPARISON: 12/03/2020 TECHNIQUE: Portable AP view of the chest FINDINGS: Diffuse right-sided infiltrates are again noted and may be slightly increased when compared to prior examination. The left hemithorax suggests trace left basilar/retrocardiac atelectasis. No effusion or pneumothorax identified. The mediastinum and cardiac silhouette are stable. The skeletal structures are intact. IMPRESSION: Diffuse right-sided airspace disease consistent with acute pneumonia and essentially unchanged from prior examination. Trace left basilar atelectasis cannot be excluded. <Electronically signed by Mehdi Lucio > 12/06/20 0817
[2020-12-06] MEDS: PANTOPRAZOLE 40MG TAB (PROTONIX) PO SCH (09:00)
[2020-12-06] MEDS: DUTASTERIDE 0.5 MG CAP (AVODART) PO SCH (09:38)
[2020-12-06] MEDS: DIGOXIN 0.125 MG TAB PO SCH (09:38)
[2020-12-06] MEDS: DOCUSATE SODIUM 100MG CAPSULE PO SCH ×2 (09:38→20:47)
[2020-12-06] MEDS: FERROUS SULFATE 325MG TAB PO SCH (09:38)
[2020-12-06] MEDS: MIDODRINE 2.5 MG TAB PO SCH ×3 (09:38→17:00)
[2020-12-06] MEDS: guaiFENesin 200 MG TAB PO PRN (09:41)
--- NOTE | 2020-12-06 10:23 | IPNPDOC ---
Subjective Date Seen The patient was seen on 12/06/20. Subjective Chief Complaint/HPI Mr. Stubbs is an 85 year old male with heart failure with preserved EF, atrial fibrillation s/p pacemaker, and lymphoma undergoing treatment who presents with worsening dyspnea which is secondary to sepsis 2/2 pneumonia. This morning, he still feels like he has chest congestion, but the chest PT and acapella is helping. He still has hemoptysis. Otherwise, he still has some dyspnea. He has been able to maintain map and has not needed central line. Objective Physical Examination General Exam: Positive: Alert, Cooperative Eye Exam: Negative: Sclera icteric Chest Exam: Positive: Diminished Heart Exam: Positive: Rate Normal, Irregular Rhythm Abdomen Exam: Positive: Normal bowel sounds, Soft; Negative: Tenderness Extremity Exam: Positive: Edema (bilateral pitting edema) Psych Exam: Positive: Mood NL Assessment /Plan Assessment Mr. Stubbs is an 85 year old male with heart failure with preserved EF, atrial fibrillation s/p pacemaker, and lymphoma undergoing treatment who is here for sepsis secondary to pneumonia and CHF. Pulmonary/critical care following, recommendations appreciated. Patient will be on Levofloxacin (also has atypical coverage) for pneumonia. Otherwise, patient has a history of hypotension without clear etiology. He is on midodrine chronically. If he continues to have hypotension, he may need a central line. So far, he has been able to maintain his blood pressure. Cautious with fluids due to his history of heart failure with preserved EF. He does have an elevated pro-bnp. Plan/VTE VTE Prophylaxis Ordered?: Yes Plan 1. Acute hypoxic respiratory failure on admission in the setting of pneumonia -Patient saturated at 77% while on High flow Mask of 15. Patient has tachypnea. Patient had labored breathing and was put on Bipap -Pulmonary/Critical care consulted, recommendations appreciated -Patient now on Vapotherm. Weaning as tolerated -Chest PT and acapella 2. Sepsis 2/2 pneumonia -3/4 SIRS criteria (Tachycardia, tachypnea, and leukocytosis. No fever) -Cautious with fluids due to patient's heart failure and respiratory status -Levofloxacin day 3 -MRSA screen negative 3. Hypotension -Patient chronically on midodrine -Patient has received multiple doses of fluid boluses -If patient cannot maintain blood pressure, most likely will need central line and pressors 4. Acute decompensated heart failure with preserved [place] [address] -Echocardiogram ordered -Patient is septic and hypotensive. Holding off on diuresis at this time. 5. Lymphoma -Patient follows with Dr. Horn outpatient -He is receiving rituximab injections and lenalidomide outpatient -Will hold lenalidomide due to active infection 6. Atrial fibrillation s/p pacemaker -Heart rate controlled -Dabigatran discontinued due to hemoptysis 7. BPH -Continue dutasteride 8. Depression -Continue escitalopram 9. GI ppx -Patient started on IV pantoprazole 10. DVT ppx -Hemoptysis with drop of H&H. No chemical ppx -On TEDs 11. Hemoptysis -Secondary to Pradaxa. Holding Pradaxa -Ordered for repeat CBC due to drop in H&H Disposition: Pending clinical improvement in respiratory status and hemoptysis VS, I&O, 24H, [facility] Vital Signs/I&O Vital Signs Date Time Temp Pulse Resp B/P (MAP) Pulse Ox O2 Delivery O2 Flow Rate FiO2 12/06/20 09:38 95 12/06/20 06:00 24 100/54 (69) 93 HVNI-Vapotherm 15.0 40 12/06/20 04:00 98.1 I&O- Last 24 Hours up to 6 AM 12/06/20 06:00 Intake Total 1040 ml Output Total 860 ml Balance 180 ml Laboratory Data 24H LABS Laboratory Tests 2 12/05/20 11:53: Nucleated Red Blood Cells % (auto) 0.0 12/06/20 04:29: Nucleated Red Blood Cells % (auto) 0.0, Anion Gap 10, Glomerular Filtration Rate > 60.0, Calcium Level 8.9, Troponin I 0.18#H CBC/BMP Laboratory Tests 12/05/20 11:53 12/06/20 04:29 Microbiology Microbiology 12/04/20 Gram Stain - Final, Complete 12/04/20 Sputum Culture - Final, Complete 12/03/20 Blood Culture - Preliminary, Resulted No Growth after 48 hours. All Specime... 12/03/20 Blood Culture - Final, Complete Escherichia Coli SENAIT YOUSIF DO December 06, 2020 10:23
--- NOTE | 2020-12-06 11:18 | IPN ---
PROGRESS NOTE DATE: 12/06/2020 SUBJECTIVE: Mr. Stubbs is coughing less, has less hemoptysis, and more sputum. The blood that he is coughing up is now dark. I expect this to dissipate over the next few days after stopping Pradaxa. Blood cultures grew E. coli; therefore, I suspect this is an E. coli pneumonia sensitive to levofloxacin, which he is on. Vancomycin has been discontinued. He denies any chest pain. No lower extremity edema. Continues with intermittent cough. He has been getting out of bed to a chair. OBJECTIVE: VITAL SIGNS: Temperature is 98.1, pulse 95, respiratory rate 24, blood pressure 100/54 with a mean arterial pressure (MAP) of 69. Good urine output over the past few days. Oxygen saturation is 93% on 15 liters FiO2 at 0.40. GENERAL: Awake, alert, and oriented. Affect and mood are appropriate. Nutrition and hygiene are fair. HEENT: Sclerae clear and icteric. Pupils equal and reactive to light. Tongue is midline. Mucous membranes appear moist. NECK: Supple. No tracheal deviation or mass. LYMPHATICS: No cervical, supraclavicular, or axillary adenopathy. CARDIAC: Irregularly irregular. S1, S2 without audible, murmur, rub, or gallop. No elevated JVP. No systemic edema. PULMONARY: Fairly clear to auscultation with a few rales on the right. No rhonchi or wheeze. No dullness to percussion. No accessory muscle use. ABDOMEN: Soft, nontender, and nondistended with no hepatosplenomegaly. No masses or hernia. EXTREMITIES: No cyanosis, clubbing, or edema. SKIN: Pale without jaundice. Some bruising of varying stages. LABORATORY DATA: Shows sodium 139, potassium 3.7, chloride 107, bicarb 22, BUN 22, creatinine 0.83 with a glucose of 103. White blood cell count is down to 8.9, hemoglobin is down to 8.0 with a platelet count of 138,000. IMAGING DATA: Chest x-ray shows some improvement of the right infiltrate without significant accumulation of the right pleural effusion. The left side is fairly clear. IMPRESSION: 1. Escherichia coli (E. coli) pneumonia sensitive to levofloxacin. Will continue this therapy and continue to monitor for need to switch of antibiotic therapy now that the causative agent has been identified. 2. Hemoptysis decreasing with the discontinuation of Pradaxa. This can be restarted once the patient has recovered from pneumonia. 3. Anemia likely a combination of blood loss and bone marrow suppression from underlying malignancy and treatment. 4. Elevated troponin likely from severity of hypoxia. There has been no significant spike. I do not believe he is having an acute coronary syndrome and would stop trending, as this would unlikely change what we would do for this 85-year-old male who is having hemoptysis. 5. Deep vein thrombosis (DVT) prophylaxis with TEDs and [place] due to his recent hemoptysis. After hemoptysis stops, will consider initiating anticoagulation.
[2020-12-06 12:07] LABS: HEMOGLOBIN 8.9 g/dl (13.5-17.5); MEAN CORPUSCULAR HEMOGLOBIN 29.9 pg (27.0-33.0); MEAN CORPUSCULAR HGB CONC 31.8 g/dl (32.0-36.5); PLATELET COUNT, AUTOMATED 141 10^3/uL (150-450); RED BLOOD COUNT 2.98 10^6/uL (4.30-6.10); WHITE BLOOD COUNT 10.5 10^3/uL (4.0-10.0)
[2020-12-06] MEDS: ACETAMINOPHEN TAB 650MG DOSE (2X325MG) PO PRN (19:25)
[2020-12-06] MEDS: ESCITALOPRAM OXALATE 10 MG TAB (LEXAPRO) PO SCH (20:47)
[2020-12-06] MEDS: TAMSULOSIN 0.4 MG CAP PO SCH (20:47)
[2020-12-06] MEDS: LevoFLOXacin IV 500 MG in IV 1 EA IV SCH (23:38)
[2020-12-07] VITALS: BP 111/55
[2020-12-07] MEDS: ALBUTEROL SULFATE 2.5 MG/0.5 ML INH NEB SOLN NEB SCH ×6 (00:54→20:50)
[2020-12-07 04:00] VITALS: BP 111/63
[2020-12-07 05:52] LABS: HEMATOCRIT 27.8 % (42.0-52.0); HEMOGLOBIN 8.7 g/dl (13.5-17.5); MEAN CORPUSCULAR HEMOGLOBIN 29.3 pg (27.0-33.0); MEAN CORPUSCULAR HGB CONC 31.3 g/dl (32.0-36.5); MEAN CORPUSCULAR VOLUME 93.6 fl (80.0-96.0); PLATELET COUNT, AUTOMATED 138 10^3/uL (150-450); RED BLOOD COUNT 2.97 10^6/uL (4.30-6.10); WHITE BLOOD COUNT 8.5 10^3/uL (4.0-10.0)
[2020-12-07 06:15] LABS: BLOOD UREA NITROGEN 18 MG/DL (7-18); CALCIUM LEVEL 9.1 MG/DL (8.8-10.2); CARBON DIOXIDE LEVEL 23 MEQ/L (21-32); CHLORIDE LEVEL 107 MEQ/L (98-107); GLOMERULAR FILTRATION RATE > 60.0 (>35); GLUCOSE, FASTING 113 MG/DL (70-100); POTASSIUM SERUM 3.6 MEQ/L (3.5-5.1); SODIUM LEVEL 137 MEQ/L (136-145)
[2020-12-07 07:39] VITALS: BP 125/60
[2020-12-07] MEDS: MIDODRINE 2.5 MG TAB PO SCH ×3 (07:56→16:24)
[2020-12-07] MEDS: DOCUSATE SODIUM 100MG CAPSULE PO SCH ×2 (08:00→20:31)
[2020-12-07] MEDS: DIGOXIN 0.125 MG TAB PO SCH (08:00)
[2020-12-07] MEDS: DUTASTERIDE 0.5 MG CAP (AVODART) PO SCH (08:00)
[2020-12-07] MEDS: PANTOPRAZOLE 40MG TAB (PROTONIX) PO SCH (08:00)
[2020-12-07] MEDS: FERROUS SULFATE 325MG TAB PO SCH (08:00)
--- NOTE | 2020-12-07 09:39 | IPN ---
PROGRESS NOTE DATE: 12/07/2020 SUBJECTIVE: Mr. Stubbs is a very pleasant 85-year-old male who has been transferred to the Progressive Care Unit. He has less productive cough, now with brown mucus secretions. Oxygen requirements have decreased down to 6 liters. He is short of breath with minimal exertion. Denies chest pain. OBJECTIVE: Vital signs: Temperature is 96.4, pulse is 79, respiratory rate 24, blood pressure is 125/60 with a MAP of 81. Last recorded oxygen saturation was 100% on 8 liters. I turned him down to 6 liters. He remained above 90. However, he was talking quite frequently during this measurement. HEENT: Sclerae are clear, nonicteric. Pupils are equal and reactive to light. Mucous membranes are moist without lesions. Tongue is midline. Neck is supple. No jugular deviation or mass. Lymph: No cervical, supraclavicular, or axillary adenopathy. Cardiac: Irregularly irregular, S1, S2 without audible murmur, rub, or gallop. No elevated JVP. Pulmonary: There are rales bilaterally, more prominent on the right than on the left without expiratory wheeze or rhonchi. Abdomen: Soft, nontender, nondistended. No hepatosplenomegaly. No masses or hernia. Extremities: Minimal livedo reticularis without significant edema. Minimal sock edema. No cyanosis or clubbing. Laboratory evaluation shows a white blood cell count of 8.5, hemoglobin 8.7, sodium 137, potassium 3.6, chloride 107, bicarb 23, BUN 18, creatinine 0.8 with a glucose of 113. Blood cultures growing E. coli. Sputum cultures showed oropharyngeal contaminant. ASSESSMENT AND PLAN: E. coli pneumonia with severe hypoxic respiratory failure. Oxygen requirements continue to decrease. Hemoptysis has also decreased off Pradaxa. Can restart Pradaxa in a couple of weeks as long as hemoptysis has stopped. At this point in time I am signing off as he has shown clinical improvement. If you need any further assistance, please call. I would recommend, however, that in approximately one month's time he gets a repeat chest x-ray to ensure resolution of his infiltrate.
--- NOTE | 2020-12-07 09:59 | IPNPDOC ---
Subjective Date Seen The patient was seen on 12/07/20. Subjective Chief Complaint/HPI Mr. Stubbs is an 85 year old male with heart failure with preserved EF, atrial fibrillation s/p pacemaker, and lymphoma undergoing treatment who presents with worsening dyspnea which is secondary to gram negative sepsis 2/2 E.coli pneumonia. This morning, he has improved. He is producing less sputum and sputum is less red. Oxygen requirement decreased from 8L to 6L. He still has dyspnea on exertion, but he is motivated to get better and uses the acapella frequently. He chest physiotherapy is also helping. Objective Physical Examination General Exam: Positive: Alert, Cooperative Eye Exam: Negative: Sclera icteric Chest Exam: Positive: Diminished Heart Exam: Positive: Rate Normal, Irregular Rhythm Abdomen Exam: Positive: Normal bowel sounds, Soft; Negative: Tenderness Extremity Exam: Positive: Edema (bilateral pitting edema) Psych Exam: Positive: Mood NL Assessment /Plan Assessment Mr. Stubbs is an 85 year old male with heart failure with preserved EF, atrial fibrillation s/p pacemaker, and lymphoma undergoing treatment who is here for sepsis secondary to pneumonia and CHF. Pulmonary/critical care following, recommendations appreciated. Patient will be on Levofloxacin (also has atypical coverage) for pneumonia. Otherwise, patient has a history of hypotension without clear etiology. He is on midodrine chronically. If he continues to have hypotension, he may need a central line. So far, he has been able to maintain his blood pressure. Cautious with fluids due to his history of heart failure with preserved EF. He does have an elevated pro-bnp. Plan/VTE VTE Prophylaxis Ordered?: Yes Plan 1. Acute hypoxic respiratory failure on admission in the setting of E.coli pneumonia -On admission, patient saturated at 77% while on High flow Mask of 15. Patient h as tachypnea. Patient had labored breathing and was put on Bipap -Pulmonary/Critical care consulted, recommendations appreciated. Patient has greatly improved, and they have signed off -Patient now on NC. Weaning as tolerated -Chest PT and acapella 2. Gram negative sepsis 2/2 E.coli pneumonia -3/4 SIRS criteria (Tachycardia, tachypnea, and leukocytosis. No fever) -Cautious with fluids due to patient's heart failure and respiratory status -Levofloxacin day 4 -MRSA screen negative 3. Hypotension -Patient chronically on midodrine -Improved with the treatment of gram negative sepsis and E.coli pneumonia 4. Acute decompensated heart failure with preserved [place] [address] -Echocardiogram ordered 5. Lymphoma -Patient follows with Dr. Horn outpatient -He is receiving rituximab injections and lenalidomide outpatient -Will hold lenalidomide due to active infection 6. Atrial fibrillation s/p pacemaker -Heart rate controlled -Dabigatran discontinued due to hemoptysis -Pulmonary recommended restarting Pradaxa in a couple of weeks after his hemoptysis has resolved 7. BPH -Continue dutasteride 8. Depression -Continue escitalopram 9. GI ppx -Patient started on IV pantoprazole 10. DVT ppx -Hemoptysis with drop of H&H. No chemical ppx -On TEDs 11. Hemoptysis -Secondary to Pradaxa. Holding Pradaxa -Monitor CBC -Improved Disposition: Pending clinical improvement in respiratory status and hemoptysis. Patient will need a CXR in one months time to ensure resolution of his infiltrate VS, I&O, 24H, Fishbone Vital Signs/I&O Vital Signs Date Time Temp Pulse Resp B/P (MAP) Pulse Ox O2 Delivery O2 Flow Rate FiO2 12/07/20 08:00 6.0 12/07/20 08:00 79 12/07/20 07:39 96.4 24 125/60 (81) 100 High Flow Cannula 12/06/20 10:00 40 I&O- Last 24 Hours up to 6 AM 12/07/20 06:00 Intake Total 1620 ml Output Total 1655 ml Balance -35 ml Laboratory Data 24H LABS Laboratory Tests 2 12/06/20 11:55: Nucleated Red Blood Cells % (auto) 0.0, Troponin I 0.14#H 12/07/20 05:37: Nucleated Red Blood Cells % (auto) 0.0, Anion Gap 7L, Glomerular Filtration Rate > 60.0, Calcium Level 9.1 CBC/BMP Laboratory Tests 12/06/20 11:55 12/07/20 05:37 Microbiology Microbiology 12/04/20 Gram Stain - Final, Complete 12/04/20 Sputum Culture - Final, Complete 12/03/20 Blood Culture - Preliminary, Resulted No Growth after 72 hours. All specime... 12/03/20 Blood Culture - Final, Complete Escherichia Coli SENAIT YOUSIF DO December 07, 2020 09:59
[2020-12-07 12:14] VITALS: BP 129/59
[2020-12-07 15:10] LABS: BODY FLUID CULTURE Not indicated. (.); LEGIONELLA ANTIGEN URINE Negative (Negative); ORGANISM ID Not indicated. (.); SPECIMEN SOURCE Urine (.); URINE STREP PNEUMONIAE ANTIGEN Negative (Negative)
[2020-12-07 16:18] VITALS: BP 114/56
[2020-12-07 20:00] VITALS: BP 132/63
[2020-12-07] MEDS: ESCITALOPRAM OXALATE 10 MG TAB (LEXAPRO) PO SCH (20:31)
[2020-12-07] MEDS: TAMSULOSIN 0.4 MG CAP PO SCH (20:31)
[2020-12-07] MEDS: LevoFLOXacin 500 MG TABLET PO SCH (20:31)
[2020-12-08] VITALS: BP 121/56
[2020-12-08] MEDS: ALBUTEROL SULFATE 2.5 MG/0.5 ML INH NEB SOLN NEB SCH ×7 (00:27→23:52)
[2020-12-08 04:00] VITALS: BP 133/57
[2020-12-08 05:29] LABS: HEMATOCRIT 26.2 % (42.0-52.0); HEMOGLOBIN 8.4 g/dl (13.5-17.5); MEAN CORPUSCULAR HEMOGLOBIN 29.7 pg (27.0-33.0); MEAN CORPUSCULAR HGB CONC 32.1 g/dl (32.0-36.5); MEAN CORPUSCULAR VOLUME 92.6 fl (80.0-96.0); PLATELET COUNT, AUTOMATED 152 10^3/uL (150-450); RED BLOOD COUNT 2.83 10^6/uL (4.30-6.10); WHITE BLOOD COUNT 8.2 10^3/uL (4.0-10.0)
[2020-12-08 05:50] LABS: BLOOD UREA NITROGEN 18 MG/DL (7-18); CALCIUM LEVEL 8.9 MG/DL (8.8-10.2); CARBON DIOXIDE LEVEL 26 MEQ/L (21-32); CHLORIDE LEVEL 106 MEQ/L (98-107); CREATININE FOR GFR 0.61 MG/DL (0.70-1.30); GLOMERULAR FILTRATION RATE > 60.0 (>35); GLUCOSE, FASTING 112 MG/DL (70-100); POTASSIUM SERUM 3.9 MEQ/L (3.5-5.1); SODIUM LEVEL 138 MEQ/L (136-145)
[2020-12-08] MEDS: MIDODRINE 2.5 MG TAB PO SCH ×3 (07:50→17:00)
[2020-12-08 08:00] VITALS: BP 137/67
[2020-12-08] MEDS: DIGOXIN 0.125 MG TAB PO SCH (08:52)
[2020-12-08] MEDS: DUTASTERIDE 0.5 MG CAP (AVODART) PO SCH (08:52)
[2020-12-08] MEDS: PANTOPRAZOLE 40MG TAB (PROTONIX) PO SCH (08:52)
[2020-12-08] MEDS: DOCUSATE SODIUM 100MG CAPSULE PO SCH ×2 (08:52→20:47)
[2020-12-08] MEDS: FERROUS SULFATE 325MG TAB PO SCH (08:52)
--- NOTE | 2020-12-08 09:43 | ECHO ---
ECHOCARDIOGRAM DATE OF PROCEDURE: 12/04/2020 Age: 85 Gender: Male Height: 67 inches Weight: 145 pounds Body surface area: 1.77 m2 PATIENT LOCATION: Inpatient ICU, Room 3202. REFERRING PHYSICIAN: Tip Vazquez MD INDICATION: Edema. MEASUREMENTS: 2D Measurements: RV 4.6 cm LV 4.6 cm Septum 1.3 cm Posterior wall 1.3 cm Aortic Root 3.1 cm Ascending aorta 3.4 cm LA 4.4 cm LVEF 45% Doppler Measurements: AV 1.39 m/s LVOT 0.76 m/s LVOT diameter 2.1 cm MV-E 88 Early mitral deceleration time 163 msec E prime medial 5.6, prime lateral 5.1 Average E/E prime ratio 16.4/PCWP 22.3 mmHg PV 0.8 m/s Pulmonary artery acceleration time 79 msec PASP 46 mmHg RVSP 45-50 mmHg IVC 2.0 cm COMMENTS: Underlying atrial fibrillation with dual-chamber pacemaker. Intermittent atrial sensing of fibrillatory waves with subsequent ventricular pacing. Paced QRS complexes having an LBBB configuration. M-mode and two-dimensional echocardiography was performed with pulse, continuous wave, color flow, and tissue Doppler studies. Mild concentric left ventricular hypertrophy with septal flattening and akinesis associated with apical akinesis, but other left ventricular wall segments move normally. These findings are likely related to the combination of right ventricular pacing, as well as right ventricular pressure overload. Mildly dilated left atrium with current estimated mean left atrial pressure elevated. At least mildly dilated right heart chambers with normal right ventricular free wall motion and at least moderate pulmonary hypertension. IVC size upper limits of normal with reduced respiratory collapse in keeping with elevated central venous pressure. Mildly dilated aortic root, but normal ascending aortic diameter. Mild aortic valvular sclerosis without stenosis, but [id number] insufficiency. Moderate mitral annular calcification with slight thickening of the mitral leaflets, but no inflow tract obstruction and only very mild insufficiency. Normal appearing tricuspid valve with moderate insufficiency. Pacing leads could be visualized traversing right heart structures, but no separate intracardiac mass. No pericardial effusion. MTDD
--- NOTE | 2020-12-08 09:55 | IPNPDOC ---
Subjective Date Seen The patient was seen on 12/08/20. Subjective Chief Complaint/HPI Mr. Stubbs is an 85 year old male with heart failure with preserved EF, atrial fibrillation s/p pacemaker, and lymphoma undergoing treatment who presents with worsening dyspnea which is secondary to gram negative sepsis 2/2 E.coli pneumonia. This morning, he feel frustrated. He is working hard with his acapella to get better, but he still has gurgling in his throat that has been bothering him. He feels that he should be able to bring it up, but has not been able too. Otherwise, his sputum is more yellow-brown and has been clearing up more. Still on 6L of oxygen. Objective Physical Examination General Exam: Positive: Alert, Cooperative Eye Exam: Negative: Sclera icteric Chest Exam: Positive: Diminished Heart Exam: Positive: Rate Normal, Irregular Rhythm Abdomen Exam: Positive: Normal bowel sounds, Soft; Negative: Tenderness Extremity Exam: Positive: Edema (bilateral pitting edema) Psych Exam: Positive: Mood NL Assessment /Plan Assessment Mr. Stubbs is an 85 year old male with heart failure with preserved EF, atrial fibrillation s/p pacemaker, and lymphoma undergoing treatment who is here for sepsis secondary to pneumonia and CHF. Patient will be on Levofloxacin (also has atypical coverage) for pneumonia. Patient does have acute congestive heart failure with elevated pro-BNP. Patient will be started on IV Lasix. He has gurgling in his throat which as been bothering him and has been coughing frequently. Will have speech/swallow therapy evaluate patient. Plan/VTE VTE Prophylaxis Ordered?: Yes Plan 1. Acute hypoxic respiratory failure on admission in the setting of E.coli pneumonia -On admission, patient saturated at 77% while on High flow Mask of 15. Patient has tachypnea. Patient had labored breathing and was put on Bipap -Pulmonary/Critical care consulted, recommendations appreciated. Patient has greatly improved, and they have signed off -Patient now on NC. Weaning as tolerated -Chest PT and acapella 2. Gram negative sepsis 2/2 E.coli pneumonia -3/4 SIRS criteria (Tachycardia, tachypnea, and leukocytosis. No fever) -Cautious with fluids due to patient's heart failure and respiratory status -Levofloxacin day 5 -MRSA screen negative 3. Hypotension -Patient chronically on midodrine -Improved with the treatment of gram negative sepsis and E.coli pneumonia 4. Acute decompensated heart failure with preserved [place] [address] -Echocardiogram ordered -Starting patient on BID IV Lasix 5. Lymphoma -Patient follows with Dr. Horn outpatient -He is receiving rituximab injections and lenalidomide outpatient -Will hold lenalidomide due to active infection 6. Atrial fibrillation s/p pacemaker -Heart rate controlled -Dabigatran discontinued due to hemoptysis -Pulmonary recommended restarting Pradaxa in a couple of weeks after his hemoptysis has resolved 7. BPH -Continue dutasteride 8. Depression -Continue escitalopram 9. GI ppx -Patient started on IV pantoprazole 10. DVT ppx -Hemoptysis with drop of H&H. No chemical ppx -On TEDs 11. Hemoptysis -Secondary to Pradaxa. Holding Pradaxa -Monitor CBC -Improved Disposition: Pending clinical improvement in respiratory status. Patient will need a CXR in one months time to ensure resolution of his infiltrate VS, I&O, [facility]/I&O Vital Signs Date Time Temp Pulse Resp B/P (MAP) Pulse Ox O2 Delivery O2 Flow Rate FiO2 12/08/20 08:52 92 12/08/20 08:00 97.2 22 137/67 (90) 95 High Flow Cannula 6.0 12/06/20 10:00 40 I&O- Last 24 Hours up to 6 AM 12/08/20 05:59 Intake Total 540 ml Output Total 500 ml Balance 40 ml Laboratory Data 24H LABS Laboratory Tests 2 12/08/20 05:05: Nucleated Red Blood Cells % (auto) 0.0, Anion Gap 6L, Glomerular Filtration Rate > 60.0, Calcium Level 8.9 CBC/BMP Laboratory Tests 12/08/20 05:05 Microbiology Microbiology 12/04/20 Gram Stain - Final, Complete 12/04/20 Sputum Culture - Final, Complete 12/03/20 Blood Culture - Preliminary, Resulted No Growth after 72 hours. All specime... 12/03/20 Blood Culture - Final, Complete Escherichia Coli SENAIT YOUSIF DO Dec 08, 2020 09:55
[2020-12-08] MEDS: FUROSEMIDE 40MG/4ML VIAL (J1940) IV SCH ×2 (10:25→17:48)
[2020-12-08 12:00] VITALS: BP 129/60
[2020-12-08] MEDS: guaiFENesin 200 MG TAB PO PRN ×2 (14:26→20:45)
[2020-12-08] MEDS: ACETAMINOPHEN TAB 650MG DOSE (2X325MG) PO PRN ×2 (14:26→20:45)
[2020-12-08 16:00] VITALS: BP 117/56
[2020-12-08 20:00] VITALS: BP 96/51
[2020-12-08] MEDS: ESCITALOPRAM OXALATE 10 MG TAB (LEXAPRO) PO SCH (20:45)
[2020-12-08] MEDS: TAMSULOSIN 0.4 MG CAP PO SCH (20:45)
[2020-12-08] MEDS: LevoFLOXacin 500 MG TABLET PO SCH (20:47)
[2020-12-09] VITALS: BP 110/59
[2020-12-09 04:00] VITALS: BP 110/54
[2020-12-09] MEDS: ALBUTEROL SULFATE 2.5 MG/0.5 ML INH NEB SOLN NEB SCH ×7 (04:02→23:45)
[2020-12-09 05:37] LABS: HEMOGLOBIN 8.5 g/dl (13.5-17.5); MEAN CORPUSCULAR HGB CONC 31.5 g/dl (32.0-36.5); MEAN CORPUSCULAR VOLUME 92.2 fl (80.0-96.0); PLATELET COUNT, AUTOMATED 165 10^3/uL (150-450); RED BLOOD COUNT 2.93 10^6/uL (4.30-6.10); WHITE BLOOD COUNT 9.1 10^3/uL (4.0-10.0)
[2020-12-09 06:06] LABS: BLOOD UREA NITROGEN 23 MG/DL (7-18); CALCIUM LEVEL 8.8 MG/DL (8.8-10.2); CARBON DIOXIDE LEVEL 30 MEQ/L (21-32); CHLORIDE LEVEL 105 MEQ/L (98-107); CREATININE FOR GFR 0.67 MG/DL (0.70-1.30); GLOMERULAR FILTRATION RATE > 60.0 (>35); GLUCOSE, FASTING 95 MG/DL (70-100); POTASSIUM SERUM 3.5 MEQ/L (3.5-5.1); SODIUM LEVEL 141 MEQ/L (136-145)
[2020-12-09 07:10] VITALS: BP 104/61
[2020-12-09] MEDS ORDERED: POTASSIUM CHLORIDE 10 MEQ SR TABLET PO ONE (07:10)
[2020-12-09 08:04] LABS: MAGNESIUM LEVEL 1.8 MG/DL (1.8-2.4)
[2020-12-09] MEDS: FUROSEMIDE 40MG/4ML VIAL (J1940) IV SCH ×2 (08:04→16:04)
[2020-12-09] MEDS: MIDODRINE 2.5 MG TAB PO SCH ×3 (08:05→16:04)
[2020-12-09] MEDS: BENZONATATE 100 MG CAP PO SCH ×3 (08:05→20:10)
[2020-12-09] MEDS: DIGOXIN 0.125 MG TAB PO SCH (08:05)
[2020-12-09] MEDS: PANTOPRAZOLE 40MG TAB (PROTONIX) PO SCH (08:06)
[2020-12-09] MEDS: FERROUS SULFATE 325MG TAB PO SCH (08:06)
[2020-12-09] MEDS: DOCUSATE SODIUM 100MG CAPSULE PO SCH ×2 (08:06→20:09)
[2020-12-09] MEDS: DUTASTERIDE 0.5 MG CAP (AVODART) PO SCH (08:07)
--- NOTE | 2020-12-09 08:56 | REP ---
INDICATION: cough COMPARISON: 12/03/2020, 12/06/2020 TECHNIQUE: PA and lateral. FINDINGS: Right upper lobe and bilateral lower lobe infiltrates with small pleural effusions are again noted and without significant change. No pneumothorax. Cardiac silhouette is stable. Skeletal structures intact. IMPRESSION: Right upper lobe and bibasilar infiltrates similar to prior examination. <Electronically signed by Mehdi Lucio > 12/09/20 0816
--- NOTE | 2020-12-09 09:09 | IPNPDOC ---
Subjective Date Seen The patient was seen on 12/09/20. Subjective Chief Complaint/HPI Mr. Stubbs is an 85 year old male with heart failure with preserved EF, atrial fibrillation s/p pacemaker, and lymphoma undergoing treatment who presents with worsening dyspnea which is secondary to gram negative sepsis 2/2 E.coli pneumonia. This morning, he was seen in bed. He still has shortness of breath and cough. He is not bringing up much sputum anymore. Sputum is no longer blood tinged. Objective Physical Examination General Exam: Positive: Alert, Cooperative Eye Exam: Negative: Sclera icteric Chest Exam: Positive: Diminished Heart Exam: Positive: Rate Normal, Irregular Rhythm Abdomen Exam: Positive: Normal bowel sounds, Soft; Negative: Tenderness Extremity Exam: Positive: Edema (bilateral pitting edema) Psych Exam: Positive: Mood NL Assessment /Plan Assessment Mr. Stubbs is an 85 year old male with heart failure with preserved EF, atrial fibrillation s/p pacemaker, and lymphoma undergoing treatment who is here for sepsis secondary to pneumonia and CHF. Patient will be on Levofloxacin (also has atypical coverage) for pneumonia. Patient does have acute congestive heart failure with elevated pro-BNP. Continue diuresis with IV Lasix Speech/swallow evaluated patient. No dysphagia, but to conserve energy, conve rted diet to pureed diet. Plan/VTE VTE Prophylaxis Ordered?: Yes Plan 1. Acute hypoxic respiratory failure on admission in the setting of E.coli pneumonia -On admission, patient saturated at 77% while on High flow Mask of 15. Patient has tachypnea. Patient had labored breathing and was put on Bipap -Pulmonary/Critical care consulted, recommendations appreciated. Patient has greatly improved, and they have signed off -Patient now on NC. Weaning as tolerated -Chest PT and acapella 2. Gram negative sepsis 2/2 E.coli pneumonia -3/4 SIRS criteria (Tachycardia, tachypnea, and leukocytosis. No fever) -Cautious with fluids due to patient's heart failure and respiratory status -Levofloxacin day 6 -MRSA screen negative 3. Hypotension -Patient chronically on midodrine -Improved with the treatment of gram negative sepsis and E.coli pneumonia 4. Acute decompensated heart failure with preserved [place] [address] -Echocardiogram ordered -Continue BID IV Lasix 5. Lymphoma -Patient follows with Dr. Horn outpatient -He is receiving rituximab injections and lenalidomide outpatient -Will hold lenalidomide due to active infection 6. Atrial fibrillation s/p pacemaker -Heart rate controlled -Dabigatran discontinued due to hemoptysis -Pulmonary recommended restarting Pradaxa in a couple of weeks after his hemop tysis has resolved 7. BPH -Continue dutasteride 8. Depression -Continue escitalopram 9. GI ppx -Patient started on IV pantoprazole 10. DVT ppx -Hemoptysis with drop of H&H. No chemical ppx -On TEDs and SCD 11. Hemoptysis -Secondary to Pradaxa. Holding Pradaxa -Monitor CBC -Resolved. Consider restarted anticoagulation on 12/16/2020 Disposition: Pending clinical improvement in respiratory status. Patient will need a CXR in one months time to ensure resolution of his infiltrate VS, I&O, 24H, Fishbone Vital Signs/I&O Vital Signs Date Time Temp Pulse Resp B/P (MAP) Pulse Ox O2 Delivery O2 Flow Rate FiO2 12/09/20 08:05 78 12/09/20 07:10 97.4 18 104/61 (75) 100 Nasal Cannula 6.0 12/06/20 10:00 40 I&O- Last 24 Hours up to 6 AM 12/09/20 05:59 Intake Total 1160 ml Output Total 1445 ml Balance -285 ml Laboratory Data 24H LABS Laboratory Tests 2 12/08/20 13:23: Lab Scanned Report Miscellaneous Lab 12/09/20 05:09: Nucleated Red Blood Cells % (auto) 0.0, Anion Gap 6L, Glomerular Filtration Rate > 60.0, Calcium Level 8.8, Magnesium Level 1.8 CBC/BMP Laboratory Tests 12/09/20 05:09 Microbiology Microbiology 12/04/20 Gram Stain - Final, Complete 12/04/20 Sputum Culture - Final, Complete 12/03/20 Blood Culture - Final, Complete NO GROWTH AFTER 5 DAYS 12/03/20 Blood Culture - Final, Complete Escherichia Coli SENAIT YOUSIF DO Dec 09, 2020 09:09
[2020-12-09 11:07] VITALS: BP 95/48
[2020-12-09 15:44] VITALS: BP 102/49
--- NOTE | 2020-12-09 17:26 | IPNPDOC ---
Text Note Date of Service The patient was seen on 12/09/20. I stopped by to see Mr. Stubbs this afternoon after Dr. Ron asked me to stop by and speak with his family about his plans moving forward. He is a 85 year old male with CHF, a fib, history of CVA, being treated for lymphoma who is admitted on PCU with e coli pneumonia. Mr. Stubbs's Dahlia was present when I arrived. I introduced myself and explained how my outpatient clinic works and what the purpose of [facility] is. and Mrs. Stubbs stated their daughters generally are here and do most of the communicating with MD's, [employer] etc., but no one is here this afternoon. I left my business card and I will return tomorrow and try to connect with their daughters and have a discussion about how my clinic can be of help, or, if he is more appropriate for the sort of care hospice can provide. VS,Fishbone, I+O VS, Fishbone, I+O Laboratory Tests 12/09/20 05:09 Vital Signs Date Time Temp Pulse Resp B/P (MAP) Pulse Ox O2 Delivery O2 Flow Rate FiO2 12/09/20 16:00 6.0 12/09/20 15:44 97.0 81 18 102/49 (66) 95 Nasal Cannula 12/06/20 10:00 40 I&O- Last 24 Hours up to 6 AM 12/09/20 06:00 Intake Total 1280 ml Output Total 1795 ml Balance -515 ml Rebeca [facility] Dec 09, 2020 17:26
[2020-12-09 20:00] VITALS: BP 114/72
[2020-12-09] MEDS: TAMSULOSIN 0.4 MG CAP PO SCH (20:09)
[2020-12-09] MEDS: ESCITALOPRAM OXALATE 10 MG TAB (LEXAPRO) PO SCH (20:10)
[2020-12-09] MEDS: LevoFLOXacin 500 MG TABLET PO SCH (20:10)
[2020-12-09] MEDS: guaiFENesin 200 MG TAB PO PRN (23:38)
[2020-12-09] MEDS: ACETAMINOPHEN TAB 650MG DOSE (2X325MG) PO PRN (23:38)
[2020-12-10] VITALS (7 sets, daily range): BP systolic 102–132; BP diastolic 48–78
[2020-12-10] MEDS: ALBUTEROL SULFATE 2.5 MG/0.5 ML INH NEB SOLN NEB SCH ×5 (04:48→20:18)
[2020-12-10 05:22] LABS: HEMATOCRIT 25.6 % (42.0-52.0); HEMOGLOBIN 8.1 g/dl (13.5-17.5); MEAN CORPUSCULAR HEMOGLOBIN 29.2 pg (27.0-33.0); MEAN CORPUSCULAR HGB CONC 31.6 g/dl (32.0-36.5); MEAN CORPUSCULAR VOLUME 92.4 fl (80.0-96.0); PLATELET COUNT, AUTOMATED 183 10^3/uL (150-450); RED BLOOD COUNT 2.77 10^6/uL (4.30-6.10); WHITE BLOOD COUNT 8.8 10^3/uL (4.0-10.0)
[2020-12-10 05:37] LABS: BLOOD UREA NITROGEN 24 MG/DL (7-18); CALCIUM LEVEL 8.8 MG/DL (8.8-10.2); CARBON DIOXIDE LEVEL 27 MEQ/L (21-32); CHLORIDE LEVEL 104 MEQ/L (98-107); CREATININE FOR GFR 0.73 MG/DL (0.70-1.30); GLOMERULAR FILTRATION RATE > 60.0 (>35); GLUCOSE, FASTING 104 MG/DL (70-100); POTASSIUM SERUM 4.1 MEQ/L (3.5-5.1); SODIUM LEVEL 138 MEQ/L (136-145)
[2020-12-10] MEDS ORDERED: LIDOCAINE 4% CREAM 5GM (LMX4) TOP PRN (07:55)
[2020-12-10] MEDS ORDERED: CEPACOL LOZENGE PO PRN (09:30)
--- NOTE | 2020-12-10 09:52 | IPN ---
PROGRESS NOTE DATE: 12/10/2020 SUBJECTIVE: I was called due to concerns that the patient may not be improving as expected. When I went to the patient's bedside I took him off oxygen. His oxygen saturation remained above 90% with talking. Yesterday he was on 6 liters but he was satting 98 to 100% on 6 liters. I think his oxygen just was not turned down. Six days ago he was requiring significant amounts of oxygen, 40% FiO2 with 40 liters at times. Since that time he has had significant improvement. He is able to mobilize his secretions better. He denies any chest pain. Chest x-ray was performed yesterday which does not show any significant changes but there is no new pleural effusion. The pain himself states the only pain he has had is occasionally his abdominal muscles hurt because of coughing. He then states occasionally his hip would hurt. He is currently off his Pradaxa because of hemoptysis. His sputum is now brown suggesting old hemorrhage mixed with mucous. OBJECTIVE: VITAL SIGNS: Temperature 99.0, pulse is irregularly irregular at 79, respiratory rate 21, blood pressure 103/56 with MAP of 72, oxygen saturation is 91% on room air, 97% on 3 liters prior to that. GENERAL: Awake, alert and oriented. Affect and mood are appropriate. Nutrition and hygiene are good. HEENT: Oral and nasal mucosa pink and moist without lesions. Oropharynx without erythema or exudate. NECK: Supple, no tracheal deviation. No lymph nodes, cervical, supraclavicular or axillary adenopathy. CARDIAC: Irregularly irregular, S1, S2 without audible murmur, rub or gallop. No peripheral edema. PMI nondisplaced. PULMONARY: Bibasilar rales are present without dullness to percussion. No accessory muscle use. ABDOMEN: Soft, nontender, non-distended. No hepatosplenomegaly, masses or hernias. EXTREMITIES: No cyanosis, clubbing or edema. LABORATORY EVALUATION: White count 8.8, hemoglobin 8.1, platelet count of 183. Sodium 138, potassium 4.1, chloride 104, bicarb 27, BUN 24, creatinine 0.73 and glucose of 104. IMPRESSION/PLAN: E. coli pneumonia with E. coli bacteremia, severe presentation. I am actually impressed with how well he is actually doing today. He is off oxygen at rest. He will likely need oxygen with ambulation. This should be tested for with physical therapy. Continue mobilization of mucous secretions as warranted and continue antibiotic therapy. If the patient develops any chest discomfort, fevers or leukocytosis will consider re-imaging with chest CT due to the severity of the pneumonia and the possibility of developing an abscess. At this point in time the patient has none of those features. He is continuing to improve on a daily basis. MTDD
[2020-12-10] MEDS: DUTASTERIDE 0.5 MG CAP (AVODART) PO SCH (10:06)
[2020-12-10] MEDS: DOCUSATE SODIUM 100MG CAPSULE PO SCH ×2 (10:07→20:38)
[2020-12-10] MEDS: DIGOXIN 0.125 MG TAB PO SCH (10:07)
[2020-12-10] MEDS: FUROSEMIDE 20 MG TAB PO SCH (10:07)
[2020-12-10] MEDS: PANTOPRAZOLE 40MG TAB (PROTONIX) PO SCH (10:07)
[2020-12-10] MEDS: MIDODRINE 2.5 MG TAB PO SCH ×3 (10:08→17:07)
[2020-12-10] MEDS: FERROUS SULFATE 325MG TAB PO SCH (10:08)
[2020-12-10] MEDS: guaiFENesin 200 MG TAB PO PRN (10:08)
[2020-12-10] MEDS: BENZONATATE 100 MG CAP PO SCH ×3 (10:08→20:37)
--- NOTE | 2020-12-10 17:34 | CR.PDOC ---
General Date of Consultation: Dec 10, 2020 Referring Provider: SENAIT YOUSIF DO Primary Care Physician: Jr More Collins Consultation REASON FOR CONSULTATION/CHIEF COMPLAINT: 85 year old male admitted to [facility] with e coli pneumonia. He has been getting treatment for NHL with Rituxan and otyher immunotherpeutic drugs and reported he has not done well with his past few doses. He has comorbid CHF, HTN, history of CVA. Heh as had a difficult hosptial course here requiring xoygen at all times, though when I saw him this morning he reported his O2 had been taken off and although he became dyspneic when he walked to the , overall he was feeling all right. He expressed a desire to get home to his family. HIs daughters had requested information about [facility] ( palliative care ) vs hospice care to prepare for the possibility he may need end of life care. HISTORY OF PRESENT ILLNESS: As above. Family and he report he has had a few severe medical problems in the past several months, nearly dying last winter while hospitalized. He and his family report he has much less stamina, gets frustrated he cannot do activities he previously could perform easily. He does have advanced directives, with [facility] indicating DNR/DNI, no tube feedings. ALLERGIES: Please see below. HOME MEDICATIONS: Please see below. PAST MEDICAL HISTORY: 1. NHL 2. CHF 3. pneumonia 4. CVA 5. Afib s/p pacemaker placement 6. HTN PAST SURGICAL HISTORY: 1. cat. ext 2. tonsillectomy 3. pacemaker placement 4. cardiac cath with stent 5. 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 constipation SKIN: bruises easily NEUROLOGICAL: weakness PSYCHIATRIC: denies depression or anxiety ENDOCRINE: n/a HEMATOLOGIC/LYMPHATIC: NHL PHYSICAL EXAMINATION: VITAL SIGNS: Please see below. GENERAL APPEARANCE: Frail appearing elderly male seated in bedside chair in no distress. Pleasant, cooperative, able to answer questions easily HEENT: [place], pharynx clear. RESPIRATORY: decreased breath sounds bilateral bases, coughing up dark tinged thick sputum CARDIOVASCULAR: irregular ABDOMEN: +BS no guarding or rebound tenderness EXTREMITIES: trace edema, no cyanosis NEUROLOGICAL: CN 2-12 grossly intact, able to move all extremities easily while seated PSYCHIATRIC: euthymic LABORATORY DATA: Please see below. ASSESSMENT/PLAN: 1. e coli pneumonia in setting of multiple other chronic diseases ( CHF, a fib, NHL ) 2. Goals of care. I saw Mr. Stubbs with Dotty Joy LMSW from [facility] this morning for about 45 minutes. We discussed what he would like to see happen with this admission. He stated ideally he would like to get better and go home, however, he thinks his pneumonia might kill him. I asked where he would prefer to be if he could choose. He stated he would like to be home with his family. I explained what my clinic does ( outpatient only, limited availability of one provider ) and Dotty explained how care under [facility] would work. He had some questions about both and all his questions were answered fully. He stated he would like to talk this over with his family. I told him Nocole and I would be talking on the telephone with his daughters and later in the day and asked if he minded if we shared anything he told us during our visit today. He stated we were welcome to tell them anything he had said. We had a telephone conference with his daughters Dennis and Thea and his , Lidia from 1530 to 1630 today. We again explained what a referral to [facility] would look like compared to going on hospice. We shared with them that Mr. Stubbs appeared to be at peace with his medical state and stated he was not afraid to , he had a wonderful life and has a wonderful family that means the world to him and if he tonight, he would pass away a happy man. They were happy though not surprised to hear that. They had many questions related to insurance coverage, medications, what would happen with his appointments with Dr. More and his color sprayer ( he would contineu to see them on [facility], hospice nurse would confer with Dr. More should he go on hospice. ). IN the end, they decided they want to see how much more he improves on IV antibiotics over the next few days and they will decide then after talking with him which path they wish to take. I also told them they do not need to have him follow in my clinic or go on hospice, they certinaly have the option of continuing with Dr. More and his specialty providers if they decide that is what they are most comfortable with and could contact [facility] or hospice at a later date if they wanted. They were appreciative of all the information they received over the telephone and Dotty will be taking them an information packet from hospice later today. Total time: 1 hour and 45 minutes. Vital Signs/I&O Vital Signs Date Time Temp Pulse Resp B/P (MAP) Pulse Ox O2 Delivery O2 Flow Rate FiO2 12/10/20 16:00 97.7 94 18 103/54 (70) 91 Nasal Cannula 2.0 12/06/20 10:00 40 I&O- Last 24 Hours up to 6 AM 12/10/20 06:00 Intake Total 790 ml Output Total 2400 ml Balance -1610 ml Laboratory Data Labs 24H Laboratory Tests 2 12/10/20 04:42: Nucleated Red Blood Cells % (auto) 0.0, Anion Gap 7L, Glomerular Filtration Rate > 60.0, Calcium Level 8.8 CBC/BMP Laboratory Tests 12/10/20 04:42 Microbiology Microbiology 12/04/20 Gram Stain - Final, Complete 12/04/20 Sputum Culture - Final, Complete 12/03/20 Blood Culture - Final, Complete NO GROWTH AFTER 5 DAYS 12/03/20 Blood Culture - Final, Complete Escherichia Coli Allergies Coded Allergies: Contrast Media (Verified Allergy, Severe, SOB, 05/28/20) had reaction even after he had premedication Penicillins (Verified Allergy, Intermediate, RASH, 10/12/18) Home Medications Scheduled Ascorbic Acid (Vitamin C) 500 Mg Tablet, 500 MG PO DAILY, (Reported) Dabigatran Etexilate Mesylate (Pradaxa) 150 Mg Capsule, 150 MG PO BID, (Reported) Digoxin (Digoxin) 125 Mcg Tablet, 125 MCG PO DAILY, (Reported) Dutasteride (Avodart) 0.5 Mg Capsule, 0.5 MG PO DAILY, (Reported) Escitalopram Oxalate (Lexapro) 10 Mg Tablet, 10 MG PO QHS, (Reported) Ferrous Sulfate (Iron) 325 Mg Tablet, 325 MG PO DAILY, (Reported) Furosemide (Furosemide) 20 Mg Tablet, 20 MG PO Q2D, (Reported) Lenalidomide (Revlimid) 20 Mg Capsule, 1 CAP PO DAILY for 28 Days, #28 TAKE ONE 20 MG CAPSULE BY MOUTH 1-21 DAYS, THEN 7 DAYS OFF Lenalidomide (Revlimid) 20 Mg Capsule, 20 MG PO ASDIRECTED, (Reported) TAKES AT 1600 FOR 21 DAYS AND THEN STOPS FOR 7 DAYS Midodrine HCl (Midodrine HCl) 2.5 Mg Tablet, 2.5 MG PO TID, (Reported) 0800, 1300, 1700 Rebeca FOWLER [facility] Dec 10, 2020 17:34
--- NOTE | 2020-12-10 19:13 | IPNPDOC ---
Subjective Date Seen The patient was seen on 12/10/20. Subjective Chief Complaint/HPI Mr. Stubbs is an 85 year old male with heart failure with preserved EF, atrial fibrillation s/p pacemaker, and lymphoma undergoing treatment who presents with worsening dyspnea which is secondary to gram negative sepsis 2/2 E.coli pneumonia. Patient was seen this morning. He was doing better, on 3L of oxygen instead of 6L the day prior. He still has abdominal pain from the coughing and still coughing frequently. Added on Cepacol lozenges to the Tessalon Perles to help with the cough. Later in the afternoon, Dr. Will was able to wean him off oxygen. Patient would still desaturate with activity. The mucous is old blood, he may still have this for the next few weeks. Objective Physical Examination General Exam: Positive: Alert, Cooperative Eye Exam: Negative: Sclera icteric Chest Exam: Positive: Diminished Heart Exam: Positive: Rate Normal, Irregular Rhythm Abdomen Exam: Positive: Normal bowel sounds, Soft; Negative: Tenderness Extremity Exam: Positive: Edema (bilateral pitting edema) Psych Exam: Positive: Mood NL Assessment /Plan Assessment Mr. Stubbs is an 85 year old male with heart failure with preserved EF, atrial fibrillation s/p pacemaker, and lymphoma undergoing treatment who is here for sepsis secondary to pneumonia and CHF. Patient will be on Levofloxacin (also has atypical coverage) for pneumonia. Patient does have acute congestive heart failure with elevated pro-BNP. Continue diuresis with IV Lasix Speech/swallow evaluated patient. No dysphagia, but to conserve energy, converted diet to pureed diet. Plan/VTE VTE Prophylaxis Ordered?: Yes Plan 1. Acute hypoxic respiratory failure on admission in the setting of E.coli pneumonia -On admission, patient saturated at 77% while on High flow Mask of 15. Patient has tachypnea. Patient had labored breathing and was put on Bipap -Pulmonary/Critical care consulted, recommendations appreciated. Patient has greatly improved, and they have signed off -Patient now on NC. Weaning as tolerated. Desats with activity -Chest PT and acapella 2. Gram negative sepsis 2/2 E.coli pneumonia -3/4 SIRS criteria (Tachycardia, tachypnea, and leukocytosis. No fever) -Cautious with fluids due to patient's heart failure and respiratory status -Levofloxacin day 7 -MRSA screen negative 3. Hypotension -Patient chronically on midodrine -Improved with the treatment of gram negative sepsis and E.coli pneumonia 4. Acute decompensated heart failure with preserved [place] [address] -Echocardiogram ordered -Continue BID IV Lasix 5. Lymphoma -Patient follows with Dr. Horn outpatient -He is receiving rituximab injections and lenalidomide outpatient -Will hold lenalidomide due to active infection 6. Atrial fibrillation s/p pacemaker -Heart rate controlled -Dabigatran discontinued due to hemoptysis -Pulmonary recommended restarting Pradaxa in a couple of weeks after his hemo ptysis has resolved 7. BPH -Continue dutasteride 8. Depression -Continue escitalopram 9. GI ppx -Patient started on IV pantoprazole 10. DVT ppx -Hemoptysis with drop of H&H. No chemical ppx -On TEDs and SCD 11. Hemoptysis -Secondary to Pradaxa. Holding Pradaxa -Monitor CBC -Resolved. Consider restarted anticoagulation on 12/16/2020 Disposition: Pending clinical improvement in respiratory status. Patient will need a CXR in one months time to ensure resolution of his infiltrate VS, I&O, 24H, [facility] Vital Signs/I&O Vital Signs Date Time Temp Pulse Resp B/P (MAP) Pulse Ox O2 Delivery O2 Flow Rate FiO2 12/10/20 16:00 97.7 94 18 103/54 (70) 91 Nasal Cannula 2.0 12/06/20 10:00 40 I&O- Last 24 Hours up to 6 AM 12/10/20 06:00 Intake Total 790 ml Output Total 2400 ml Balance -1610 ml Laboratory Data 24H LABS Laboratory Tests 2 12/10/20 04:42: Nucleated Red Blood Cells % (auto) 0.0, Anion Gap 7L, Glomerular Filtration Rate > 60.0, Calcium Level 8.8 CBC/BMP Laboratory Tests 12/10/20 04:42 Microbiology Microbiology 12/04/20 Gram Stain - Final, Complete 12/04/20 Sputum Culture - Final, Complete 12/03/20 Blood Culture - Final, Complete NO GROWTH AFTER 5 DAYS 12/03/20 Blood Culture - Final, Complete Escherichia Coli SENAIT YOUSIF DO Dec 10, 2020 19:12
[2020-12-10] MEDS: LevoFLOXacin 500 MG TABLET PO SCH (20:37)
[2020-12-10] MEDS: ESCITALOPRAM OXALATE 10 MG TAB (LEXAPRO) PO SCH (20:38)
[2020-12-10] MEDS: ACETAMINOPHEN TAB 650MG DOSE (2X325MG) PO PRN (20:38)
[2020-12-10] MEDS: TAMSULOSIN 0.4 MG CAP PO SCH (20:39)
[2020-12-11] MEDS: ALBUTEROL SULFATE 2.5 MG/0.5 ML INH NEB SOLN NEB SCH ×7 (03:41→23:09)
[2020-12-11 04:00] VITALS: BP 121/65
[2020-12-11 05:35] LABS: HEMATOCRIT 28.4 % (42.0-52.0); HEMOGLOBIN 8.9 g/dl (13.5-17.5); MEAN CORPUSCULAR HGB CONC 31.3 g/dl (32.0-36.5); MEAN CORPUSCULAR VOLUME 92.5 fl (80.0-96.0); PLATELET COUNT, AUTOMATED 220 10^3/uL (150-450); RED BLOOD COUNT 3.07 10^6/uL (4.30-6.10); WHITE BLOOD COUNT 7.9 10^3/uL (4.0-10.0)
[2020-12-11 05:55] LABS: ERYTHROCYTE SEDIMENTATION RATE 63 mm/hr (0-20)
[2020-12-11 05:56] LABS: BLOOD UREA NITROGEN 25 MG/DL (7-18); C REACTIVE PROTEIN QUANTITATIV 9.76 MG/DL (0.00-0.30); CALCIUM LEVEL 9.2 MG/DL (8.8-10.2); CARBON DIOXIDE LEVEL 28 MEQ/L (21-32); CHLORIDE LEVEL 103 MEQ/L (98-107); CREATININE FOR GFR 0.71 MG/DL (0.70-1.30); GLOMERULAR FILTRATION RATE > 60.0 (>35); GLUCOSE, FASTING 89 MG/DL (70-100); POTASSIUM SERUM 4.3 MEQ/L (3.5-5.1); SODIUM LEVEL 137 MEQ/L (136-145)
[2020-12-11 08:00] VITALS: BP 125/62
[2020-12-11] MEDS: BENZONATATE 100 MG CAP PO SCH ×3 (08:55→20:49)
[2020-12-11] MEDS: DOCUSATE SODIUM 100MG CAPSULE PO SCH ×2 (08:55→20:49)
[2020-12-11] MEDS: MIDODRINE 2.5 MG TAB PO SCH ×3 (08:55→16:16)
[2020-12-11] MEDS: DIGOXIN 0.125 MG TAB PO SCH (08:55)
[2020-12-11] MEDS: FERROUS SULFATE 325MG TAB PO SCH (08:55)
[2020-12-11] MEDS: DUTASTERIDE 0.5 MG CAP (AVODART) PO SCH (08:56)
[2020-12-11] MEDS: FUROSEMIDE 20 MG TAB PO SCH (08:56)
[2020-12-11] MEDS: PANTOPRAZOLE 40MG TAB (PROTONIX) PO SCH (08:56)
[2020-12-11 11:46] VITALS: BP 117/56
[2020-12-11] MEDS ORDERED: SLF 3 ML SYR IV PRN (12:25)
--- NOTE | 2020-12-11 12:58 | IPNPDOC ---
Subjective Date Seen The patient was seen on 12/11/20. Subjective Chief Complaint/HPI Mr. Stubbs is an 85 year old male with heart failure with preserved EF, atrial fibrillation s/p pacemaker, and lymphoma undergoing treatment who presents with worsening dyspnea which is secondary to gram negative sepsis 2/2 E.coli pneumonia. Patient seen in the morning. Still has side pain from coughing and still coughing up sputum. Explained that this may need a few weeks to clear up. Otherwise, he needs oxygen with activity. Objective Physical Examination General Exam: Positive: Alert, Cooperative Eye Exam: Negative: Sclera icteric Chest Exam: Positive: Diminished Heart Exam: Positive: Rate Normal, Irregular Rhythm Abdomen Exam: Positive: Normal bowel sounds, Soft; Negative: Tenderness Extremity Exam: Positive: Edema (bilateral pitting edema) Psych Exam: Positive: Mood NL Assessment /Plan Assessment Mr. Stubbs is an 85 year old male with heart failure with preserved EF, atrial fibrillation s/p pacemaker, and lymphoma undergoing treatment who is here for sepsis secondary to pneumonia and CHF. Patient will be on Levofloxacin (also has atypical coverage) for pneumonia. Patient does have acute congestive heart failure with elevated pro-BNP. Continue diuresis with IV Lasix Speech/swallow evaluated patient. No dysphagia, but to conserve energy, converted diet to mechanical soft diet. Plan/VTE VTE Prophylaxis Ordered?: Yes Plan 1. Acute hypoxic respiratory failure on admission in the setting of E.coli pneumonia -On admission, patient saturated at 77% while on High flow Mask of 15. Patient has tachypnea. Patient had labored breathing and was put on Bipap -Pulmonary/Critical care consulted, recommendations appreciated. Patient has greatly improved, and they have signed off -Patient now on NC. Weaning as tolerated. Desats with activity -Chest PT and acapella 2. Gram negative sepsis 2/2 E.coli pneumonia -3/4 SIRS criteria (Tachycardia, tachypnea, and leukocytosis. No fever) -Cautious with fluids due to patient's heart failure and respiratory status -Levofloxacin day 8 -MRSA screen negative 3. Hypotension -Patient chronically on midodrine -Improved with the treatment of gram negative sepsis and E.coli pneumonia 4. Acute decompensated heart failure with preserved [place] [address] -Echocardiogram ordered -Continue BID IV Lasix 5. Lymphoma -Patient follows with Dr. Horn outpatient -He is receiving rituximab injections and lenalidomide outpatient -Will hold lenalidomide due to active infection 6. Atrial fibrillation s/p pacemaker -Heart rate controlled -Dabigatran discontinued due to hemoptysis -Pulmonary recommended restarting Pradaxa in a couple of weeks after his hemoptysis has resolved 7. BPH -Continue dutasteride 8. Depression -Continue escitalopram 9. GI ppx -Patient started on IV pantoprazole 10. DVT ppx -Hemoptysis with drop of H&H. No chemical ppx -On TEDs and SCD 11. Hemoptysis -Secondary to Pradaxa. Holding Pradaxa -Monitor CBC -Resolved. Consider restarted anticoagulation on 12/16/2020 Disposition: Pending clinical improvement in respiratory status. Patient will need a CXR in one months time to ensure resolution of his infiltrate VS, I&O, 24H, [facility] Vital Signs/I&O Vital Signs Date Time Temp Pulse Resp B/P (MAP) Pulse Ox O2 Delivery O2 Flow Rate FiO2 12/11/20 12:00 2.0 12/11/20 11:46 97.0 89 18 117/56 (76) 99 Nasal Cannula 12/06/20 10:00 40 I&O- Last 24 Hours up to 6 AM 12/11/20 06:00 Intake Total 1008 ml Output Total 750 ml Balance 258 ml Laboratory Data 24H LABS Laboratory Tests 2 12/11/20 04:56: Nucleated Red Blood Cells % (auto) 0.0, Erythrocyte Sedimentation Rate 63H, Anion Gap 6L, Glomerular Filtration Rate > 60.0, Calcium Level 9.2, C-Reactive Protein, Quantitative 9.76H CBC/BMP Laboratory Tests 12/11/20 04:56 Microbiology Microbiology 12/04/20 Gram Stain - Final, Complete 12/04/20 Sputum Culture - Final, Complete 12/03/20 Blood Culture - Final, Complete NO GROWTH AFTER 5 DAYS 12/03/20 Blood Culture - Final, Complete Escherichia Coli SENAIT YOUSIF DO Dec 11, 2020 12:58
[2020-12-11] MEDS: SLF 3 ML SYR IV SCH ×2 (13:17→20:50)
[2020-12-11] MEDS: ACETAMINOPHEN TAB 650MG DOSE (2X325MG) PO PRN ×2 (15:01→20:49)
[2020-12-11 16:00] VITALS: BP 122/65
[2020-12-11 20:00] VITALS: BP 122/51
[2020-12-11] MEDS: LevoFLOXacin 500 MG TABLET PO SCH (20:49)
[2020-12-11] MEDS: TAMSULOSIN 0.4 MG CAP PO SCH (20:49)
[2020-12-11] MEDS: ESCITALOPRAM OXALATE 10 MG TAB (LEXAPRO) PO SCH (20:49)
[2020-12-11] MEDS ORDERED: RAMELTEON 8 MG TAB (ROZEREM) PO PRN (22:55)
[2020-12-12] VITALS: BP 101/50
[2020-12-12 04:00] VITALS: BP 133/70
[2020-12-12] MEDS: ALBUTEROL SULFATE 2.5 MG/0.5 ML INH NEB SOLN NEB SCH ×3 (04:35→11:15)
[2020-12-12 04:48] LABS: HEMATOCRIT 27.4 % (42.0-52.0); HEMOGLOBIN 8.7 g/dl (13.5-17.5); MEAN CORPUSCULAR HEMOGLOBIN 29.2 pg (27.0-33.0); MEAN CORPUSCULAR HGB CONC 31.8 g/dl (32.0-36.5); MEAN CORPUSCULAR VOLUME 91.9 fl (80.0-96.0); PLATELET COUNT, AUTOMATED 228 10^3/uL (150-450); RED BLOOD COUNT 2.98 10^6/uL (4.30-6.10); WHITE BLOOD COUNT 7.4 10^3/uL (4.0-10.0)
[2020-12-12 05:04] LABS: BLOOD UREA NITROGEN 26 MG/DL (7-18); CALCIUM LEVEL 9.1 MG/DL (8.8-10.2); CARBON DIOXIDE LEVEL 25 MEQ/L (21-32); CHLORIDE LEVEL 105 MEQ/L (98-107); CREATININE FOR GFR 0.68 MG/DL (0.70-1.30); GLOMERULAR FILTRATION RATE > 60.0 (>35); GLUCOSE, FASTING 93 MG/DL (70-100); POTASSIUM SERUM 4.3 MEQ/L (3.5-5.1); SODIUM LEVEL 136 MEQ/L (136-145)
[2020-12-12] MEDS: SLF 3 ML SYR IV SCH ×2 (06:09→14:40)
[2020-12-12 08:00] VITALS: BP 146/64
[2020-12-12 09:17] LABS: C REACTIVE PROTEIN QUANTITATIV 8.16 MG/DL (0.00-0.30)
[2020-12-12 09:25] LABS: ERYTHROCYTE SEDIMENTATION RATE 60 mm/hr (0-20)
[2020-12-12] MEDS: PANTOPRAZOLE 40MG TAB (PROTONIX) PO SCH (09:25)
[2020-12-12] MEDS: DUTASTERIDE 0.5 MG CAP (AVODART) PO SCH (09:25)
[2020-12-12] MEDS: FUROSEMIDE 20 MG TAB PO SCH (09:25)
[2020-12-12] MEDS: BENZONATATE 100 MG CAP PO SCH (09:25)
[2020-12-12] MEDS: DOCUSATE SODIUM 100MG CAPSULE PO SCH (09:25)
[2020-12-12] MEDS: MIDODRINE 2.5 MG TAB PO SCH ×2 (09:26→14:40)
[2020-12-12] MEDS: FERROUS SULFATE 325MG TAB PO SCH (09:26)
[2020-12-12] MEDS: DIGOXIN 0.125 MG TAB PO SCH (09:26)
[2020-12-12] MEDS ORDERED: GUAI20TA PO (11:55)
[2020-12-12] MEDS ORDERED: ALB2.5NEB NEB (11:55)
[2020-12-12] MEDS ORDERED: LEVO500T3 PO (11:55)
[2020-12-12] MEDS ORDERED: BENZ-18 PO (11:55)
[2020-12-12] MEDS ORDERED: DOK1CAP7 PO (11:55)
[2020-12-12 12:00] VITALS: BP 94/46
[2020-12-12] MEDS ORDERED: PROA1AER2 INH (12:11)
[2020-12-12] MEDS ORDERED: MUCI600T31 PO (13:36)
--- NOTE | 2020-12-12 22:34 | DS.PDOC ---
Discharge Summary General Date of Admission December 04, 2020 at 00:45 Date of Discharge Dec 12, 2020 Discharge Summary PROCEDURES PERFORMED DURING STAY: [None]. ADMITTING DIAGNOSES: 1. . DISCHARGE DIAGNOSES: 1. . COMPLICATIONS/CHIEF COMPLAINT: Pneumonia. HISTORY OF PRESENT ILLNESS: . HOSPITAL COURSE: . DISCHARGE MEDICATIONS: Please see below. ALLERGIES: Please see below. PHYSICAL EXAMINATION ON DISCHARGE: VITAL SIGNS: Please see below. GENERAL: HEENT: NECK: CARDIOVASCULAR EXAMINATION: RESPIRATORY EXAMINATION: ABDOMINAL EXAMINATION: EXTREMITIES: SKIN: NEUROLOGICAL EXAMINATION: PSYCHIATRIC EXAMINATION: LABORATORY DATA: Please see below. IMAGING: PROGNOSIS: ACTIVITY: [As tolerated]. DIET: DISCHARGE PLAN: DISPOSITION: 06 Home Health Service. DISCHARGE INSTRUCTIONS: 1. . ITEMS TO FOLLOWUP ON ON OUTPATIENT: 1. . DISCHARGE CONDITION: [Stable]. TIME SPENT ON DISCHARGE: Greater than minutes. Vital Signs/I&Os Vital Signs Date Time Temp Pulse Resp B/P (MAP) Pulse Ox O2 Delivery O2 Flow Rate FiO2 12/12/20 12:05 2.0 12/12/20 12:00 97.1 76 21 94/46 (62) 97 Nasal Cannula 12/06/20 10:00 40 I&O- Last 24 Hours up to 6 AM 12/12/20 06:00 Intake Total 840 ml Output Total 1850 ml Balance -1010 ml Laboratory Data Labs 24H Laboratory Tests 2 12/12/20 04:15: Nucleated Red Blood Cells % (auto) 0.0, Erythrocyte Sedimentation Rate 60H, Anion Gap 6L, Glomerular Filtration Rate > 60.0, Calcium Level 9.1, C-Reactive Protein, Quantitative 8.16H CBC/BMP Laboratory Tests 12/12/20 04:15 Microbiology Microbiology 12/04/20 Gram Stain - Final, Complete 12/04/20 Sputum Culture - Final, Complete 12/03/20 Blood Culture - Final, Complete NO GROWTH AFTER 5 DAYS 12/03/20 Blood Culture - Final, Complete Escherichia Coli Discharge Medications Scheduled Ascorbic Acid (Vitamin C) 500 Mg Tablet, 500 MG PO DAILY, (Reported) Benzonatate (Benzonatate) 100 Mg Capsule, 200 MG PO TID Dabigatran Etexilate Mesylate (Pradaxa) 150 Mg Capsule, 150 MG PO BID, (Reported) Digoxin (Digoxin) 125 Mcg Tablet, 125 MCG PO DAILY, (Reported) Docusate Sodium (Dok) 100 Mg Capsule, 100 MG PO BID Dutasteride (Avodart) 0.5 Mg Capsule, 0.5 MG PO DAILY, (Reported) Escitalopram Oxalate (Lexapro) 10 Mg Tablet, 10 MG PO QHS, (Reported) Ferrous Sulfate (Iron) 325 Mg Tablet, 325 MG PO DAILY, (Reported) Furosemide (Furosemide) 20 Mg Tablet, 20 MG PO Q2D, (Reported) Levofloxacin (Levofloxacin) 500 Mg Tablet, 500 MG PO QHS Midodrine HCl (Midodrine HCl) 2.5 Mg Tablet, 2.5 MG PO TID, (Reported) 0800, 1300, 1700 Scheduled PRN Albuterol Sulfate (Proair Respiclick) 90 Mcg Aer.pow.ba, 2 PUFF INH Q4HP PRN for shortness of breath Guaifenesin (Mucinex) 600 Mg Tab.er.12h, 600 MG PO Q12HP PRN for COUGH Allergies Coded Allergies: Contrast Media (Verified Allergy, Severe, SOB, 05/28/20) had reaction even after he had premedication Penicillins (Verified Allergy, Intermediate, RASH, 10/12/18) SENAIT YOUSIF DO Dec 12, 2020 22:34
== END 2020-12-12 15:53 | disposition home health service (06) | DRG 871 ==
LOC: M ED 22:30 → M ED INP 12-04 00:45 → ENRESERV 12-04 01:37 → M ICU 12-04 02:10 → M PCU 12-06 17:31
PROVIDERS: ADMIT Family Medicine; ATTEND Internal Medicine
DX: A41.51 Sepsis due to Escherichia coli [E. coli] (principal); J15.5 Pneumonia due to Escherichia coli; G93.41 Metabolic encephalopathy; J96.01 Acute respiratory failure with hypoxia; I50.33 Acute on chronic diastolic (congestive) heart failure; J90 Pleural effusion, not elsewhere classified; C85.90 Non-Hodgkin lymphoma, unspecified, unspecified site; R04.2 Hemoptysis; D68.32 Hemorrhagic disorder due to extrinsic circulating anticoagulants; I25.10 Atherosclerotic heart disease of native coronary artery without angina pectoris; Z66 Do not resuscitate; I48.91 Unspecified atrial fibrillation; I11.0 Hypertensive heart disease with heart failure; E78.5 Hyperlipidemia, unspecified; N40.0 Benign prostatic hyperplasia without lower urinary tract symptoms; F32.9 Major depressive disorder, single episode, unspecified; Z95.0 Presence of cardiac pacemaker; Z86.73 Personal history of transient ischemic attack (TIA), and cerebral infarction without residual deficits; Z98.41 Cataract extraction status, right eye; Z98.42 Cataract extraction status, left eye; Z20.822 Contact with and (suspected) exposure to COVID-19; Z79.899 Other long term (current) drug therapy; Z88.0 Allergy status to penicillin; Z91.041 Radiographic dye allergy status

== ENCOUNTER → 2021-01-01 | Outpatient (CLI) | payer MEDICARE, OTHER ==
[~2021-01-01] MED LIST changes: +ALB2.5NEB NEB; +C 50TAB PO; +DOK1CAP7 PO; +GUAI20TA PO; +MUCI600T31 PO; +PROA1AER2 INH
--- NOTE | 2021-01-01 17:07 | REP ---
INDICATION: PNEUMONIA, UNSPECIFIED ORGANISM COMPARISON: 12/09/2020 TECHNIQUE: PA and lateral. FINDINGS: Generalized ground-glass opacity to the right upper lobe with small areas of airspace disease and scarring suggest partial resolution to previously noted right upper lobe consolidation. Bibasilar airspace disease and small right pleural effusion are suspected. No pneumothorax. Mediastinum and cardiac silhouette are stable. Dual lead pacemaker again noted. Skeletal structures intact IMPRESSION: 1. Acute on chronic multifocal airspace disease primarily involving right upper lobe and bilateral bases (right greater than left) including small right pleural effusion <Electronically signed by Mehdi Lucio > 01/01/21 1134
== END ==
LOC: M RAD 16:19
PROVIDERS: ATTEND Internal Medicine Pulmonary Disease
DX: J90 Pleural effusion, not elsewhere classified (principal); J98.4 Other disorders of lung; Z95.0 Presence of cardiac pacemaker